=== PATIENT | male | born 1935 | race Caucasian/White ===

== ENCOUNTER 2022-04-10 09:06 | Inpatient (IN) | payer MEDICARE, BC, SELFPAY ==
[2022-04-10] VITALS (28 sets, daily range): BP systolic 128–180; BP diastolic 54–82; PULSE 81–110; RESP 19–36; TEMP 36.6–38; O2SAT 93–98; BMI 29.1; BMI 29.2
--- NOTE | ~2022-04-10 | XR_ITS ---
EXAM: XR hip BI 2V w AP pelvis DATE: 04/10/2022 19:07 HISTORY: fall . COMPARISON: None available. FINDINGS: Normal mineralization. No fracture or dislocation. No lytic or blastic lesion. Degenerativ e changes in the lumbar spine. Bilateral hip arthritis. Chondrocalcinosis. Pelvic and hip enthesopath y. No erosion or periosteal change. Vascular calcification. IMPRESSION: No acute osseous finding in the pelvis or bilateral hips. Reviewed, dictated and finalized at location K. CAL GOODS DRILLING MACHINE OPERATOR
--- NOTE | ~2022-04-10 | CT_ITS ---
EXAMINATION: CT brain wo con DATE: 04/10/2022 10:37 INDICATION: Head injury. TECHNIQUE: Computed tomography (CT) of the head was performed without intravenous contrast. The mA wa s adjusted according to patient size. Iterative reconstruction technique was employed. The dose-lengt h product was 681.00 mGy-cm. COMPARISON: None FINDINGS: There are scattered areas of low attenuation in the cerebral white matter and the bilateral basal ganglia. There is no intracranial hemorrhage, acute infarction, or abnormal intracranial mass lesion. The ventricles are normal in size. There is mucosal thickening and fluid in the paranasal sin uses. There are likely changes of ocular lens replacement surgeries. The mastoid air cells are normal . IMPRESSION: 1. Extensive nonspecific cerebral white matter disease and disease of the bilateral basal ganglia, wh ich likely represents chronic small vessel ischemic disease. Reviewed, dictated and finalized at location A. LEAD IMPRESSION: 1. Extensive nonspecific cerebral white matter disease and disease of the bilat eral basal ganglia, which likely represents chronic small vessel ischemic disea se.
--- NOTE | ~2022-04-10 | XR_ITS ---
EXAMINATION: XR chest 2V DATE: 04/13/2022 07:49 INDICATION: Cough and fever TECHNIQUE: AP and lateral views of the chest are obtained. COMPARISON: 04/10/2022 FINDINGS: Patchy opacities persist throughout all lung zones with slight improvement in the right low er lung zone. No pleural effusion or pneumothorax. The cardiomediastinal silhouette is normal. Surgic al clips project immediately over the right lung apex. IMPRESSION: 1. Diffuse lung disease with slight improvement in the right lower lung zone, consistent with pneumon ia and/or pulmonary edema. Reviewed, dictated and finalized at location A. ING MACHINE OPERATOR IMPRESSION: 1. Diffuse lung disease with slight improvement in the right lower lung zone, c onsistent with pneumonia and/or pulmonary edema.
--- NOTE | ~2022-04-10 | XR_ITS ---
EXAMINATION: XR chest 1V portable INDICATION: Cough and fever TECHNIQUE: Portable AP chest at 1005 hours COMPARISON: None available FINDINGS: There are patchy opacities throughout all lung zones. No pleural effusion or pneumothorax. The cardiomediastinal silhouette is normal. Surgical clips project medially in the right lung apex. IMPRESSION: 1. Diffuse lung disease, consistent with pneumonia and/or pulmonary edema. Reviewed, dictated and finalized at location B. CH AND PROSIZE MIXER
--- NOTE | ~2022-04-10 | US_ITS ---
EXAMINATION: US right upper quadrant DATE: 04/14/2022 09:22 INDICATION: Elevated liver function tests TECHNIQUE: Multiple grayscale and Doppler ultrasound images of the abdomen were obtained. COMPARISON: None available FINDINGS: Bowel gas obscures visualization of the pancreas. The liver is normal with normal echogenic ity and echotexture. No surface nodularity. Normal hepatopetal flow in the main portal vein. The gall bladder is normal with no abnormal wall thickening, pericholecystic fluid or stones. The normal commo n bile duct measures 3 mm. There was no sonographic Schmidt sign. IMPRESSION: 1. Normal sonographic study of the gallbladder. Reviewed, dictated and finalized at location A. Y FARM SUPERVISOR
--- NOTE | 2022-04-10 09:29 | ECG_ITS ---
Measurements Intervals [place] Rate: 91 P: 35 W[place]: 186 QRS: -44 QRSD: 126 T: 3 QT: 348 QTc: 429 Interpretive Statements SINUS RHYTHM VENTRICULAR PREMATURE COMPLEX LEFT AXIS DEVIATION VOLTAGE CRITERIA FOR LVH CANNOT RULE OUT SEPTAL INFARCT, AGE INDETERMINATE BORDERLINE T WAVE ABNORMALITY- INFERIOR LEADS BASELINE WANDER- V6 ABNORMAL ECG NO PREVIOUS ECG AVAILABLE FOR COMPARISON Electronically Signed On 04-10-2022 9:54:17 TYPE BAR AND SEGMENT ASSEMBLER by Kedar Perez D.O.
--- NOTE | 2022-04-10 09:45 | ED.WEAKNESS ---
HPI - Weakness General Chief complaint: Weakness Stated complaint: weakness/fever Source: RN notes reviewed History of Present Illness HPI Narrative: Patient presents emergency room from home for generalized weakness. Patient states he has been ill for the past 5 days states he has had a cough this been nonproductive is been associate with a fever up to 104 per his his last dose of Tylenol was at 7 AM this morning with a gram of Tylenol at that time. Patient also notes rhinorrhea and weakness. He denies any sore throat chest pain abdominal pain nausea or vomiting has been having diarrhea as well. The patient did have a fall proximally 7 days ago in which he had bruised his right lower back he denies any pain in the lower back and has been able to get up and walk he denies striking his head states he has been feeling more weak over the past several days Related Data Allergies Allergy/AdvReac Type Severity Reaction Status Date / Time No Known Allergies Allergy Verified 04/10/22 09:18 Review of Systems Review of Systems: Gen.: Denies fevers or chills Eyes: Denies eye pain or visual change ENT: Denies congestion Respiratory: Reports cough CV: Denies chest pain or palpitations GI: Denies abdominal pain nausea, emesis reports diarrhea denies burning, urgency, frequency or hematuria Musculoskeletal: Denies back pain or muscle pain Neuro: Reports weakness Skin: Denies rash Except as documented, all other systems reviewed and negative [facility] Past Medical History Medical History (Updated 04/10/22 @ 11:24 by Eric Angelo DO) Hypertension Social History Social History (Updated 04/10/22 @ 09:56 by Eric Angelo DO) Smoking status: Former smoker Exam Narrative: APPEARANCE: No acute distress, nontoxic, resting in bed EYES: EOMI HEENT: Normocephalic, atraumatic, OMM no tenderness to posterior pharynx RESPIRATORY: No respiratory distress crackles in the bilateral lung hernandez no wheezing CARDIOVASCULAR: Regular rate and rhythm without murmurs rubs or gallops. ABDOMINAL: Soft, nontender, nondistended, no rebound or guarding MUSCULOSKELETAl: Moves all extremities. No clubbing, cyanosis or edema. Back: No midline thoracic lumbar tenderness palpation mild ecchymosis over the right lateral lower back NEURO: Awake and alert x 4. Following commands, speech normal, no focal deficits SKIN:: Warm, dry. No rashes lesions or abrasions PSYCHIATRIC: Normal affect/mood, Course Course Emergency Course: Discussed Dr Collazo presentation work-up agrees with admission request patient started on vancomycin Zithromax and Rocephin as patient received dose of Tamiflu be admitted to the IMU Discussed with patient and family results of workup and diagnosis. Discussed need for admission. Patient and family understand and agree to current treatment plan Vital Signs Vital signs: Vital Signs Temperature 98.0 F 04/10/22 09:13 Pulse Rate 95 04/10/22 09:13 Respiratory Rate 27 H 04/10/22 09:13 Blood Pressure 137/60 04/10/22 09:13 Pulse Oximetry 94 04/10/22 09:13 Oxygen Delivery Room Air 04/10/22 09:13 Temperature 98.0 F 04/10/22 09:13 Pulse Rate 95 04/10/22 09:16 Respiratory Rate 27 H 04/10/22 09:16 Blood Pressure 137/60 04/10/22 09:13 Pulse Oximetry 94 04/10/22 09:16 Oxygen Delivery Room Air 04/10/22 09:13 MDM - Weakness Lab Data Result diagrams: 04/10/22 09:41 04/10/22 09:41 Labs: Lab Results 04/10/22 04/10/22 04/10/22 Range/Units 09:41 09:41 09:41 WBC 4.7 (4.5-10.0) K/mm3 RBC 4.27 L (4.6-6.20) M/mm3 Hgb 12.3 L (14.0-18.0) g/dL Hct 36.9 L (42.0-52.0) % MCV 86.4 (80-100) fl MCH 28.8 (26-34) pg MCHC 33.3 (32-36) g/dl RDW 13.4 (11.5-14.5) % Plt Count 164 (150-375) k/mm3 MPV 8.8 (7.4-10.4) fl Immature Gran % (Auto) Not Reportable Neut % (Auto) Not Reportable Lymph % (Auto) Not Reportabl
[2022-04-10 09:48] LABS: Hematocrit 36.9 % (42.0-52.0); Hemoglobin 12.3 g/dL (14.0-18.0); Mean Corpuscular HGB Conc 33.3 g/dl (32-36); Mean Corpuscular Hemoglobin 28.8 pg (26-34); Mean Corpuscular Volume 86.4 fl (80-100); Mean Platelet Volume 8.8 fl (7.4-10.4); Platelet Count Result 164 k/mm3 (150-375); Red Blood Count 4.27 M/mm3 (4.6-6.20); Red Cell Distribution Width 13.4 % (11.5-14.5); White Blood Count 4.7 K/mm3 (4.5-10.0)
[2022-04-10 10:00] LABS: Lactic Acid Reflex 1.3 mmol/L (0.7-2.0)
[2022-04-10 10:03] LABS: Alanine Aminotransferase 45 U/L (6-50); Albumin Level 3.5 g/dL (3.5-5.1); Alkaline Phosphatase 69 U/L (38-126); Anion Gap 11 mmol/L (8-16); Aspartate Amino Transferase 72 U/L (17-59); Bilirubin,Total 1.4 mg/dL (0.2-1.3); Blood Urea Nitrogen 11 mg/dL (9-20); Calcium 8.2 mg/dL (8.4-10.2); Carbon Dioxide 25 mmol/L (22-30); Chloride 87 mmol/L (98-107); Estimated CRCL calculation 75 ml/min; Estimated Glomerular Filt Rate > 60; Glucose 110 mg/dL (65-110); Magnesium 1.7 mg/dL (1.6-2.3); Potassium 4.8 mmol/L (3.4-5.0); Sodium 123 mmol/L (137-145)
[2022-04-10 10:06] LABS: INR 1.2
[2022-04-10 10:07] LABS: Partial Thromboplastin Time 33.7 SECONDS (22.3-36.8)
[2022-04-10] MEDS: SODIUM CHLORIDE 0.9% IV 1,000 ML 999 ML IV CONT (10:07)
[2022-04-10 10:08] LABS: Band Neutrophils Percent 18 % (0-6); Lymphocytes Absolute Manual 0.18 K/mm3 (1.1-4.5); Monocytes Absolute Manual 0.23 K/mm3 (0.1-0.90); Monocytes Percent Manual 5 % (3-9); Neutrophils Absolute Manual 4.27 K/mm3 (1.3-6.7); Neutrophils Percent Manual 73 % (46-73); Total Cells Counted 100
[2022-04-10 10:09] LABS: Burr Cells 1+ (NORMAL); Platelet Estimate Adequate (Adequate); Schistocytes None Seen (NORMAL)
[2022-04-10 10:38] LABS: Influenza A QL RT-PCR Positive (Negative); Influenza B QL RT-PCR Negative (Negative); RSV RNA, RT-PCR Negative (Negative); SARS-CoV-2 RNA PCR Negative
[2022-04-10 10:42] LABS: NT Pro B Type Natriuretic Pept 656 pg/mL (5-100); Troponin I < 0.012 ng/mL (0.000-0.034)
--- NOTE | 2022-04-10 12:53 | PC.NURSE ---
Patient's concerned about patient home meds that he has not taken today. Dr Angelo made aware.
[2022-04-10 13:04] LABS: Anion Gap 11 mmol/L (8-16); Blood Urea Nitrogen 9 mg/dL (9-20); Calcium 7.6 mg/dL (8.4-10.2); Carbon Dioxide 25 mmol/L (22-30); Chloride 89 mmol/L (98-107); Estimated CRCL calculation 75 ml/min; Estimated Glomerular Filt Rate > 60; Glucose 135 mg/dL (65-110); Potassium 4.4 mmol/L (3.4-5.0); Sodium 125 mmol/L (137-145)
[2022-04-10] MEDS: OLMESARTAN MEDOXOMIL 20 MG TABLET 40 MG PO (13:28)
[2022-04-10 13:36] LABS: Add Urine Microscopic? YES; Appearance Urine Clear (Clear); Bilirubin Urine Negative (Negative); Blood Urine 1+ (Negative); Color Urine Yellow (Yellow); Glucose Urine UA Negative (Negative); Ketones Urine 1+ mg/dL (Negative); Leukocyte Esterase Ur Negative LEU/UL (Negative); Nitrate Urine Negative (Negative); Protein Urine 2+ mg/dL (Negative); Urobilinogen Urine 0.2 mg/dL (<2.0); pH Urine 6.5 (5.0-9.0)
--- NOTE | 2022-04-10 14:26 | PC.NURSE ---
Patient placed on 2L of O2
--- NOTE | 2022-04-10 16:18 | PM.IMHP ---
H&P: HPI History of Present Illness Date/Time: 04/10/22 16:18 Chief Complaint: Weakness and fever Narrative: 86yo male with HTN here for weakness and fever. Patient was well up until about 6 days prior to admission when he developed weakness, fever, rhinorrhea, chest congestion, cough and chills. Other family members have been ill at home. He takes care of his grandkids who have been having similar symptoms. His also had similar symptoms. Patient was treated with Mucinex and Tylenol. Was noted to have high fevers up to 104. He was relying on the Tylenol to maintain a normal temperature. The symptoms subsided and he had improvement 3-4 days ago. He was able to walk on the treadmill for 10-15 minutes. He had decreased appetite initially but that has improved. Denies headaches, vision changes, hearing changes, odynophagia, dysphagia, nausea, vomiting, dysuria, hematuria or rash. He has had diarrhea over the past few days but no melena or hematochezia. On the day after his symptoms started, he did have a fall landing on his buttocks. There is no head injury or loss of consciousness. He has been able to ambulate without difficulty since that time. Patient's symptoms worsened again over the past few days. This morning patient slipped off the bed landing on his buttocks again. Again no loss conscious or head injury. Patient has been noted to have progressively worsening weakness over the past week. Because of this reason, EMS was contacted and patient was brought to the emergency room for evaluation. In the Emergency room, patient was tachypneic but not hypoxic. Brain CT showed extensive nonspecific cerebral white matter disease but no acute findings. Chest x-ray shows diffuse lung disease consistent with pneumonia and/or pulmonary edema. He does have a history of right upper lobe lobectomy as well as a left blebectomy. He also had left lung pleurodesis. Sodium was 123. LFTs mildly elevated with a bilirubin 1.4 an AST 72. His BNP was 656. Influenza A was positive. Influenza B, RSV and COVID were negative. White count was 4700 with left shift and 18% bands. He was started on Rocephin and azithromycin. Vancomycin was added. Tamiflu was added. Patient was admitted for further care. Review of Systems Review of Systems: All systems reviewed & are unremarkable except as noted in HPI and below PMFSH Past Medical History Medical History (Updated 04/10/22 @ 17:00 by Elias Collazo MD) Atrial fibrillation s/p ablation Cataract Glaucoma Hypercholesteremia Hypertension Surgical History Surgical History (Updated 04/10/22 @ 16:57 by Elias Collazo MD) History of lobectomy of lung Bilateral PTX with RUL resection, left lung blebectomy and left pleurodesis 1993 Hx of inguinal hernia repair Family History Family History (Updated 04/10/22 @ 16:57 by Elias Collazo MD) Mother Breast cancer Carcinoma of colon Father Lung cancer Social History Social History (Updated 04/10/22 @ 16:58 by Elias Collazo MD) Social History: Patient smoked a pack a day for 25 years and quit 1979. He drinks 2 alcoholic drinks per week. No history of heavy alcohol use. No drug use. Lives home with his . No pets. Full code. He nominates his to be the individual would make medical decisions for him if he is unable. Smoking packs per day: 1.5 Smoking cigarettes per day: 30.0 Smoking status: Former smoker Tobacco type: cigarettes Second hand tobacco smoke exposure: No Alcohol intake: current Drinks per week: 2 Substance use: never Substance use type: does not use Lack of Transportation: No Lack of Food: Never True Current Housing: I Have Housing Concerned About Future Housing: No Difficulty Paying Gas/Electric Bills: No Difficulty Paying for Meds: No Currently Unemployed: No Education: Master's Degree or Higher Difficulty w/ Childcare or Family Care: No Spiritual
[2022-04-10] MEDS: METOPROLOL SUCCINATE EXT REL 25 MG TABCR PO (16:51)
[2022-04-10] MEDS: OSELTAMIVIR PHOSPHATE 75 MG CAPSULE PO (16:51)
[2022-04-10] MEDS: SODIUM CHLORIDE 0.9% IV 1,000 ML 100 ML IV CONT (16:51)
[2022-04-10 18:38] LABS: Sodium 119 mmol/L (137-145)
[2022-04-10] MEDS: LATANOPROST 0.005% OP SOLN 2.5 ML BTL 1 DROP EACH EYE (20:10)
[2022-04-10] MEDS: ACETAMINOPHEN 325 MG TABLET 650 MG PO (20:10)
[2022-04-10 22:46] LABS: Creatinine Urine 68.1 mg/dL
[2022-04-10 23:00] LABS: Sodium Urine Random < 5 meq/L
[2022-04-11] VITALS (12 sets, daily range): BP systolic 114–147; BP diastolic 47–60; PULSE 74–87; RESP 20–24; TEMP 36.2–37.2; O2SAT 94–100
[2022-04-11 00:30] LABS: Sodium 122 mmol/L (137-145)
[2022-04-11 04:16] LABS: Hematocrit 31.9 % (42.0-52.0); Hemoglobin 10.7 g/dL (14.0-18.0); Mean Corpuscular HGB Conc 33.5 g/dl (32-36); Mean Corpuscular Hemoglobin 28.8 pg (26-34); Mean Corpuscular Volume 85.8 fl (80-100); Mean Platelet Volume 8.6 fl (7.4-10.4); Platelet Count Result 184 k/mm3 (150-375); Red Blood Count 3.72 M/mm3 (4.6-6.20); Red Cell Distribution Width 13.7 % (11.5-14.5); White Blood Count 6.5 K/mm3 (4.5-10.0)
[2022-04-11 04:31] LABS: Alanine Aminotransferase 45 U/L (6-50); Albumin Level 2.8 g/dL (3.5-5.1); Alkaline Phosphatase 61 U/L (38-126); Anion Gap 9 mmol/L (8-16); Aspartate Amino Transferase 66 U/L (17-59); Bilirubin,Total 1.3 mg/dL (0.2-1.3); Blood Urea Nitrogen 9 mg/dL (9-20); Calcium 7.4 mg/dL (8.4-10.2); Carbon Dioxide 25 mmol/L (22-30); Chloride 89 mmol/L (98-107); Creatine Kinase 146 U/L (55-170); Estimated CRCL calculation 75 ml/min; Estimated Glomerular Filt Rate > 60; Glucose 108 mg/dL (65-110); Potassium 4.5 mmol/L (3.4-5.0); Sodium 123 mmol/L (137-145)
[2022-04-11 04:53] LABS: Band Neutrophils Percent 32 % (0-6); Basophils Absolute Manual 0.06 K/mm3 (0.0-0.1); Basophils Percent Manual 1 % (0-1); Burr Cells 1+ (NORMAL); Giant Platelets Present; Lymphocytes Absolute Manual 1.23 K/mm3 (1.1-4.5); Metamyelocytes Percent 3 %; Monocytes Absolute Manual 0.26 K/mm3 (0.1-0.90); Monocytes Percent Manual 4 % (3-9); Myelocytes Percent 2 %; Neutrophils Absolute Manual 4.61 K/mm3 (1.3-6.7); Neutrophils Percent Manual 39 % (46-73); Ovalocytes 1+ (NORMAL); Platelet Estimate Adequate (Adequate); Poikilocytosis 1+ (NORMAL); Schistocytes 1+ (NORMAL); Total Cells Counted 100
[2022-04-11 04:54] LABS: Crenated RBC 1+ (NORMAL); Tear Drop Cells 1+ (NORMAL)
[2022-04-11 05:35] LABS: Folic Acid 18.2 ng/mL (2.76->20)
[2022-04-11] MEDS: ATORVASTATIN 10 MG TABLET PO (09:42)
[2022-04-11] MEDS: ENOXAPARIN 40 MG/0.4 ML SYRINGE SUB-Q (09:42)
[2022-04-11] MEDS: METOPROLOL SUCCINATE EXT REL 25 MG TABCR PO (09:43)
[2022-04-11] MEDS: OLMESARTAN MEDOXOMIL 20 MG TABLET 40 MG PO (09:43)
--- NOTE | 2022-04-11 10:27 | PM.IMPN ---
Progress Note: A&P Assessment and Plan (1) Sepsis: Code(s): A41.9 - Sepsis, unspecified organism Status: Acute Assessment and Plan: Present on admission with bandemia and tachypnea. Related to influenza a and bacterial pneumonia. Blood cultures are no growth to date. White count remains normal. Bandemia however has worsened. He also has evidence of bone marrow strain with metamyelocytes and myelocytes. Probably related to some mild bone marrow suppression and leukopenia from the influenza. MRSA nasal swab is pending. Continue IV antibiotics. (2) Community acquired pneumonia: Code(s): J18.9 - Pneumonia, unspecified organism Status: Acute Assessment and Plan: As above. Continue IV antibiotics. Continue nebulizer treatments. Wean oxygen as tolerated. (3) Influenza A: Code(s): J10.1 - Influenza due to other identified influenza virus with other respiratory manifestations Status: Acute Assessment and Plan: Tamiflu is not continued through the emergency room. Will resume it this morning. Continue supportive care. (4) Acute hyponatremia: Code(s): E87.1 - Hypo-osmolality and hyponatremia Status: Acute Assessment and Plan: Sodium was 123 on admission. It improved initially with fluids but then dropped to 119. He was fluid restricted and sodium has improved back to 123 today. His urine sodium however is less than 5 and FENa 0.04% to suggest dehydration. TSH and cortisol okay. Could be multiple etiologies. Will follow for now on the fluid restriction. Repeat Na levels and follow (5) Hypertension: Code(s): I10 - Essential (primary) hypertension Status: Acute Assessment and Plan: Patient's blood pressure was reviewed on 04/11 Blood pressure remains well controlled. Will continue current medications. (6) Atrial fibrillation: Code(s): I48.91 - Unspecified atrial fibrillation Status: Acute Assessment and Plan: no evidence of recurrence. Continue metoprolol. Subjective Date/time seen: 04/11/22 10:27 Interval history: 86yo male with hx of AFib and HTN here for shortness of breath and found to have influenza A and PNA. Patient feels better. SOB improved. Cough improved and nonproductive. No CP. No n/v. Voiding normally now. Exam Narrative: Tm 100.4 97.2 114/47 82 24 99% 2L Gen - NARD Chest - mid and lower lung field inspiratory crackles. nml RR CV - RRR S1/S2; Tele showing PVCs Abd - soft, NT/ND, +BS Ext - no pedal edema. Psych - normal mood and affect. Skin - warm and dry. bruising noted low back and sacral area Objective Data Vital Signs Vital Signs: Vital Signs - 24 hr 04/10/22 10:38 04/10/22 10:46 04/10/22 11:00 Temperature Pulse Rate 92 89 84 Respiratory Rate 25 H 21 H 22 H Blood Pressure Pulse Oximetry 95 97 96 Oxygen Delivery Oxygen Flow Rate 04/10/22 11:11 04/10/22 11:16 04/10/22 11:45 Temperature Pulse Rate 89 87 90 Respiratory Rate 23 H 27 H 29 H Blood Pressure 150/65 H 140/67 Pulse Oximetry 97 97 97 Oxygen Delivery Oxygen Flow Rate 04/10/22 11:47 04/10/22 12:16 04/10/22 13:08 Temperature Pulse Rate 92 96 101 H Respiratory Rate 19 24 H 28 H Blood Pressure 156/67 H 163/71 H Pulse Oximetry 98 98 98 Oxygen Delivery Oxygen Flow Rate 04/10/22 13:46 04/10/22 15:02 04/10/22 16:00 Temperature 99.5 F Pulse Rate 110 H 103 H 94 Respiratory Rate 36 H 34 H Blood Pressure 180/82 H 143/54 H 156/56 H Pulse Oximetry 94 97 97 Oxygen Delivery Oxygen Flow Rate 04/10/22 16:00 04/10/22 16:44 04/10/22 16:54 Temperature Pulse Rate 102 H 90 92 Respiratory Rate 22 H Blood Pressure Pulse Oximetry Oxygen Delivery Oxygen Flow Rate 04/10/22 16:51 04/10/22 16:00 04/10/22 18:00 Temperature Pulse Rate 93 89 Respiratory Rate Blood Pressure Pulse Oximetry 95
[2022-04-11 12:19] LABS: Sodium 124 mmol/L (137-145)
[2022-04-11] MEDS: OSELTAMIVIR PHOSPHATE 75 MG CAPSULE PO ×2 (12:49→20:05)
[2022-04-11] MEDS: SODIUM CHLORIDE 1 GM TABLET PO (20:05)
[2022-04-11 20:16] LABS: Sodium 122 mmol/L (137-145)
[2022-04-11] MEDS: LATANOPROST 0.005% OP SOLN 2.5 ML BTL 1 DROP EACH EYE (21:28)
--- NOTE | 2022-04-11 23:24 | PC.NURSE ---
This patient, Andrew Chauhan , was transferred to [facility] on 04/11/22 at 2300. Personal belongings sent with patient. Report given to González. Appropriate documentation sent with patient.
[2022-04-12] VITALS (8 sets, daily range): BP systolic 143–162; BP diastolic 62–68; PULSE 68–85; RESP 18–30; TEMP 36.2–38.1; O2SAT 93–98
[2022-04-12 06:34] LABS: Basophils Percent Auto 0.2 % (0.2-1.2); Eosinophils Percent Auto 0.4 % (0-4.4); Hematocrit 30.3 % (42.0-52.0); Hemoglobin 10.2 g/dL (14.0-18.0); Immature Granulocyte Absolute 0.09 K/mm3 (0.00-0.031); Immature Granulocyte Percent A 0.9 % (0-0.5); Lymphocytes Absolute Auto 1.19 K/mm3 (0.9-3.2); Lymphocytes Percent Auto 12.1 % (18.3-44.2); Mean Corpuscular HGB Conc 33.7 g/dl (32-36); Mean Corpuscular Hemoglobin 28.3 pg (26-34); Mean Corpuscular Volume 84.2 fl (80-100); Mean Platelet Volume 8.5 fl (7.4-10.4); Monocytes Absolute Auto 0.8 K/mm3 (0.1-0.6); Monocytes Percent Auto 8.1 % (2.6-8.5); Neutrophils Absolute Auto 7.7 K/mm3 (1.3-6.7); Neutrophils Percent Auto 78.3 % (45.5-73.1); Platelet Count Result 226 k/mm3 (150-375); Red Cell Distribution Width 13.8 % (11.5-14.5); White Blood Count 9.8 K/mm3 (4.5-10.0)
[2022-04-12 06:55] LABS: Alanine Aminotransferase 84 U/L (6-50); Albumin Level 2.7 g/dL (3.5-5.1); Alkaline Phosphatase 76 U/L (38-126); Anion Gap 6 mmol/L (8-16); Aspartate Amino Transferase 122 U/L (17-59); Bilirubin,Total 1.1 mg/dL (0.2-1.3); Blood Urea Nitrogen 10 mg/dL (9-20); Calcium 7.3 mg/dL (8.4-10.2); Carbon Dioxide 27 mmol/L (22-30); Chloride 90 mmol/L (98-107); Estimated CRCL calculation 86 ml/min; Estimated Glomerular Filt Rate > 60; Glucose 106 mg/dL (65-110); Potassium 4.1 mmol/L (3.4-5.0); Sodium 123 mmol/L (137-145)
[2022-04-12] MEDS: ATORVASTATIN 10 MG TABLET PO (09:15)
[2022-04-12] MEDS: ENOXAPARIN 40 MG/0.4 ML SYRINGE SUB-Q (09:15)
[2022-04-12] MEDS: METOPROLOL SUCCINATE EXT REL 25 MG TABCR PO (09:15)
[2022-04-12] MEDS: OLMESARTAN MEDOXOMIL 20 MG TABLET 40 MG PO (09:16)
[2022-04-12] MEDS: OSELTAMIVIR PHOSPHATE 75 MG CAPSULE PO ×2 (09:16→20:17)
[2022-04-12] MEDS: SODIUM CHLORIDE 1 GM TABLET PO ×2 (09:16→17:52)
--- NOTE | 2022-04-12 12:23 | PM.IMPN ---
Progress Note: A&P Assessment and Plan (1) Sepsis: Code(s): A41.9 - Sepsis, unspecified organism Status: Acute Assessment and Plan: Present on admission with bandemia and tachypnea. Related to influenza A and bacterial pneumonia. Blood cultures are no growth to date. White count remains normal. MRSA nasal swab and sputum cx pending. Continue IV antibiotics. (2) Community acquired pneumonia: Code(s): J18.9 - Pneumonia, unspecified organism Status: Acute Assessment and Plan: As above.? Continue IV antibiotics.? Continue nebulizer treatments.? Wean oxygen as tolerated. Add IS. Repeat CXR in the morning. (3) Influenza A: Code(s): J10.1 - Influenza due to other identified influenza virus with other respiratory manifestations Status: Acute Assessment and Plan: Currently on Tamiflu.? Continue supportive care. (4) Acute hyponatremia: Code(s): E87.1 - Hypo-osmolality and hyponatremia Status: Acute Assessment and Plan: Sodium was 123 on admission.? It improved initially with fluids but then dropped to 119.? He was fluid restricted and sodium has improved back to 123 but there has remained stable. NaCl tabs started. Urine sodium however is <5 and FENa 0.04% to suggest dehydration. TSH and cortisol okay. Could be multiple etiologies. Will repeat urine Na. Stop fluid restriction. Asked patient to avoid free water. Repeat Na levels and follow. His abx are in D5W which could be contributing. (5) Hypertension: Code(s): I10 - Essential (primary) hypertension Status: Acute Assessment and Plan: Patient's blood pressure was reviewed on 04/12 Blood pressure remains reasonably well controlled.? Will continue current medications.? (6) Atrial fibrillation: Code(s): I48.91 - Unspecified atrial fibrillation Status: Acute Assessment and Plan: No evidence of recurrence.? Continue metoprolol. Stop tele (7) Elevated LFTs: Code(s): R79.89 - Other specified abnormal findings of blood chemistry Status: Acute Assessment and Plan: AST/ALT higher today. Related to medications? Viral? No RUQ pain. Doubt he has acute hepatitis. Will follow for now. Hold Lipitor Subjective Date/time seen: 04/12/22 12:23 Interval history: 86yo male with hx of AFib and HTN here for shortness of breath and found to have influenza A and PNA. Still with nonproductive cough. Cough has improved overall. No nausea or vomiting. No chest pain or shortness of breath. Was up to the chair yesterday for about 45 minutes. Exam Narrative: AF 97.7 162/68 68 30 95% 2L Gen - NARD Chest - mid and lower lung field inspiratory crackles. nml RR CV - RRR S1/S2; Tele showing PVCs Abd - soft, NT/ND, +BS Ext - no pedal edema. Psych - depressed mood with poor eye contact Skin - warm and dry. mild erythema to the right face that is mildly warm to touch Objective Data Vital Signs Vital Signs: Vital Signs - 24 hr 04/11/22 16:00 04/11/22 14:00 04/11/22 16:00 Temperature 99 F Pulse Rate 87 82 87 Respiratory Rate 22 H Blood Pressure 140/60 Pulse Oximetry 95 Oxygen Delivery Oxygen Flow Rate 04/11/22 19:56 04/11/22 20:00 04/11/22 20:00 Temperature 98.6 F Pulse Rate 80 81 Respiratory Rate 20 Blood Pressure 147/60 H Pulse Oximetry 100 94 Oxygen Delivery Nasal Cannula Oxygen Flow Rate 2 04/12/22 00:00 04/12/22 00:00 04/12/22 04:00 Temperature 97.7 F Pulse Rate 85 85 79 Respiratory Rate 30 H Blood Pressure 162/68 H Pulse Oximetry 95 Oxygen Delivery Oxygen Flow Rate 04/12/22 09:15 04/12/22 10:46 04/12/22 10:30 Temperature Pulse Rate 68 Respiratory Rate Blood Pressure Pulse Oximetry Oxygen Delivery Nasal Cannula Nasal Cannula Oxygen Flow Rate 2 2 Intake/Output Intake/Output: Intake & Output 04/09/22 04/10/22 04/11/22 04/12/22 23:59 23:
[2022-04-12] MEDS: AZITHROMYCIN 250 MG TABLET PO (13:34)
[2022-04-12 14:03] LABS: Sodium 127 mmol/L (137-145)
[2022-04-12] MEDS: ACETAMINOPHEN 325 MG TABLET 650 MG PO (17:52)
[2022-04-12 17:57] LABS: Sodium Urine Random 14 meq/L
[2022-04-12 19:32] LABS: Sodium 125 mmol/L (137-145)
[2022-04-12] MEDS: LATANOPROST 0.005% OP SOLN 2.5 ML BTL 1 DROP EACH EYE (20:17)
[2022-04-13] VITALS (7 sets, daily range): BP systolic 129–149; BP diastolic 64–72; PULSE 78–94; RESP 18–28; TEMP 36.6–38.1; O2SAT 92–100
[2022-04-13] MEDS: SODIUM CHLORIDE 1 GM TABLET PO ×2 (08:27→17:20)
[2022-04-13] MEDS: OLMESARTAN MEDOXOMIL 20 MG TABLET 40 MG PO (08:27)
[2022-04-13] MEDS: OSELTAMIVIR PHOSPHATE 75 MG CAPSULE PO ×2 (08:27→20:38)
[2022-04-13] MEDS: ENOXAPARIN 40 MG/0.4 ML SYRINGE SUB-Q (08:28)
[2022-04-13] MEDS: AZITHROMYCIN 250 MG TABLET PO (08:28)
[2022-04-13] MEDS: METOPROLOL SUCCINATE EXT REL 25 MG TABCR PO (10:27)
--- NOTE | 2022-04-13 12:03 | PM.IMPN ---
Progress Note: A&P Assessment and Plan (1) Sepsis: Code(s): A41.9 - Sepsis, unspecified organism Status: Acute Assessment and Plan: Present on admission with bandemia and tachypnea. Related to influenza A and bacterial pneumonia. Blood cultures are no growth to date. Sputum NGTD. White count pending. MRSA nasal swab negative. Continue Rocephin and Azithromycin. Stop Vanco. (2) Community acquired pneumonia: Code(s): J18.9 - Pneumonia, unspecified organism Status: Acute Assessment and Plan: As above.?CXR showing some improvement. Concern for pulm edema. Will repeat BNP. Continue antibiotics.? Continue nebulizer treatments.? Wean oxygen as tolerated. Continue IS. (3) Influenza A: Code(s): J10.1 - Influenza due to other identified influenza virus with other respiratory manifestations Status: Acute Assessment and Plan: Currently on Tamiflu.? Continue supportive care. (4) Acute hyponatremia: Code(s): E87.1 - Hypo-osmolality and hyponatremia Status: Acute Assessment and Plan: Sodium was 123 on admission.? It improved initially with fluids but then dropped to 119.? He was fluid restricted and sodium has improved back to 123 but there has remained stable. NaCl tabs started. Urine sodium however is <5 and FENa 0.04% to suggest dehydration. TSH and cortisol okay. Could be multiple etiologies. Repeat urine Na still low end so we stopped fluid restriction. Repeat Na levels better. Levels pending today. (5) Hypertension: Code(s): I10 - Essential (primary) hypertension Status: Acute Assessment and Plan: Patient's blood pressure was reviewed on 04/13 Blood pressure remains reasonably well controlled.? Will continue current medications.? (6) Atrial fibrillation: Code(s): I48.91 - Unspecified atrial fibrillation Status: Acute Assessment and Plan: No evidence of recurrence.? Continue metoprolol. (7) Elevated LFTs: Code(s): R79.89 - Other specified abnormal findings of blood chemistry Status: Acute Assessment and Plan: AST/ALT higher yesterday. Related to medications? Viral? No RUQ pain. Doubt he has acute hepatitis. Lipitor on hold. Repeat values pending Subjective Date/time seen: 04/13/22 12:03 Interval history: 86yo male with hx of AFib and HTN here for shortness of breath and found to have influenza A and PNA. Feels better today. Fever yesterday evening to 100.6. Coughing only when he takes deep breaths and when he uses the IS. No n/v. No CP or SOB. Walking to the bedside commode. Exam Narrative: Tm 100.6 98.7 149/64 84 28 92% 1L Gen - NARD sitting at the side of the bed Chest - bilateral lower lung field inspiratory crackles. nml RR CV - RRR S1/S2 Abd - soft, NT/ND, +BS Ext - no pedal edema. Psych - more animated today. better spirits. Skin - warm and dry. no facial erythema Objective Data Vital Signs Vital Signs: Vital Signs - 24 hr 04/12/22 12:45 04/12/22 17:27 04/12/22 17:52 Temperature 97.2 F L 100.6 F H 100.5 F H Pulse Rate 79 Respiratory Rate 18 Blood Pressure 143/62 H Pulse Oximetry 98 Oxygen Delivery Oxygen Flow Rate 04/12/22 22:00 04/13/22 06:00 04/13/22 10:21 Temperature 98 F 98.7 F Pulse Rate 76 78 84 Respiratory Rate 20 28 H Blood Pressure 143/65 H 149/64 H Pulse Oximetry 93 93 96 Oxygen Delivery Oxygen Flow Rate 04/13/22 11:05 Temperature Pulse Rate Respiratory Rate Blood Pressure Pulse Oximetry 92 Oxygen Delivery Nasal Cannula Oxygen Flow Rate 1 Intake/Output Intake/Output: Intake & Output 04/10/22 04/11/22 04/12/22 04/13/22 23:59 23:59 23:59 23:59 Intake Total 2340 1860 1920 720 Output Total 2375 1150 1025 Balance 2340 -515 770 -305 Meds/Results Medications: Active Medications Generic Name Dose Route Start Last Admin Trade Name Freq PRN Reason Stop Dose Admin
[2022-04-13 12:13] LABS: Basophils Percent Auto 0.2 % (0.2-1.2); Eosinophils Absolute Auto 0.2 K/mm3 (0-0.3); Eosinophils Percent Auto 1.6 % (0-4.4); Hematocrit 33.7 % (42.0-52.0); Hemoglobin 11.1 g/dL (14.0-18.0); Immature Granulocyte Absolute 0.22 K/mm3 (0.00-0.031); Immature Granulocyte Percent A 2.3 % (0-0.5); Lymphocytes Absolute Auto 1.44 K/mm3 (0.9-3.2); Lymphocytes Percent Auto 14.9 % (18.3-44.2); Mean Corpuscular HGB Conc 32.9 g/dl (32-36); Mean Corpuscular Hemoglobin 28.8 pg (26-34); Mean Corpuscular Volume 87.3 fl (80-100); Mean Platelet Volume 8.6 fl (7.4-10.4); Monocytes Absolute Auto 0.9 K/mm3 (0.1-0.6); Monocytes Percent Auto 9.1 % (2.6-8.5); Neutrophils Percent Auto 71.9 % (45.5-73.1); Platelet Count Result 289 k/mm3 (150-375); Red Blood Count 3.86 M/mm3 (4.6-6.20); Red Cell Distribution Width 14.2 % (11.5-14.5); White Blood Count 9.7 K/mm3 (4.5-10.0)
[2022-04-13 12:28] LABS: Alanine Aminotransferase 140 U/L (6-50); Alkaline Phosphatase 87 U/L (38-126); Anion Gap 9 mmol/L (8-16); Aspartate Amino Transferase 168 U/L (17-59); Blood Urea Nitrogen 12 mg/dL (9-20); Calcium 7.8 mg/dL (8.4-10.2); Carbon Dioxide 29 mmol/L (22-30); Chloride 89 mmol/L (98-107); Estimated CRCL calculation 86 ml/min; Estimated Glomerular Filt Rate > 60; Glucose 101 mg/dL (65-110); Magnesium 2.1 mg/dL (1.6-2.3); Phosphorus 3.4 mg/dL (2.5-4.5); Potassium 4.5 mmol/L (3.4-5.0); Sodium 127 mmol/L (137-145)
[2022-04-13 15:15] LABS: NT Pro B Type Natriuretic Pept 678 pg/mL (5-100)
[2022-04-13] MEDS: ACETAMINOPHEN 325 MG TABLET 650 MG PO (17:30)
[2022-04-13] MEDS: LATANOPROST 0.005% OP SOLN 2.5 ML BTL 1 DROP EACH EYE (20:38)
[2022-04-14] VITALS (8 sets, daily range): BP systolic 130–142; BP diastolic 58–69; PULSE 73–88; RESP 18–20; TEMP 36.4–36.6; O2SAT 90–99
[2022-04-14 00:17] LABS: Pneumococcal Antigen Urine Not Detected (Not Detected)
[2022-04-14 07:05] LABS: Alanine Aminotransferase 165 U/L (6-50); Albumin Level 2.7 g/dL (3.5-5.1); Alkaline Phosphatase 99 U/L (38-126); Anion Gap 8 mmol/L (8-16); Aspartate Amino Transferase 163 U/L (17-59); Blood Urea Nitrogen 10 mg/dL (9-20); Calcium 7.5 mg/dL (8.4-10.2); Carbon Dioxide 28 mmol/L (22-30); Chloride 92 mmol/L (98-107); Estimated CRCL calculation 86 ml/min; Estimated Glomerular Filt Rate > 60; Glucose 96 mg/dL (65-110); Potassium 3.9 mmol/L (3.4-5.0); Sodium 128 mmol/L (137-145)
[2022-04-14] MEDS: SODIUM CHLORIDE 1 GM TABLET PO ×2 (09:39→16:07)
[2022-04-14] MEDS: FUROSEMIDE INJ 40 MG/4 ML VIAL 20 MG IV PUSH (09:39)
[2022-04-14] MEDS: OSELTAMIVIR PHOSPHATE 75 MG CAPSULE PO ×2 (09:39→20:53)
[2022-04-14] MEDS: OLMESARTAN MEDOXOMIL 20 MG TABLET 40 MG PO (09:39)
[2022-04-14] MEDS: AZITHROMYCIN 250 MG TABLET PO (09:40)
[2022-04-14] MEDS: METOPROLOL SUCCINATE EXT REL 25 MG TABCR PO (09:40)
[2022-04-14] MEDS: ENOXAPARIN 40 MG/0.4 ML SYRINGE SUB-Q (09:40)
--- NOTE | 2022-04-14 12:55 | PM.IMPN ---
Progress Note: A&P Assessment and Plan (1) Sepsis: Code(s): A41.9 - Sepsis, unspecified organism Status: Acute Assessment and Plan: Present on admission with bandemia and tachypnea. Related to influenza A and bacterial pneumonia. Blood cultures are no growth to date. Sputum NGTD. White count normal. MRSA nasal swab negative. He completed azithro. Continue Rocephin. Stop Vanco. Switch to Omnicef. To SNF once this is arranged. (2) Community acquired pneumonia: Code(s): J18.9 - Pneumonia, unspecified organism Status: Acute Assessment and Plan: As above.?CXR showing some improvement. Concern for pulm edema. BNP 650. Lasix once given this morning. Continue antibiotics.?Weaned to room air. Continue IS. (3) Influenza A: Code(s): J10.1 - Influenza due to other identified influenza virus with other respiratory manifestations Status: Acute Assessment and Plan: Currently on Tamiflu.? Continue supportive care. (4) Acute hyponatremia: Code(s): E87.1 - Hypo-osmolality and hyponatremia Status: Acute Assessment and Plan: Sodium was 123 on admission.? It improved initially with fluids but then dropped to 119.? He was fluid restricted and sodium has improved back to 123 but there has remained stable. NaCl tabs started. Urine sodium however is <5 and FENa 0.04% to suggest dehydration. TSH and cortisol okay. Could be multiple etiologies. Repeat urine Na still low end so we stopped fluid restriction. Repeat Na levels 128 today. Follow. (5) Hypertension: Code(s): I10 - Essential (primary) hypertension Status: Acute Assessment and Plan: Patient's blood pressure was reviewed on 04/14 Blood pressure remains reasonably well controlled.? Will continue current medications.? (6) Atrial fibrillation: Code(s): I48.91 - Unspecified atrial fibrillation Status: Acute Assessment and Plan: No evidence of recurrence.? Continue metoprolol. (7) Elevated LFTs: Code(s): R79.89 - Other specified abnormal findings of blood chemistry Status: Acute Assessment and Plan: AST/ALT about the same today. Related to medications? Viral? No RUQ pain. Lipitor on hold. Rt upper quadrant US pending. Subjective Date/time seen: 04/14/22 12:55 Interval history: 86yo male with hx of AFib and HTN here for shortness of breath and found to have influenza A and PNA. Feeling well. Still very weak and feels he needs rehab at discharge. Not excessive UOP with Lasix dose. Off O2 today. He feels ready for discharge. Exam Narrative: Tm 100.6 97.6 135/69 88 18 97% ra Gen - NARD sitting up in the chair Chest - improved bilateral lower lobe crackles. nml RR CV - RRR S1/S2 Abd - soft, NT/ND, +BS Ext - no pedal edema. Psych - nml mood and affect Skin - warm and dry Objective Data Vital Signs Vital Signs: Vital Signs - 24 hr 04/13/22 14:24 04/13/22 17:30 04/13/22 19:07 Temperature 97.8 F 100.6 F H 98.1 F Pulse Rate 94 90 Respiratory Rate 18 Blood Pressure 143/72 H Pulse Oximetry 100 95 Oxygen Delivery Oxygen Flow Rate 04/13/22 20:26 04/14/22 05:43 04/14/22 09:40 Temperature 98 F 97.6 F Pulse Rate 91 73 88 Respiratory Rate 20 18 Blood Pressure 129/69 135/69 Pulse Oximetry 94 91 Oxygen Delivery Oxygen Flow Rate 04/14/22 08:00 04/14/22 12:00 04/14/22 12:31 Temperature Pulse Rate Respiratory Rate Blood Pressure Pulse Oximetry 94 94 97 Oxygen Delivery Nasal Cannula Room Air Oxygen Flow Rate 1 1 Intake/Output Intake/Output: Intake & Output 04/11/22 04/12/22 04/13/22 04/14/22 23:59 23:59 23:59 23:59 Intake Total 1860 1970 1560 440 Output Total 2375 1150 1550 800 Balance -515 820 10 -360 Meds/Results Medications: Active Medications Generic Name Dose Route Start Last Admin Trade Name Freq PRN Reason Stop Dose Admin Acetaminophen 6
[2022-04-14] MEDS: LATANOPROST 0.005% OP SOLN 2.5 ML BTL 1 DROP EACH EYE (20:53)
[2022-04-15 05:41] VITALS: BP 139/62; PULSE 79; RESP 18; TEMP 36.4; O2SAT 88
[2022-04-15 06:44] LABS: Alanine Aminotransferase 170 U/L (6-50); Albumin Level 2.8 g/dL (3.5-5.1); Alkaline Phosphatase 107 U/L (38-126); Anion Gap 7 mmol/L (8-16); Aspartate Amino Transferase 141 U/L (17-59); Bilirubin,Total 1.2 mg/dL (0.2-1.3); Blood Urea Nitrogen 12 mg/dL (9-20); Calcium 7.5 mg/dL (8.4-10.2); Carbon Dioxide 28 mmol/L (22-30); Chloride 93 mmol/L (98-107); Estimated CRCL calculation 75 ml/min; Estimated Glomerular Filt Rate > 60; Glucose 101 mg/dL (65-110); Potassium 4.2 mmol/L (3.4-5.0); Sodium 128 mmol/L (137-145)
[2022-04-15 07:00] VITALS: O2SAT 93
[2022-04-15] MEDS: ENOXAPARIN 40 MG/0.4 ML SYRINGE SUB-Q (08:26)
[2022-04-15 08:27] VITALS: PULSE 76
[2022-04-15] MEDS: CEFDINIR 300 MG CAPSULE PO (08:27)
[2022-04-15] MEDS: METOPROLOL SUCCINATE EXT REL 25 MG TABCR PO (08:27)
[2022-04-15] MEDS: OSELTAMIVIR PHOSPHATE 75 MG CAPSULE PO (08:27)
[2022-04-15] MEDS: OLMESARTAN MEDOXOMIL 20 MG TABLET 40 MG PO (08:27)
[2022-04-15] MEDS: SODIUM CHLORIDE 1 GM TABLET PO (08:27)
--- NOTE | 2022-04-15 09:13 | PCOTNOTE ---
Attempted to see patient this am, however patient refused. Pt sitting up in chair upon entering replied, No, to all functional OT activities encouraged at this time including bathing, grooming, and toileting tasks.
[2022-04-15 09:38] LABS: Hepatitis B Surface Antigen Negative (Negative)
[2022-04-15 09:44] LABS: HAV RESULT Negative (Negative); Hepatitis B Core IgM Result Negative (Negative)
[2022-04-15 09:55] LABS: Hepatitis C Virus Antibody Negative (Negative)
--- NOTE | 2022-04-15 12:49 | PM.DS ---
DS: Admitting Diagnosis Discharge Date 04/15/22 Admitting Diagnosis Shortness of breath DS: Discharge Diagnosis Discharge Diagnosis (1) Sepsis: Code(s): A41.9 - Sepsis, unspecified organism Status: Acute (2) Community acquired pneumonia: Code(s): J18.9 - Pneumonia, unspecified organism Status: Acute (3) Influenza A: Code(s): J10.1 - Influenza due to other identified influenza virus with other respiratory manifestations Status: Acute (4) Acute hyponatremia: Code(s): E87.1 - Hypo-osmolality and hyponatremia Status: Acute (5) Hypertension: Code(s): I10 - Essential (primary) hypertension Status: Acute (6) Atrial fibrillation: Code(s): I48.91 - Unspecified atrial fibrillation Status: Acute (7) Elevated LFTs: Code(s): R79.89 - Other specified abnormal findings of blood chemistry Status: Acute DS: Summary Hospital Course Reason for hospitalization: 86yo male with hx of AFib and HTN here for shortness of breath and found to have influenza A and PNA. Please see H&P for details Hospital Course: Sepsis present on admission with bandemia and tachypnea.? Related to influenza A and bacterial pneumonia.? Blood cultures are no growth to date.? Sputum NGTD. White count normal.? MRSA nasal swab negative. He completed azithro. Treated with Rocephin and Vancomycin but Vanco stopped with negative MRSA nasal swab. Was also treated with Tamiflu. Sodium was 123 on admission.? It improved initially with fluids but then dropped to 119.? He was fluid restricted and sodium improved back to 123 but then remained stable. NaCl tabs started. Urine sodium however is <5 and FENa 0.04% to suggest dehydration. TSH and cortisol okay. Could be multiple etiologies. We stopped fluid restriction and allowed him to rehydrate. Repeat Na levels up to 128. His baseline sodium level is low 130 range. AST/ALT elevated and climbed to 168 and 140 respectfully. RUQ US normal. Hepatitis panel negative. [place] related to viral etiology. He was waned off O2. He was weak and therapy worked with him. He overall did well and was able to be discharged to rehab on 04/15/22. Discussed with Rehab provider who agrees to accept patietn. All questions aswered. Status at Discharge Cognitive/behavioral status at discharge: stable Time Spent with Patient Time attestation: Total time spent providing and/or coordinating discharge services: 35 minutes Time spent: Greater than 30 minutes Exam Narrative: AF 97.5 139/62 76 18 93% ra Gen - NARD sitting up in the chair Chest - bilateral lower lobe inspir crackles. nml RR CV - RRR S1/S2 Abd - soft, NT/ND, +BS Ext - no pedal edema. Psych - nml mood and affect Skin - warm and dry DS: Data Data Completed and Pending Labs on day of discharge: Labs from last 24 hours 04/15/22 04/15/22 06:09 06:08 Sodium 128 L Potassium 4.2 Chloride 93 L Carbon Dioxide 28 Anion Gap 7 L BUN 12 Creatinine 0.70 Estim Creat Clear Calc 75 Estimated GFR > 60 Glucose 101 Calcium 7.5 L Total Bilirubin 1.2 AST 141 H ALT 170 H Alkaline Phosphatase 107 Total Protein 6.0 L Albumin 2.8 L Hepatitis A IgM Ab Negative Hep Bs Antigen Negative Hep B Core IgM Ab Negative Hepatitis C Ab Screen Negative Preliminary micro results at discharge 04/10/22 09:41 Blood Culture - Preliminary Blood 04/10/22 09:41 Blood Culture - Preliminary Blood Discharge Plan Discharge Attending physician on discharge: Elias Collazo Discharging Clinician: Elias Collazo Anticipated Discharge Date/Time: 04/15/22 13:00 Patient Disposition: Acute Care Hospital Activity: as tolerated Diet: heart healthy Discharge Instructions: Please avoid large gathering, wear face coverings in public and practice social distance. Influenza precautions. Take precautions to avoid falls. Please have jhonatan
[2022-04-15 14:00] VITALS: BP 136/64; PULSE 83; RESP 18; TEMP 37.6; O2SAT 90
[2022-04-15 19:52] LABS: Legionella pneumophila Ag Ur Not Detected (Not Detected)
--- NOTE | 2022-04-18 07:41 | PC.NURSE ---
Urine Legionella and Urine Pneumococcal Ag are both negative. Dr. Zay cody.
== END 2022-04-15 15:20 | disposition short-term general hospital (02) | DRG 871 ==
LOC: ANHED 11:24 → ANHIMU 13:38 → ANH3MEDSUR 04-11 23:08
PROVIDERS: Admitting Provider Internal Medicine; Emergency Provider Emergency Medicine; Visit Provider Internal Medicine
DX: A41.9 Sepsis, unspecified organism (principal); J10.08 Influenza due to other identified influenza virus with other specified pneumonia; J15.9 Unspecified bacterial pneumonia; E87.1 Hypo-osmolality and hyponatremia; I48.20 Chronic atrial fibrillation, unspecified; I10 Essential (primary) hypertension; R79.89 Other specified abnormal findings of blood chemistry; E78.00 Pure hypercholesterolemia, unspecified; H40.9 Unspecified glaucoma; Z20.822 Contact with and (suspected) exposure to COVID-19; Z87.891 Personal history of nicotine dependence
CPT/HCPCS: 36415; 51701; 70450; 71045; 71046; 73521; 76705; 80048; 80053; 80074; 80076; 80202; 81001; 82533; 82550; 82570; 82607; 82746; 83605; 83735; 83880; 84100; 84295; 84300; 84443; 84484; 85025; 85610; 85730; 87040; 87070; 87081; 87205; 87449; 87637; 87899; 93005; 94640; 96361; 96365; 96366; 96367; 96372; 97110; 97116; 97161; 97165; 97530; 97535; 99285; A9270; G0378; J0456; J0696; J1650; J1940; J3370; J7030

== ENCOUNTER → 2023-01-03 08:34 | Outpatient (CLI) | payer MEDICARE, BC, SELFPAY ==
--- NOTE | ~2023-01-03 | XR_ITS ---
Clinical Indication: Pneumonia PA and lateral views of the chest: Comparison: 04/13/2022 Findings: There is extensive chronic interstitial disease of the lungs, with relative peripheral dist ribution. Cardiomediastinal silhouette is within normal limits. Bones and soft tissues are unremarka ble. Impression: Extensive chronic interstitial pulmonary disease. Reviewed, dictated and finalized at location . Impression: Extensive chronic interstitial pulmonary disease.
== END ==
DX: J18.9 Pneumonia, unspecified organism (principal); J84.89 Other specified interstitial pulmonary diseases
CPT/HCPCS: 71046

== ENCOUNTER 2024-05-07 09:36 | Inpatient (IN) | payer MEDICARE, BC, SELFPAY ==
[2024-05-07] VITALS (13 sets, daily range): BP systolic 110–158; BP diastolic 47–77; PULSE 60–74; RESP 16–20; TEMP 36.4–36.6; O2SAT 96–99; BMI 30.2
--- NOTE | ~2024-05-07 | CT_ITS ---
EXAMINATION: CT pelvis wo con DATE: 05/07/2024 10:31 INDICATION: Right buttock pain. Fall. TECHNIQUE: Computed tomography (CT) of the pelvis was performed without intravenous contrast. Automat ed exposure control and iterative reconstruction technique were employed. The dose-length product was 649.92 mGy-cm. COMPARISON: None FINDINGS: The prostate is moderately enlarged. The bladder is distended. Stool distends the rectum. T here is diverticulosis of the colon without evidence of diverticulitis. There is a left inguinal akash ia containing fat. There is hematoma in the right right gluteus medius and gluteus eleazar muscles. A lignment is normal. No fracture. There is severe osteoarthritis of the hips. There is severe lumbar s pondylosis. IMPRESSION: 1. Hematoma in the right gluteus medius and gluteus eleazar muscles. Reviewed, dictated and finalized at location A. RAM SERVICES PLANNER
--- NOTE | ~2024-05-07 | CT_ITS ---
EXAMINATION: CT brain wo con DATE: 05/07/2024 10:31 INDICATION: Head injury. TECHNIQUE: Computed tomography (CT) of the head was performed without intravenous contrast. The mA wa s adjusted according to patient size. Iterative reconstruction technique was employed. The dose-lengt h product was 681.00 mGy-cm. COMPARISON: Head CT 04/10/2022 FINDINGS: There are scattered areas of low attenuation in the cerebral white matter. There is no intr acranial hemorrhage, acute infarction, or abnormal intracranial mass lesion. There are prominent rossana vascular spaces in the bilateral basal ganglia. The ventricles are normal in size. There are likely c hanges of ocular lens replacement surgeries. There is mild mucosal thickening in the ethmoid sinuses. The mastoid air cells are normal. IMPRESSION: 1. Stable extensive nonspecific cerebral white matter disease, which likely represents chronic small vessel ischemic disease. Reviewed, dictated and finalized at location A. L[employer] FINANCIALS CONSULTANT IMPRESSION: 1. Stable extensive nonspecific cerebral white matter disease, which likely rep resents chronic small vessel ischemic disease.
--- NOTE | ~2024-05-07 | CT_ITS ---
EXAMINATION: CTA chest PE protocol DATE: 05/08/2024 20:34 INDICATION: Syncope. TECHNIQUE: Computed tomography angiography (CTA) of the chest was performed with 100 mL Omnipaque-350 intravenous contrast timed to evaluate the pulmonary arteries. Coronal maximum intensity projection 3D-reconstructions were created by the technologist. Automated exposure control and iterative reconst ruction technique were employed. The dose-length product was 651.47 mGy-cm. COMPARISON: None. FINDINGS: There is moderate emphysema. There is widespread peripheral septal thickening in the lungs with parenchymal calcifications and areas of honeycombing. The lung volumes are small. No pleural eff usion. There is a 7 mm nodule in left thyroid lobe, likely not clinically significant. The heart size is normal. There are coronary artery calcifications. No pericardial effusion. There is bilateral gynecology teacher ecomastia. The central pulmonary arteries are enlarged, consistent with pulmonary arterial hypertensi on. There is no pulmonary embolus. There is contrast in the gallbladder. There are old healed right r ib fractures. There are bridging endplate osteophytes at multiple levels in the spine, consistent wit h diffuse idiopathic skeletal hyperostosis (DISH). IMPRESSION: 1. No pulmonary embolus. 2. Diffuse lung disease, likely a combination of emphysema and chronic interstitial lung disease in a pattern of usual interstitial pneumonia (UIP). Reviewed, dictated and finalized at location A. E OUT WORKER IMPRESSION: 1. No pulmonary embolus. 2. Diffuse lung disease, likely a combination of emphysema and chronic intersti tial lung disease in a pattern of usual interstitial pneumonia (UIP).
--- NOTE | ~2024-05-07 | CT_ITS ---
EXAMINATION: CTA brain carotid DATE: 05/07/2024 12:47 INDICATION: Syncope. TECHNIQUE: Computed tomographic angiography (CTA) of the head was performed with 100 mL Omnipaque-350 intravenous contrast. CTA of the neck was performed with intravenous contrast. Automated exposure co ntrol and iterative reconstruction technique were employed. The dose-length product was 1080.32 mGy-c m. Maximum intensity projection and volume rendered 3D-reconstructions were created by the technologi st on a separate workstation. COMPARISON: Head CT 05/17/2024 FINDINGS: HEAD CTA: There are scattered areas of low attenuation in the cerebral white matter. There is no intr acranial hemorrhage, acute infarction, or abnormal intracranial mass lesion. The ventricles are ravinder l in size. There are prominent perivascular spaces in the bilateral basal ganglia. There are likely c hanges of ocular lens replacement surgeries. The mastoid air cells are normal. There is mild mucosal thickening in the paranasal sinuses. The vertebral arteries are codominant. There is no significant s tenosis of basilar artery or the posterior cerebral arteries. There is no significant stenosis of the intracranial internal carotid arteries or anterior or middle cerebral arteries. Anterior communicati ng artery is normal. There is no aneurysm. The posterior communicating arteries are normal. NECK CTA: The visualized portions of the lung bases apices demonstrate emphysema and staple lines. Th ere is a 7 mm nodule in left thyroid lobe, likely not clinically significant. There is no significant stenosis of the vertebral arteries. There is plaque in the proximal internal carotid arteries. There is 0% stenosis of the proximal right internal carotid artery relative to normal distal artery lumen diameter (NASCET criteria). There is 16% stenosis of the proximal left internal carotid artery relati ve to normal distal artery lumen diameter. There is severe cervical spondylosis. IMPRESSION: 1. Extensive nonspecific cerebral white matter disease, which likely represents chronic small vessel ischemic disease. 2. No aneurysm or significant intracranial arterial stenosis. 3. 0% stenosis of the proximal right internal carotid artery relative to normal distal artery lumen d iameter (NASCET criteria). 4. 16% stenosis of the proximal left internal carotid artery relative to normal distal artery lumen d iameter. Reviewed, dictated and finalized at location A. ORATE SALES TRAINER IMPRESSION: 1. Extensive nonspecific cerebral white matter disease, which likely represents chronic small vessel ischemic disease. 2. No aneurysm or significant intracranial arterial stenosis. 3. 0% stenosis of the proximal right internal carotid artery relative to normal distal artery lumen diameter (NASCET criteria). 4. 16% stenosis of the proximal left internal carotid artery relative to normal distal artery lumen diameter.
--- NOTE | ~2024-05-07 | US_ITS ---
EXAMINATION: US venous doppler [facility] DATE: 05/08/2024 18:25 INDICATION: Right lower limb swelling. TECHNIQUE: Grayscale ultrasound images without and with compression and Doppler ultrasound images of the bilateral lower extremity veins were obtained. COMPARISON: None. FINDINGS: The visualized portions of right common femoral vein, profunda (deep) femoral vein, femoral vein, pop liteal vein, peroneal veins, posterior tibial veins, and greater saphenous vein outflow are patent. The visualized portions of left common femoral vein, profunda femoral vein, femoral vein, popliteal v ein, peroneal veins, posterior tibial veins, and greater saphenous vein outflow are patent. IMPRESSION: 1. No deep venous thrombosis. Reviewed, dictated and finalized at location A. H LAMINATING SUPERVISOR
--- NOTE | ~2024-05-07 | US_ITS ---
CAROTID ULTRASOUND Ordering provider: Joseph Laureano MD History: . Syncope . Comparison: None. Technique: Grayscale and color Doppler ultrasound examination of the carotid and vertebral artery sys tems bilaterally. Maximum peak systolic velocity (PSV) / end diastolic velocity (EDV) measurements we re obtained. FINDINGS: RIGHT: --COMMON CAROTID ARTERY: PSV is 98.6 cm/s. EDV is 17.7 cm/s. --EXTERNAL CAROTID ARTERY: PSV is 54.33 cm/s. --INTERNAL CAROTID ARTERY PROXIMAL: PSV is 97.3 cm/s. EDV is 16.4 cm/s. --INTERNAL CAROTID ARTERY MID: PSV is 94.7 cm/s. EDV is 21.6 cm/s. --INTERNAL CAROTID ARTERY DISTAL: PSV is 79 cm/s. EDV is 20.3 cm/s. --VERTEBRAL ARTERY: PSV is 73.8 cm/s. Antegrade flow with normal waveform. --SYSTOLIC ICA/CCA: 1 --ATHEROMATOUS DISEASE: Mild. LEFT: --COMMON CAROTID ARTERY: PSV is 85.4 cm/s. EDV is 11.8 cm/s. --EXTERNAL CAROTID ARTERY: PSV is 95.2 cm/s. --INTERNAL CAROTID ARTERY PROXIMAL: PSV is 96.1 cm/s. EDV is 21.2 cm/s. --INTERNAL CAROTID ARTERY MID: PSV is 136.3 cm/s. EDV is 26.7 cm/s. --INTERNAL CAROTID ARTERY DISTAL: PSV is 97.9 cm/s. EDV is 24.8 cm/s. --VERTEBRAL ARTERY: PSV is 52.3 cm/s. Antegrade flow with normal waveform. --SYSTOLIC ICA/CCA: 1.6 --ATHEROMATOUS DISEASE: Mild. --OTHER: None. IMPRESSION: 1. 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 Normal right carotid artery. Antegrade flow demonstrated within both vertebral arteries. Reviewed, dictated and finalized at location A. ICAL REVIEW SPECIALIST
--- NOTE | ~2024-05-07 | CT_ITS ---
EXAMINATION: CT cervical spine wo con DATE: 05/07/2024 10:31 INDICATION: Head injury. TECHNIQUE: Computed tomography (CT) of the cervical spine was performed without intravenous contrast. Automated exposure control and iterative reconstruction technique were employed. The dose-length pro duct was 571.80 mGy-cm. COMPARISON: None FINDINGS: There is a 5 mm nodule in left thyroid lobe, likely not clinically significant. The lung ap ices demonstrate emphysema. Bone alignment is normal. Vertebral body heights are normal. There is mil dly decreased disc height at C4-C5 and severely decreased disc height at C5-C6 and C6-C7. The followi ng disc levels are specifically discussed: C2-C3: There is severe right and mild left uncovertebral joint osteoarthritis. There is severe bilate ral facet joint osteoarthritis. There is moderate right neural foraminal stenosis. There is no centra l canal stenosis. C3-C4: There is moderate right and mild left uncovertebral joint osteoarthritis. There is severe bila teral facet joint osteoarthritis. There is mild bilateral neural foraminal stenosis. There is mild ce ntral canal stenosis. C4-C5: There is moderate bilateral uncovertebral joint osteoarthritis. There is severe bilateral face t joint osteoarthritis. There is mild bilateral neural foraminal stenosis. There is mild central ming l stenosis. C5-C6: There is moderate right and severe left uncovertebral joint osteoarthritis. There is moderate right and severe left facet joint osteoarthritis. There is mild bilateral neural foraminal stenosis. There is mild central canal stenosis. C6-C7: There is severe bilateral uncovertebral joint osteoarthritis. There is severe bilateral facet joint osteoarthritis. There is mild bilateral neural foraminal stenosis. There is mild central canal stenosis. C7-T1: There is no uncovertebral joint osteoarthritis. There is severe bilateral facet joint osteoart hritis. There is mild bilateral neural foraminal stenosis. There is no central canal stenosis. IMPRESSION: 1. No fracture 2. Severe cervical spondylosis. Reviewed, dictated and finalized at location A. [facility]
--- NOTE | ~2024-05-07 | XR_ITS ---
EXAMINATION: XR chest 2V DATE: 05/07/2024 10:36 INDICATION: Cough and congestion. Fall. TECHNIQUE: Frontal and lateral views of the chest were obtained. COMPARISON: Chest 2 views 01/03/2023 FINDINGS: The lung volumes are normal. There is a widespread peripheral interstitial pattern in the l ungs. No pleural effusion or pneumothorax. The heart size is normal. Surgical clips overlie right upp er chest. IMPRESSION: 1. Stable chronic interstitial lung disease. Reviewed, dictated and finalized at location A. [facility]
--- NOTE | 2024-05-07 10:26 | ED_ITS ---
HPI - Fall General Chief Complaint: Fall <JONAH Jones Last Filed: 05/07/24 16:25> Stated Complaint: GLF, head injury <JONAH Jones Last Filed: 05/07/24 16:25> Time Seen by Provider: 05/07/24 09:36 <JONAH Jones Last Filed: 05/07/24 16:25> Source: patient <JONAH Jones Last Filed: 05/07/24 16:25> Mode of arrival: EMS <JONAH Jones Last Filed: 05/07/24 16:25> Limitations: no limitations <JONAH Jones Last Filed: 05/07/24 16:25> History of Present Illness HPI Narrative: Patient is an 88-year-old male who presents the ED via EMS from home with report of a fall. Patient reports he was walking throughout his house today when he lost his balance and fell backwards. He did not have his walker with him at that time. He did hit his head. Denied LOC. States he landed on his bottom. Complains of pain to his right buttock region. Patient was able to ambulate on the scene with the help of the paramedics. He also reports having a cough, congestion for the last 2 days. States his granddaughter's have been sick. Denies fevers, chest pain, shortness of breath, nausea, vomiting. Denies dizziness, lightheadedness, vision changes. <JONAH Jones Last Filed: 05/07/24 16:25> Related Data Home Medications: Home Medications ?Medication ?Instructions ?Recorded ?Confirmed ?Last Taken ?Type latanoprost 0.005 % eye drops 1 drp EACH EYE HS 04/10/22 05/07/24 04/09/22 History metoprolol succinate 25 mg 25 mg PO 0900 04/10/22 05/07/24 04/09/22 History tablet,extended release 24 hr olmesartan 40 mg tablet 40 mg PO DAILY 04/10/22 05/07/24 04/10/22 History Metamucil See Rx Instructions .Route .COMPLEX 04/22/22 05/07/24 Unknown History aspirin 81 mg tablet 81 mg PO DAILY 05/07/24 05/07/24 Unknown History cholecalciferol (vitamin D3) 25 25 mcg PO DAILY 05/07/24 05/07/24 Unknown History mcg (1,000 unit) chewable tablet (Vitamin D3) coenzyme [id number] 100 mg-100 1 cap PO DAILY 05/07/24 05/07/24 Unknown History unit capsule evolocumab 140 mg/mL subcutaneous 140 mg subcut [id number] 05/07/24 05/07/24 05/01/24 10:00 History pen injector (Repatha SureClick) magnesium 200 mg tablet 200 mg PO DAILY 05/07/24 05/07/24 Unknown History metoprolol succinate 25 mg 12.5 mg PO HS 05/07/24 05/07/24 Unknown History tablet,extended release 24 hr psyllium 1 packet PO DAILY 05/07/24 05/07/24 Unknown History timolol maleate (PF) 0.5 % eye 1 drp EACH EYE BID 05/07/24 05/07/24 Unknown History drops in a dropperette vitamin K2 100 mcg PO DAILY 05/07/24 05/07/24 Unknown History <Courtney Moore PA-C - Last Filed: 05/07/24 16:25> Allergies/Adverse Reactions: Allergies Allergy/AdvReac Type Severity Reaction Status Date / Time No Known Allergies Allergy Verified 04/10/22 15:45 <Courtney Moore PA-C - Last Filed: 05/07/24 16:25> Review of Systems 2 Review of Systems: All systems reviewed & are unremarkable except as noted in HPI. <Courtney Moore PA-C - Last Filed: 05/07/24 16:25> All systems reviewed & are unremarkable except as noted in HPI and below < Courtney Moore PA-C - Last Filed: 05/07/24 16:25> [facility], [facility] Past Medical History Medical History: Medical History Atrial fibrillation s/p ablation Cataract Glaucoma Hypercholesteremia Hypertension <Courtney Moore PA-C - Last Filed: 05/07/24 16:25> Surgical History Surgical History: Surgical History History of lobectomy of lung Bilateral PTX with RUL resection, left lung blebectomy and left pleurodesis 1993 Hx of inguinal hernia repair <Coutrney Moore PA-C - Last Filed: 05/07/24 16:25> Family History Family History: Family History Mother Breast cancer Carcinoma of colon Father Lung cancer <Courtney Moore PA-C - Last Filed: 05/07/24 16:25> Social History Social History: Social History Social History: Patient smoked a pack a day for 25 years and quit 1979. He drinks 2 alcoholic drinks per week. No history of heavy alcohol use. No drug use. Lives home with his . No pets. Full code. He nominates his to be the individual would make medical decisions for him if he is unable. Smoking packs per day: 1.5 Smoking cigarettes per day: 30.0 Years smoked: 20 Smoking pack-years: 30.00 Smoking status: Former smoker Second hand tobacco smoke exposure: No Alcohol intake: current Drinks per week: 2 Substance use: never Substance use type: does not use Do You Feel Safe in your Home?: Yes Lack of Transportation: No Lack of Food: Never True Current Housing: I Have Housing Concerned About Future Housing: No Difficulty Paying Gas/Electric Bills: No Difficulty Paying for Meds: No Currently Unemployed: No Education: Master's Degree or Higher Difficulty w/ Childcare or Family Care: No Spiritual care concerns: Yes (Nondenominational) <Courtney Moore PA-C - Last Filed: 05/07/24 16:25> Exam 2 Narrative: GENERAL: Elderly but well-appearing, obese with BMI of 30.2, non-toxic, in no acute distress. HEAD: Normocephalic, atraumatic. RESPIRATORY: Airway patent, respirations nonlabored. Clear to auscultation bilaterally, no rales, rhonchi, wheezing. No significant focal lung sounds. CARDIOVASCULAR: Regular rate and rhythm without murmurs, rubs, or gallops. MUSCULOSKELETAL: Moves all extremities. No gross deformities. No tenderness palpation throughout thoracic or lumbar midline spine. Mild tenderness to palpation over right buttock/SI region. SKIN: Warm, dry, normal color. NEURO: A&O X3. Speech clear. Cranial nerves II-XII grossly intact. No ataxic movements. PSYCHIATRIC: Appropriate mood and affect. Normal interaction. <Courtney Moore PA-C - Last Filed: 05/07/24 16:25> Course [employer]/PA Physician Supervision For this patient encounter, I reviewed the C[employer] or PA documentation, treatment plan, and medical decision making and/or I had [id number] time with this patient. I performed all aspects of the MDM as documented. <Rajwinder Rodriguez MD - Last Filed: 05/15/24 10:10> Vital Signs Vital signs: Vital Signs Temperature 97.9 F 05/07/24 09:46 Pulse Rate 67 05/07/24 09:46 Respiratory Rate 18 05/07/24 09:46 Blood Pressure 154/61 H 05/07/24 09:46 Pulse Oximetry 97 05/07/24 09:46 Oxygen Delivery Room Air 05/07/24 09:46 Temperature 97.2 F L 05/12/24 06:00 Pulse Rate 88 05/12/24 09:29 Respiratory Rate 20 05/12/24 06:00 Blood Pressure 136/60 05/12/24 06:00 Pulse Oximetry 98 05/12/24 06:00 Oxygen Delivery Room Air 05/11/24 20:00 <Courtney Moore PA-C - Last Filed: 05/07/24 16:25> Vital Signs Temperature 97.9 F 05/07/24 09:46 Pulse Rate 67 05/07/24 09:46 Respiratory Rate 18 05/07/24 09:46 Blood Pressure 154/61 H 05/07/24 09:46 Pulse Oximetry 97 05/07/24 09:46 Oxygen Delivery Room Air 05/07/24 09:46 Temperature 97.2 F L 05/12/24 06:00 Pulse Rate 88 05/12/24 09:29 Respiratory Rate 20 05/12/24 06:00 Blood Pressure 136/60 05/12/24 06:00 Pulse Oximetry 98 05/12/24 06:00 Oxygen Delivery Room Air 05/11/24 20:00 <Rajwinder Rodriguez MD - Last Filed: 05/15/24 10:10> MDM - Fall MDM Narrative Medical decision making narrative: Patient presented to ED from home status post ground level mechanical fall. Head injury, no LOC. Also complaining of pain to right buttock. Reports cough and congestion x2 days. Vital signs are stable upon arrival. Patient is afebrile here. In no acute distress. CT brain and cervical spine negative for traumatic findings. CT pelvis showing hematoma in right gluteal muscles, consistent with exam. Patient is on any blood thinners. Hematoma does not appear to be expanding on re-evaluation. Chest x-ray clear. Showing stable lung findings. Viral swabs are negative. Laboratory studies with mild leukocytosis of 12.2. Potentially stress related. Sodium slightly low on CMP. Given fluids in the ED. This appears consistent with previous records. Typically in the 120 range. Kidney function is stable. Electrolytes are otherwise stable. UA with trace amount of WBC. No urine bacteria seen. Sent for culture. Attempted to ambulate patient with ED nurse with walker. Patient was able to take several steps with a walker without issue. He did complain of some pain to his buttock. Upon being brought back to the room, patient stated he began feeling unwell, began feeling woozy/dizzy/lightheaded. He then had a syncopal episode in front of the ED nurse. Was assisted back into bed. States he became stiff, unresponsive, eyes rolled back. I was immediately called to the room. Upon my re-evaluation, patient was somewhat stunned appearing but was able to answer all my questions and follow commands. Only complaining of pain to his buttock. Still denied feeling dizzy or lightheaded. There was no tonic clonic seizure activity. Denies previous history of seizures. There are no focal deficits appreciated on repeat exam immediately after syncopal episode. Patient is able to move all extremities equally, good strength, normal sensation, no cranial nerve abnormalities. Speech is clear. Patient was placed on the cardiac securities underwriter and was noted to be bradycardic into the 50s-60s. HR was in the 60s upon initial arrival. He is on metoprolol. Denied any chest pain or shortness breath. EKG does not show any significant ST changes. Does have frequent PVCs. At one point, was showing trigeminy on monitor. No block noted. Baseline troponin was obtained and undetectable. Will continue to trend. Lactic acid was added on. This was normal. CTA of brain/neck, fairly unremarkable. No clinically significant stenosis. Patient intially denied feeling dizzy or lightheaded to me prior to the fall this morning. Seemed to mechanical in nature, however with syncopal episode in the ED, will admit for observation, continued telemetry monitoring as it is possible patient may have had a dysrhythmia. Discussed case with Dr. Laureano, hospitalist, accepted patient for admission. Cardiology will be consulted. <Courtney Moore PA-C - Last Filed: 05/07/24 16:25> Differential Diagnosis Differential diagnosis: Likely syncope, concussion without loss of consciousness and other < Rajwinder Rodriguez MD - Last Filed: 05/15/24 10:10> Medical Records Attestation: I reviewed the patient's medical records. <Courtney Moore PA-C - Last Filed: 05/07/24 16:25> Lab Data Attestation: I reviewed the patient's lab results. <Courtney Moore PA-C - Last Filed: 05/07/24 16:25> Result diagrams: 05/09/24 06:48 05/12/24 06:19 <Courtney Moore PA-C - Last Filed: 05/07/24 16:25> Labs: Lab Results 05/07/24 05/07/24 05/07/24 Range/Units 10:12 10:39 11:32 WBC 12.2 H (4.5-10.0) K/mm3 RBC 4.72 (4.6-6.20) M/mm3 Hgb 13.7 L (14.0-18.0) g/dL Hct 43.1 (42.0-52.0) % MCV 91.3 (80-100) fl MCH 29.0 (26-34) pg MCHC 31.8 L (32-36) g/dl RDW 13.3 (11.5-14.5) % Plt Count 187 D (150-375) k/mm3 MPV 9.5 (7.4-10.4) fl Immature Gran % (Auto) 0.4 (0-0.5) % Neut % (Auto) 77.9 H (45.5-73.1) % Lymph % (Auto) 13.9 L (18.3-44.2) % [place] % (Auto) 6.3 (2.6-8.5) % Eos % (Auto) 1.2 (0-4.4) % Baso % (Auto) 0.3 (0.2-1.2) % Lymph # (Auto) 1.69 (0.9-3.2) K/mm3 [place] # (Auto) 0.8 H (0.1-0.6) K/mm3 Eos # (Auto) 0.2 (0-0.3) K/mm3 Baso # (Auto) 0.0 (0.0-0.1) K/mm3 Abs Immat Gran (auto) 0.05 H (0.00-0.031) K/mm3 Absolute Neuts (auto) 9.5 H (1.3-6.7) K/mm3 Absolute Nucleated RBC 0.000 (0.0-0.012) K/mm3 Nucleated RBC % 0.0 (0.0-0.2) % PT (11.1-14.7) Seconds INR APTT (22.3-36.8) Seconds D-Dimer (<0.48) ug/mL Sodium 130 L (137-145) mmol/L Potassium 4.3 (3.4-5.0) mmol/L Chloride 96 L (98-107) mmol/L Carbon Dioxide 32 H (22-30) mmol/L Anion Gap 2 L (4-12) mmol/L BUN 12 D (9-20) mg/dL Creatinine 0.70 (0.7-1.3) mg/dL Estim Creat Clear Calc 79 ml/min Estimated GFR > 60 (59 - ) Glucose 111 H (65-110) mg/dL POC Capillary Glucose (65-105) mg/dl Lactic Acid (0.7-2.0) mmol/L Calcium 8.5 (8.4-10.2) mg/dL Magnesium (1.6-2.3) mg/dL Total Bilirubin 1.5 H (0.2-1.3) mg/dL AST 21 (17-59) U/L ALT 12 (6-50) U/L Alkaline Phosphatase 61 (38-126) U/L Troponin I (0.000-0.034) ng/mL Total Protein 7.0 (6.3-8.2) g/dL Albumin 4.0 (3.5-5.1) g/dL Triglycerides (<150) mg/dL Cholesterol (0-200) mg/dL LDL Cholesterol Direct mg/dL HDL Direct mg/dL Vitamin B12 (239-931) pg/mL Vitamin D 25-Hydroxy ng/mL Folate (2.76->20) ng/mL TSH (Reflex) (0.465-4.68) uIU/mL Random Cortisol ug/dL Urine Color Yellow (Yellow) Urine Appearance Clear (Clear) Urine pH 7.0 (5.0-9.0) Ur Specific [place] 1.014 (1.001-1.035) Urine Protein 1+ H (Negative) mg/dL Urine Glucose (UA) Negative (Negative) mg/dL Urine Ketones Negative (Negative) mg/dL Ur Blood (Man) 1+ H (Negative) Urine Nitrate Negative (Negative) Urine Bilirubin Negative (Negative) Urine Urobilinogen 0.2 (<2.0) mg/dL Leukocyte Esterase Rfl 1+ H (Negative) JENNIFER/UL Urine RBC 6-10 H (0-2) /hpf Urine WBC 6-10 H (0-3) /hpf Ur Squamous Epith Cells None seen (Few) /hpf Urine Bacteria None seen /hpf Urine Casts 0-2 Influenza A (RT-PCR) Negative (Negative) Influenza B (RT-PCR) Negative (Negative) RSV (RT-PCR) Negative (Negative) SARS-CoV-2 RNA (RT-PCR) Negative (Negative) 05/07/24 05/07/24 05/07/24 Range/Units 12:19 17:37 18:08 WBC (4.5-10.0) K/mm3 RBC (4.6-6.20) M/mm3 Hgb (14.0-18.0) g/dL Hct (42.0-52.0) % MCV (80-100) fl MCH (26-34) pg MCHC (32-36) g/dl RDW (11.5-14.5) % Plt Count (150-375) k/mm3 MPV (7.4-10.4) fl Immature Gran % (Auto) (0-0.5) % Neut % (Auto) (45.5-73.1) % Lymph % (Auto) (18.3-44.2) % [place] % (Auto) (2.6-8.5) % Eos % (Auto) (0-4.4) % Baso % (Auto) (0.2-1.2) % Lymph # (Auto) (0.9-3.2) K/mm3 [place] # (Auto) (0.1-0.6) K/mm3 Eos # (Auto) (0-0.3) K/mm3 Baso # (Auto) (0.0-0.1) K/mm3 Abs Immat Gran (auto) (0.00-0.031) K/mm3 Absolute Neuts (auto) (1.3-6.7) K/mm3 Absolute Nucleated RBC (0.0-0.012) K/mm3 Nucleated RBC % (0.0-0.2) % PT 14.9 H (11.1-14.7) Seconds INR 1.1 APTT 30.5 (22.3-36.8) Seconds D-Dimer 1.21 H (<0.48) ug/mL Sodium 128 L (137-145) mmol/L Potassium 5.0 (3.4-5.0) mmol/L Chloride 96 L (98-107) mmol/L Carbon Dioxide 31 H (22-30) mmol/L Anion Gap 1 L (4-12) mmol/L BUN 13 (9-20) mg/dL Creatinine 0.80 (0.7-1.3) mg/dL Estim Creat Clear Calc 70 ml/min Estimated GFR > 60 (59 - ) Glucose 143 H (65-110) mg/dL POC Capillary Glucose 126 H (65-105) mg/dl Lactic Acid 1.2 (0.7-2.0) mmol/L Calcium 8.4 (8.4-10.2) mg/dL Magnesium 2.1 (1.6-2.3) mg/dL Total Bilirubin 1.6 H (0.2-1.3) mg/dL AST 22 (17-59) U/L ALT 13 (6-50) U/L Alkaline Phosphatase 64 (38-126) U/L Troponin I < 0.012 < 0.012 (0.000-0.034) ng/mL Total Protein 7.0 (6.3-8.2) g/dL Albumin 3.8 (3.5-5.1) g/dL Triglycerides 61 (<150) mg/dL Cholesterol 104 (0-200) mg/dL LDL Cholesterol Direct 31 mg/dL HDL Direct 55 mg/dL Vitamin B12 (239-931) pg/mL Vitamin D 25-Hydroxy ng/mL Folate (2.76->20) ng/mL TSH (Reflex) (0.465-4.68) uIU/mL Random Cortisol ug/dL Urine Color (Yellow) Urine Appearance (Clear) Urine pH (5.0-9.0) Ur Specific [place] (1.001-1.035) Urine Protein (Negative) mg/dL Urine Glucose (UA) (Negative) mg/dL Urine Ketones (Negative) mg/dL Ur Blood (Man) (Negative) Urine Nitrate (Negative) Urine Bilirubin (Negative) Urine Urobilinogen (<2.0) mg/dL Leukocyte Esterase Rfl (Negative) JENNIFER/UL Urine RBC (0-2) /hpf Urine WBC (0-3) /hpf Ur Squamous Epith Cells (Few) /hpf Urine Bacteria /hpf Urine Casts Influenza A (RT-PCR) (Negative) Influenza B (RT-PCR) (Negative) RSV (RT-PCR) (Negative) SARS-CoV-2 RNA (RT-PCR) (Negative) 05/07/24 05/08/24 05/08/24 Range/Units 20:15 08:36 08:38 WBC 11.4 H (4.5-10.0) K/mm3 RBC 4.14 L (4.6-6.20) M/mm3 Hgb 12.2 L (14.0-18.0) g/dL Hct 37.3 L (42.0-52.0) % MCV 90.1 (80-100) fl MCH 29.5 (26-34) pg MCHC 32.7 (32-36) g/dl RDW 13.3 (11.5-14.5) % Plt Count 190 (150-375) k/mm3 MPV 9.5 (7.4-10.4) fl Immature Gran % (Auto) 0.3 (0-0.5) % Neut % (Auto) 79.8 H (45.5-73.1) % Lymph % (Auto) 14.2 L (18.3-44.2) % [place] % (Auto) 4.8 (2.6-8.5) % Eos % (Auto) 0.6 (0-4.4) % Baso % (Auto) 0.3 (0.2-1.2) % Lymph # (Auto) 1.62 (0.9-3.2) K/mm3 [place] # (Auto) 0.6 (0.1-0.6) K/mm3 Eos # (Auto) 0.1 (0-0.3) K/mm3 Baso # (Auto) 0.0 (0.0-0.1) K/mm3 Abs Immat Gran (auto) 0.04 H (0.00-0.031) K/mm3 Absolute Neuts (auto) 9.1 H (1.3-6.7) K/mm3 Absolute Nucleated RBC 0.000 (0.0-0.012) K/mm3 Nucleated RBC % 0.0 (0.0-0.2) % PT (11.1-14.7) Seconds INR APTT (22.3-36.8) Seconds D-Dimer (<0.48) ug/mL Sodium 125 L (137-145) mmol/L Potassium 4.1 (3.4-5.0) mmol/L Chloride 92 L (98-107) mmol/L Carbon Dioxide 30 (22-30) mmol/L Anion Gap 3 L (4-12) mmol/L BUN 13 (9-20) mg/dL Creatinine 0.70 (0.7-1.3) mg/dL Estim Creat Clear Calc 79 ml/min Estimated GFR > 60 (59 - ) Glucose 156 H (65-110) mg/dL POC Capillary Glucose (65-105) mg/dl Lactic Acid (0.7-2.0) mmol/L Calcium 8.2 L (8.4-10.2) mg/dL Magnesium (1.6-2.3) mg/dL Total Bilirubin 1.7 H (0.2-1.3) mg/dL AST 23 (17-59) U/L ALT 12 (6-50) U/L Alkaline Phosphatase 60 (38-126) U/L Troponin I < 0.012 (0.000-0.034) ng/mL Total Protein 7.0 (6.3-8.2) g/dL Albumin 3.7 (3.5-5.1) g/dL Triglycerides (<150) mg/dL Cholesterol (0-200) mg/dL LDL Cholesterol Direct mg/dL HDL Direct mg/dL Vitamin B12 572.0 (239-931) pg/mL Vitamin D 25-Hydroxy 43.3 ng/mL Folate 19.8 (2.76->20) ng/mL TSH (Reflex) 2.820 (0.465-4.68) uIU/mL Random Cortisol 21.30 ug/dL Urine Color (Yellow) Urine Appearance (Clear) Urine pH (5.0-9.0) Ur Specific [place] (1.001-1.035) Urine Protein (Negative) mg/dL Urine Glucose (UA) (Negative) mg/dL Urine Ketones (Negative) mg/dL Ur Blood (Man) (Negative) Urine Nitrate (Negative) Urine Bilirubin (Negative) Urine Urobilinogen (<2.0) mg/dL Leukocyte Esterase Rfl (Negative) JENNIFER/UL Urine RBC (0-2) /hpf Urine WBC (0-3) /hpf Ur Squamous Epith Cells (Few) /hpf Urine Bacteria /hpf Urine Casts Influenza A (RT-PCR) (Negative) Influenza B (RT-PCR) (Negative) RSV (RT-PCR) (Negative) SARS-CoV-2 RNA (RT-PCR) (Negative) <Courtney Moore PA-C - Last Filed: 05/07/24 16:25> Lab Results 05/07/24 05/07/24 05/07/24 Range/Units 10:12 10:39 11:32 WBC 12.2 H (4.5-10.0) K/mm3 RBC 4.72 (4.6-6.20) M/mm3 Hgb 13.7 L (14.0-18.0) g/dL Hct 43.1 (42.0-52.0) % MCV 91.3 (80-100) fl MCH 29.0 (26-34) pg MCHC 31.8 L (32-36) g/dl RDW 13.3 (11.5-14.5) % Plt Count 187 D (150-375) k/mm3 MPV 9.5 (7.4-10.4) fl Immature Gran % (Auto) 0.4 (0-0.5) % Neut % (Auto) 77.9 H (45.5-73.1) % Lymph % (Auto) 13.9 L (18.3-44.2) % [place] % (Auto) 6.3 (2.6-8.5) % Eos % (Auto) 1.2 (0-4.4) % Baso % (Auto) 0.3 (0.2-1.2) % Lymph # (Auto) 1.69 (0.9-3.2) K/mm3 [place] # (Auto) 0.8 H (0.1-0.6) K/mm3 Eos # (Auto) 0.2 (0-0.3) K/mm3 Baso # (Auto) 0.0 (0.0-0.1) K/mm3 Abs Immat Gran (auto) 0.05 H (0.00-0.031) K/mm3 Absolute Neuts (auto) 9.5 H (1.3-6.7) K/mm3 Absolute Nucleated RBC 0.000 (0.0-0.012) K/mm3 Nucleated RBC % 0.0 (0.0-0.2) % PT (11.1-14.7) Seconds INR APTT (22.3-36.8) Seconds D-Dimer (<0.48) ug/mL Sodium 130 L (137-145) mmol/L Potassium 4.3 (3.4-5.0) mmol/L Chloride 96 L (98-107) mmol/L Carbon Dioxide 32 H (22-30) mmol/L Anion Gap 2 L (4-12) mmol/L BUN 12 D (9-20) mg/dL Creatinine 0.70 (0.7-1.3) mg/dL Estim Creat Clear Calc 79 ml/min Estimated GFR > 60 (59 - ) Glucose 111 H (65-110) mg/dL POC Capillary Glucose (65-105) mg/dl Lactic Acid (0.7-2.0) mmol/L Calcium 8.5 (8.4-10.2) mg/dL Magnesium (1.6-2.3) mg/dL Total Bilirubin 1.5 H (0.2-1.3) mg/dL AST 21 (17-59) U/L ALT 12 (6-50) U/L Alkaline Phosphatase 61 (38-126) U/L Troponin I (0.000-0.034) ng/mL Total Protein 7.0 (6.3-8.2) g/dL Albumin 4.0 (3.5-5.1) g/dL Triglycerides (<150) mg/dL Cholesterol (0-200) mg/dL LDL Cholesterol Direct mg/dL HDL Direct mg/dL Vitamin B12 (239-931) pg/mL Vitamin D 25-Hydroxy ng/mL Folate (2.76->20) ng/mL TSH (Reflex) (0.465-4.68) uIU/mL Random Cortisol ug/dL Urine Color Yellow (Yellow) Urine Appearance Clear (Clear) Urine pH 7.0 (5.0-9.0) Ur Specific [place] 1.014 (1.001-1.035) Urine Protein 1+ H (Negative) mg/dL Urine Glucose (UA) Negative (Negative) mg/dL Urine Ketones Negative (Negative) mg/dL Ur Blood (Man) 1+ H (Negative) Urine Nitrate Negative (Negative) Urine Bilirubin Negative (Negative) Urine Urobilinogen 0.2 (<2.0) mg/dL Leukocyte Esterase Rfl 1+ H (Negative) JENNIFER/UL Urine RBC 6-10 H (0-2) /hpf Urine WBC 6-10 H (0-3) /hpf Ur Squamous Epith Cells None seen (Few) /hpf Urine Bacteria None seen /hpf Urine Casts 0-2 Influenza A (RT-PCR) Negative (Negative) Influenza B (RT-PCR) Negative (Negative) RSV (RT-PCR) Negative (Negative) SARS-CoV-2 RNA (RT-PCR) Negative (Negative) 05/07/24 05/07/24 05/07/24 Range/Units 12:19 17:37 18:08 WBC (4.5-10.0) K/mm3 RBC (4.6-6.20) M/mm3 Hgb (14.0-18.0) g/dL Hct (42.0-52.0) % MCV (80-100) fl MCH (26-34) pg MCHC (32-36) g/dl RDW (11.5-14.5) % Plt Count (150-375) k/mm3 MPV (7.4-10.4) fl Immature Gran % (Auto) (0-0.5) % Neut % (Auto) (45.5-73.1) % Lymph % (Auto) (18.3-44.2) % [place] % (Auto) (2.6-8.5) % Eos % (Auto) (0-4.4) % Baso % (Auto) (0.2-1.2) % Lymph # (Auto) (0.9-3.2) K/mm3 [place] # (Auto) (0.1-0.6) K/mm3 Eos # (Auto) (0-0.3) K/mm3 Baso # (Auto) (0.0-0.1) K/mm3 Abs Immat Gran (auto) (0.00-0.031) K/mm3 Absolute Neuts (auto) (1.3-6.7) K/mm3 Absolute Nucleated RBC (0.0-0.012) K/mm3 Nucleated RBC % (0.0-0.2) % PT 14.9 H (11.1-14.7) Seconds INR 1.1 APTT 30.5 (22.3-36.8) Seconds D-Dimer 1.21 H (<0.48) ug/mL Sodium 128 L (137-145) mmol/L Potassium 5.0 (3.4-5.0) mmol/L Chloride 96 L (98-107) mmol/L Carbon Dioxide 31 H (22-30) mmol/L Anion Gap 1 L (4-12) mmol/L BUN 13 (9-20) mg/dL Creatinine 0.80 (0.7-1.3) mg/dL Estim Creat Clear Calc 70 ml/min Estimated GFR > 60 (59 - ) Glucose 143 H (65-110) mg/dL POC Capillary Glucose 126 H (65-105) mg/dl Lactic Acid 1.2 (0.7-2.0) mmol/L Calcium 8.4 (8.4-10.2) mg/dL Magnesium 2.1 (1.6-2.3) mg/dL Total Bilirubin 1.6 H (0.2-1.3) mg/dL AST 22 (17-59) U/L ALT 13 (6-50) U/L Alkaline Phosphatase 64 (38-126) U/L Troponin I < 0.012 < 0.012 (0.000-0.034) ng/mL Total Protein 7.0 (6.3-8.2) g/dL Albumin 3.8 (3.5-5.1) g/dL Triglycerides 61 (<150) mg/dL Cholesterol 104 (0-200) mg/dL LDL Cholesterol Direct 31 mg/dL HDL Direct 55 mg/dL Vitamin B12 (239-931) pg/mL Vitamin D 25-Hydroxy ng/mL Folate (2.76->20) ng/mL TSH (Reflex) (0.465-4.68) uIU/mL Random Cortisol ug/dL Urine Color (Yellow) Urine Appearance (Clear) Urine pH (5.0-9.0) Ur Specific [place] (1.001-1.035) Urine Protein (Negative) mg/dL Urine Glucose (UA) (Negative) mg/dL Urine Ketones (Negative) mg/dL Ur Blood (Man) (Negative) Urine Nitrate (Negative) Urine Bilirubin (Negative) Urine Urobilinogen (<2.0) mg/dL Leukocyte Esterase Rfl (Negative) JENNIFER/UL Urine RBC (0-2) /hpf Urine WBC (0-3) /hpf Ur Squamous Epith Cells (Few) /hpf Urine Bacteria /hpf Urine Casts Influenza A (RT-PCR) (Negative) Influenza B (RT-PCR) (Negative) RSV (RT-PCR) (Negative) SARS-CoV-2 RNA (RT-PCR) (Negative) 05/07/24 05/08/24 05/08/24 Range/Units 20:15 08:36 08:38 WBC 11.4 H (4.5-10.0) K/mm3 RBC 4.14 L (4.6-6.20) M/mm3 Hgb 12.2 L (14.0-18.0) g/dL Hct 37.3 L (42.0-52.0) % MCV 90.1 (80-100) fl MCH 29.5 (26-34) pg MCHC 32.7 (32-36) g/dl RDW 13.3 (11.5-14.5) % Plt Count 190 (150-375) k/mm3 MPV 9.5 (7.4-10.4) fl Immature Gran % (Auto) 0.3 (0-0.5) % Neut % (Auto) 79.8 H (45.5-73.1) % Lymph % (Auto) 14.2 L (18.3-44.2) % [place] % (Auto) 4.8 (2.6-8.5) % Eos % (Auto) 0.6 (0-4.4) % Baso % (Auto) 0.3 (0.2-1.2) % Lymph # (Auto) 1.62 (0.9-3.2) K/mm3 [place] # (Auto) 0.6 (0.1-0.6) K/mm3 Eos # (Auto) 0.1 (0-0.3) K/mm3 Baso # (Auto) 0.0 (0.0-0.1) K/mm3 Abs Immat Gran (auto) 0.04 H (0.00-0.031) K/mm3 Absolute Neuts (auto) 9.1 H (1.3-6.7) K/mm3 Absolute Nucleated RBC 0.000 (0.0-0.012) K/mm3 Nucleated RBC % 0.0 (0.0-0.2) % PT (11.1-14.7) Seconds INR APTT (22.3-36.8) Seconds D-Dimer (<0.48) ug/mL Sodium 125 L (137-145) mmol/L Potassium 4.1 (3.4-5.0) mmol/L Chloride 92 L (98-107) mmol/L Carbon Dioxide 30 (22-30) mmol/L Anion Gap 3 L (4-12) mmol/L BUN 13 (9-20) mg/dL Creatinine 0.70 (0.7-1.3) mg/dL Estim Creat Clear Calc 79 ml/min Estimated GFR > 60 (59 - ) Glucose 156 H (65-110) mg/dL POC Capillary Glucose (65-105) mg/dl Lactic Acid (0.7-2.0) mmol/L Calcium 8.2 L (8.4-10.2) mg/dL Magnesium (1.6-2.3) mg/dL Total Bilirubin 1.7 H (0.2-1.3) mg/dL AST 23 (17-59) U/L ALT 12 (6-50) U/L Alkaline Phosphatase 60 (38-126) U/L Troponin I < 0.012 (0.000-0.034) ng/mL Total Protein 7.0 (6.3-8.2) g/dL Albumin 3.7 (3.5-5.1) g/dL Triglycerides (<150) mg/dL Cholesterol (0-200) mg/dL LDL Cholesterol Direct mg/dL HDL Direct mg/dL Vitamin B12 572.0 (239-931) pg/mL Vitamin D 25-Hydroxy 43.3 ng/mL Folate 19.8 (2.76->20) ng/mL TSH (Reflex) 2.820 (0.465-4.68) uIU/mL Random Cortisol 21.30 ug/dL Urine Color (Yellow) Urine Appearance (Clear) Urine pH (5.0-9.0) Ur Specific [place] (1.001-1.035) Urine Protein (Negative) mg/dL Urine Glucose (UA) (Negative) mg/dL Urine Ketones (Negative) mg/dL Ur Blood (Man) (Negative) Urine Nitrate (Negative) Urine Bilirubin (Negative) Urine Urobilinogen (<2.0) mg/dL Leukocyte Esterase Rfl (Negative) JENNIFER/UL Urine RBC (0-2) /hpf Urine WBC (0-3) /hpf Ur Squamous Epith Cells (Few) /hpf Urine Bacteria /hpf Urine Casts Influenza A (RT-PCR) (Negative) Influenza B (RT-PCR) (Negative) RSV (RT-PCR) (Negative) SARS-CoV-2 RNA (RT-PCR) (Negative) <Rajwinder Rodriguez MD - Last Filed: 05/15/24 10:10> Imaging Data Attestation: I personally reviewed and interpreted this imaging study as follows: < Courtney Moore PA-C - Last Filed: 05/07/24 16:25> Radiologist's impression: ITS Impressions Head CT 05/07/24 10:34 IMPRESSION: 1. Stable extensive nonspecific cerebral white matter disease, which likely represents chronic small vessel ischemic disease. Pelvis CT 05/07/24 10:35 IMPRESSION: 1. Hematoma in the right gluteus medius and gluteus eleazar muscles. Cervical Spine CT 05/07/24 10:41 IMPRESSION: 1. No fracture 2. Severe cervical spondylosis. Chest X-Ray 05/07/24 10:48 IMPRESSION: 1. Stable chronic interstitial lung disease. Head/Neck CTA 05/07/24 12:48 IMPRESSION: 1. Extensive nonspecific cerebral white matter disease, which likely represents chronic small vessel ischemic disease. 2. No aneurysm or significant intracranial arterial stenosis. 3. 0% stenosis of the proximal right internal carotid artery relative to normal distal artery lumen diameter (NASCET criteria). 4. 16% stenosis of the proximal left internal carotid artery relative to normal distal artery lumen diameter. <Courtney Moore PA-C - Last Filed: 05/07/24 16:25> ECG Data EKG #1: Attestation: I personally reviewed and interpreted this ECG as follows: <Courtney Moore PA-C - Last Filed: 05/07/24 16:25> ECG completion date: 05/07/24 <JONAH Jones Last Filed: 05/07/24 16:25> ECG completion time: 12:04 <Courtney Moore PA-C - Last Filed: 05/07/24 16:25> EKG Interpretation: normal rate (61), sinus rhythm, PVCs and non-specific ST changes < Courtney Moore PA-C - Last Filed: 05/07/24 16:25> Critical Care Time Critical Care Time Critical Care Time: No <Rajwinder Rodriguez MD - Last Filed: 05/15/24 10:10> Discharge Plan Discharge Clinical Impression: Fall from ground level, Hematoma of right buttock, Bradycardia Syncope Qualifiers: Syncope type: unspecified Qualified Code(s): R55 - Syncope and collapse <Courtney Moore PA-C - Last Filed: 05/07/24 16:25> Patient Disposition: Still a Patient <Courtney Moore PA-C - Last Filed: 05/07/24 16:25> Condition: Improved <Courtney Moore PA-C - Last Filed: 05/07/24 16:25>
[2024-05-07 10:47] LABS: Basophils Percent Auto 0.3 % (0.2-1.2); Eosinophils Absolute Auto 0.2 K/mm3 (0-0.3); Eosinophils Percent Auto 1.2 % (0-4.4); Hematocrit 43.1 % (42.0-52.0); Hemoglobin 13.7 g/dL (14.0-18.0); Immature Granulocyte Absolute 0.05 K/mm3 (0.00-0.031); Immature Granulocyte Percent A 0.4 % (0-0.5); Lymphocytes Absolute Auto 1.69 K/mm3 (0.9-3.2); Lymphocytes Percent Auto 13.9 % (18.3-44.2); Mean Corpuscular HGB Conc 31.8 g/dl (32-36); Mean Corpuscular Volume 91.3 fl (80-100); Mean Platelet Volume 9.5 fl (7.4-10.4); Monocytes Absolute Auto 0.8 K/mm3 (0.1-0.6); Monocytes Percent Auto 6.3 % (2.6-8.5); Neutrophils Absolute Auto 9.5 K/mm3 (1.3-6.7); Neutrophils Percent Auto 77.9 % (45.5-73.1); Platelet Count Result 187 k/mm3 (150-375); Red Blood Count 4.72 M/mm3 (4.6-6.20); Red Cell Distribution Width 13.3 % (11.5-14.5); White Blood Count 12.2 K/mm3 (4.5-10.0)
[2024-05-07 10:56] LABS: Influenza A QL RT-PCR Negative (Negative); Influenza B QL RT-PCR Negative (Negative); RSV RNA, RT-PCR Negative (Negative); SARS-CoV-2 RNA PCR Negative (Negative)
[2024-05-07 10:56] LABS: Alanine Aminotransferase 12 U/L (6-50); Alkaline Phosphatase 61 U/L (38-126); Anion Gap 2 mmol/L (4-12); Aspartate Amino Transferase 21 U/L (17-59); Bilirubin,Total 1.5 mg/dL (0.2-1.3); Blood Urea Nitrogen 12 mg/dL (9-20); Calcium 8.5 mg/dL (8.4-10.2); Carbon Dioxide 32 mmol/L (22-30); Chloride 96 mmol/L (98-107); Estimated CRCL calculation 79 ml/min; Estimated Glomerular Filt Rate > 60; Glucose 111 mg/dL (65-110); Potassium 4.3 mmol/L (3.4-5.0); Sodium 130 mmol/L (137-145)
[2024-05-07] MEDS: SODIUM CHLORIDE 0.9% IV 1,000 ML 999 ML IV CONT (11:03)
[2024-05-07] MEDS: ACETAMINOPHEN 500 MG TABLET 1000 MG PO (11:46)
[2024-05-07] MEDS: traMADol HCL (*CRX) 50 MG TABLET PO (11:46)
--- NOTE | 2024-05-07 11:53 | PC.NURSE ---
Sitting in wc at bedside for comfort. c/o right buttock pain
[2024-05-07 12:01] LABS: Add Urine Microscopic? YES; Appearance Urine Clear (Clear); Bacteria Urine None Seen /hpf; Bilirubin Urine Negative (Negative); Blood Urine 1+ (Negative); Color Urine Yellow (Yellow); Glucose Urine UA Negative (Negative); Ketones Urine Negative (Negative); Leukocyte Esterase Ur 1+ LEU/UL (Negative); Nitrate Urine Negative (Negative); Non Pathogenic Casts 0-2; Protein Urine 1+ mg/dL (Negative); Specific Grav Ur 1.014 (1.001-1.035); Squamous Epithelial Cell Urine None Seen /hpf (Few); Urobilinogen Urine 0.2 mg/dL (<2.0)
--- NOTE | 2024-05-07 12:03 | ECG_ITS ---
Test Date: 2024-05-07 12:04:53 Measurements Intervals [place] Rate: 61 P: 20 OK: 197 QRS: -41 QRSD: 117 T: -21 QT: 449 QTc: 454 Interpretive Statements SINUS RHYTHM WITH FREQUENT ECTOPIC PREMATURE COMPLEXES MARKED LEFT AXIS DEVIATION [QRS AXIS < -30] VOLTAGE CRITERIA FOR LVH [MEETS CRITERIA IN ONE OF: R(aVL), S(V1), R(V5), R(V5/V6)+S(V1)] POSSIBLE ANTERIOR MYOCARDIAL INFARCTION , OF INDETERMINATE AGE [30 ms Q WAVE IN V3/V4, OR R < 0.2 mV IN V4] No previous ECG available for comparison Electronically Signed On 05-07-2024 13:01:28 SUPERVISOR NURSE by Glenny Landin M.D.
--- NOTE | 2024-05-07 12:11 | PC.NURSE ---
pt ambulated in room with walker. Gait was shuffling with short strides. Pt then sat on bedside and said I don't feel good. Pt then fall backwards while sitting on the bed, this RN held head up so it did not hit rail. Neck upper body and arms were stiff. Pt has eyes open but did not respond to verbal commands. Pt then moved around on cot to lay on back, no radial pulse was palpated but could palpate carotid pulse. Then pt started answering questions. Pt denied any dyspnea, CP or neurological s/s. Pt continued to complain about right buttock pain. Pt reported he felt weak and lightheaded before this incident. ERP in room and reported to pt he would be admitted
[2024-05-07 12:33] LABS: Lactic Acid Reflex 1.2 mmol/L (0.7-2.0); Magnesium 2.1 mg/dL (1.6-2.3)
[2024-05-07 12:45] LABS: Troponin I < 0.012 ng/mL (0.000-0.034)
--- NOTE | 2024-05-07 14:26 | PM.IMHP ---
H&P: HPI History of Present Illness Date/Time: 05/07/24 14:26 Chief Complaint: Recent fall and dizziness Narrative: Patient is 86-year-old male with history of hypertension, history of atrial fibrillation status post ablation, came to hospital for weakness and recent fall. Patient states that he has been feeling little dizzy and any time he gets up he feels like head is spinning he recently had a fall did not hit his head according to the eye witness. Patient denied any urgency frequency of urination no cough no nausea no vomiting no history of any new infections nobody at home is sick not exposed to anybody with COVID. . Unknown rhinorrhea no abdominal pain no hematemesis hemoptysis. Patient was on anticoagulation before for atrial fibrillation currently had an ablation done so currently on aspirin and metoprolol only hearted well controlled. In the emergency room patient was noted to have a heart rate of 58. Plan is to admit the patient and get the carotid workup done also see the mask designer for possible sick sinus syndrome Review of Systems Review of Systems: No fevers chills nausea vomiting. No double vision no blurry vision. No difficulty hearing or sinus complaints. No chest pain shortness of breath fever palpitation dizziness ankle swelling. No coughing wheezing chills. No nausea constipation diarrhea abdominal pain reflux. No urgency frequency of urination. No hematuria. No skin rash eczema. No anxiety depression difficulty sleeping. No bleeding gums enlarged glands. No muscle ache back pain joint stiffness. No loss of strength numbness headache tremor or loss of memory. [facility] Past Medical History Medical History Atrial fibrillation s/p ablation Cataract Glaucoma Hypercholesteremia Hypertension Surgical History Surgical History History of lobectomy of lung Bilateral PTX with RUL resection, left lung blebectomy and left pleurodesis 1994 Hx of inguinal hernia repair Family History Family History Mother Breast cancer Carcinoma of colon Father Lung cancer Social History Social History Social History: Patient smoked a pack a day for 25 years and quit 1979. He drinks 2 alcoholic drinks per week. No history of heavy alcohol use. No drug use. Lives home with his . No pets. Full code. He nominates his to be the individual would make medical decisions for him if he is unable. Smoking packs per day: 1.5 Smoking cigarettes per day: 30.0 Years smoked: 20 Smoking pack-years: 30.00 Smoking status: Former smoker Tobacco type: cigarettes Second hand tobacco smoke exposure: No Alcohol intake: current Drinks per week: 2 Substance use: never Substance use type: does not use Lack of Transportation: No Lack of Food: Never True Current Housing: I Have Housing Concerned About Future Housing: No Difficulty Paying Gas/Electric Bills: No Difficulty Paying for Meds: No Currently Unemployed: No Education: Master's Degree or Higher Difficulty w/ Childcare or Family Care: No Spiritual care concerns: Yes (Taoist) Meds Home Medications and Allergies Home Medications Medication Instructions Recorded Confirmed Type latanoprost 0.005 % eye drops 1 drp EACH EYE HS 04/10/22 04/22/22 History metoprolol succinate 25 mg 25 mg PO DAILY 04/10/22 04/22/22 History tablet,extended release 24 hr olmesartan 40 mg tablet 40 mg PO DAILY 04/10/22 04/22/22 History Metamucil See Rx Instructions .Route .COMPLEX 04/22/22 04/22/22 History levofloxacin 750 mg tablet 750 mg PO DAILY #7 tabs 04/26/22 Rx sodium chloride 1 gram tablet 1 g PO TID #90 tabs 04/26/22 Rx tramadol 50 mg tablet 50 mg PO Q8HR PRN Pain Rated 4-6 04/26/22 Rx #20 tabs Allergies Allergy/AdvReac Type Severity Reaction Status Date / Time No Known Allergies Allergy Verified 04/10/22 15:45 Vital Signs Vital Signs - 24 hr 05/07/24 09:46 05/07/24 09:46 05/07/24 10:16 Temperature 36.6 C 36.6 C Pulse Rate 67 74 64 Respiratory Rate 18 19 20 Blood Pressure 154/61 H 125/71 142/64 H Pulse Oximetry 97 99 99 Oxygen Delivery Room Air 05/07/24 11:00 05/07/24 11:57 05/07/24 12:03 Temperature 36.6 C 36.5 C Pulse Rate 67 62 Respiratory Rate 20 18 16 Blood Pressure 126/68 128/72 110/47 L Pulse Oximetry 98 99 98 Oxygen Delivery 05/07/24 12:16 Temperature Pulse Rate 64 Respiratory Rate 16 Blood Pressure 112/59 L Pulse Oximetry 99 Oxygen Delivery Exam Narrative: GENERAL: Well appearing, no acute distress. HEAD: Normocephalic, atraumatic. NECK: Supple. No adenopathy, no masses. RESPIRATORY: respirations nonlabored. , no rales, wheezing. CARDIOVASCULAR: Regular rate and rhythm without murmurs, . Peripheral pulses 2+ and equal bilaterally. ABDOMINAL: Soft, nontender, nondistended, no hepatosplenomegaly. Normoactive BS. MUSCULOSKELETAL: no Epigastric and no hypochondrial tenderness SKIN: Warm, dry, hematoma of the right buttock NEURO: A&O X3. Moves all extremities H&P: Results Labs Labs: Short CBC 05/07/24 Range/Units 10:39 WBC 12.2 H (4.5-10.0) K/mm3 Hgb 13.7 L (14.0-18.0) g/dL Hct 43.1 (42.0-52.0) % Plt Count 187 D (150-375) k/mm3 BMP 05/07/24 10:39 Sodium 130 L Potassium 4.3 Chloride 96 L Carbon Dioxide 32 H BUN 12 D Creatinine 0.70 Glucose 111 H Calcium 8.5 Cardiac Enzymes 05/07/24 Range/Units 12:19 Troponin I < 0.012 (0.000-0.034) ng/mL Liver Function 05/07/24 Range/Units 10:39 Total Bilirubin 1.5 H (0.2-1.3) mg/dL AST 21 (17-59) U/L ALT 12 (6-50) U/L Alkaline Phosphatase 61 (38-126) U/L Albumin 4.0 (3.5-5.1) g/dL Urine 05/07/24 Range/Units 11:32 Urine Color Yellow (Yellow) Urine Appearance Clear (Clear) Urine pH 7.0 (5.0-9.0) Ur Specific [place] 1.014 (1.001-1.035) Urine Protein 1+ H (Negative) mg/dL Urine Glucose (UA) Negative (Negative) mg/dL Assessment and Plan Assessment and plan (1) Syncope: Qualifiers: Syncope type: unspecified Qualified Code(s): R55 - Syncope and collapse Code(s): R55 - Syncope and collapse Status: Acute (2) Hematoma of right buttock: Code(s): S30.0XXA - Contusion of lower back and pelvis, initial encounter Status: Acute (3) Atrial fibrillation: Code(s): I48.91 - Unspecified atrial fibrillation Status: Acute (4) Hypertension: Code(s): I10 - Essential (primary) hypertension Status: Acute (5) Fall from ground level: Code(s): W18.30XA - Fall on same level, unspecified, initial encounter Status: Acute Plan Gait Instability Service to Physical Therapy Service to Home Care (PT) Home exercise program Instruction in assistive device Will get carotid Doppler Hematoma right buttock due to fall Reduction in Polypharmacy, Minimize the use of high-risk medications, and Sedatives, Diuretics, Antidepressants, Narcotics, Anti-hypertensives, and Anti-anxiety Patient is at risk. Counseled accordingly on risk reduction.as above AFIB Well controlled status post ablation statin and antiplatelet therapy with aspirin Monitor for RVR and SOB Keeping BMI less than 25 Advised low-salt low carb diet. Cardiology consulted HTN Optimize BP meds currently on metoprolol on hold antiplatelet therapy as advised Keeping BMI less than 25 Advised low-salt Pure Hyperlipidemia Nutritional counseling was provided., The patient will be referred to the rubber stamp die inspector if patient agrees and Lipid-lowering therapy was prescribed dicussed adverse reaction. Compliance with medication discussed Monitor Lipid and CMP routinely Pt to report right away if having muscle aches or has jaundice etc DVT prophylaxis. SCDs GI prophylaxis. Protonix All records reviewed Discussed plan of care with the nursing staff and with the patient in detail. Answered all questions and concerns from the patient. All labs have been reviewed. Code status updated dictation may have been done utilizing a voice recognition system. Attempts have been made to correct errors. However, there may be uncorrected grammatical, spelling, and recognition errors present. Quality If No VTE Prophylaxis Answer both mechanical and pharmacologic: Reason no pharmacologic proph: medical contraindication (High risk of fall head injury) Hospitalist MIPS Advance Care Plan I have confirmed that the patient's Advanced Care Plan is present, code status is documented, or surrogate decision maker is listed in patient medical record.: Yes Medication Reconciliation I have utilized all available resources to obtain, update and review the patients current medications (includes all prescriptions, OTC, herbals, cannabis, and nutritional supplements).: Yes
--- NOTE | 2024-05-07 16:49 | ADMGEN ---
This patient, Andrew Chauhan Jr., was admitted to [facility] Surg Room 331-02. Patient/family oriented to hospital policies and general routines including ID bracelet, bed and alarms, visiting hours, pain management, procedures, bathroom and other care routines, personal items, smoking policy, room service/diet, and visiting hours. Information on how to activate the Rapid Response Team has been discussed. Patient/Family are encouraged to report perceived risks to care and to ask questions if they do not understand what they are told or what they should do.
--- NOTE | 2024-05-07 16:52 | PC.NURSE ---
at approx 1600, pt had witnessed syncope on bedside commode. pt stared off into space, but quickly came to when i called his name. he was able to answer to his name. pt completly a&o x3 upon waking up and was safely put back to bed using the sera-stedy. provider notified
[2024-05-07 18:03] LABS: Alanine Aminotransferase 13 U/L (6-50); Albumin Level 3.8 g/dL (3.5-5.1); Alkaline Phosphatase 64 U/L (38-126); Anion Gap 1 mmol/L (4-12); Aspartate Amino Transferase 22 U/L (17-59); Bilirubin,Total 1.6 mg/dL (0.2-1.3); Blood Urea Nitrogen 13 mg/dL (9-20); Calcium 8.4 mg/dL (8.4-10.2); Carbon Dioxide 31 mmol/L (22-30); Chloride 96 mmol/L (98-107); Cholesterol 104 mg/dL (0-200); Estimated CRCL calculation 70 ml/min; Estimated Glomerular Filt Rate > 60; Glucose 143 mg/dL (65-110); HDL Direct 55 mg/dL; Sodium 128 mmol/L (137-145); Triglycerides 61 mg/dL (<150)
[2024-05-07 18:05] LABS: INR 1.1; Prothrombin Time 14.9 Seconds (11.1-14.7)
[2024-05-07 18:06] LABS: Partial Thromboplastin Time 30.5 Seconds (22.3-36.8)
[2024-05-07 18:14] LABS: LDL Cholesterol Direct 31 mg/dL; Troponin I < 0.012 ng/mL (0.000-0.034)
[2024-05-07 18:15] LABS: D Dimer 1.21 ug/mL (<0.48)
[2024-05-07 18:20] LABS: Glucose Point of Care 126 mg/dl (65-105)
[2024-05-07 20:44] LABS: Troponin I < 0.012 ng/mL (0.000-0.034)
[2024-05-07] MEDS: LATANOPROST 0.005% OP SOLN 2.5 ML BTL 1 DROP EACH EYE (20:44)
[2024-05-07] MEDS: TIMOLOL MALEATE 0.5% OP SOLN 5 ML BOTTLE 1 DROP EACH EYE (20:44)
[2024-05-08] VITALS (12 sets, daily range): BP systolic 124–158; BP diastolic 52–82; PULSE 69–94; RESP 12–16; TEMP 36.1–37; O2SAT 96–99
[2024-05-08] MEDS: OLMESARTAN MEDOXOMIL 20 MG TABLET 40 MG PO (08:55)
[2024-05-08] MEDS: ASPIRIN 81 MG ENTERIC TABLET PO (08:57)
[2024-05-08] MEDS: TIMOLOL MALEATE 0.5% OP SOLN 5 ML BOTTLE 1 DROP EACH EYE ×2 (08:58→21:07)
[2024-05-08 09:19] LABS: Basophils Percent Auto 0.3 % (0.2-1.2); Eosinophils Absolute Auto 0.1 K/mm3 (0-0.3); Eosinophils Percent Auto 0.6 % (0-4.4); Hematocrit 37.3 % (42.0-52.0); Hemoglobin 12.2 g/dL (14.0-18.0); Immature Granulocyte Absolute 0.04 K/mm3 (0.00-0.031); Immature Granulocyte Percent A 0.3 % (0-0.5); Lymphocytes Absolute Auto 1.62 K/mm3 (0.9-3.2); Lymphocytes Percent Auto 14.2 % (18.3-44.2); Mean Corpuscular HGB Conc 32.7 g/dl (32-36); Mean Corpuscular Hemoglobin 29.5 pg (26-34); Mean Corpuscular Volume 90.1 fl (80-100); Mean Platelet Volume 9.5 fl (7.4-10.4); Monocytes Absolute Auto 0.6 K/mm3 (0.1-0.6); Monocytes Percent Auto 4.8 % (2.6-8.5); Neutrophils Absolute Auto 9.1 K/mm3 (1.3-6.7); Neutrophils Percent Auto 79.8 % (45.5-73.1); Platelet Count Result 190 k/mm3 (150-375); Red Blood Count 4.14 M/mm3 (4.6-6.20); Red Cell Distribution Width 13.3 % (11.5-14.5); White Blood Count 11.4 K/mm3 (4.5-10.0)
[2024-05-08 09:27] LABS: Alanine Aminotransferase 12 U/L (6-50); Albumin Level 3.7 g/dL (3.5-5.1); Alkaline Phosphatase 60 U/L (38-126); Anion Gap 3 mmol/L (4-12); Aspartate Amino Transferase 23 U/L (17-59); Bilirubin,Total 1.7 mg/dL (0.2-1.3); Blood Urea Nitrogen 13 mg/dL (9-20); Calcium 8.2 mg/dL (8.4-10.2); Carbon Dioxide 30 mmol/L (22-30); Chloride 92 mmol/L (98-107); Estimated CRCL calculation 79 ml/min; Estimated Glomerular Filt Rate > 60; Glucose 156 mg/dL (65-110); Potassium 4.1 mmol/L (3.4-5.0); Sodium 125 mmol/L (137-145)
[2024-05-08 10:06] LABS: Vitamin D 25 Hydroxy 43.3 ng/mL
--- NOTE | 2024-05-08 13:57 | P.CONCA_ITS ---
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 It is unlikely to be the cause however Repatha can be discontinued since the benefit of treatment of dyslipidemia is long TAVR over years. Short-term discontinuation of this medication unlikely to be causing harm. Patient event monitoring discharge Orthostatic measures for the patient Avoid tight blood pressure control History of Present Illness History of Present Illness Consult date/time: 05/08/24 13:57 Reason For Visit: GLF, R Buttock Hematoma/Syncope Narrative: 88-year-old male patient presents to the hospital status post fall. Patient member that he was standing with a walker when he suddenly felt dizzy and fell to the ground. Patient did not have sustain significant injury. Patient had recurrent episode yesterday while in the hospital trying to get out of the bed when she felt dizzy weak and lack of balance. Major history of atrial fibrillation and status post ablation. He is on aspirin metoprolol. Review of Systems Review of Systems: All systems reviewed & are unremarkable except as noted in HPI and below PMFSH Past Medical History Medical History Atrial fibrillation s/p ablation Cataract Glaucoma Hypercholesteremia Hypertension Surgical History Surgical History History of lobectomy of lung Bilateral PTX with RUL resection, left lung blebectomy and left pleurodesis 1993 Hx of inguinal hernia repair Family History Family History Mother Breast cancer Carcinoma of colon Father Lung cancer Social History Social History Social History: Patient smoked a pack a day for 25 years and quit 1979. He d rinks 2 alcoholic drinks per week. No history of heavy alcohol use. No drug use. Lives home with his . No pets. Full code. He nominates his to be the individual would make medical decisions for him if he is unable. Smoking packs per day: 1.5 Smoking cigarettes per day: 30.0 Years smoked: 20 Smoking pack-years: 30.00 Smoking status: Former smoker Second hand tobacco smoke exposure: No Alcohol intake: current Drinks per week: 2 Substance use: never Substance use type: does not use Do You Feel Safe in your Home?: Yes Lack of Transportation: No Lack of Food: Never True Current Housing: I Have Housing Concerned About Future Housing: No Difficulty Paying Gas/Electric Bills: No Difficulty Paying for Meds: No Currently Unemployed: No Education: Master's Degree or Higher Difficulty w/ Childcare or Family Care: No Spiritual care concerns: Yes (L[employer] Day) Meds Home Medications and Allergies Home Medications Medication Instructions Recorded Confirmed Type latanoprost 0.005 % eye drops 1 drp EACH EYE HS 04/10/22 05/07/24 History metoprolol succinate 25 mg 25 mg PO 0900 04/10/22 05/07/24 History tablet,extended release 24 hr olmesartan 40 mg tablet 40 mg PO DAILY 04/10/22 05/07/24 History Metamucil See Rx Instructions .Route .COMPLEX 04/22/22 05/07/24 History aspirin 81 mg tablet 81 mg PO DAILY 05/07/24 05/07/24 History cholecalciferol (vitamin D3) 25 25 mcg PO DAILY 05/07/24 05/07/24 History mcg (1,000 unit) chewable tablet (Vitamin D3) coenzyme [id number] E 100 mg-100 1 cap PO DAILY 05/07/24 05/07/24 History unit capsule evolocumab 140 mg/mL subcutaneous 140 mg subcut [id number] 05/07/24 05/07/24 History pen injector (Repatha SureClick) magnesium 200 mg tablet 200 mg PO DAILY 05/07/24 05/07/24 History metoprolol succinate 25 mg 12.5 mg PO HS 05/07/24 05/07/24 History tablet,extended release 24 hr psyllium 1 packet PO DAILY 05/07/24 05/07/24 History timolol maleate (PF) 0.5 % eye 1 drp EACH EYE BID 12/06/24 12/06/24 History drops in a dropperette vitamin K2 100 mcg PO DAILY 05/07/24 05/07/24 History Allergies Allergy/AdvReac Type Severity Reaction Status Date / Time No Known Allergies Allergy Verified 04/10/22 15:45 Vital Signs Vital Signs - 24 hr 05/07/24 14:02 05/07/24 14:17 05/07/24 18:17 Temperature 36.6 C Pulse Rate 64 64 Respiratory Rate 17 18 Blood Pressure 118/73 124/61 Pulse Oximetry 96 97 Oxygen Delivery Room Air 05/07/24 18:17 05/07/24 20:06 05/07/24 20:00 Temperature 36.4 C L Pulse Rate 60 61 Respiratory Rate 16 Blood Pressure 158/77 H Pulse Oximetry 98 Oxygen Delivery Room Air 05/07/24 20:00 05/08/24 00:00 05/08/24 04:00 Temperature Pulse Rate 73 72 69 Respiratory Rate Blood Pressure Pulse Oximetry Oxygen Delivery 05/08/24 04:59 05/08/24 08:00 05/08/24 08:15 Temperature 37.0 C Pulse Rate 73 90 Respiratory Rate 16 Blood Pressure 150/67 H Pulse Oximetry 99 Oxygen Delivery Room Air 05/08/24 12:03 05/08/24 12:45 05/08/24 12:50 Temperature Pulse Rate 92 Respiratory Rate Blood Pressure 124/52 L 128/59 L Pulse Oximetry Oxygen Delivery 05/08/24 12:55 Temperature Pulse Rate Respiratory Rate Blood Pressure 158/82 H Pulse Oximetry Oxygen Delivery Exam Const: General: comfortable and no acute distress Other: Able to lie flat HENMT: Face/Nose/Sinus: Normal nares present and no epistaxis Mouth: Yes moist mucous membranes Eyes: Sclera: sclerae normal Pupils: Equal, round and reactive pupils present Neck: Neck: supple and no JVD Carotids: no bruits Resp: Auscultation: clear to auscultation bilaterally and lung sounds not diminished Other: No chest wall tenderness Cardio: Rate: regular rate Rhythm: regular rhythm Heart sounds: no gallops, no murmurs and no rubs GI: GI Palp: Yes Soft to palpation and No Tenderness to palpation present (GI) Auscultation: normal bowel sounds Skin: General skin exam: normal color, rashes and/or lesions noted and no eryt carmen Other: Warm Neuro: Cranial nerves: Yes Equal, round and reactive pupils present Speech: normal speech Other: No obvious focal deficit or facial asymmetry Extrem: General: no edema Other: Normal capillary refills Intact distal pulses. Results Labs and Meds 05/08/24 08:38 05/08/24 08:38 Lab results: Cardiac Enzymes 05/07/24 05/07/24 05/08/24 Range/Units 17:37 20:15 08:38 AST 22 23 (17-59) U/L Troponin I < 0.012 < 0.012 (0.000-0.034) ng/mL Coagulation 05/07/24 Range/Units 17:37 PT 14.9 H (11.1-14.7) Seconds APTT 30.5 (22.3-36.8) Seconds Lipids 05/07/24 Range/Units 17:37 Triglycerides 61 (<150) mg/dL Cholesterol 104 (0-200) mg/dL CBC 05/08/24 Range/Units 08:38 WBC 11.4 H (4.5-10.0) K/mm3 RBC 4.14 L (4.6-6.20) M/mm3 Hgb 12.2 L (14.0-18.0) g/dL Hct 37.3 L (42.0-52.0) % Plt Count 190 (150-375) k/mm3 Lymph # (Auto) 1.62 (0.9-3.2) K/mm3 [place] # (Auto) 0.6 (0.1-0.6) K/mm3 Eos # (Auto) 0.1 (0-0.3) K/mm3 Baso # (Auto) 0.0 (0.0-0.1) K/mm3 Comprehensive Metabolic Panel 05/07/24 05/08/24 Range/Units 17:37 08:38 Sodium 128 L 125 L (137-145) mmol/L Potassium 5.0 4.1 (3.4-5.0) mmol/L Chloride 96 L 92 L (98-107) mmol/L Carbon Dioxide 31 H 30 (22-30) mmol/L BUN 13 13 (9-20) mg/dL Creatinine 0.80 0.70 (0.7-1.3) mg/dL Glucose 143 H 156 H (65-110) mg/dL Calcium 8.4 8.2 L (8.4-10.2) mg/dL AST 22 23 (17-59) U/L ALT 13 12 (6-50) U/L Alkaline Phosphatase 64 60 (38-126) U/L Total Protein 7.0 7.0 (6.3-8.2) g/dL Albumin 3.8 3.7 (3.5-5.1) g/dL Intake and Output 05/07/24 05/08/24 05/08/24 23:59 07:59 15:59 Intake Total 1150 476 Output Total 275 Balance 875 476 Intake: Oral 1150 476 Output: Urine 275 Other: # Unmeasured Voids 1 3
--- NOTE | 2024-05-08 17:34 | PM.IMPN ---
Progress Note: A&P Assessment and Plan (1) Syncope: Qualifiers: Syncope type: unspecified Qualified Code(s): R55 - Syncope and collapse Code(s): R55 - Syncope and collapse Status: Acute Assessment and Plan: Patient presents after a fall and feeling weak. He may have had a brief LOC with the fall but unclear. EKG showing normal sinus rhythm with PVC, LAD, LVH and possible age-indeterminate anterior MN. UA noted. UCx pending. BCx NGTD. Head CT showing stable extensive nonspecific cerebral white matter disease Cervical spine CT showing no fracture but severe cervical spondylosis. CXR showing stable chronic ILD. CT Head/Neck showing 0% stenosis right and 16% stenosis left proximal ICA Not orthostatic. WBC mildly elevated. Hyponatremia noted. VitD, TSH and cortisol WNL. Monitor on tele. Cardiology consulted and appreciate their input +DDimer at 1.2. No obvious risk factors and no tachycardia or hypoxia. Check LE venous dopplers. Check CTA chest since it has been >24hours after his last contrast exposure. PT/OT (2) Hyponatremia: Code(s): E87.1 - Hypo-osmolality and hyponatremia Status: Acute Assessment and Plan: Patient has a hx of hyponatremia. Sodium was 122-130 when he was last here 2 years ago. Sodium 129 and has dropped to 125. TSH and cortisol levels okay. Fluid restrict and check urine studies. (3) Fall from ground level: Code(s): W18.30XA - Fall on same level, unspecified, initial encounter Status: Acute Assessment and Plan: As above (4) Hematoma of right buttock: Code(s): S30.0XXA - Contusion of lower back and pelvis, initial encounter Status: Acute Assessment and Plan: Patient fell landing on his right buttock. CT pelvis showing hematoma of the right gluteus medius and eleazar muscle. No fracture noted. On ASA only at home. PT/OT (5) Atrial fibrillation: Code(s): I48.91 - Unspecified atrial fibrillation Status: Acute Assessment and Plan: Patient with AFib s/p ablation. HR stable. Metoprolol on hold. Cardiology consulted and appreciate their input (6) Hypertension: Code(s): I10 - Essential (primary) hypertension Status: Acute Assessment and Plan: Patient's blood pressure was reviewed on 05/08 Blood pressure remains well controlled. Will continue to monitor Plan Gait Instability Service to Physical Therapy Service to Home Care (PT) Home exercise program Instruction in assistive device Will get carotid Doppler Hematoma right buttock due to fall Reduction in Polypharmacy, Minimize the use of high-risk medications, and Sedatives, Diuretics, Antidepressants, Narcotics, Anti-hypertensives, and Anti-anxiety Patient is at risk. Counseled accordingly on risk reduction.as above AFIB Well controlled status post ablation statin and antiplatelet therapy with aspirin Monitor for RVR and SOB Keeping BMI less than 25 Advised low-salt low carb diet. Cardiology consulted HTN Optimize BP meds currently on metoprolol on hold antiplatelet therapy as advised Keeping BMI less than 25 Advised low-salt Pure Hyperlipidemia Nutritional counseling was provided., The patient will be referred to the bilingual nanny if patient agrees and Lipid-lowering therapy was prescribed dicussed adverse reaction. Compliance with medication discussed Monitor Lipid and CMP routinely Pt to report right away if having muscle aches or has jaundice etc DVT prophylaxis. SCDs GI prophylaxis. Protonix All records reviewed Discussed plan of care with the nursing staff and with the patient in detail. Answered all questions and concerns from the patient. All labs have been reviewed. Code status updated Subjective Date/time seen: 05/08/24 17:35 Interval history: 88yo male with AFib s/p ablation, HTn and HLD here for a fall. Patient denies any recent long car/plane rides. No prolonged immobilization. No CP or pleuritic chest pain. No calf bradley or leg edema. He denies COPD or asthma hx. Quit tobacco 40 yrs ago. Cough is nonproducitve. Complains of right buttock pain. He remembers falling and is not sure if he has LOC. Exam Narrative: AF 98.0 124/52 80 16 98% ra Gen - NARD Chest - scattered inspiratory rhonchi, nml RR CV - RRR S1/S2 Abd - Soft, NT/ND, Positive BS Ext - No pedal edema Neuro - Alert and oriented. Nonfocal exam. Psych - Nml mood and affect Skin - Warm and dry Objective Data Vital Signs Vital Signs: Vital Signs - 24 hr 05/07/24 18:17 05/07/24 18:17 05/07/24 20:06 Temperature 97.5 F L Pulse Rate 60 61 Respiratory Rate 16 Blood Pressure 158/77 H Pulse Oximetry 98 Oxygen Delivery Room Air 05/07/24 20:00 05/07/24 20:00 05/08/24 00:00 Temperature Pulse Rate 73 72 Respiratory Rate Blood Pressure Pulse Oximetry Oxygen Delivery Room Air 05/08/24 04:00 05/08/24 04:59 05/08/24 08:00 Temperature 98.6 F Pulse Rate 69 73 90 Respiratory Rate 16 Blood Pressure 150/67 H Pulse Oximetry 99 Oxygen Delivery 05/08/24 08:15 05/08/24 12:03 05/08/24 12:45 Temperature Pulse Rate 92 Respiratory Rate Blood Pressure 124/52 L Pulse Oximetry Oxygen Delivery Room Air 05/08/24 12:50 05/08/24 12:55 05/08/24 13:16 Temperature Pulse Rate Respiratory Rate Blood Pressure 128/59 L 158/82 H Pulse Oximetry Oxygen Delivery Room Air 05/08/24 14:47 05/08/24 14:00 Temperature 98.0 F Pulse Rate 80 Respiratory Rate 16 Blood Pressure 124/52 L Pulse Oximetry 98 Oxygen Delivery Room Air Intake/Output Intake/Output: Intake & Output 05/05/24 05/06/24 05/07/24 05/08/24 23:59 23:59 23:59 23:59 Intake Total 1000 1626 Output Total 275 Balance 1000 1351 Meds/Results Medications: Active Medications Generic Name Dose Route Start Last Admin Trade Name Freq PRN Reason Stop Dose Admin Acetaminophen 650 mg 05/07/24 14:03 Acetaminophen 325 Mg Tablet PO Q4H PRN Mild Pain (1-3) or Fever Hydrocodone Bitart/Acetaminophen 1 tab 05/07/24 14:03 Hydrocodone/Acetaminophen (*Crx) 5-325 Mg Tablet PO Q4H PRN Pain Rated 4-6 Aspirin 81 mg 05/08/24 09:00 05/08/24 08:57 Aspirin 81 Mg Enteric Tablet PO 81 mg QAM MAXIMO Administration Dextrose 12.5 gm 05/07/24 14:03 Dextrose 50% 25 Gm/50 Ml Syringe IV PUSH PRN PRN Hypoglycemia Protocol Glucagon 1 mg 05/07/24 14:03 Glucagon For Inj 1 Mg Vial IM PRN PRN Hypoglycemia Protocol Glucose 15 gm 05/07/24 14:03 Glucose Oral Gel 15 Gm Of Glucse In 37.5 Gm Tube PO PRN PRN Hypoglycemia Protocol Dextrose 1,000 mls @ 100 mls/hr 05/07/24 14:03 Dextrose 5% 1,000 Ml IVPB PRN PRN Hypoglycemia Protocol Latanoprost 1 drop 05/07/24 21:00 05/07/24 20:44 Latanoprost 0.005% Op Soln 2.5 Ml Btl EACH EYE 1 drop HS MAXIMO Administration Olmesartan 40 mg 05/08/24 09:00 05/08/24 08:55 Olmesartan Medoxomil 20 Mg Tablet PO 40 mg QAM MAXIMO Administration Timolol Maleate 1 drop 05/07/24 21:00 05/08/24 08:58 Timolol Maleate 0.5% Op Soln 5 Ml Bottle EACH EYE 1 drop Q12HR MAXIMO Administration Radiology Results: ITS Impressions Head CT 05/07/24 10:34 IMPRESSION: 1. Stable extensive nonspecific cerebral white matter disease, which likely represents chronic small vessel ischemic disease. Pelvis CT 05/07/24 10:35 IMPRESSION: 1. Hematoma in the right gluteus medius and gluteus eleazar muscles. Cervical Spine CT 05/07/24 10:41 IMPRESSION: 1. No fracture 2. Severe cervical spondylosis. Chest X-Ray 05/07/24 10:48 IMPRESSION: 1. Stable chronic interstitial lung disease. Head/Neck CTA 05/07/24 12:48 IMPRESSION: 1. Extensive nonspecific cerebral white matter disease, which likely represents chronic small vessel ischemic disease. 2. No aneurysm or significant intracranial arterial stenosis. 3. 0% stenosis of the proximal right internal carotid artery relative to normal distal artery lumen diameter (NASCET criteria). 4. 16% stenosis of the proximal left internal carotid artery relative to normal distal artery lumen diameter. Carotid Doppler Study 05/07/24 20:00 IMPRESSION: 1. 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 Normal right carotid artery. Antegrade flow demonstrated within both vertebral arteries. Labs Labs: Laboratory Results - last 24 hr 05/07/24 05/07/24 05/07/24 17:37 18:08 20:15 WBC RBC Hgb Hct MCV MCH MCHC RDW Plt Count MPV Immature Gran % (Auto) Neut % (Auto) Lymph % (Auto) [place] % (Auto) Eos % (Auto) Baso % (Auto) Lymph # (Auto) [place] # (Auto) Eos # (Auto) Baso # (Auto) Abs Immat Gran (auto) Absolute Neuts (auto) Absolute Nucleated RBC Nucleated RBC % PT 14.9 H INR 1.1 APTT 30.5 D-Dimer 1.21 H Sodium 128 L Potassium 5.0 Chloride 96 L Carbon Dioxide 31 H Anion Gap 1 L BUN 13 Creatinine 0.80 Estim Creat Clear Calc 70 Estimated GFR > 60 Glucose 143 H POC Capillary Glucose 126 H Calcium 8.4 Total Bilirubin 1.6 H AST 22 ALT 13 Alkaline Phosphatase 64 Troponin I < 0.012 < 0.012 Total Protein 7.0 Albumin 3.8 Triglycerides 61 Cholesterol 104 LDL Cholesterol Direct 31 HDL Direct 55 Vitamin D 25-Hydroxy TSH (Reflex) Random Cortisol 05/08/24 08:38 WBC 11.4 H RBC 4.14 L Hgb 12.2 L Hct 37.3 L MCV 90.1 MCH 29.5 MCHC 32.7 RDW 13.3 Plt Count 190 MPV 9.5 Immature Gran % (Auto) 0.3 Neut % (Auto) 79.8 H Lymph % (Auto) 14.2 L [place] % (Auto) 4.8 Eos % (Auto) 0.6 Baso % (Auto) 0.3 Lymph # (Auto) 1.62 [place] # (Auto) 0.6 Eos # (Auto) 0.1 Baso # (Auto) 0.0 Abs Immat Gran (auto) 0.04 H Absolute Neuts (auto) 9.1 H Absolute Nucleated RBC 0.000 Nucleated RBC % 0.0 PT INR APTT D-Dimer Sodium 125 L Potassium 4.1 Chloride 92 L Carbon Dioxide 30 Anion Gap 3 L BUN 13 Creatinine 0.70 Estim Creat Clear Calc 79 Estimated GFR > 60 Glucose 156 H POC Capillary Glucose Calcium 8.2 L Total Bilirubin 1.7 H AST 23 ALT 12 Alkaline Phosphatase 60 Troponin I Total Protein 7.0 Albumin 3.7 Triglycerides Cholesterol LDL Cholesterol Direct HDL Direct Vitamin D 25-Hydroxy 43.3 TSH (Reflex) 2.820 Random Cortisol 21.30
[2024-05-08 18:52] LABS: Sodium 124 mmol/L (137-145)
[2024-05-08 19:09] LABS: Folic Acid 19.8 ng/mL (2.76->20)
[2024-05-08] MEDS: LATANOPROST 0.005% OP SOLN 2.5 ML BTL 1 DROP EACH EYE (21:07)
[2024-05-09] VITALS (9 sets, daily range): BP systolic 130–131; BP diastolic 54–63; PULSE 76–101; RESP 14–24; TEMP 36.6–37.1; O2SAT 97–98
[2024-05-09 01:29] LABS: Urea Random Urine 618 MG/DL
[2024-05-09 01:41] LABS: Sodium Urine Random < 5 meq/L
[2024-05-09 07:35] LABS: Basophils Percent Auto 0.3 % (0.2-1.2); Eosinophils Absolute Auto 0.2 K/mm3 (0-0.3); Eosinophils Percent Auto 1.5 % (0-4.4); Hematocrit 33.3 % (42.0-52.0); Hemoglobin 10.8 g/dL (14.0-18.0); Immature Granulocyte Absolute 0.05 K/mm3 (0.00-0.031); Immature Granulocyte Percent A 0.5 % (0-0.5); Lymphocytes Absolute Auto 2.19 K/mm3 (0.9-3.2); Lymphocytes Percent Auto 20.4 % (18.3-44.2); Mean Corpuscular HGB Conc 32.4 g/dl (32-36); Mean Corpuscular Volume 89.5 fl (80-100); Mean Platelet Volume 9.4 fl (7.4-10.4); Monocytes Absolute Auto 0.9 K/mm3 (0.1-0.6); Monocytes Percent Auto 8.7 % (2.6-8.5); Neutrophils Absolute Auto 7.4 K/mm3 (1.3-6.7); Neutrophils Percent Auto 68.6 % (45.5-73.1); Platelet Count Result 186 k/mm3 (150-375); Red Blood Count 3.72 M/mm3 (4.6-6.20); Red Cell Distribution Width 13.3 % (11.5-14.5); White Blood Count 10.8 K/mm3 (4.5-10.0)
[2024-05-09 07:42] LABS: Albumin Level 3.2 g/dL (3.5-5.1); Anion Gap 2 mmol/L (4-12); Bilirubin Indirect 1.1 mg/dL (0-1.1); Bilirubin,Total 1.3 mg/dL (0.2-1.3); Blood Urea Nitrogen 12 mg/dL (9-20); Carbon Dioxide 32 mmol/L (22-30); Chloride 92 mmol/L (98-107); Estimated CRCL calculation 79 ml/min; Estimated Glomerular Filt Rate > 60; Glucose 103 mg/dL (65-110); Phosphorus 2.6 mg/dL (2.5-4.5); Potassium 4.5 mmol/L (3.4-5.0); Sodium 126 mmol/L (137-145)
[2024-05-09] MEDS: ASPIRIN 81 MG ENTERIC TABLET PO (08:30)
[2024-05-09] MEDS: OLMESARTAN MEDOXOMIL 20 MG TABLET 40 MG PO (08:30)
[2024-05-09] MEDS: TIMOLOL MALEATE 0.5% OP SOLN 5 ML BOTTLE 1 DROP EACH EYE ×2 (08:32→21:05)
--- NOTE | 2024-05-09 11:07 | PM.IMPN ---
Progress Note: A&P Assessment and Plan (1) Syncope: Qualifiers: Syncope type: unspecified Qualified Code(s): R55 - Syncope and collapse Code(s): R55 - Syncope and collapse Status: Acute Assessment and Plan: Patient presents after a fall and feeling weak. He may have had a brief LOC with the fall but unclear. EKG showing normal sinus rhythm with PVC, LAD, LVH and possible age-indeterminate anterior TX. UA noted. UCx pending. BCx NGTD. Head CT showing stable extensive nonspecific cerebral white matter disease Cervical spine CT showing no fracture but severe cervical spondylosis. CXR showing stable chronic ILD. CT Head/Neck showing 0% stenosis right and 16% stenosis left proximal ICA Not orthostatic. WBC mildly elevated. Hyponatremia noted. VitD, TSH and cortisol WNL. Monitor on tele. Cardiology consulted and appreciate their input +DDimer at 1.2. No obvious risk factors and no tachycardia or hypoxia. LE venous doppler negative for DVT. CTA chest negative for PE. PT/OT (2) Hyponatremia: Code(s): E87.1 - Hypo-osmolality and hyponatremia Status: Acute Assessment and Plan: Patient has a hx of hyponatremia. Sodium was 122-130 when he was last here 2 years ago. Sodium 129 and has dropped to 124 TSH and cortisol levels okay. Fluid restricted. Sodium better at 126. Follow. (3) Fall from ground level: Code(s): W18.30XA - Fall on same level, unspecified, initial encounter Status: Acute Assessment and Plan: As above (4) Hematoma of right buttock: Code(s): S30.0XXA - Contusion of lower back and pelvis, initial encounter Status: Acute Assessment and Plan: Patient fell landing on his right buttock. CT pelvis showing hematoma of the right gluteus medius and eleazar muscle. No fracture noted. On ASA only at home. PT/OT (5) Atrial fibrillation: Code(s): I48.91 - Unspecified atrial fibrillation Status: Acute Assessment and Plan: Patient with AFib s/p ablation. HR stable. Metoprolol on hold. Cardiology consulted and appreciate their input Resume low dose metoprolol. (6) Hypertension: Code(s): I10 - Essential (primary) hypertension Status: Acute Assessment and Plan: Patient's blood pressure was reviewed on 05/09 Blood pressure remains well controlled. Will continue to monitor Plan Disp - home vs SNF. DVT prophylaxis - SCDs Code status full Subjective Date/time seen: 05/09/24 11:07 Interval history: 88yo male with AFib s/p ablation, HTn and HLD here for a fall. Patient feeling well. No problems overnight. No CP. No SOB. Slept well. Eating normally. Not walking yet. Using the bedside commode. Exam Narrative: AF 98.8 131/63 88 14 97% ra Gen - NARD Chest - bibasilar inspiratory crackles. nml RR CV - RRR S1/S2. Tele showing PVCs. Abd - Soft, NT/ND, Positive BS Ext - No pedal edema Psych - Nml mood and affect Skin - Warm and dry Objective Data Vital Signs Vital Signs: Vital Signs - 24 hr 05/08/24 12:03 05/08/24 12:45 05/08/24 12:50 Temperature Pulse Rate 92 Respiratory Rate Blood Pressure 124/52 L 128/59 L Pulse Oximetry Oxygen Delivery 05/08/24 12:55 05/08/24 13:16 05/08/24 14:47 Temperature Pulse Rate Respiratory Rate Blood Pressure 158/82 H Pulse Oximetry Oxygen Delivery Room Air Room Air 05/08/24 14:00 05/08/24 16:03 05/08/24 20:00 Temperature 98.0 F Pulse Rate 80 94 Respiratory Rate 16 Blood Pressure 124/52 L Pulse Oximetry 98 Oxygen Delivery Room Air 05/08/24 21:31 05/08/24 20:00 05/09/24 00:00 Temperature 97.0 F L Pulse Rate 88 92 85 Respiratory Rate 12 Blood Pressure 141/63 H Pulse Oximetry 96 Oxygen Delivery 05/09/24 04:00 05/09/24 06:00 05/09/24 08:00 Temperature 98.8 F Pulse Rate 76 88 88 Respiratory Rate 14 Blood Pressure 131/63 Pulse Oximetry 97 Oxygen Delivery Intake/Output Intake/Output: Intake & Output 05/06/24 05/07/24 05/08/24 05/09/24 23:59 23:59 23:59 23:59 Intake Total 1000 1866 175 Output Total 275 455 Balance 1000 1591 -280 Meds/Results Medications: Active Medications Generic Name Dose Route Start Last Admin Trade Name Freq PRN Reason Stop Dose Admin Acetaminophen 650 mg 05/07/24 14:03 Acetaminophen 325 Mg Tablet PO Q4H PRN Mild Pain (1-3) or Fever Hydrocodone Bitart/Acetaminophen 1 tab 05/07/24 14:03 Hydrocodone/Acetaminophen (*Crx) 5-325 Mg Tablet PO Q4H PRN Pain Rated 4-6 Aspirin 81 mg 05/08/24 09:00 05/09/24 08:30 Aspirin 81 Mg Enteric Tablet PO 81 mg QAM MAXIMO Administration Dextrose 12.5 gm 05/07/24 14:03 Dextrose 50% 25 Gm/50 Ml Syringe IV PUSH PRN PRN Hypoglycemia Protocol Glucagon 1 mg 05/07/24 14:03 Glucagon For Inj 1 Mg Vial IM PRN PRN Hypoglycemia Protocol Glucose 15 gm 05/07/24 14:03 Glucose Oral Gel 15 Gm Of Glucse In 37.5 Gm Tube PO PRN PRN Hypoglycemia Protocol Dextrose 1,000 mls @ 100 mls/hr 05/07/24 14:03 Dextrose 5% 1,000 Ml IVPB PRN PRN Hypoglycemia Protocol Latanoprost 1 drop 05/07/24 21:00 05/08/24 21:07 Latanoprost 0.005% Op Soln 2.5 Ml Btl EACH EYE 1 drop HS MAXIMO Administration Olmesartan 40 mg 05/08/24 09:00 05/09/24 08:30 Olmesartan Medoxomil 20 Mg Tablet PO 40 mg QAM MAXIMO Administration Timolol Maleate 1 drop 05/07/24 21:00 05/09/24 08:32 Timolol Maleate 0.5% Op Soln 5 Ml Bottle EACH EYE 1 drop Q12HR MAXIMO Administration Radiology Results: ITS Impressions Head CT 05/07/24 10:34 IMPRESSION: 1. Stable extensive nonspecific cerebral white matter disease, which likely represents chronic small vessel ischemic disease. Pelvis CT 05/07/24 10:35 IMPRESSION: 1. Hematoma in the right gluteus medius and gluteus eleazar muscles. Cervical Spine CT 05/07/24 10:41 IMPRESSION: 1. No fracture 2. Severe cervical spondylosis. Chest X-Ray 05/07/24 10:48 IMPRESSION: 1. Stable chronic interstitial lung disease. Head/Neck CTA 05/07/24 12:48 IMPRESSION: 1. Extensive nonspecific cerebral white matter disease, which likely represents chronic small vessel ischemic disease. 2. No aneurysm or significant intracranial arterial stenosis. 3. 0% stenosis of the proximal right internal carotid artery relative to normal distal artery lumen diameter (NASCET criteria). 4. 16% stenosis of the proximal left internal carotid artery relative to normal distal artery lumen diameter. Carotid Doppler Study 05/07/24 20:00 IMPRESSION: 1. 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 Normal right carotid artery. Antegrade flow demonstrated within both vertebral arteries. Venous Doppler Study 05/08/24 20:43 IMPRESSION: 1. No deep venous thrombosis. Chest CTA 05/08/24 20:46 IMPRESSION: 1. No pulmonary embolus. 2. Diffuse lung disease, likely a combination of emphysema and chronic interstitial lung disease in a pattern of usual interstitial pneumonia (UIP). Labs Labs: Laboratory Results - last 24 hr 05/08/24 05/08/24 05/09/24 08:36 18:39 00:59 WBC RBC Hgb Hct MCV MCH MCHC RDW Plt Count MPV Immature Gran % (Auto) Neut % (Auto) Lymph % (Auto) [place] % (Auto) Eos % (Auto) Baso % (Auto) Lymph # (Auto) [place] # (Auto) Eos # (Auto) Baso # (Auto) Abs Immat Gran (auto) Absolute Neuts (auto) Absolute Nucleated RBC Nucleated RBC % Sodium 124 L Potassium Chloride Carbon Dioxide Anion Gap BUN Creatinine Estim Creat Clear Calc Estimated GFR Glucose Calcium Phosphorus Magnesium Total Bilirubin Indirect Bilirubin Albumin Vitamin B12 572.0 Folate 19.8 Ur Random Sodium < 5 Ur Random Urea 618 Urine Creatinine 80.0 05/09/24 06:48 WBC 10.8 H RBC 3.72 L Hgb 10.8 L Hct 33.3 L MCV 89.5 MCH 29.0 MCHC 32.4 RDW 13.3 Plt Count 186 MPV 9.4 Immature Gran % (Auto) 0.5 Neut % (Auto) 68.6 Lymph % (Auto) 20.4 [place] % (Auto) 8.7 H Eos % (Auto) 1.5 Baso % (Auto) 0.3 Lymph # (Auto) 2.19 [place] # (Auto) 0.9 H Eos # (Auto) 0.2 Baso # (Auto) 0.0 Abs Immat Gran (auto) 0.05 H Absolute Neuts (auto) 7.4 H Absolute Nucleated RBC 0.000 Nucleated RBC % 0.0 Sodium 126 L Potassium 4.5 Chloride 92 L Carbon Dioxide 32 H Anion Gap 2 L BUN 12 Creatinine 0.70 Estim Creat Clear Calc 79 Estimated GFR > 60 Glucose 103 Calcium 8.0 L Phosphorus 2.6 Magnesium 2.0 Total Bilirubin 1.3 Indirect Bilirubin 1.1 Albumin 3.2 L Vitamin B12 Folate Ur Random Sodium Ur Random Urea Urine Creatinine
--- NOTE | 2024-05-09 14:11 | PM.PNCARD ---
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 It is unlikely to be the cause however Repatha can be discontinued since the benefit of treatment of dyslipidemia is long TAVR over years. Short-term discontinuation of this medication unlikely to be causing harm. Event monitoring discharge Orthostatic measures for the patient Avoid tight blood pressure control Given recurrent fall patient will not be a good candidate for oral anticoagulation Subjective Date/time seen: 05/09/24 14:11 Interval history: No acute events Today moved to the chair without evidence of dizziness Telemetry sinus rhythm Review of Systems Review of Systems: All systems reviewed & are unremarkable except as noted in HPI and below Exam Const: General: comfortable and no acute distress Other: Able to lie flat HENMT: Face/Nose/Sinus: Normal nares present and no epistaxis Mouth: Yes moist mucous membranes Eyes: Sclera: sclerae normal Pupils: Equal, round and reactive pupils present Neck: Neck: supple and no JVD Carotids: no bruits Resp: Auscultation: clear to auscultation bilaterally and lung sounds not diminished Other: No chest wall tenderness Cardio: Rate: regular rate Rhythm: regular rhythm Heart sounds: no gallops, no murmurs and no rubs GI: GI Palp: Yes Soft to palpation and No Tenderness to palpation present (GI) Auscultation: normal bowel sounds Skin: General skin exam: normal color, rashes and/or lesions noted and no erythema Other: Warm Neuro: Cranial nerves: Yes Equal, round and reactive pupils present Speech: normal speech Other: No obvious focal deficit or facial asymmetry Extrem: General: no edema Other: Normal capillary refills Intact distal pulses. Objective Data Vital Signs Vital Signs: Vital Signs - 24 hr 05/08/24 14:47 05/08/24 16:03 05/08/24 20:00 Temperature Pulse Rate 94 Respiratory Rate Blood Pressure Pulse Oximetry Oxygen Delivery Room Air Room Air 05/08/24 21:31 05/08/24 20:00 05/09/24 00:00 Temperature 36.1 C L Pulse Rate 88 92 85 Respiratory Rate 12 Blood Pressure 141/63 H Pulse Oximetry 96 Oxygen Delivery 05/09/24 04:00 05/09/24 06:00 05/09/24 08:00 Temperature 37.1 C Pulse Rate 76 88 88 Respiratory Rate 14 Blood Pressure 131/63 Pulse Oximetry 97 Oxygen Delivery 05/09/24 12:00 05/09/24 08:00 Temperature Pulse Rate 101 H Respiratory Rate Blood Pressure Pulse Oximetry Oxygen Delivery Room Air Intake/Output Intake/Output: Intake & Output 05/06/24 05/07/24 05/08/24 05/09/24 23:59 23:59 23:59 23:59 Intake Total 1000 1866 1225 Output Total 275 455 Balance 1000 1591 770 Meds/Results Medications: Active Medications Generic Name Dose Route Start Last Admin Trade Name Freq PRN Reason Stop Dose Admin Acetaminophen 650 mg 05/07/24 14:03 Acetaminophen 325 Mg Tablet PO Q4H PRN Mild Pain (1-3) or Fever Hydrocodone Bitart/Acetaminophen 1 tab 05/07/24 14:03 Hydrocodone/Acetaminophen (*Crx) 5-325 Mg Tablet PO Q4H PRN Pain Rated 4-6 Aspirin 81 mg 05/08/24 09:00 05/09/24 08:30 Aspirin 81 Mg Enteric Tablet PO 81 mg QAM MAXIMO Administration Dextrose 12.5 gm 05/07/24 14:03 Dextrose 50% 25 Gm/50 Ml Syringe IV PUSH PRN PRN Hypoglycemia Protocol Glucagon 1 mg 05/07/24 14:03 Glucagon For Inj 1 Mg Vial IM PRN PRN Hypoglycemia Protocol Glucose 15 gm 05/07/24 14:03 Glucose Oral Gel 15 Gm Of Glucse In 37.5 Gm Tube PO PRN PRN Hypoglycemia Protocol Dextrose 1,000 mls @ 100 mls/hr 05/07/24 14:03 Dextrose 5% 1,000 Ml IVPB PRN PRN Hypoglycemia Protocol Latanoprost 1 drop 05/07/24 21:00 05/08/24 21:07 Latanoprost 0.005% Op Soln 2.5 Ml Btl EACH EYE 1 drop HS MAXIMO Administration Olmesartan 40 mg 05/08/24 09:00 05/09/24 08:30 Olmesartan Medoxomil 20 Mg Tablet PO 40 mg QAM MAXIMO Administration Timolol Maleate 1 drop 05/07/24 21:00 05/09/24 08:32 Timolol Maleate 0.5% Op Soln 5 Ml Bottle EACH EYE 1 drop Q12HR MAXIMO Administration Radiology Results: ITS Impressions Head CT 05/07/24 10:34 IMPRESSION: 1. Stable extensive nonspecific cerebral white matter disease, which likely represents chronic small vessel ischemic disease. Pelvis CT 05/07/24 10:35 IMPRESSION: 1. Hematoma in the right gluteus medius and gluteus eleazar muscles. Cervical Spine CT 05/07/24 10:41 IMPRESSION: 1. No fracture 2. Severe cervical spondylosis. Chest X-Ray 05/07/24 10:48 IMPRESSION: 1. Stable chronic interstitial lung disease. Head/Neck CTA 05/07/24 12:48 IMPRESSION: 1. Extensive nonspecific cerebral white matter disease, which likely represents chronic small vessel ischemic disease. 2. No aneurysm or significant intracranial arterial stenosis. 3. 0% stenosis of the proximal right internal carotid artery relative to normal distal artery lumen diameter (NASCET criteria). 4. 16% stenosis of the proximal left internal carotid artery relative to normal distal artery lumen diameter. Carotid Doppler Study 05/07/24 20:00 IMPRESSION: 1. 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 Normal right carotid artery. Antegrade flow demonstrated within both vertebral arteries. Venous Doppler Study 05/08/24 20:43 IMPRESSION: 1. No deep venous thrombosis. Chest CTA 05/08/24 20:46 IMPRESSION: 1. No pulmonary embolus. 2. Diffuse lung disease, likely a combination of emphysema and chronic interstitial lung disease in a pattern of usual interstitial pneumonia (UIP). Labs Labs: Laboratory Results - last 24 hr 05/08/24 05/08/24 05/09/24 08:36 18:39 00:59 WBC RBC Hgb Hct MCV MCH MCHC RDW Plt Count MPV Immature Gran % (Auto) Neut % (Auto) Lymph % (Auto) [place] % (Auto) Eos % (Auto) Baso % (Auto) Lymph # (Auto) [place] # (Auto) Eos # (Auto) Baso # (Auto) Abs Immat Gran (auto) Absolute Neuts (auto) Absolute Nucleated RBC Nucleated RBC % Sodium 124 L Potassium Chloride Carbon Dioxide Anion Gap BUN Creatinine Estim Creat Clear Calc Estimated GFR Glucose Calcium Phosphorus Magnesium Total Bilirubin Indirect Bilirubin Albumin Vitamin B12 572.0 Folate 19.8 Ur Random Sodium < 5 Ur Random Urea 618 Urine Creatinine 80.0 05/09/24 06:48 WBC 10.8 H RBC 3.72 L Hgb 10.8 L Hct 33.3 L MCV 89.5 MCH 29.0 MCHC 32.4 RDW 13.3 Plt Count 186 MPV 9.4 Immature Gran % (Auto) 0.5 Neut % (Auto) 68.6 Lymph % (Auto) 20.4 [place] % (Auto) 8.7 H Eos % (Auto) 1.5 Baso % (Auto) 0.3 Lymph # (Auto) 2.19 [place] # (Auto) 0.9 H Eos # (Auto) 0.2 Baso # (Auto) 0.0 Abs Immat Gran (auto) 0.05 H Absolute Neuts (auto) 7.4 H Absolute Nucleated RBC 0.000 Nucleated RBC % 0.0 Sodium 126 L Potassium 4.5 Chloride 92 L Carbon Dioxide 32 H Anion Gap 2 L BUN 12 Creatinine 0.70 Estim Creat Clear Calc 79 Estimated GFR > 60 Glucose 103 Calcium 8.0 L Phosphorus 2.6 Magnesium 2.0 Total Bilirubin 1.3 Indirect Bilirubin 1.1 Albumin 3.2 L Vitamin B12 Folate Ur Random Sodium Ur Random Urea Urine Creatinine
[2024-05-09] MEDS: LATANOPROST 0.005% OP SOLN 2.5 ML BTL 1 DROP EACH EYE (21:05)
[2024-05-09] MEDS: METOPROLOL TARTRATE 12.5 MG TABLET PO (21:05)
[2024-05-10] VITALS: PULSE 74
[2024-05-10 04:00] VITALS: PULSE 74
[2024-05-10 06:00] VITALS: BP 150/62; PULSE 81; RESP 18; TEMP 36.8; O2SAT 96
[2024-05-10 07:21] LABS: Albumin Level 3.2 g/dL (3.5-5.1); Anion Gap 2 mmol/L (4-12); Blood Urea Nitrogen 11 mg/dL (9-20); Carbon Dioxide 31 mmol/L (22-30); Chloride 92 mmol/L (98-107); Estimated CRCL calculation 79 ml/min; Estimated Glomerular Filt Rate > 60; Glucose 104 mg/dL (65-110); Phosphorus 3.2 mg/dL (2.5-4.5); Potassium 4.3 mmol/L (3.4-5.0); Sodium 125 mmol/L (137-145)
[2024-05-10] MEDS: METOPROLOL TARTRATE 12.5 MG TABLET PO ×2 (09:47→21:08)
[2024-05-10] MEDS: SODIUM CHLORIDE 1 GM TABLET PO ×2 (09:47→16:53)
[2024-05-10] MEDS: ASPIRIN 81 MG ENTERIC TABLET PO (09:47)
[2024-05-10] MEDS: OLMESARTAN MEDOXOMIL 20 MG TABLET 40 MG PO (09:47)
[2024-05-10] MEDS: TIMOLOL MALEATE 0.5% OP SOLN 5 ML BOTTLE 1 DROP EACH EYE ×2 (09:48→21:09)
--- NOTE | 2024-05-10 10:37 | PCOTNOTE ---
Patient unavailable for OT services at this time. Patient is with PT currently. Will try back .
[2024-05-10] MEDS: HYDROcodone/acetaminophen (*CRX) 5-325 MG TABLET 1 TAB PO ×2 (11:48→18:37)
[2024-05-10 12:36] LABS: Sodium 126 mmol/L (137-145)
--- NOTE | 2024-05-10 13:48 | P.PNIM_ITS ---
Progress Note: A&P Assessment and Plan (1) Syncope: Qualifiers: Syncope type: unspecified Qualified Code(s): R55 - Syncope and collapse Code(s): R55 - Syncope and collapse Status: Acute Assessment and Plan: Patient presents after a fall and feeling weak. He may have had a brief LOC with the fall but unclear. EKG showing normal sinus rhythm with PVC, LAD, LVH and possible age- indeterminate anterior HI. UA noted. UCx pending. BCx NGTD. Head CT showing stable extensive nonspecific cerebral white matter disease Cervical spine CT showing no fracture but severe cervical spondylosis. CXR showing stable chronic ILD. +DDimer at 1.2. No tachycardia or hypoxia. LE venous doppler negative for DVT. CTA chest negative for PE. CT Head/Neck showing 0% stenosis right and 16% stenosis left proximal ICA Not orthostatic. WBC mildly elevated. Hyponatremia noted. VitD, TSH and cortisol WNL. Monitor on tele. Cardiology consulted and appreciate their input Continue PT/OT (2) Hyponatremia: Code(s): E87.1 - Hypo-osmolality and hyponatremia Status: Acute Assessment and Plan: Patient has a hx of hyponatremia. Sodium was 122-130 when he was last here 2 years ago. Sodium 129 and has dropped to 124 TSH and cortisol levels okay. Fluid restriction ordered. Sodium better at 126. Add NaCl tabs. Follow. (3) Fall from ground level: Code(s): W18.30XA - Fall on same level, unspecified, initial encounter Status: Acute Assessment and Plan: As above (4) Hematoma of right buttock: Code(s): S30.0XXA - Contusion of lower back and pelvis, initial encounter Status: Acute Assessment and Plan: Patient fell landing on his right buttock. CT pelvis showing hematoma of the right gluteus medius and eleazar muscle. No fracture noted. On ASA only at home. Continue PT/OT (5) Atrial fibrillation: Code(s): I48.91 - Unspecified atrial fibrillation Status: Acute Assessment and Plan: Patient with AFib s/p ablation. HR stable. Metoprolol on hold. Cardiology consulted and appreciate their input Resumed low dose metoprolol and tolerating. (6) Hypertension: Code(s): I10 - Essential (primary) hypertension Status: Acute Assessment and Plan: Patient's blood pressure was reviewed on 05/10 Blood pressure remains well controlled. Will continue to monitor Plan Disp - SNF. DVT prophylaxis - SCDs Code status full Subjective Date/time seen: 05/10/24 13:48 Interval history: 88yo male with AFib s/p ablation, HTn and HLD here for a fall. Eating 100% of meals. Walking with walker in room but feels unsteady. No n/v. No CP or SOB. Exam Narrative: AF 98.2 150/62 81 18 96% ra Gen - NARD Chest - bibasilar inspiratory crackles. nml RR CV - RRR S1/S2 Abd - Soft, NT/ND, Positive BS Ext - No pedal edema Psych - Nml mood and affect Skin - Warm and dry Objective Data Vital Signs Vital Signs: Vital Signs - 24 hr 05/09/24 14:00 05/09/24 16:00 05/09/24 22:00 Temperature 98.3 F 97.8 F Pulse Rate 93 96 94 Respiratory Rate 24 H 18 Blood Pressure 130/54 L 131/63 Pulse Oximetry 98 97 Oxygen Delivery 05/09/24 20:00 05/09/24 20:00 05/10/24 00:00 Temperature Pulse Rate 98 74 Respiratory Rate Blood Pressure Pulse Oximetry 97 Oxygen Delivery Room Air 05/10/24 04:00 05/10/24 06:00 05/10/24 08:00 Temperature 98.2 F Pulse Rate 74 81 Respiratory Rate 18 Blood Pressure 150/62 H Pulse Oximetry 96 Oxygen Delivery Room Air Intake/Output Intake/Output: Intake & Output 05/07/24 05/08/24 05/09/24 05/10/24 23:59 23:59 23:59 23:59 Intake Total 1000 1866 1465 0 Output Total 352 031 5493 Balance 1000 1591 1010 -1150 Meds/Results Medications: Active Medications Generic Name Dose Route Start Last Admin Trade Name Freq PRN Reason Stop Dose Admin Acetaminophen 650 mg 05/07/24 14:03 Acetaminophen 325 Mg Tablet PO Q4H PRN Mild Pain (1-3) or Fever Hydrocodone Bitart/Acetaminophen 1 tab 05/07/24 14:03 05/10/24 11:48 Hydrocodone/Acetaminophen (*Crx) 5-325 Mg Tablet PO 1 tab Q4H PRN Administration Pain Rated 4-6 Aspirin 81 mg 05/08/24 09:00 12/09/24 09:47 Aspirin 81 Mg Enteric Tablet PO 81 mg QAM MAXIMO Administration Dextrose 12.5 gm 05/07/24 14:03 Dextrose 50% 25 Gm/50 Ml Syringe IV PUSH PRN PRN Hypoglycemia Protocol Glucagon 1 mg 05/07/24 14:03 Glucagon For Inj 1 Mg Vial IM PRN PRN Hypoglycemia Protocol Glucose 15 gm 05/07/24 14:03 Glucose Oral Gel 15 Gm Of Glucse In 37.5 Gm Tube PO PRN PRN Hypoglycemia Protocol Dextrose 1,000 mls @ 100 mls/hr 05/07/24 14:03 Dextrose 5% 1,000 Ml IVPB PRN PRN Hypoglycemia Protocol Latanoprost 1 drop 05/07/24 21:00 05/09/24 21:05 Latanoprost 0.005% Op Soln 2.5 Ml Btl EACH EYE 1 drop HS MAXIMO Administration Metoprolol Tartrate 12.5 mg 05/09/24 21:00 05/10/24 09:47 Metoprolol Tartrate 12.5 Mg Tablet PO 12.5 mg Q12HR MAXIMO Administration Olmesartan 40 mg 05/08/24 09:00 05/10/24 09:47 Olmesartan Medoxomil 20 Mg Tablet PO 40 mg QAM MAXIMO Administration Sodium Chloride 1 gm 05/10/24 09:00 05/10/24 09:47 Sodium Chloride 1 Gm Tablet PO 1 gm BID MAXIMO Administration Timolol Maleate 1 drop 05/07/24 21:00 05/10/24 09:48 Timolol Maleate 0.5% Op Soln 5 Ml Bottle EACH EYE 1 drop Q12HR MAXIMO Administration Radiology Results: ITS Impressions Head CT 05/07/24 10:34 IMPRESSION: 1. Stable extensive nonspecific cerebral white matter disease, which likely represents chronic small vessel ischemic disease. Pelvis CT 05/07/24 10:35 IMPRESSION: 1. Hematoma in the right gluteus medius and gluteus eleazar muscles. Cervical Spine CT 05/07/24 10:41 IMPRESSION: 1. No fracture 2. Severe cervical spondylosis. Chest X-Ray 05/07/24 10:48 IMPRESSION: 1. Stable chronic interstitial lung disease. Head/Neck CTA 05/07/24 12:48 IMPRESSION: 1. Extensive nonspecific cerebral white matter disease, which likely represents chronic small vessel ischemic disease. 2. No aneurysm or significant intracranial arterial stenosis. 3. 0% stenosis of the proximal right internal carotid artery relative to normal distal artery lumen diameter (NASCET criteria). 4. 16% stenosis of the proximal left internal carotid artery relative to normal distal artery lumen diameter. Carotid Doppler Study 05/07/24 20:00 IMPRESSION: 1. 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 Normal right carotid artery. Antegrade flow demonstrated within both vertebral arteries. Venous Doppler Study 05/08/24 20:43 IMPRESSION: 1. No deep venous thrombosis. Chest CTA 05/08/24 20:46 IMPRESSION: 1. No pulmonary embolus. 2. Diffuse lung disease, likely a combination of emphysema and chronic interstitial lung disease in a pattern of usual interstitial pneumonia (UIP). Labs Labs: Laboratory Results - last 24 hr 05/10/24 05/10/24 06:24 12:08 Sodium 125 L 126 L Potassium 4.3 Chloride 92 L Carbon Dioxide 31 H Anion Gap 2 L BUN 11 Creatinine 0.70 Estim Creat Clear Calc 79 Estimated GFR > 60 Glucose 104 Calcium 8.0 L Phosphorus 3.2 Albumin 3.2 L
[2024-05-10 14:00] VITALS: BP 104/78; PULSE 73; RESP 18; TEMP 35.7; O2SAT 98
--- NOTE | 2024-05-10 14:14 | PCOTNOTE ---
Attempted to see Patient for OT treatment session this afternoon. Patient states he is leaving for rehab and declined services at this time. Therapist discussed that he may not be leaving today, they are looking into rehab authorization. Patient declined.
[2024-05-10] MEDS: ACETAMINOPHEN 325 MG TABLET 650 MG PO (21:08)
[2024-05-10] MEDS: LATANOPROST 0.005% OP SOLN 2.5 ML BTL 1 DROP EACH EYE (21:09)
[2024-05-10 21:10] LABS: Sodium 124 mmol/L (137-145)
[2024-05-10 21:35] VITALS: BP 140/56; PULSE 77; RESP 14; TEMP 38.2; O2SAT 96
[2024-05-10 22:08] VITALS: TEMP 37.4
[2024-05-11 06:00] VITALS: BP 136/46; PULSE 84; RESP 18; TEMP 36.9; O2SAT 93
[2024-05-11 07:47] LABS: Anion Gap -1 mmol/L (4-12); Blood Urea Nitrogen 13 mg/dL (9-20); Carbon Dioxide 32 mmol/L (22-30); Chloride 95 mmol/L (98-107); Estimated CRCL calculation 70 ml/min; Estimated Glomerular Filt Rate > 60; Glucose 101 mg/dL (65-110); Sodium 126 mmol/L (137-145)
[2024-05-11 09:01] VITALS: PULSE 96
[2024-05-11] MEDS: METOPROLOL TARTRATE 12.5 MG TABLET PO ×2 (09:01→21:06)
[2024-05-11] MEDS: SODIUM CHLORIDE 1 GM TABLET PO ×2 (09:01→16:14)
[2024-05-11] MEDS: ASPIRIN 81 MG ENTERIC TABLET PO (09:01)
[2024-05-11] MEDS: OLMESARTAN MEDOXOMIL 20 MG TABLET 40 MG PO (09:01)
[2024-05-11] MEDS: TIMOLOL MALEATE 0.5% OP SOLN 5 ML BOTTLE 1 DROP EACH EYE ×2 (09:02→21:05)
[2024-05-11] MEDS: ACETAMINOPHEN 325 MG TABLET 650 MG PO ×2 (09:07→16:14)
[2024-05-11 14:00] VITALS: BP 147/55; PULSE 75; RESP 20; TEMP 36; O2SAT 99
--- NOTE | 2024-05-11 18:08 | P.PNIM_ITS ---
Progress Note: A&P Assessment and Plan (1) Syncope: Qualifiers: Syncope type: unspecified Qualified Code(s): R55 - Syncope and collapse Code(s): R55 - Syncope and collapse Status: Acute Assessment and Plan: Patient presents after a fall and feeling weak. He may have had a brief LOC with the fall but unclear. EKG showing normal sinus rhythm with PVC, LAD, LVH and possible age- indeterminate anterior NE. UA noted. UCx pending. BCx NGTD. Head CT showing stable extensive nonspecific cerebral white matter disease Cervical spine CT showing no fracture but severe cervical spondylosis. CXR showing stable chronic ILD. +DDimer at 1.2. No tachycardia or hypoxia. LE venous doppler negative for DVT. CTA chest negative for PE. CT Head/Neck showing 0% stenosis right and 16% stenosis left proximal ICA Not orthostatic. WBC mildly elevated but trending down. Hyponatremia noted. VitD, TSH and cortisol WNL. Cardiology consulted and appreciate their input Had low grade fever last night. Could be atelectasis or environment. Workup not showing any concerns for infectious etiology. Continue PT/OT (2) Hyponatremia: Code(s): E87.1 - Hypo-osmolality and hyponatremia Status: Acute Assessment and Plan: Patient has a hx of hyponatremia. Sodium was 122-130 when he was last here 2 years ago. Sodium 129 and has dropped to 124 TSH and cortisol levels okay. Fluid restriction ordered. Sodium stable at 126. Continue NaCl tabs. Follow. (3) Fall from ground level: Code(s): W18.30XA - Fall on same level, unspecified, initial encounter Status: Acute Assessment and Plan: As above (4) Hematoma of right buttock: Code(s): S30.0XXA - Contusion of lower back and pelvis, initial encounter Status: Acute Assessment and Plan: Patient fell landing on his right buttock. CT pelvis showing hematoma of the right gluteus medius and eleazar muscle. No fracture noted. On ASA only at home. Continue PT/OT (5) Atrial fibrillation: Code(s): I48.91 - Unspecified atrial fibrillation Status: Acute Assessment and Plan: Patient with AFib s/p ablation. HR stable. Metoprolol on hold. Cardiology consulted and appreciate their input Resumed low dose metoprolol and he is tolerating this well. (6) Hypertension: Code(s): I10 - Essential (primary) hypertension Status: Acute Assessment and Plan: Patient's blood pressure was reviewed on 05/11 Blood pressure remains well controlled. Will continue to monitor Plan Disp - SNF. DVT prophylaxis - SCDs Code status full Subjective Date/time seen: 05/11/24 18:08 Interval history: 88yo male with AFib s/p ablation, HTn and HLD here for a fall. No problems overnight. No n/v. No diarrhea. no CP or SOb. Feels weak in the right leg when walking but denies it id associated with pain from buttock. Discussed with PT - no weakness noted in right leg with walking but did complain of buttuck pain which prevented him from walking further distances. Exam Narrative: Tm 100.8 96.8 147/55 75 20 99% ra Gen - NARD Chest -CTA bilaterally. nml RR CV - RRR S1/S2 Abd - Soft, NT/ND, Positive BS Ext - No pedal edema. right buttock ecchymosis partially visualized that is tracking distally Psych - Nml mood but odd affect Skin - Warm and dry Objective Data Vital Signs Vital Signs: Vital Signs - 24 hr 05/10/24 20:00 05/10/24 21:35 05/10/24 22:08 Temperature 100.8 F H 99.3 F Pulse Rate 77 Respiratory Rate 14 Blood Pressure 140/56 L Pulse Oximetry 96 Oxygen Delivery Room Air 05/11/24 06:00 05/11/24 08:00 05/11/24 09:01 Temperature 98.4 F Pulse Rate 84 96 Respiratory Rate 18 Blood Pressure 136/46 L Pulse Oximetry 93 Oxygen Delivery Room Air 05/11/24 14:00 Temperature 96.8 F L Pulse Rate 75 Respiratory Rate 20 Blood Pressure 147/55 H Pulse Oximetry 99 Oxygen Delivery Intake/Output Intake/Output: Intake & Output 05/08/24 05/09/24 05/10/24 05/11/24 23:59 23:59 23:59 23:59 Intake Total 1866 1465 480 560 Output Total 462 145 5917 1100 Balance 1591 1010 -770 -540 Meds/Results Medications: Active Medications Generic Name Dose Route Start Last Admin Trade Name Freq PRN Reason Stop Dose Admin Acetaminophen 650 mg 05/07/24 14:03 05/11/24 16:14 Acetaminophen 325 Mg Tablet PO 650 mg Q4H PRN Administration Mild Pain (1-3) or Fever Hydrocodone Bitart/Acetaminophen 1 tab 05/07/24 14:03 05/10/24 18:37 Hydrocodone/Acetaminophen (*Crx) 5-325 Mg Tablet PO 1 tab Q4H PRN Administration Pain Rated 4-6 Aspirin 81 mg 05/08/24 09:00 05/11/24 09:01 Aspirin 81 Mg Enteric Tablet PO 81 mg QAM MAXIMO Administration Dextrose 12.5 gm 05/07/24 14:03 Dextrose 50% 25 Gm/50 Ml Syringe IV PUSH PRN PRN Hypoglycemia Protocol Glucagon 1 mg 05/07/24 14:03 Glucagon For Inj 1 Mg Vial IM PRN PRN Hypoglycemia Protocol Glucose 15 gm 05/07/24 14:03 Glucose Oral Gel 15 Gm Of Glucse In 37.5 Gm Tube PO PRN PRN Hypoglycemia Protocol Dextrose 1,000 mls @ 100 mls/hr 05/07/24 14:03 Dextrose 5% 1,000 Ml IVPB PRN PRN Hypoglycemia Protocol Latanoprost 1 drop 05/07/24 21:00 05/10/24 21:09 Latanoprost 0.005% Op Soln 2.5 Ml Btl EACH EYE 1 drop HS MAXIMO Administration Metoprolol Tartrate 12.5 mg 05/09/24 21:00 05/11/24 09:01 Metoprolol Tartrate 12.5 Mg Tablet PO 12.5 mg Q12HR MAXIMO Administration Olmesartan 40 mg 05/08/24 09:00 05/11/24 09:01 Olmesartan Medoxomil 20 Mg Tablet PO 40 mg QAM MAXIMO Administration Sodium Chloride 1 gm 05/10/24 09:00 05/11/24 16:14 Sodium Chloride 1 Gm Tablet PO 1 gm BID MAXIMO Administration Timolol Maleate 1 drop 05/07/24 21:00 05/11/24 09:02 Timolol Maleate 0.5% Op Soln 5 Ml Bottle EACH EYE 1 drop Q12HR MAXIMO Administration Radiology Results: ITS Impressions Head CT 05/07/24 10:34 IMPRESSION: 1. Stable extensive nonspecific cerebral white matter disease, which likely represents chronic small vessel ischemic disease. Pelvis CT 05/07/24 10:35 IMPRESSION: 1. Hematoma in the right gluteus medius and gluteus eleazar muscles. Cervical Spine CT 05/07/24 10:41 IMPRESSION: 1. No fracture 2. Severe cervical spondylosis. Chest X-Ray 05/07/24 10:48 IMPRESSION: 1. Stable chronic interstitial lung disease. Head/Neck CTA 05/07/24 12:48 IMPRESSION: 1. Extensive nonspecific cerebral white matter disease, which likely represents chronic small vessel ischemic disease. 2. No aneurysm or significant intracranial arterial stenosis. 3. 0% stenosis of the proximal right internal carotid artery relative to normal distal artery lumen diameter (NASCET criteria). 4. 16% stenosis of the proximal left internal carotid artery relative to normal distal artery lumen diameter. Carotid Doppler Study 05/07/24 20:00 IMPRESSION: 1. 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 Normal right carotid artery. Antegrade flow demonstrated within both vertebral arteries. Venous Doppler Study 05/08/24 20:43 IMPRESSION: 1. No deep venous thrombosis. Chest CTA 05/08/24 20:46 IMPRESSION: 1. No pulmonary embolus. 2. Diffuse lung disease, likely a combination of emphysema and chronic interstitial lung disease in a pattern of usual interstitial pneumonia (UIP). Labs Labs: Laboratory Results - last 24 hr 05/10/24 05/11/24 20:35 06:35 Sodium 124 L 126 L Potassium 4.0 Chloride 95 L Carbon Dioxide 32 H Anion Gap -1 L BUN 13 Creatinine 0.80 Estim Creat Clear Calc 70 Estimated GFR > 60 Glucose 101 Calcium 8.0 L
[2024-05-11] MEDS: LATANOPROST 0.005% OP SOLN 2.5 ML BTL 1 DROP EACH EYE (21:05)
[2024-05-11 21:34] VITALS: BP 119/50; PULSE 79; RESP 16; TEMP 36.6; O2SAT 96
[2024-05-12 06:00] VITALS: BP 136/60; PULSE 86; RESP 20; TEMP 36.2; O2SAT 98
[2024-05-12 07:19] LABS: Anion Gap 1 mmol/L (4-12); Blood Urea Nitrogen 13 mg/dL (9-20); Calcium 8.1 mg/dL (8.4-10.2); Carbon Dioxide 32 mmol/L (22-30); Chloride 96 mmol/L (98-107); Estimated CRCL calculation 79 ml/min; Estimated Glomerular Filt Rate > 60; Glucose 99 mg/dL (65-110); Potassium 4.8 mmol/L (3.4-5.0); Sodium 129 mmol/L (137-145)
[2024-05-12] MEDS: ACETAMINOPHEN 325 MG TABLET 650 MG PO (09:27)
[2024-05-12] MEDS: SODIUM CHLORIDE 1 GM TABLET PO (09:28)
[2024-05-12] MEDS: OLMESARTAN MEDOXOMIL 20 MG TABLET 40 MG PO (09:28)
[2024-05-12 09:29] VITALS: PULSE 88
[2024-05-12] MEDS: METOPROLOL TARTRATE 12.5 MG TABLET PO (09:29)
[2024-05-12] MEDS: ASPIRIN 81 MG ENTERIC TABLET PO (09:29)
[2024-05-12] MEDS: TIMOLOL MALEATE 0.5% OP SOLN 5 ML BOTTLE 1 DROP EACH EYE (09:39)
--- NOTE | 2024-05-12 12:51 | P.DS_ITS ---
DS: Admitting Diagnosis Discharge Date 05/12/24 Admitting Diagnosis Syncope Hematoma of right buttock Atrial fibrillation Hypertension Fall from ground level DS: Summary Hospital Course Reason for hospitalization: Syncope Hematoma of right buttock Atrial fibrillation Hypertension Fall from ground level Hospital Course: This is an 86-year-old male who presented to the hospital on 05/07/2024 after a ground level fall. Workup in the hospital included a head CT which showed stable extensive nonspecific cerebral white matter disease representing chronic small-vessel ischemic disease. Pelvic CT showed hematoma in the right gluteus medius and gluteus eleazar muscles. Cervical spine CT was negative for fracture, showed severe cervical spondylosis. Chest x-ray showed stable chronic interstitial lung disease. Head/neck CTA was negative for any stenosis, aneurysm, or any significant change. Carotid Doppler study showing stenosis of the left carotid of less than 50% to 69 on the left side, right carotid artery was patent. Venous Doppler was negative. Chest CTA was negative for PE, showed diffuse lung disease, likely a combination of emphysema and chronic interstitial lung disease. Blood cultures were obtained and were negative. urine culture was negative. EKG showed sinus rhythm with left axis deviation with a rate of 61, QTC 454. He was noted to have low sodium level of 130 and improved with fluid restriction and sodium tablets. Orthostatic blood pressures were obtained and were normal. He did have a positive D-dimer however was negative for DVT or PE. He was seen by PT and OT who recommended SNF placement. [facility]. He is stable for discharge at this time. He will need to follow up with his primary care physician in 2 weeks. Final diagnosis: Syncope, hyponatremia, hematoma of right buttock Status at Discharge Cognitive/behavioral status at discharge: Alert oriented x3 Functional status at discharge: uses cane/walker Overall status at discharge: patient is progressing back to baseline Time Spent with Patient Time attestation: Total time spent providing and/or coordinating discharge services: Time spent: Greater than 30 minutes Exam Narrative: General: In no acute distress, well nourished Head: atraumatic, no encephalopathy Eyes: PERRLA, sclera clear ENT: moist mucous membranes, nasal passages clear Neck: supple, no JVD, no adenopathy, trachea midline Cardiac: Normal S1 and S2. RRR, No murmur, gallops or friction rubs, peripheral pulses intact. Respiratory: Lungs clear to auscultation, no adventitious lung sounds, currently on room air Gastrointestinal: soft, non-distended, non-tender, normoactive bowel sounds. Bowel movement today : voiding without difficulty clear yellow urine Extremities: moves all extremities well, no edema, good ROM, strength 5/5 Skin: hematoma to buttock Neuro: Alert and oriented x3, cranial nerves intact, no neuro deficits. Psych: normal mood, normal affect, interactive DS: Data Data Completed and Pending Completed studies during hospitalization: Head CT Pelvis CT Cervical spine CT Chest x-ray Head/neck CTA Carotid Doppler study Venous Doppler study Chest CTA Pending studies at discharge: Blood cultures Labs on day of discharge: Labs from last 24 hours 05/12/24 06:19 Sodium 129 L Potassium 4.8 Chloride 96 L Carbon Dioxide 32 H Anion Gap 1 L BUN 13 Creatinine 0.70 Estim Creat Clear Calc 79 Estimated GFR > 60 Glucose 99 Calcium 8.1 L Preliminary micro results at discharge 05/07/24 17:37 Blood Culture - Preliminary Blood 05/07/24 17:45 Blood Culture - Preliminary Blood Procedures/Treatments: None Discharge Plan Discharge Attending physician on discharge: Mike Dempsey Consulting providers: Sajan Aj; Glenny Landin; Elias Collazo; Kd Luque V.; Naresh Handy Discharging Clinician: Gina Montalvo Anticipated Discharge Date/Time: 05/12/24 11:53 Patient Disposition: SNF Activity: as tolerated Diet: as tolerated Discharge Instructions: * Continue sodium tablets for low sodium level * Continue over the counter medication for pain control Patient Language: Montserratian Stand Alone Forms: General Discharge Information Follow-up/Referrals: Clay Quezada [Other] - 2 Weeks Julissa Motley APN-C [Advanced Practice Nurse] - 4 Weeks Discharge Medications: New sodium chloride 1,000 mg Tablet,Soluble 1,000 mg PO BID Qty: 60 0RF Continued latanoprost 0.005 % drops 1 drp EACH EYE HS metoprolol succinate 25 mg tablet extended release 24 hr 25 mg PO 0900 Rx Instructions: 1 tablet in AM, 1/2 tablet at dinner olmesartan 40 mg tablet 40 mg PO DAILY psyllium Packet 1 packet PO DAILY Rx Instructions: mix into at least 8 oz of water or juice before administering aspirin 81 mg Tablet 81 mg PO DAILY magnesium 200 mg Tablet 200 mg PO DAILY timolol maleate (PF) 0.5 % Dropperette 1 drp EACH EYE BID Rx Instructions: morning and hs cholecalciferol (vitamin D3) [Vitamin D3] 25 mcg (1,000 unit) Tablet,Chewable 25 mcg PO DAILY coenzyme [id number] E 100-100 mg-unit Capsule 1 cap PO DAILY Rx Instructions: at lunch Repatha SureClick 140 mg/mL pen injector 140 mg SUBCUT [id number] vitamin K2 100 mcg PO DAILY metoprolol succinate 25 mg tablet extended release 24 hr 12.5 mg PO HS Metamucil See Rx Instructions .ROUTE .COMPLEX Rx Instructions: Take daily as directed Other Ambulatory Orders: CA cardiac event monitor (Routine) Timeframe: 1 Month Location: [facility] – [place] Cardiology Ordered By: Julissa Motley Date of admission: 05/08/24 17:55 Primary Care Provider: Clay Quezada Admitting Provider: Joseph Laureano Attending physician on admission: Gina Montalvo Condition: Improved
--- NOTE | 2024-05-12 16:02 | PC.NURSE ---
Pt discharging to [facility] via son picking pt up. Report called to Zeinab. Prior to discharge, pt needs to get holter monitor from [facility] cardiology. Pt dressed, IV removed, and taken down to [facility] cardiology office at 1520. Staff remained with pt. Son arrived and taken to pt who assumed responsibility for pt at 1548.
== END 2024-05-12 15:48 | DRG 641 ==
LOC: ANHED 09:42 → ANH3MEDSUR 14:50
PROVIDERS: Internal Medicine; Admitting Provider Internal Medicine; Emergency Provider Physician Assistant; Visit Provider Nurse Practitioner Acute Care
DX: E87.1 Hypo-osmolality and hyponatremia (principal); I67.82 Cerebral ischemia; J84.9 Interstitial pulmonary disease, unspecified; R55 Syncope and collapse; S30.0XXA Contusion of lower back and pelvis, initial encounter; W18.30XA Fall on same level, unspecified, initial encounter; E78.2 Mixed hyperlipidemia; I48.91 Unspecified atrial fibrillation; I10 Essential (primary) hypertension; M47.812 Spondylosis without myelopathy or radiculopathy, cervical region; Z90.2 Acquired absence of lung [part of]; Z87.891 Personal history of nicotine dependence; Z79.01 Long term (current) use of anticoagulants; Z79.82 Long term (current) use of aspirin; Z20.822 Contact with and (suspected) exposure to COVID-19
CPT/HCPCS: 36415; 70450; 70496; 70498; 71046; 71275; 72125; 72192; 80048; 80053; 80061; 80069; 81001; 82247; 82306; 82533; 82570; 82607; 82746; 82948; 83605; 83735; 84295; 84300; 84443; 84484; 84540; 85025; 85380; 85610; 85730; 87040; 87086; 87637; 93005; 93880; 93970; 96360; 97110; 97116; 97161; 97165; 97530; 97535; 99285; A9270; G0378; J7030; Q9967

== ENCOUNTER 2025-01-17 10:51 | Inpatient (IN) | payer MEDICARE, BC, SELFPAY ==
[2025-01-17] VITALS (14 sets, daily range): BP systolic 128–185; BP diastolic 61–89; PULSE 89–103; RESP 16–18; TEMP 37.3–38.1; O2SAT 92–98; BMI 29.6
--- NOTE | ~2025-01-17 | CT_ITS ---
EXAM: CT brain wo con, CT cervical spine wo con - 01/17/2025 14:00 CDT HISTORY: 89 years old Male with weakness/fall COMPARISON: None available. PROCEDURE: CT of the head and cervical spine without contrast. Axial, sagittal and coronal reformat lb planes were evaluated. Automatic exposure control was used for this study. FINDINGS: CT HEAD: BRAIN PARENCHYMA: No acute hemorrhage. No mass effect or herniation. Phelps-white matter differentiatio n is maintained. Mild chronic volume loss. Scattered hypodensities in subcortical and periventricular white matter, likely representing chronic microvascular ischemic changes in this age group. Atherosc lerotic calcification of the intracranial vessels is noted. VENTRICLES/ EXTRA-AXIAL SPACES: No hydrocephalus or extra-axial fluid collection. EXTRACRANIAL STRUCTURES: No calvarial fracture. CT CERVICAL SPINE: No acute fracture or subluxation. Normal cervical lordosis is maintained. Multilevel degenerative ivan nges of the cervical spine include varying degrees of disk space narrowing, endplate osteophytosis as well as facet and uncal arthropathy. Prevertebral soft tissues are within normal limits. Biapical pleuroparenchymal scarring. IMPRESSION: 1. No evidence for acute intracranial hemorrhage or calvarial fracture. 2. No evidence for cervical spine fracture or traumatic subluxation. 3. Multilevel degenerative changes of the cervical spine. Reviewed, dictated and finalized at location A. IMPRESSION: 1. No evidence for acute intracranial hemorrhage or calvarial fracture. 2. No evidence for cervical spine fracture or traumatic subluxation. 3. Multilevel degenerative changes of the cervical spine.
--- NOTE | ~2025-01-17 | XR_ITS ---
EXAMINATION: XR chest 1V DATE: 01/17/2025 14:37 INDICATION: Cough, congestion and weakness TECHNIQUE: AP view of the chest was obtained COMPARISON: Chest radiograph dated 05/07/[address] dated 05/08/2024 FINDINGS: Lung volumes remain small. 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 No pleural effusio n or pneumothorax. Heart size is normal. A few surgical clips at the medial right apex. IMPRESSION: 1. 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 Reviewed, dictated and finalized at location A. IMPRESSION: 1. Stable appearance of small lung volumes with peripheral and lower lung predo minant coarse reticular opacities consistent with chronic interstitial lung dis ease with UIP pattern on prior CT.
--- NOTE | ~2025-01-17 | XR_ITS ---
EXAM/ PROCEDURE: XR shoulder RT min 2V - 01/17/2025 14:25 CDT HISTORY: 89 years old Male with fall, r shoulder pain COMPARISON: None available TECHNIQUE: Three view(s) FINDINGS/ IMPRESSION: There are no fractures or dislocations.Joint space narrowing, subchondral sclerosis, subchondral cyst formation and osteophyte formation, compatible with mild osteoarthritis. Chronic interstitial findings in the partially visualized right lung. Right lung base consolidation. Reviewed, dictated and finalized at location A.
--- NOTE | ~2025-01-17 | XR_ITS ---
EXAM/ PROCEDURE: XR hip LT 2V w AP pelvis - 01/17/2025 14:25 CDT HISTORY: 89 years old Male with fall, left hip pain COMPARISON: None available TECHNIQUE: Three view(s) FINDINGS/ IMPRESSION: There are no fractures or dislocations.Joint space narrowing, subchondral sclerosis, subchondral cyst formation and osteophyte formation, compatible with moderate osteoarthritis. Reviewed, dictated and finalized at location A.
--- NOTE | ~2025-01-17 | CT_ITS ---
CLINICAL INDICATION: Weakness with a ground-level fall. Low were no COMPARISON: None. Reference is made to a CT examination of the chest dated 05/08/2024. TECHNIQUE: Multiple contiguous axial images of the abdomen and pelvis were performed following the ad ministration of with 100 mL Omnipaque-350 intravenous contrast The dose-length product (DLP) was 1375.47 mGy-cm. Automated exposure control and iterative reconstruction technique were employed. 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 The heart is enlarged, without pericardial effusion. Small hiatal hernia is present. Liver: The liver demonstrates homogeneous enhancement and is not enlarged. Gallbladder and biliary system: The gallbladder is distended, and otherwise unremarkable. Pancreas: The pancreas enhances homogeneously without ductal dilatation. Spleen: The spleen enhances homogeneously and is not enlarged. Kidneys: Rounded focus of fluid attenuation within the lower pole of the right kidney measuring 24 mm , too small to characterize, but likely a cyst. The remainder of the bilateral kidneys are atrophic, but otherwise enhance symmetrically without sign ificant hydronephrosis or renal calculi. Adrenal glands: Unremarkable. Gastrointestinal tract: Colonic diverticulosis without significant surrounding inflammatory change. Fecal stasis distends the rectum which demonstrates thickened glez and infiltration of the presacral space, findings suggesting fecal impaction. Appendix: The air-filled appendix is of normal caliber (axial series, images 114 through 131) Vasculature: Densely calcified atherosclerotic disease within the abdominal aorta and mesenteric branches, without aneurysmal dilatation. Lymph nodes: No pathologically enlarged or morphologically suspicious lymph nodes within the retroperitoneum or at the root of the mesentery. Pelvic structures: The bladder is minimally distended, with thickened glez and surrounding inflammatory change suggesti ng cystitis, for which clinical correlation is needed. The prostate gland is enlarged demonstrating mass effect on the base of the bladder. Body wall and musculoskeletal: Small fat-containing left inguinal hernia. Significant degenerative disease within the lower thoracic and lumbosacral spines, most prominent at the level of L2/L3 with osteophyte formation, disc space narrowing, endplate changes and vacuum pheno de la o. Facet arthropathy is also present. Mottled appearance to the vertebral bodies of L2 and L3 is noted. IMPRESSION: Findings suggesting fecal impaction. Colonic diverticulosis without surrounding inflammatory change. Findings within the bladder suggesting cystitis for which clinical correlation is needed. Gallbladder distention without surrounding inflammatory change. Reviewed, dictated and finalized at location A.
--- OUTSIDE RECORDS SUMMARY | 2025-01-17 11:46 | XMS_ITS | Patient Health Record ---
Author Organization [facility] Address [address] [place] [address] Care Team Providers Care Icu Rn Name Role Phone Justin Quezada Primary Care Provider Unavailab renetta Camarena MD, [facility] [phone] REASON FOR REFERRAL No Information MEDICATIONS Medication SIG (Take, Route, Fr equency, Duration) Notes Start Date End Date Status Benicar Unknown Metoprolol Succinate Unknown IMMUNIZATIONS Vaccine Route Administration Date Status Comme nts Influenza Unknown 09/01/2018 Refused pneumoccocal Unknown 09/01/2018 Refused SOCIAL HISTORY Tobacco Use: Social History Observation Description Date Details (start date - stop date) Never Smoker NA - NA Sex Assigned At : Social History Observation Description Sex Assigned At Unknown Tobacco Use: Question Answer Notes Patient is a: nonsmoker Alcohol screening: Question Answer Notes Did you have a drink contain ing alcohol in the past year? Yes How often did you have a dri nk containing alcohol in the past year? Two to three times per week (3 points) Points 3 Interpretation Negative PROBLEMS Problem Type ICD Code Onset Dates Problem Status W/U Status Risk SNOMED Code Notes Problem Trigger finger, right middle finger (M65.331) Active confirmed 210047985 Problem Trigger finger, right index finger (M65.321) Active confirmed 433635413 Problem Trigger finger, left middle finger (M65.332) Active confirmed 111453867 Problem Trigger finger, left ring finger (M65.342) Active confirmed 031977049 Problem Ganglion, right hand (M67.441) Active confirmed 340484857 Problem Encounter for other specified surgical aftercare (Z48.89) Active confirmed 038406018 Problem Carpal tunnel syndrome, bilateral (G56.03) Active confirmed [id number] PLAN OF TREATMENT No Information Insurance Providers Payer Name Payer Address Payer Phone Subscriber Number Group Number Insured Name Patient Relationship to Insured Coverage Start Date Coverage End Date Medicare [address] [place] [phone] [id number] Andrew Chauhan Self - patient is the insured [facility] [address] [place] [address] [id number] [address] [place], [place] Spouse - patient is the spouse of the insured MEDICAL (GENERAL) HISTORY Medical History History ICD Code hypertension lung disease Surgical History Surgery Date(Month/Year) hernia repair cyst removal Right lung collapse Left lung collapse bilateral carpal tunnel releases 9 (TGL)
--- OUTSIDE RECORDS SUMMARY | 2025-01-17 11:46 | XMS_ITS | Clinical Summary ---
Author Organization [facility] [employer] Address [address] [place] [address] Care Team Providers Care Muck Operator Name Role Phone Clay Quezada MD Primary Care Provider [phone] [facility],non-owned Affiliates and Associated Physician Practices is amultiple site organization consisting of ambulatory clinics and hospital sitesin [place], [place], [place] and [place]. This disclosure is being madepursuant to the Care Everywhere program and may not contain all information available regarding this patient. Last updated 18.[facility] Allergies No known active allergies Medications * Be aware that medications may not be up to date on this document. Alwaysverify current medications with the patient. Blood Pressure Monitoring (5 SERIES BP MONITOR) PARI 8 Active latanoprost (XALATAN) 0.005 % ophthalmic solution Instill 1 (one) drop into both eyes Every Evening 8 Active Psyllium (METAMUCIL FIBER) 51.7 % PACK Take by mouth. 8 Active aspirin (ASPIRIN) 81 MG chew tablet Take 1 (one) tablet by mouth once daily 100 tablet 4 2 Active olmesartan (Benicar) 40 MG tabletIndication s:Primary hypertension Take 1 (one) tablet by mouth once daily 90 tablet 3 4 Active amLODIPine (Norvasc) 2.5 MG tablet Take 1 (one) tablet by mouth once daily 5 08/21/19 26 Active Coenzyme Q10 (CoQ10) 100 MG 4 Active timolol maleate PF (Timoptic) 0.5 % ophthalmic solution Active Metoprolol Succinate 25 MG CS24 Take 25 mg by mouth 2 times daily 5 Active sodium chloride 1 GM tablet Take 1 (one) tablet by mouth 3 times daily with meals 5 Active Magnesium Oxide -Mg Supplement 200 MG Take 1 (one) tablet by mouth daily with breakfast 5 Active vitamin D3 (Cholecalciferol ) 25 MCG (1000 UNITS) tablet Take 1 (one) tablet by mouth once daily Active Menaquinone-7 100 MCG Take 100 mcg by mouth daily with breakfast Active Multiple Vitamin (Multi-Vitamin Daily) TABS Take 1 (one) tablet by mouth once daily 5 Active magnesium 250 MG tablet Take by mouth. 8 12/29/19 25 Discontin ued(List Clean-Up) metoprolol tartrate IR (Lopressor) 25 MG tablet Take 1 (one) tablet by mouth 2 times daily 5 12/29/19 25 Discontin ued(List Clean-Up) Cholecalciferol 50 MCG (2000 UT) Take by mouth once daily 12/29/19 25 Discontin ued(List Clean-Up) Active Problems Problem Noted Date Diagnosed Date Ganglion of hand 12/02/2019 Paroxysmal atrial fibrillation 08/06/2017 Assessment & Plan (04/09/2023 4:08 PM VICE PRESIDENT EDUCATION): Stable. Continue regular monitoring with Kardia device at home. Continue follow- up with cardiology. Assessment & Plan (12/02/2019 3:00 PM CDT): Cont monitoring on Kartia. No need for AC unless he has afib. Pt knows when he has palpitations and checks frequently. He will let us know if he is in afib and we will call in a NOAC for him at that time. Assessment & Plan (08/02/2017 12:05 PM VICE PRESIDENT EDUCATION): New onset atrial fibrillation with RVR. Patient had echo at [facility] on 07/17 that showed EF 50% with frequent PVCs, recent Holter monitor study showed PVC burden 23% with sinus rhythm. [id number] score 3, moderate-high risk. -Cardiology consulted, appreciate recs -Will discontinue diltiazem drip -Increase home metoprolol 25mg, will monitor heart rate -Will start Xarelto 20mg Primary hypertension 07/17/2017 Assessment & Plan (04/09/2023 4:05 PM VICE PRESIDENT EDUCATION): The current medical regimen is effective; continue present plan and medications. Assessment & Plan (08/08/2021 7:16 PM VICE PRESIDENT EDUCATION): Continue home monitoring. Assessment & Plan (06/23/2020 2:20 PM VICE PRESIDENT EDUCATION): Excellent control on current medications. Congratulated on lifestyle modifications. Continue positive lifestyle modifications and medications and follow-up in one year. Sleep apnea 07/17/2017 Overview (08/08/2021): Manages with a sleep apnea t-shirt which has tennis balls sewn into the back to keep him from sleeping on his back. Glaucoma 07/17/2017 Other specified postprocedural states 07/17/2017 Personal history of other diseases of the digest chris system 07/17/2017 H/O umbilical hernia repair 07/17/2017 PVC's (premature ventricular contractions) 07/17 Resolved Problems Problem Noted Date Diagnosed Date Resolved Date Acquired trigger finger 12/02/20190 12/2022 Bilateral carpal tunnel syndrome 08/14/2018 04/09/2023 Assessment & Plan (08/14/2018 3:55 PM CDT): Significant symptoms not responding to conservative measures. I encouraged him to continue with bracing as often as possible. Referring to occupational therapy and hand surgery. Atrial flutter 09/03/2017 04/09/2023 Assessment & Plan (08/08/2021 7:16 PM VICE PRESIDENT EDUCATION): Stable s/p ablation per cardiology. Monitors with home device and doing well. Continue follow-up with cardiology. Assessment & Plan (12/02/2019 12:04 AM CDT): Status post previous ablation. Pt monitors heart rhythm at home with monitor. Hyperlipidemia 08/01/2017 04/09/2023 Assessment & Plan (08/02/2017 12:04 PM VICE PRESIDENT EDUCATION): On lipitor 10mg at home. Recent lipid panel 06/20/17 LDL 62, HDL 71. -Continue statin COPD (chronic obstructive pulmonary disease) 8 06/23/2020 Pneumothorax 07/17/2017 06/23/2020 Ventricular premature depolarization 07/17/2017 04/09/2023 Assessment & Plan (12/02/2019 12:05 AM CDT): Asymptomatic previously. He is on metoprolol 25mg PO XL once daily. Encounters Date Type Department Care Team Description 12/28/2024 9:30 AM CDT Office Visit [facility] - Nephrology [address] [place] [address] Rivka Meng MD Hyponatremia (Primary Dx) 12/28/2024 9:22 AM CDT - 12/28/2024 11:59 PM CDT Hospital Encounter [facility] OP DRAW STATION [address] [place] [address] Rivka Meng MD Discharge Disposition: Home or Self Care 12/28/2024 Travel from Last 3 Months Immunizations Immunization Administration Dates Next Due Comirnaty Covd-19 Mrna Vacci ne (Nucleoside Modified) 03/14/2023 Covid Pfizer primary monoval ent 12+ yr 0.3mL Purple cap 07/20/2020,06/28/2020 INFLUENZA VACCINE 02/15/2023, 2,02/02/2021,2018,02/06/2018 INFLUENZA VACCINE, HIGH-DOSE , QUADR. (FLUZONE HIGH-DOSE QUADRIVALENT; 65Y+), 0.7 ML (HD-IIV4) 01/23/2020 PNEUMOCOCCAL PCV20 CONJ VAC IM 05/17/2024 RSV AREXVY 60YR+ 0.5ML 02/21/2023 TDAP (7yrs+) 08/18/2017 Zoster Hzv Vacc Recombinant Inj Im 01/01/2018, Family History Medical History Relation Name Comments Cancer - Lung Father Status: Deceas ed Hypertension Father Cancer - Breast Mother Status: Dece ased Seizures Son Relation Name Status Comments Father Mother Son Social History Tobacco Use Types Packs/Day Years Used Date Smoking Tobacco: Former Cigarettes Q uit: 06/02/1979 Smokeless Tobacco: Never Tobacco Cessation:Counseling Given: Not Answered Alcohol Use Standard Drinks/Week Comments Yes 21 (1 standard drink = 0.6 oz pu re alcohol) 3 glasses wine at night AUDIT-C Answer Date Recorded Q1: How often do you have a drink containing alc ohol? 2-4 times a month 04/09/2023 Q2: How many drinks containi ng alcohol do you have on a typical day when you are drinking? 1 or 2 04/09/2023 Q3: How often do you have si x or more drinks on one occasion? Never 04/09/2023 PHQ-2 Answer Date Recorded Patient Health Questionnaire-2 Score 0 10/03/2024 Sex and Gender Information Value Date Recorded Sex Assigned at Male 06/22/2020 2:30 PM VICE PRESIDENT EDUCATION Legal Sex Male 5:36 PM VICE PRESIDENT EDUCATION Gender Identity Male 06/22/2020 2:30 PM VICE PRESIDENT EDUCATION Sexual Orientation Straight 06/22/2020 2: 30 PM VICE PRESIDENT EDUCATION Last Filed Vital Signs Vital Sign Reading Time Taken Comments Blood Pressure 142/54 12/28/2024 10:19 AM CDT Pulse 64 12/28/2024 10:04 AM CDT Temperature 36.5 C (97.7 F) 12/28/2024 10:04 AM CDT Respiratory Rate 14 05/28/2019 11:1 9 AM VICE PRESIDENT EDUCATION Oxygen Saturation 99% 12/28/2024 10: 04 AM CDT Inhaled Oxygen Concentration - - Weight 109.1 kg (240 lb 9.6 oz) 025 10:04 AM CDT Height 185.4 cm (6' 1) 12/28/2024 10:0 4 AM CDT Body Mass Index 31.74 12/28/2024 10:04 AM CDT Plan of Treatment Upcoming Encounters Date Type Department Care Team (Late st Contact Info) Description 04/12/2025 8:30 AM VICE PRESIDENT EDUCATION Office Visit [facility] - Nephrology [address] [place] [address] Rivka Meng MD [address] [place] [address] Health Maintenance Due Date Last Done Comments COVID-19 VACCINE ( season) 2024 03/14/2023, 07/20/2020, 06/28/2020 MEDICARE AWV 12 MONTHS 04/09/2024 04/09/2023, 08/08/2021 INFLUENZA VACCINE (#1) 2025 , 02/19/2022, 02/02/2021, Additional history exists DTAP/TDAP/TD VACCINES (2 - Td or Tdap) 08/19/2027 08/18/2017 ZOSTER VACCINE Completed 01/01/2018, 07/22/2017 Respiratory Syncytial Virus (RSV) Vaccine Pt: or over 60 yrs Completed 02/21/2023 PNEUMOCOCCAL VACCINE 50+ Completed 05/17/2024 DEPRESSION SCREENING Completed 10/04/2024, 04/09/2023, 04/09/2023, Additional history exists HEPATITIS B VACCINE Aged Out No longe r eligible based on patient's age to complete this topic HIB VACCINE Aged Out No longer eligi ble based on patient's age to complete this topic HPV VACCINE Aged Out No longer eligi ble based on patient's age to complete this topic MENINGOCOCCAL (Group B) VACCINE SHARED DECISION-MAKING Aged Out No longer eligible based on patient's age to complete this topic MENINGOCOCCAL GROUPS A/C/Y/W VACCINE Aged Out No longer eligible based on patient's age to complete this topic Goals Goal Patient Goal Type Associated Problems Recent Progress Patient-Stated? Author Safety General On track( 025 10:23 AM CDT) Vianey Balbuena, RN Note: Expected end date: ongoing Interventions: Your nurse will assess your risk for falls/injury each visit Use appropriate and safe transfer methods Make sure appropriate safety devices are available and within reach Review the fall prevention instruction sheet given to you during your visit Be aware of medications that could predispose you to falling Wear non-skid/rubber sole footwear Wear glasses/hearing aid Keep personal items within easy reach Use some light at night in your room Keep walking paths clutter free and clear Maintain an unobstructed path to the bathroom Medication Management General On track( 025 10:23 AM CDT) Vianey Balbuena, RN Note: Expected end date: ongoing Interventions: Take all medications as prescribed Let your doctor know right away about any changes in your medications Make sure to request a refill of your medication at least one week prior to your last dose Procedures Procedure Name Priority Date/Time Associated Diagnosis Comments ACTH Routine 12/28/2024 11:34 AM CDT Hyponatremia CORTISOL BLOOD Routine 12/28/2024 11:34 AM CDT Hyponatremia T4 FREE Routine 12/28/2024 11:34 AM CDT Hyponatremia TSH Routine 12/28/2024 11:34 AM CDT Hyponatremia OSMOLALITY URINE Routine 12/28/2024 10:5 5 AM CDT Hyponatremia Primary hypertension SODIUM URINE RANDOM Routine 12/28/2024 1 0:55 AM CDT Hyponatremia Primary hypertension RENAL FUNCTION PANEL Routine 12/28/2024 9:47 AM CDT Hyponatremia EYE EXAM 12/16/2024 from Last 3 Months Results * ACTH (12/28/2024 11:34 AM CDT) [facility] ACTH 22.4 7.2 - 63.3 pg/mL 12/29/2024 7:36 PM CDT [facility] ([facility]) Comment: INTERPRETIVE INFORMATION: Adrenocorticotropic Hormone Reference interval based on samples collected between 7 a.m. and 10 a.m. No reference intervals established for p.m. collections. Pediatric reference values are the same as adults (Acta Paediatr Scand 1981;70:341-345). This assay measures intact ACTH 1-39; some types of synthetic ACTH and ACTH fragments are not detected by this assay. Performed By: [facility] [address] [place] [address] Song Plugger: Kd Nuñez MD, PhD CLIA Number: [id number] Blood BLOOD SPECIMEN / Unknown Lab Venipuncture / Unknown 12/28/2024 11:34 AM CDT 12/28/2024 12:07 PM CDT Rivka Meng MD LAB - CHEMISTRY ORDERABLES Fi nal Result Performing Organization Address City/[facility]/ZIP Co de Phone Number [facility] ([facility]) [address] [place] [address] * TSH (12/28/2024 11:34 AM CDT) TSH 2.282 0.350 - 4.940 uIU/mL 12/28/2024 1:03 PM CDT [facility] Blood BLOOD SPECIMEN / Unknown Lab Venipuncture / Unknown 12/28/2024 11:34 AM CDT 12/28/2024 12:15 PM CDT Rivka Meng MD LAB - CHEMISTRY ORDERABLES Fi nal Result [address] [address], [facility] [phone] * T4 FREE (12/28/2024 11:34 AM CDT) T4 Free 1.1 0.7 - 1.5 ng/dL 12/28/2024 1:03 PM CDT [facility] Blood BLOOD SPECIMEN / Unknown Lab Venipuncture / Unknown 12/28/2024 11:34 AM CDT 12/28/2024 12:15 PM CDT Rivka Meng MD LAB - CHEMISTRY ORDERABLES Fi nal Result [address] [address], [facility] [phone] * CORTISOL BLOOD (12/28/2024 11:34 AM CDT) [facility] Cortisol Total 10.7 Ranges not established for random specimens ug/dL 12/28/2024 3:54 PM CDT [facility] Blood BLOOD SPECIMEN / Unknown Lab Venipuncture / Unknown 12/28/2024 11:34 AM CDT 12/28/2024 12:15 PM CDT Narrative [facility] - 12/28/2024 3:54 PM CDT Normal cortisol levels are generally highest in the morning hours and lowest from late evening through the airport electrician hours (8 PM to 4 AM). The PM measurements of cortisol run approximately one-half to one-third of the AM values. Rivka Meng MD LAB - CHEMISTRY ORDERABLES Fi nal Result Performing Organization Address [facility]/ZIP Co de Phone Number [address] [address], [facility] [phone] * SODIUM URINE RANDOM (12/28/2024 10:55 AM CDT) [facility] Sodium Urine 47 Not Established mmol/L 12/28/2024 11:54 AM CDT [facility] Urine URINE SPECIMEN OBTAINED BY CLEAN CATCH PROCEDURE / Unknown Collection / Unknown 12/28/2024 10:55 AM CDT 12/28/2024 11:33 AM CDT Rivka Meng MD LAB - URINE CHEMISTRY ORDERAB LES Final Result Performing Organization Address City/[facility]/ZIP Co de Phone Number [address] [address], [place] [phone] * OSMOLALITY URINE (12/28/2024 10:55 AM CDT) [facility] Osmolality Urine 477 50 - 1,200 mOsm/kg 12/28/2024 1:[address] [facility] Urine URINE SPECIMEN OBTAINED BY CLEAN CATCH PROCEDURE / Unknown Collection / Unknown 12/28/2024 10:55 AM CDT 12/28/2024 11:33 AM CDT us Rivka Meng MD LAB - URINE CHEMISTRY ORDERAB LES Final Result [facility] [address] [place] [address], [facility] [phone] * (ABNORMAL) RENAL FUNCTION PANEL (12/28/2024 9:47 AM CDT) BUN 16 7 - 26 mg/dL 12/28/2024 11:[address] [facility] Creatinine 0.81 0.71 - 1.16 mg/dL 12/28/2024 11:[address] [facility] Sodium 134(L) 136 - 145 mmol/L 12/28/2024 11:[address] [facility] Potassium 4.4 3.5 - 4.5 mmol/L 12/28/2024 11:[address] [facility] Chloride 98 98 - 107 mmol/L 12/28/2024 11:[address] [facility] CO2 26 22 - 29 mmol/L 12/28/2024 11:[address] [facility] Glucose 99 70 - 99 mg/dL 12/28/2024 11:[address] [facility] Albumin 3.6 3.4 - 5.0 g/dL 12/28/2024 11:[address] [facility] Calcium 8.8 8.4 - 10.2 mg/dL 12/28/2024 11:[address] [facility] Phosphorus 3.4 2.8 - 5.1 mg/dL 12/28/2024 11:[address] [facility] Anion Gap 10 6 - 16 12/28/2024 11:[address] [facility] BUN/Creatinine Ratio 20 7 - 23 12/28/2024 11:[address] [facility] Osmolality Calculated 279 275 - 295 mOsm/kg 12/28/2024 11:10 AM T [facility] eGFR by CKD-EPI 85(L) >=90 mL/min/1.7 3 m2 12/28/2024 11:10 AM T [facility] Comment:Estimated Glomerular Filtration Rate (eGFR) calculated using the CKD-EPI Creatinine Equation (2020), per the National Kidney Foundation and [place] [employer] Neph[employer] recommendations. Blood BLOOD SPECIMEN / Unknown Lab Venipuncture / Unknown 12/28/2024 9:47 AM CDT 12/28/2024 10:25 AM CDT Rivka Meng MD LAB - CHEMISTRY ORDERABLES Fi nal Result [facility] [address] [place] [address], [facility] [phone] * EYE EXAM (12/16/2024) Anatomical Region Laterality Modality Other Narrative 12/16/2024 Ordered by an unspecified provider. us Scanned Document SCANNING ONLY Final Result from Last 3 Months Insurance MEDICARE [facility] MEDICARE ANTHEM Advance Directives Documents on File Type Date Recorded Patient Labeling Associate Expl anation Adv Directive/Living Will/POA 07/03/2023 11:30 AM POA OF HLTHCARE * Full Code (Latest Code Status on File) Date Activated Date Inactivated Comments 08/01/2017 9:34 PM 08/02/2017 4:29 PM * Full Code Date Activated Date Inactivated Comments 08/01/2017 9:33 PM 08/01/2017 9:34 PM Care Teams Muck Operator Relationship Specialty Start Date End Date Clay Quezada MD [address] [facility] [address] [place] [address] PCP - General Family Medicine 08/01/17
--- OUTSIDE RECORDS SUMMARY | 2025-01-17 11:49 | XMS_ITS ---
Author Name Auto Generated, Auto Generated Organization [facility] Address [address] [place] [address] Phone [phone] Care Team Providers Care Imitation Marble Mechanic Name Role Phone Erwin Newell Unavailable [phone] Vianey Baker Unavailable [phone] Cheryl Galicia Unavailable [phone] Functional Status No Results Mental Status No Results Allergies and Intolerances Name Onset Date Reaction Severity No Known Allergies (Allergy) FriMay 12 16:27:00 EST 2023 Encounters Program Name Primary Diagnosis Admission Date/Time Dis charge Date/Time [facility] FriMay 12 11:15:00 EST 2023Jun 09 08:30:00 EST 2024 Immunizations Name Dates Status TST-PPD intradermal Renae May 13 01:00:00 EST 2023 Completed TST-PPD intradermal Sat May 15 01:00:00 EST 2023 Completed TST-PPD intradermal Renae May 20 01:00:00 EST 2023 Completed TST-PPD intradermal Sat May 22 01:00:00 EST 2023 Completed Pneumococcal conjugate PCV20 , polysaccharide [id number] conjugate, adjuvant, PF FriMay 17 01:00:00 EST 2023 Completed Medications Medication Directions Start Date End Date metoprolol tartrate 25 mg tablet 1 tablet TABLET Oral 2 Times Daily Indication: A-fib FriMay 27 17:00:00 EST 2023Jun 09 01:00:00 EST 2024 lidocaine 4 % topical patch 1 patch ADHESIVE PATCH, MEDICATED Topical PRN 2 Times Daily Indication: Apply patch to area of pain in AM, remove HS FriMay 21 11:00:00 EST 2023Jun 09 01:00:00 EST 2024 metoprolol succinate ER 25 mg tablet,extended release 24 hr 1 tablet TABLET, EXTENDED RELEASE 24 HR Oral 1 Time Daily Indication: a-fib FriMay 19 18:15:00 EST 2023May 27 14:19:00 EST 2023 TylenoL 325 mg tablet 2 tabs TABLET Oral PRN Every 6 Hours Indication: Pain FriMay 18 09:23:00 2023Jun 09 01:00:00 EST 2024 Prevnar 20 (PF) 0.5 mL intramuscular syringe 0.5mL SYRINGE (ML) Intramuscular 1 Time Daily for 1 Day Indication: Pneumonia Vaccine FriMay 18 09:25:00 2023May 18 18:57:00 EST 2023 Prevnar 20 (PF) 0.5 mL intramuscular syringe 0.5mL SYRINGE (ML) Intramuscular 1 Time Daily for 1 Day Indication: Pneumonia Vaccine FriMay 19 07:00:00 2023May 18 21:57:00 2023 Prevnar 20 (PF) 0.5 mL intramuscular syringe 0.5mL SYRINGE (ML) Intramuscular 1 Time Daily for 1 Day Indication: Pneumonia Vaccine FriMay 18 07:00:00 2023May 18 09:26:00 EST 2023 TubersoL 5 tub. unit/0.1 mL intradermal injection solution Read Results VIAL (ML) Other 1 Time Weekly for 2 Weeks Indication: TB screening Read results between 48-72 hours after 1st and 2nd (1 week apart). If positive do chest x-ray. FriMay 15 01:00:00 EST 2023May 29 00:59:00 2023 Prevnar 20 (PF) 0.5 mL intramuscular syringe 0.5mL SYRINGE (ML) Intramuscular 1 Time Daily for 1 Day Indication: Pneumonia Vaccine FriMay 17 07:00:00 2023May 17 15:19:00 EST 2023 lidocaine 4 % topical patch 1 patch ADHESIVE PATCH, MEDICATED Topical 2 Times Daily Indication: Apply patch to area of pain in AM, remove HS FriMay 13 17:00:00 EST 2023May 21 10:49:00 EST 2023 sodium chloride 1,000 mg soluble tablet 1 tab TABLET, SOLUBLE Oral 2 Times Daily Indication: hyponatremia FriMay 12 16:26:00 EST 2023Jun 09 01:00:00 EST 2024 latanoprost 0.005 % eye drops 1 drop DROPS Both Eyes 1 Time Daily Indication: Macular degeneration FriMay 12 16:37:00 EST 2023Jun 09 01:00:00 EST 2024 metoprolol succinate ER 25 mg tablet,extended release 24 hr 1 tab TABLET, EXTENDED RELEASE 24 HR Oral 1 Time Daily Indication: a-fib FriMay 12 16:29:00 EST 2023May 12 16:32:00 EST 2023 metoprolol tartrate 25 mg tablet 1/2 tab TABLET Oral 1 Time Daily Indication: a-friMay 12 16:31:00 EST 2023May 12 16:33:00 EST 2023 metoprolol succinate ER 25 mg tablet,extended release 24 hr 1 tab TABLET, EXTENDED RELEASE 24 HR Oral 1 Time Daily Indication: a-friMay 12 16:31:00 EST 2023May 27 14:21:00 EST 2023 TubersoL 5 tub. unit/0.1 mL intradermal injection solution 0.1 ml VIAL (ML) Intradermal 1 Time Weekly for 2 Weeks Indication: TB screening 1st injection on admission, then one week after. Read between 48 and 72 hours FriMay 13 01:00:00 EST 2023May 27 00:59:00 EST 2023 metoprolol succinate ER 25 mg tablet,extended release 24 hr 1/2 tab TABLET, EXTENDED RELEASE 24 HR Oral 1 Time Daily Indication: a-friMay 12 16:33:00 EST 2023May 12 17:19:00 EST 2023 olmesartan 40 mg tablet 1 tab TABLET Ora l 1 Time Daily Indication: HTN FriMay 12 16:34:00 EST 2023Jun 09 01:00:00 EST 2024 MetamuciL 3.4 gram/5.4 gram oral powder 3.4 gram POWDER (GRAM) Oral 1 Time Daily Indication: Fiber FriMay 12 16:36:00 EST 2023Jun 09 01:00:00 EST 2024 Repatha SureClick 140 mg/mL subcutaneous pen injector 140 mg/ml PEN INJECTOR (ML) Subcutaneous Every 2 Weeks Indication: cholesterol control FriMay 15 07:00:00 EST 2023May 12 18:17:00 EST 2023 vitamin K2 100 mcg capsule 1 cap CAPSULE Oral 1 Time Daily Indication: Supplement FriMay 12 16:42:00 EST 2023May 17 12:14:00 EST 2023 aspirin 81 mg tablet,delayed release 1 tab TABLET, DELAYED RELEASE (ENTERIC COATED) Oral 1 Time Daily Indication: heart health FriMay 12 16:43:00 EST 2023Jun 09 01:00:00 EST 2024 Vitamin D3 25 mcg (1,000 unit) chewable tablet 1 tab TABLET,CHEWABLE Oral 1 Time Daily Indication: Supplement FriMay 12 16:45:00 EST 2023Jun 09 01:00:00 EST 2024 magnesium 200 mg tablet 1 tab TABLET Ora l 1 Time Daily Indication: supplement FriMay 12 16:48:00 EST 2023Jun 09 01:00:00 EST 2024 timoloL maleate 0.5 % eye drops 1 drop DROPS Both Eyes 2 Times Daily Indication: glaucoma FriMay 12 16:45:00 EST 2023Jun 09 01:00:00 EST 2024 metoprolol succinate ER 25 mg tablet,extended release 24 hr 1/2 tab TABLET, EXTENDED RELEASE 24 HR Oral 1 Time Daily Indication: a-fib FriMay 12 17:18:00 EST 2023May 12 18:17:00 EST 2023 coenzyme Q10 100 mg capsule 1 cap CAPSULE Oral 1 Time Daily Indication: Heart Health FriMay 12 17:41:00 EST 2023May 17 12:14:00 EST 2023 metoprolol succinate ER 25 mg tablet,extended release 24 hr 1/2 tab TABLET, EXTENDED RELEASE 24 HR Oral 1 Time Daily Indication: a-fib FriMay 12 18:17:00 EST 2023May 12 18:39:00 EST 2023 metoprolol succinate ER 25 mg tablet,extended release 24 hr 1/2 tab TABLET, EXTENDED RELEASE 24 HR Oral 1 Time Daily Indication: a-fib FriMay 12 17:00:00 EST 2023May 19 18:17:00 EST 2023 Problems Active Concerns * Unspecified atrial fibrillation* Code: * Start Date: FriMay 12 00:00:00 EST 2023 * End Date: * Text: * Pure hypercholesterolemia, unspecified* Code: * Start Date: FriMay 12 00:00:00 EST 2023 * End Date: * Text: * Essential (primary) hypertension* Code: * Start Date: FriMay 12 00:00:00 EST 2023 * End Date: * Text: * Acquired absence of lung [part of]* Code: * Start Date: FriMay 12 00:00:00 EST 2023 * End Date: * Text: * Personal history of nicotine dependence* Code: * Start Date: FriMay 12 00:00:00 EST 2023 * End Date: * Text: * Unspecified glaucoma* Code: * Start Date: FriMay 12 00:00:00 2023 * End Date: * Text: * Syncope and collapse* Code: * Start Date: FriMay 12 00:00:00 2023 * End Date: * Text: * Fall on same level, unspecified, subsequent encounter* Code: * Start Date: FriMay 12 00:00:00 2023 * End Date: * Text: * Emphysema, unspecified* Code: * Start Date: FriMay 12 00:00:00 2023 * End Date: * Text: * White matter disease, unspecified* Code: * Start Date: FriMay 12 00:00:00 2023 * End Date: * Text: * Contusion of right hip, subsequent encounter* Code: * Start Date: FriMay 12 00:00:00 2023 * End Date: * Text: * Occlusion and stenosis of left carotid artery* Code: * Start Date: FriMay 12 00:00:00 2023 * End Date: * Text: * Interstitial pulmonary disease, unspecified* Code: * Start Date: FriMay 12 00:00:00 2023 * End Date: * Text: * Bradycardia, unspecified* Code: * Start Date: FriMay 12 00:00:00 2023 * End Date: * Text: * Unilateral primary osteoarthritis, right hip* Code: * Start Date: FriMay 12 00:00:00 2023 * End Date: * Text: * intermediate manager (current) use of aspirin* Code: * Start Date: FriMay 12 00:00:00 2023 * End Date: * Text: * Personal history of other diseases of the respiratory system* Code: * Start Date: FriMay 12 00:00:00 2023 * End Date: * Text: * Repeated falls* Code: * Start Date: FriMay 12 00:00:00 2023 * End Date: * Text: * Hypo-osmolality and hyponatremia* Code: * Start Date: FriMay 12 00:00:00 2023 * End Date: * Text: * Unspecified macular degeneration* Code: * Start Date: FriMay 12 00:00:00 2023 * End Date: * Text: * Constipation, unspecified* Code: * Start Date: FriMay 12 00:00:2023 * End Date: * Text: * Vitamin deficiency, unspecified* Code: * Start Date: FriMay 12 00:00:00 2023 * End Date: * Text: * Contusion of other urinary and pelvic organ, subsequent encounter* Code: * Start Date: FriMay 12 00::2023 * End Date: * Text: * Hypomagnesemia* Code: * Start Date: FriMay 12 00::2023 * End Date: * Text: * Vitamin D deficiency, unspecified* Code: * Start Date: FriMay 12 00::2023 * End Date: * Text: * Dorinda Morales's wishes will be followed (Advanced Directive/Code Status).* Code: * Start Date: FriMay 20::2023 * End Date: * Text: Dorinda Morales's wishes will be followed (Advanced Directive/Code Status). * Dorinda Morales will be involved in goal development to the best of his or her ability.* Code: * Start Date: FriMay 20::2023 * End Date: * Text: Dorinda Morales will be involved in goal development to the best of his or her ability. * Dorinda Morales has family/friends who are supportive.* Code: * Start Date: FriMay 20 00::2023 * End Date: * Text: Dorinda Morales has family/friends who are supportive. * Dorinda Morales's mobility level is different than prior level due to current medical condition.* Code: * Start Date: FriMay 20::2023 * End Date: * Text: Dorinda Morales's mobility level is different than prior level due to current medical condition. * Dorinda Morales will be involved in discharge planning.* Code: * Start Date: FriMay 20::2023 * End Date: * Text: Dorinda Morales will be involved in discharge planning. * Yoni Morales is at risk for falls/injury as evidenced by: history of falls, cognitive status/behavior, vision status, continence, mobility, balance.* Code: * Start Date: FriMay 24 00:00:00 EST 2023 * End Date: * Text: PORSCHEFalls Callie Morales is at risk for falls/injury as evidenced by: history of falls, cognitive status/behavior, vision status, continence, mobility, balance. * PORSCHEPain Callie Morales is experiencing pain or is at high risk for pain.* Code: * Start Date: FriMay 24 00:00:00 EST 2023 * End Date: * Text: PORSCHEPain Callie Morales is experiencing pain or is at high risk for pain. * SALOMÓN_Skin Integrity - (Potential Alteration of)- Andrew is at risk for developing impaired skin integrity.* Code: * Start Date: FriMay 24 00:00:00 EST 2023 * End Date: * Text: PORSCHESkin Integrity - (Potential Alteration of)Callie Morales is at risk for developing impaired skin integrity. * PORSCHEADLs Callie Morales has ADL selfcare deficit related to decreased mobility and muscle weakness* Code: * Start Date: FriMay 24 00:00:00 EST 2023 * End Date: * Text: PORSCHEADLkeri Morales has ADL selfcare deficit related to decreased mobility and muscle weakness Vital Signs Vital Sign Measurement Date Systolic Blood Pressure 147.00 mm[Hg] FriJun 09 10:53:39 EST 2024 Diastolic Blood Pressure 82.00 mm[Hg] FriJun 09 10:53:39 EST 2024 Systolic Blood Pressure 147.00 mm[Hg] FriJun 09 10:53:39 2024 Diastolic Blood Pressure 82.00 mm[Hg] FriJun 09 10:53:39 2024 Systolic Blood Pressure 147.00 mm[Hg] FriJun 09 10:53:39 EST 2024 Diastolic Blood Pressure 82.00 mm[Hg] FriJun 09 10:53:39 EST 2024 Heart Rate 75.00 /min FriJun 09 10:53 :39 2024 Heart Rate 75.00 /min FriJun 09 10:53 :39 EST 2024 Body temperature 97.80 [degF] FriJun 09 10:5 3:39 EST 2024 Respiratory rate 18.00 /min FriJun 09 10:5 3:39 2024 Systolic Blood Pressure 149.00 mm[Hg] FriJun 09 01:25:27 2024 Diastolic Blood Pressure 80.00 mm[Hg] FriJun 09 01:25:27 EST 2024 Heart Rate 99.00 /min FriJun 09 01:25 :27 EST 2024 Body temperature 98.30 [degF] FriJun 09 01:2 5:27 EST 2024 Respiratory rate 16.00 /min FriJun 09 01:2 5:27 EST 5 Systolic Blood Pressure 162.00 mm[Hg] FriJun 08 18:04:07 EST 2024 Diastolic Blood Pressure 78.00 mm[Hg] FriJun 08 18:04:07 EST 2024 Heart Rate 72.00 /min FriJun 08 18:04 :07 EST 2024 Body weight 223.60 [lb_av] FriJun 08 13:06 :42 EST 2024 Systolic Blood Pressure 161.00 mm[Hg] FriJun 08 10:13:25 EST 2024 Diastolic Blood Pressure 81.00 mm[Hg] FriJun 08 10:13:25 EST 2024 Heart Rate 75.00 /min FriJun 08 10:13 :25 EST 2024 Body temperature 97.00 [degF] FriJun 08 10:1 3:25 EST 2024 Respiratory rate 18.00 /min FriJun 08 10:1 3:25 EST 2024 Systolic Blood Pressure 161.00 mm[Hg] FriJun 08 09:32:30 EST 2024 Diastolic Blood Pressure 81.00 mm[Hg] FriJun 08 09:32:30 EST 2024 Systolic Blood Pressure 161.00 mm[Hg] FriJun 08 09:32:30 EST 2024 Diastolic Blood Pressure 81.00 mm[Hg] FriJun 08 09:32:30 EST 2024 Heart Rate 75.00 /min FriJun 08 09:32 :30 EST 2024 Systolic Blood Pressure 149.00 mm[Hg] FriJun 07 22:39:56 EST 2024 Diastolic Blood Pressure 80.00 mm[Hg] FriJun 07 22:39:56 EST 2024 Heart Rate 79.00 /min FriJun 07 22:39 :56 EST 2024 Body temperature 98.30 [degF] FriJun 07 22:3 9:56 EST 2024 Respiratory rate 16.00 /min FriJun 07 22:3 9:56 EST 2024 Systolic Blood Pressure 149.00 mm[Hg] FriJun 07 18:19:28 EST 2024 Diastolic Blood Pressure 80.00 mm[Hg] FriJun 07 18:19:28 EST 2024 Heart Rate 79.00 /min FriJun 07 18:19 :28 EST 2024 Body weight 225.20 [lb_av] FriJun 07 14:17 :16 EST 2024 Systolic Blood Pressure 160.00 mm[Hg] FriJun 07 09:23:57 EST 2024 Diastolic Blood Pressure 78.00 mm[Hg] FriJun 07 09:23:57 EST 2024 Systolic Blood Pressure 160.00 mm[Hg] FriJun 07 09:23:57 EST 2024 Diastolic Blood Pressure 78.00 mm[Hg] FriJun 07 09:23:57 EST 2024 Systolic Blood Pressure 160.00 mm[Hg] FriJun 07 09:23:57 EST 2024 Diastolic Blood Pressure 78.00 mm[Hg] FriJun 07 09:23:57 EST 2024 Heart Rate 68.00 /min FriJun 07 09:23 :57 EST 2024 Heart Rate 68.00 /min FriJun 07 09:23 :57 EST 2024 Body temperature 98.50 [degF] FriJun 07 09:2 3:57 EST 2024 Respiratory rate 16.00 /min FriJun 07 09:2 3:57 EST 2024 Systolic Blood Pressure 140.00 mm[Hg] [facility] Jun 06 23:50:37 EST 2024 Diastolic Blood Pressure 52.00 mm[Hg] [facility] Jun 06 23:50:37 EST 2024 Heart Rate 71.00 /min FriJun 06 23:50 :37 2024 Body temperature 97.60 [degF] [facility] Jun 06 23:5 0:37 2024 Respiratory rate 18.00 /min FriJun 06 23:5 0:37 EST 2024 Systolic Blood Pressure 149.00 mm[Hg] FriJun 06 18:37:55 EST 2024 Diastolic Blood Pressure 68.00 mm[Hg] FriJun 06 18:37:55 EST 2024 Heart Rate 72.00 /min FriJun 06 18:37 :55 EST 2024 Body weight 225.20 [lb_av] [facility] Jun 06 17:16 :59 EST 2024 Systolic Blood Pressure 151.00 mm[Hg] FriJun 06 11:34:33 EST 2024 Diastolic Blood Pressure 75.00 mm[Hg] FriJun 06 11:34:33 EST 2024 Heart Rate 68.00 /min FriJun 06 11:34 :33 EST 2024 Body temperature 98.50 [degF] Sun Jun 06 11:3 4:33 EST 2024 Respiratory rate 16.00 /min Sun Jun 06 11:3 4:33 EST 2024 Systolic Blood Pressure 151.00 mm[Hg] Sun Jun 06 09:56:03 EST 2024 Diastolic Blood Pressure 76.00 mm[Hg] Sun Jun 06 09:56:03 EST 2024 Systolic Blood Pressure 151.00 mm[Hg] Sun Jun 06 09:56:03 EST 2024 Diastolic Blood Pressure 76.00 mm[Hg] Sun Jun 06 09:56:03 EST 2024 Heart Rate 68.00 /min Sun Jun 06 09:56 :03 EST 2024 Systolic Blood Pressure 158.00 mm[Hg] Sat Jun 05 22:44:24 EST 2024 Diastolic Blood Pressure 77.00 mm[Hg] Sat Jun 05 22:44:24 EST 2024 Heart Rate 74.00 /min Sat Jun 05 22:44 :24 EST 2024 Body temperature 97.50 [degF] Sat Jun 05 22:4 4:24 EST 2024 Respiratory rate 16.00 /min Sat Jun 05 22:4 4:24 EST 2024 Systolic Blood Pressure 158.00 mm[Hg] Sat Jun 05 17:50:27 EST 2024 Diastolic Blood Pressure 77.00 mm[Hg] Sat Jun 05 17:50:27 EST 2024 Heart Rate 74.00 /min Sat Jun 05 17:50 :27 EST 2024 Body weight 226.20 [lb_av] Sat Jun 05 12:29 :14 EST 2024 Systolic Blood Pressure 148.00 mm[Hg] Sat Jun 05 09:06:48 EST 2024 Diastolic Blood Pressure 76.00 mm[Hg] Sat Jun 05 09:06:48 EST 2024 Systolic Blood Pressure 148.00 mm[Hg] Sat Jun 05 09:06:48 EST 2024 Diastolic Blood Pressure 76.00 mm[Hg] Sat Jun 05 09:06:48 EST 2024 Systolic Blood Pressure 148.00 mm[Hg] Sat Jun 05 09:06:48 EST 2024 Diastolic Blood Pressure 76.00 mm[Hg] Sat Jun 05 09:06:48 EST 2024 Heart Rate 69.00 /min Sat Jun 05 09:06 :48 EST 2024 Heart Rate 69.00 /min Sat Jun 05 09:06 :48 EST 2024 Body temperature 98.20 [degF] Sat Jun 05 09:0 6:48 EST 2024 Respiratory rate 18.00 /min Sat Jun 05 09:0 6:48 EST 2024 Systolic Blood Pressure 150.00 mm[Hg] FriJun 05 00:15:39 EST 2024 Diastolic Blood Pressure 67.00 mm[Hg] FriJun 05 00:15:39 EST 2024 Heart Rate 68.00 /min FriJun 05 00:15 :39 EST 2024 Body temperature 97.70 [degF] FriJun 05 00:1 5:39 EST 2024 Respiratory rate 20.00 /min FriJun 05 00:1 5:39 EST 2024 Systolic Blood Pressure 163.00 mm[Hg] FriJun 04 17:42:04 EST 2024 Diastolic Blood Pressure 82.00 mm[Hg] FriJun 04 17:42:04 EST 2024 Heart Rate 79.00 /min FriJun 04 17:42 :04 EST 2024 Systolic Blood Pressure 160.00 mm[Hg] FriJun 04 11:14:21 EST 2024 Diastolic Blood Pressure 72.00 mm[Hg] FriJun 04 11:14:21 EST 2024 Body weight 224.40 [lb_av] FriJun 04 11:14 :21 EST 2024 Heart Rate 64.00 /min FriJun 04 11:14 :21 EST 2024 Body temperature 97.20 [degF] FriJun 04 11:1 4:21 EST 2024 Respiratory rate 18.00 /min FriJun 04 11:1 4:21 EST 2024 Systolic Blood Pressure 160.00 mm[Hg] FriJun 04 10:16:43 EST 2024 Diastolic Blood Pressure 72.00 mm[Hg] FriJun 04 10:16:43 EST 2024 Systolic Blood Pressure 160.00 mm[Hg] FriJun 04 10:16:43 EST 2024 Diastolic Blood Pressure 72.00 mm[Hg] FriJun 04 10:16:43 EST 2024 Heart Rate 64.00 /min FriJun 04 10:16 :43 EST 2024 Systolic Blood Pressure 137.00 mm[Hg] FriJun 04 00:27:22 EST 2024 Diastolic Blood Pressure 64.00 mm[Hg] FriJun 04 00:27:22 EST 2024 Heart Rate 70.00 /min FriJun 04 00:27 :22 EST 2024 Body temperature 98.20 [degF] FriJun 04 00:2 7:22 EST 2024 Respiratory rate 18.00 /min FriJun 04 00:2 7:22 EST 2024 Systolic Blood Pressure 134.00 mm[Hg] FriJun 03 17:33:57 EST 2024 Diastolic Blood Pressure 69.00 mm[Hg] FriJun 03 17:33:57 EST 2024 Heart Rate 77.00 /min FriJun 03 17:33 :57 EST 2024 Body weight 225.70 [lb_av] FriJun 03 14:53 :01 EST 2024 Systolic Blood Pressure 144.00 mm[Hg] FriJun 03 09:42:45 EST 2024 Diastolic Blood Pressure 79.00 mm[Hg] FriJun 03 09:42:45 EST 2024 Systolic Blood Pressure 144.00 mm[Hg] FriJun 03 09:42:45 EST 2024 Diastolic Blood Pressure 79.00 mm[Hg] [facility] Jun 03 09:42:45 EST 2024 Systolic Blood Pressure 144.00 mm[Hg] FriJun 03 09:42:45 EST 2024 Diastolic Blood Pressure 79.00 mm[Hg] [facility] Jun 03 09:42:45 EST 2024 Heart Rate 69.00 /min FriJun 03 09:42 :45 EST 2024 Heart Rate 69.00 /min [facility] Jun 03 09:42 :45 EST 2024 Body temperature 98.10 [degF] FriJun 03 09:4 2:45 EST 2024 Respiratory rate 18.00 /min FriJun 03 09:4 2:45 EST 2024 Systolic Blood Pressure 146.00 mm[Hg] FriJun 02 23:21:14 EST 2024 Diastolic Blood Pressure 68.00 mm[Hg] FriJun 02 23:21:14 EST 2024 Heart Rate 72.00 /min FriJun 02 23:21 :14 EST 2024 Body temperature 98.20 [degF] FriJun 02 23:2 1:14 EST 2024 Respiratory rate 20.00 /min FriJun 02 23:2 1:14 EST 2024 Systolic Blood Pressure 168.00 mm[Hg] FriJun 02 17:57:53 EST 2024 Diastolic Blood Pressure 88.00 mm[Hg] FriJun 02 17:57:53 EST 2024 Heart Rate 75.00 /min FriJun 02 17:57 :53 EST 2024 Body weight 227.20 [lb_av] FriJun 02 14:43 :59 EST 2024 Systolic Blood Pressure 168.00 mm[Hg] FriJun 02 09:05:53 EST 2024 Diastolic Blood Pressure 88.00 mm[Hg] FriJun 02 09:05:53 EST 2024 Systolic Blood Pressure 168.00 mm[Hg] FriJun 02 09:05:53 EST 2024 Diastolic Blood Pressure 88.00 mm[Hg] FriJun 02 09:05:53 EST 2024 Systolic Blood Pressure 168.00 mm[Hg] FriJun 02 09:05:53 EST 2024 Diastolic Blood Pressure 88.00 mm[Hg] FriJun 02 09:05:53 EST 2024 Heart Rate 75.00 /min FriJun 02 09:05 :53 EST 2024 Heart Rate 75.00 /min FriJun 02 09:05 :53 EST 2024 Body temperature 98.10 [degF] FriJun 02 09:0 5:53 EST 2024 Respiratory rate 18.00 /min FriJun 02 09:0 5:53 EST 2024 Systolic Blood Pressure 160.00 mm[Hg] FriJun 02 01:19:01 EST 2024 Diastolic Blood Pressure 84.00 mm[Hg] FriJun 02 01:19:01 EST 2024 Heart Rate 76.00 /min FriJun 02 01:19 :01 EST 2024 Body temperature 98.20 [degF] FriJun 02 01:1 9:01 EST 2024 Respiratory rate 20.00 /min FriJun 02 01:1 9:01 EST 2024 Systolic Blood Pressure 160.00 mm[Hg] FriJun 01 18:20:21 EST 2023 Diastolic Blood Pressure 84.00 mm[Hg] FriJun 01 18:20:21 EST 2023 Heart Rate 74.00 /min FriJun 01 18:20 :21 EST 2023 Body weight 226.20 [lb_av] FriJun 01 17:19 :31 EST 2023 Systolic Blood Pressure 164.00 mm[Hg] FriJun 01 11:01:58 EST 2023 Diastolic Blood Pressure 82.00 mm[Hg] FriJun 01 11:01:58 EST 2023 Heart Rate 74.00 /min FriJun 01 11:01 :58 EST 2023 Body temperature 98.30 [degF] FriJun 01 11:0 1:58 EST 2023 Respiratory rate 18.00 /min FriJun 01 11:0 1:58 EST 2023 Systolic Blood Pressure 164.00 mm[Hg] FriJun 01 08:36:59 EST 2023 Diastolic Blood Pressure 82.00 mm[Hg] FriJun 01 08:36:59 EST 2024 Systolic Blood Pressure 164.00 mm[Hg] FriJun 01 08:36:59 EST 2023 Diastolic Blood Pressure 82.00 mm[Hg] FriJun 01 08:36:59 EST 2023 Heart Rate 74.00 /min FriJun 01 08:36 :59 EST 4 Systolic Blood Pressure 129.00 mm[Hg] FriJun 01 01:33:21 EST 2023 Diastolic Blood Pressure 63.00 mm[Hg] FriJun 01 01:33:21 EST 2023 Heart Rate 74.00 /min FriJun 01 01:33 :21 EST 4 Body temperature 98.30 [degF] FriJun 01 01:3 3:21 EST 2023 Respiratory rate 16.00 /min FriJun 01 01:3 3:21 EST 2023 Body weight 231.00 [lb_av] FriMay 31 19:36 :07 EST 2023 Systolic Blood Pressure 129.00 mm[Hg] FriMay 31 18:51:50 EST 2023 Diastolic Blood Pressure 63.00 mm[Hg] FriMay 31 18:51:50 EST 2023 Heart Rate 74.00 /min FriMay 31 18:51 :50 EST 2023 Systolic Blood Pressure 162.00 mm[Hg] FriMay 31 09:50:31 EST 2023 Diastolic Blood Pressure 79.00 mm[Hg] FriMay 31 09:50:31 EST 2023 Systolic Blood Pressure 162.00 mm[Hg] FriMay 31 09:50:31 EST 4 Diastolic Blood Pressure 79.00 mm[Hg] FriMay 31 09:50:31 EST 2023 Systolic Blood Pressure 162.00 mm[Hg] FriMay 31 09:50:31 EST 2023 Diastolic Blood Pressure 79.00 mm[Hg] FriMay 31 09:50:31 EST 4 Heart Rate 72.00 /min FriMay 31 09:50 :31 EST 2023 Heart Rate 72.00 /min FriMay 31 09:50 :31 EST 2023 Body temperature 98.50 [degF] FriMay 31 09:5 0:31 EST 2023 Respiratory rate 94.00 /min FriMay 31 09:5 0:31 EST 4 Systolic Blood Pressure 140.00 mm[Hg] FriMay 31 00:42:59 EST 2023 Diastolic Blood Pressure 76.00 mm[Hg] FriMay 31 00:42:59 EST 2023 Heart Rate 77.00 /min FriMay 31 00:42 :59 EST 2023 Body temperature 98.00 [degF] FriMay 31 00:4 2:59 EST 2023 Respiratory rate 20.00 /min FriMay 31 00:4 2:59 EST 2023 Systolic Blood Pressure 146.00 mm[Hg] FriMay 30 17:37:47 EST 2023 Diastolic Blood Pressure 79.00 mm[Hg] FriMay 30 17:37:47 EST 2023 Heart Rate 74.00 /min FriMay 30 17:37 :47 EST 2023 Body weight 227.00 [lb_av] FriMay 30 14:18 :10 EST 2023 Systolic Blood Pressure 159.00 mm[Hg] FriMay 30 10:11:35 EST 2023 Diastolic Blood Pressure 74.00 mm[Hg] FriMay 30 10:11:35 EST 2023 Systolic Blood Pressure 159.00 mm[Hg] FriMay 30 10:11:35 EST 2023 Diastolic Blood Pressure 74.00 mm[Hg] FriMay 30 10:11:35 EST 2023 Systolic Blood Pressure 159.00 mm[Hg] FriMay 30 10:11:35 EST 2023 Diastolic Blood Pressure 74.00 mm[Hg] FriMay 30 10:11:35 EST 2023 Heart Rate 80.00 /min FriMay 30 10:11 :35 EST 2023 Heart Rate 80.00 /min FriMay 30 10:11 :35 EST 2023 Body temperature 98.00 [degF] FriMay 30 10:1 1:35 2023 Respiratory rate 20.00 /min FriMay 30 10:1 1:35 EST 2023 Systolic Blood Pressure 128.00 mm[Hg] FriMay 30 01:24:52 EST 2023 Diastolic Blood Pressure 65.00 mm[Hg] FriMay 30 01:24:52 EST 2023 Heart Rate 70.00 /min FriMay 30 01:24 :52 EST 2023 Body temperature 98.20 [degF] FriMay 30 01:2 4:52 EST 2023 Respiratory rate 20.00 /min FriMay 30 01:2 4:52 EST 2023 Systolic Blood Pressure 152.00 mm[Hg] FriMay 29 17:30:21 EST 2023 Diastolic Blood Pressure 66.00 mm[Hg] FriMay 29 17:30:21 EST 2023 Heart Rate 79.00 /min FriMay 29 17:30 :21 EST 2023 Body weight 223.40 [lb_av] FriMay 29 13:09 :11 EST 2023 Systolic Blood Pressure 156.00 mm[Hg] FriMay 29 10:15:43 EST 2023 Diastolic Blood Pressure 71.00 mm[Hg] FriMay 29 10:15:43 EST 2023 Systolic Blood Pressure 156.00 mm[Hg] FriMay 29 10:15:43 EST 2023 Diastolic Blood Pressure 71.00 mm[Hg] FriMay 29 10:15:43 EST 2023 Heart Rate 68.00 /min FriMay 29 10:15 :43 EST 2023 Systolic Blood Pressure 156.00 mm[Hg] FriMay 29 09:28:38 EST 2023 Diastolic Blood Pressure 71.00 mm[Hg] FriMay 29 09:28:38 EST 2023 Body temperature 98.30 [degF] FriMay 29 09:2 8:38 EST 2023 Respiratory rate 20.00 /min FriMay 29 09:2 8:38 EST 2023 Heart Rate 68.00 /min FriMay 29 09:28 :38 EST 2023 Systolic Blood Pressure 150.00 mm[Hg] FriMay 28 20:24:35 EST 2023 Diastolic Blood Pressure 68.00 mm[Hg] FriMay 28 20:24:35 EST 2023 Heart Rate 72.00 /min FriMay 28 20:24 :35 2023 Body temperature 97.40 [degF] FriMay 28 20:2 4:35 EST 2023 Respiratory rate 20.00 /min FriMay 28 20:2 4:35 EST 2023 Systolic Blood Pressure 150.00 mm[Hg] FriMay 28 17:48:37 EST 2023 Diastolic Blood Pressure 68.00 mm[Hg] FriMay 28 17:48:37 EST 2023 Heart Rate 72.00 /min FriMay 28 17:48 :37 EST 2023 Body weight 224.40 [lb_av] FriMay 28 11:52 :55 EST 2023 Systolic Blood Pressure 149.00 mm[Hg] FriMay 28 10:47:18 EST 2023 Diastolic Blood Pressure 76.00 mm[Hg] FriMay 28 10:47:18 EST 2023 Heart Rate 72.00 /min FriMay 28 10:47 :18 EST 2023 Body temperature 98.20 [degF] FriMay 28 10:4 7:18 EST 2023 Respiratory rate 18.00 /min FriMay 28 10:4 7:18 EST 2023 Systolic Blood Pressure 149.00 mm[Hg] FriMay 28 09:14:01 EST 2023 Diastolic Blood Pressure 76.00 mm[Hg] FriMay 28 09:14:01 EST 2023 Systolic Blood Pressure 149.00 mm[Hg] FriMay 28 09:14:01 EST 2023 Diastolic Blood Pressure 76.00 mm[Hg] FriMay 28 09:14:01 EST 2023 Heart Rate 72.00 /min FriMay 28 09:14 :01 EST 2023 Systolic Blood Pressure 161.00 mm[Hg] FriMay 27 22:18:06 EST 2023 Diastolic Blood Pressure 75.00 mm[Hg] FriMay 27 22:18:06 EST 2023 Heart Rate 83.00 /min FriMay 27 22:18 :06 EST 2023 Body temperature 98.50 [degF] FriMay 27 22:1 8:06 EST 2023 Respiratory rate 18.00 /min FriMay 27 22:1 8:06 EST 2023 Systolic Blood Pressure 161.00 mm[Hg] FriMay 27 17:54:56 EST 2023 Diastolic Blood Pressure 75.00 mm[Hg] FriMay 27 17:54:56 EST 2023 Heart Rate 83.00 /min FriMay 27 17:54 :56 EST 2023 Body weight 223.60 [lb_av] FriMay 27 11:16 :29 EST 2023 Systolic Blood Pressure 165.00 mm[Hg] FriMay 27 10:55:45 EST 2023 Diastolic Blood Pressure 71.00 mm[Hg] FriMay 27 10:55:45 EST 2023 Heart Rate 70.00 /min FriMay 27 10:55 :45 EST 2023 Body temperature 98.60 [degF] FriMay 27 10:5 5:45 EST 2023 Respiratory rate 18.00 /min FriMay 27 10:5 5:45 EST 2023 Systolic Blood Pressure 165.00 mm[Hg] FriMay 27 09:21:07 EST 2023 Diastolic Blood Pressure 71.00 mm[Hg] FriMay 27 09:21:07 EST 2023 Systolic Blood Pressure 165.00 mm[Hg] FriMay 27 09:21:07 EST 2023 Diastolic Blood Pressure 71.00 mm[Hg] FriMay 27 09:21:07 EST 2023 Heart Rate 70.00 /min FriMay 27 09:21 :07 EST 4 Systolic Blood Pressure 136.00 mm[Hg] FriMay 26 23:44:52 EST 2023 Diastolic Blood Pressure 67.00 mm[Hg] FriMay 26 23:44:52 EST 2023 Heart Rate 73.00 /min FriMay 26 23:44 :52 EST 2023 Body temperature 98.30 [degF] FriMay 26 23:4 4:52 EST 2023 Respiratory rate 18.00 /min FriMay 26 23:4 4:52 EST 2023 Systolic Blood Pressure 137.00 mm[Hg] FriMay 26 17:32:19 EST 2023 Diastolic Blood Pressure 69.00 mm[Hg] FriMay 26 17:32:19 EST 2023 Heart Rate 77.00 /min FriMay 26 17:32 :19 EST 2023 Body weight 225.80 [lb_av] FriMay 26 13:11 :48 EST 2023 Systolic Blood Pressure 150.00 mm[Hg] FriMay 26 09:06:00 EST 2023 Diastolic Blood Pressure 82.00 mm[Hg] FriMay 26 09:06:00 EST 2023 Systolic Blood Pressure 150.00 mm[Hg] FriMay 26 09:06:00 EST 2023 Diastolic Blood Pressure 82.00 mm[Hg] FriMay 26 09:06:00 EST 2023 Heart Rate 71.00 /min FriMay 26 09:06 :00 EST 2023 Systolic Blood Pressure 150.00 mm[Hg] FriMay 26 08:36:23 EST 2023 Diastolic Blood Pressure 82.00 mm[Hg] FriMay 26 08:36:23 EST 2023 Heart Rate 71.00 /min FriMay 26 08:36 :23 EST 2023 Body temperature 98.00 [degF] FriMay 26 08:3 6:23 EST 2023 Respiratory rate 16.00 /min FriMay 26 08:3 6:23 EST 2023 Systolic Blood Pressure 131.00 mm[Hg] FriMay 25 22:20:28 EST 2023 Diastolic Blood Pressure 63.00 mm[Hg] FriMay 25 22:20:28 EST 2023 Heart Rate 70.00 /min FriMay 25 22:20 :28 EST 2023 Body temperature 98.00 [degF] FriMay 25 22:2 0:28 EST 2023 Respiratory rate 16.00 /min FriMay 25 22:2 0:28 EST 2023 Systolic Blood Pressure 142.00 mm[Hg] FriMay 25 17:39:01 EST 2023 Diastolic Blood Pressure 68.00 mm[Hg] FriMay 25 17:39:01 EST 2023 Heart Rate 73.00 /min FriMay 25 17:39 :01 EST 2023 Body weight 224.40 [lb_av] FriMay 25 13:31 :11 EST 2023 Systolic Blood Pressure 152.00 mm[Hg] FriMay 25 09:38:33 EST 2023 Diastolic Blood Pressure 69.00 mm[Hg] FriMay 25 09:38:33 EST 2023 Systolic Blood Pressure 152.00 mm[Hg] FriMay 25 09:38:33 EST 2023 Diastolic Blood Pressure 69.00 mm[Hg] FriMay 25 09:38:33 EST 2023 Systolic Blood Pressure 152.00 mm[Hg] FriMay 25 09:38:33 EST 2023 Diastolic Blood Pressure 69.00 mm[Hg] FriMay 25 09:38:33 EST 2023 Heart Rate 81.00 /min FriMay 25 09:38 :33 EST 2023 Heart Rate 81.00 /min FriMay 25 09:38 :33 EST 2023 Body temperature 98.50 [degF] FriMay 25 09:3 8:33 EST 2023 Respiratory rate 19.00 /min FriMay 25 09:3 8:33 EST 2023 Systolic Blood Pressure 141.00 mm[Hg] FriMay 24 22:16:50 EST 2023 Diastolic Blood Pressure 69.00 mm[Hg] FriMay 24 22:16:50 EST 2023 Heart Rate 74.00 /min FriMay 24 22:16 :50 EST 2023 Body temperature 98.20 [degF] FriMay 24 22:1 6:50 EST 2023 Respiratory rate 20.00 /min FriMay 24 22:1 6:50 EST 2023 Systolic Blood Pressure 141.00 mm[Hg] FriMay 24 18:01:15 EST 2023 Diastolic Blood Pressure 69.00 mm[Hg] FriMay 24 18:01:15 EST 2023 Heart Rate 74.00 /min FriMay 24 18:01 :15 EST 2023 Body weight 224.00 [lb_av] FriMay 24 13:41 :27 EST 2023 Systolic Blood Pressure 162.00 mm[Hg] FriMay 24 09:03:15 EST 2023 Diastolic Blood Pressure 84.00 mm[Hg] FriMay 24 09:03:15 EST 2023 Heart Rate 86.00 /min FriMay 24 09:03 :15 EST 2023 Body temperature 98.20 [degF] FriMay 24 09:0 3:15 EST 2023 Respiratory rate 18.00 /min FriMay 24 09:0 3:15 EST 2023 Systolic Blood Pressure 162.00 mm[Hg] FriMay 24 09:02:40 EST 2023 Diastolic Blood Pressure 84.00 mm[Hg] FriMay 24 09:02:40 EST 2023 Systolic Blood Pressure 162.00 mm[Hg] FriMay 24 09:02:40 EST 2023 Diastolic Blood Pressure 84.00 mm[Hg] FriMay 24 09:02:40 EST 2023 Heart Rate 86.00 /min FriMay 24 09:02 :40 EST 2023 Systolic Blood Pressure 152.00 mm[Hg] FriMay 23 21:36:25 EST 2023 Diastolic Blood Pressure 76.00 mm[Hg] FriMay 23 21:36:25 EST 2023 Heart Rate 92.00 /min FriMay 23 21:36 :25 EST 2023 Body temperature 98.20 [degF] FriMay 23 21:3 6:25 EST 2023 Respiratory rate 18.00 /min FriMay 23 21:3 6:25 EST 2023 Systolic Blood Pressure 152.00 mm[Hg] FriMay 23 18:08:22 EST 2023 Diastolic Blood Pressure 76.00 mm[Hg] FriMay 23 18:08:22 EST 2023 Heart Rate 92.00 /min FriMay 23 18:08 :22 EST 2023 Body weight 225.00 [lb_av] FriMay 23 17:57 :43 EST 2023 Systolic Blood Pressure 152.00 mm[Hg] FriMay 23 09:34:28 EST 2023 Diastolic Blood Pressure 70.00 mm[Hg] FriMay 23 09:34:28 EST 2023 Systolic Blood Pressure 152.00 mm[Hg] FriMay 23:34:28 EST 2023 Diastolic Blood Pressure 70.00 mm[Hg] FriMay 23 09:34:28 EST 2023 Systolic Blood Pressure 152.00 mm[Hg] FriMay 23 09:34:28 EST 2023 Diastolic Blood Pressure 70.00 mm[Hg] FriMay 23:34:28 EST 2023 Heart Rate 64.00 /min FriMay 23:34 :28 EST 2023 Heart Rate 64.00 /min FriMay 23 09:34 :28 EST 2023 Body temperature 98.20 [degF] FriMay 23 09:3 4:28 EST 2023 Respiratory rate 18.00 /min FriMay 23 09:3 4:28 EST 2023 Systolic Blood Pressure 157.00 mm[Hg] FriMay 23 00:47:09 EST 2023 Diastolic Blood Pressure 75.00 mm[Hg] FriMay 23 00:47:09 EST 2023 Heart Rate 77.00 /min FriMay 23 00:47 :09 EST 2023 Body temperature 98.30 [degF] FriMay 23 00:4 7:09 EST 2023 Respiratory rate 18.00 /min FriMay 23 00:4 7:09 EST 2023 Systolic Blood Pressure 157.00 mm[Hg] FriMay 22 17:56:34 EST 2023 Diastolic Blood Pressure 75.00 mm[Hg] FriMay 22 17:56:34 EST 2023 Heart Rate 83.00 /min FriMay 22 17:56 :34 EST 2023 Body weight 223.40 [lb_av] FriMay 22 14:23 :14 EST 2023 Systolic Blood Pressure 145.00 mm[Hg] FriMay 22 09:44:22 EST 2023 Diastolic Blood Pressure 74.00 mm[Hg] FriMay 22 09:44:22 EST 2023 Systolic Blood Pressure 145.00 mm[Hg] FriMay 22 09:44:22 EST 2023 Diastolic Blood Pressure 74.00 mm[Hg] FriMay 22 09:44:22 EST 2023 Heart Rate 72.00 /min FriMay 22 09:44 :22 EST 2023 Systolic Blood Pressure 145.00 mm[Hg] FriMay 22 09:17:40 EST 2023 Diastolic Blood Pressure 74.00 mm[Hg] FriMay 22 09:17:40 EST 2023 Heart Rate 72.00 /min FriMay 22 09:17 :40 EST 2023 Body temperature 98.00 [degF] FriMay 22 09:1 7:40 EST 2023 Respiratory rate 18.00 /min FriMay 22 09:1 7:40 EST 2023 Systolic Blood Pressure 162.00 mm[Hg] FriMay 21 23:25:47 EST 2023 Diastolic Blood Pressure 78.00 mm[Hg] FriMay 21 23:25:47 EST 2023 Heart Rate 79.00 /min FriMay 21 23:25 :47 EST 2023 Body temperature 98.30 [degF] FriMay 21 23:2 5:47 EST 2023 Respiratory rate 20.00 /min FriMay 21 23:2 5:47 EST 2023 Systolic Blood Pressure 162.00 mm[Hg] FriMay 21 18:32:46 EST 2023 Diastolic Blood Pressure 78.00 mm[Hg] FriMay 21 18:32:46 EST 2023 Heart Rate 79.00 /min FriMay 21 18:32 :46 EST 2023 Body weight 223.00 [lb_av] FriMay 21 12:25 :18 EST 2023 Systolic Blood Pressure 150.00 mm[Hg] FriMay 21 09:02:03 EST 2023 Diastolic Blood Pressure 75.00 mm[Hg] FriMay 21 09:02:03 EST 2023 Systolic Blood Pressure 150.00 mm[Hg] FriMay 21 09:02:03 EST 2023 Diastolic Blood Pressure 75.00 mm[Hg] FriMay 21 09:02:03 EST 2023 Systolic Blood Pressure 150.00 mm[Hg] FriMay 21 09:02:03 EST 2023 Diastolic Blood Pressure 75.00 mm[Hg] FriMay 21 09:02:03 EST 2023 Heart Rate 84.00 /min FriMay 21 09:02 :03 EST 2023 Heart Rate 84.00 /min FriMay 21 09:02 :03 EST 2023 Body temperature 98.20 [degF] FriMay 21 09:0 2:03 EST 2023 Respiratory rate 18.00 /min FriMay 21 09:0 2:03 EST 2023 Systolic Blood Pressure 140.00 mm[Hg] FriMay 21 00:36:16 EST 2023 Diastolic Blood Pressure 78.00 mm[Hg] FriMay 21 00:36:16 EST 2023 Heart Rate 79.00 /min FriMay 21 00:36 :16 EST 2023 Body temperature 98.30 [degF] FriMay 21 00:3 6:16 EST 2023 Respiratory rate 18.00 /min FriMay 21 00:3 6:16 EST 2023 Body weight 228.70 [lb_av] FriMay 20 19:31 :02 EST 2023 Systolic Blood Pressure 161.00 mm[Hg] FriMay 20 17:47:56 EST 2023 Diastolic Blood Pressure 83.00 mm[Hg] FriMay 20 17:47:56 EST 2023 Heart Rate 70.00 /min FriMay 20 17:47 :56 EST 2023 Systolic Blood Pressure 143.00 mm[Hg] Renae May 20 09:26:43 EST 2023 Diastolic Blood Pressure 67.00 mm[Hg] Renae May 20 09:26:43 EST 2023 Heart Rate 95.00 /min Renae May 20 09:26 :43 EST 2023 Body temperature 98.00 [degF] Renae May 20 09:2 6:43 EST 2023 Respiratory rate 72.00 /min Renae May 20 09:2 6:43 EST 2023 Systolic Blood Pressure 143.00 mm[Hg] Renae May 20 09:03:26 EST 2023 Diastolic Blood Pressure 67.00 mm[Hg] Renae May 20 09:03:26 EST 2023 Systolic Blood Pressure 143.00 mm[Hg] Renae May 20 09:03:26 EST 2023 Diastolic Blood Pressure 67.00 mm[Hg] Renae May 20 09:03:26 EST 2023 Heart Rate 72.00 /min Renae May 20 09:03 :26 EST 2023 Systolic Blood Pressure 174.00 mm[Hg] FriMay 20 00:46:20 EST 2023 Diastolic Blood Pressure 81.00 mm[Hg] Renae May 20 00:46:20 EST 2023 Heart Rate 74.00 /min Renae May 20 00:46 :20 EST 2023 Body temperature 98.00 [degF] FriMay 20 00:4 6:20 EST 2023 Respiratory rate 18.00 /min Renae May 20 00:4 6:20 EST 2023 Systolic Blood Pressure 171.00 mm[Hg] FriMay 19 17:57:20 EST 2023 Diastolic Blood Pressure 83.00 mm[Hg] FriMay 19 17:57:20 EST 2023 Heart Rate 74.00 /min FriMay 19 17:57 :20 EST 2023 Body weight 227.20 [lb_av] FriMay 19 12:25 :33 EST 2023 Systolic Blood Pressure 151.00 mm[Hg] FriMay 19 08:52:08 EST 2023 Diastolic Blood Pressure 77.00 mm[Hg] FriMay 19 08:52:08 EST 4 Systolic Blood Pressure 151.00 mm[Hg] FriMay 19 08:52:08 EST 4 Diastolic Blood Pressure 77.00 mm[Hg] FriMay 19 08:52:08 EST 4 Systolic Blood Pressure 151.00 mm[Hg] FriMay 19 08:52:08 EST 2023 Diastolic Blood Pressure 77.00 mm[Hg] FriMay 19 08:52:08 EST 2023 Heart Rate 70.00 /min FriMay 19 08:52 :08 EST 2023 Heart Rate 70.00 /min FriMay 19 08:52 :08 EST 4 Body temperature 98.30 [degF] FriMay 19 08:5 2:08 EST 2023 Respiratory rate 18.00 /min FriMay 19 08:5 2:08 EST 4 Systolic Blood Pressure 154.00 mm[Hg] FriMay 18 23:05:46 EST 2023 Diastolic Blood Pressure 71.00 mm[Hg] FriMay 18 23:05:46 EST 2023 Heart Rate 82.00 /min FriMay 18 23:05 :46 EST 2023 Body temperature 98.30 [degF] FriMay 18 23:0 5:46 EST 2023 Respiratory rate 18.00 /min FriMay 18 23:0 5:46 EST 2023 Systolic Blood Pressure 154.00 mm[Hg] FriMay 18 17:43:02 EST 2023 Diastolic Blood Pressure 73.00 mm[Hg] FriMay 18 17:43:02 EST 2023 Heart Rate 82.00 /min FriMay 18 17:43 :02 EST 2023 Body weight 222.60 [lb_av] FriMay 18 12:53 :48 EST 2023 Systolic Blood Pressure 162.00 mm[Hg] FriMay 18 09:23:09 EST 2023 Diastolic Blood Pressure 79.00 mm[Hg] FriMay 18 09:23:09 EST 2023 Systolic Blood Pressure 162.00 mm[Hg] FriMay 18 09:23:09 EST 2023 Diastolic Blood Pressure 79.00 mm[Hg] FriMay 18 09:23:09 EST 2023 Heart Rate 76.00 /min FriMay 18 09:23 :09 EST 2023 Systolic Blood Pressure 162.00 mm[Hg] FriMay 18 08:49:53 EST 2023 Diastolic Blood Pressure 79.00 mm[Hg] FriMay 18 08:49:53 EST 2023 Heart Rate 76.00 /min FriMay 18 08:49 :53 EST 2023 Body temperature 98.30 [degF] FriMay 18 08:4 9:53 EST 4 Respiratory rate 18.00 /min FriMay 18 08:4 9:53 EST 4 Systolic Blood Pressure 183.00 mm[Hg] FriMay 17 20:40:55 EST 4 Diastolic Blood Pressure 65.00 mm[Hg] FriMay 17 20:40:55 EST 2023 Heart Rate 92.00 /min FriMay 17 20:40 :55 EST 2023 Body temperature 98.00 [degF] FriMay 17 20:4 0:55 EST 2023 Respiratory rate 18.00 /min FriMay 17 20:4 0:55 EST 4 Systolic Blood Pressure 133.00 mm[Hg] FriMay 17 18:14:40 EST 2023 Diastolic Blood Pressure 65.00 mm[Hg] FriMay 17 18:14:40 EST 2023 Heart Rate 92.00 /min FriMay 17 18:14 :40 EST 2023 Systolic Blood Pressure 158.00 mm[Hg] FriMay 17 09:41:42 EST 2023 Diastolic Blood Pressure 85.00 mm[Hg] FriMay 17 09:41:42 EST 2023 Systolic Blood Pressure 158.00 mm[Hg] FriMay 17 09:41:42 EST 2023 Diastolic Blood Pressure 85.00 mm[Hg] FriMay 17 09:41:42 EST 2023 Systolic Blood Pressure 158.00 mm[Hg] FriMay 17 09:41:42 EST 2023 Diastolic Blood Pressure 85.00 mm[Hg] FriMay 17 09:41:42 EST 2023 Heart Rate 86.00 /min FriMay 17 09:41 :42 EST 2023 Heart Rate 86.00 /min FriMay 17 09:41 :42 EST 2023 Body temperature 98.30 [degF] FriMay 17 09:4 1:42 EST 2023 Respiratory rate 18.00 /min FriMay 17 09:4 1:42 EST 2023 Systolic Blood Pressure 151.00 mm[Hg] FriMay 16 20:03:49 EST 2023 Diastolic Blood Pressure 76.00 mm[Hg] FriMay 16 20:03:49 EST 2023 Heart Rate 75.00 /min FriMay 16 20:03 :49 EST 2023 Body temperature 98.20 [degF] FriMay 16 20:0 3:49 EST 2023 Respiratory rate 20.00 /min FriMay 16 20:0 3:49 EST 2023 Systolic Blood Pressure 151.00 mm[Hg] FriMay 16 17:58:19 EST 2023 Diastolic Blood Pressure 76.00 mm[Hg] FriMay 16 17:58:19 EST 2023 Heart Rate 75.00 /min FriMay 16 17:58 :19 EST 2023 Body weight 220.70 [lb_av] FriMay 16 17:55 :06 EST 2023 Systolic Blood Pressure 146.00 mm[Hg] FriMay 16 09:55:38 EST 2023 Diastolic Blood Pressure 69.00 mm[Hg] FriMay 16 09:55:38 EST 2023 Systolic Blood Pressure 146.00 mm[Hg] FriMay 16 09:49:08 EST 2023 Diastolic Blood Pressure 69.00 mm[Hg] FriMay 16 09:49:08 EST 2023 Systolic Blood Pressure 146.00 mm[Hg] FriMay 16 09:49:08 EST 2023 Diastolic Blood Pressure 69.00 mm[Hg] FriMay 16 09:49:08 EST 2023 Heart Rate 83.00 /min FriMay 16 09:49 :08 EST 2023 Heart Rate 95.00 /min FriMay 16 09:49 :08 EST 2023 Body temperature 98.10 [degF] FriMay 16 09:4 9:08 EST 2023 Respiratory rate 20.00 /min FriMay 16 09:4 9:08 EST 2023 Systolic Blood Pressure 148.00 mm[Hg] FriMay 15 23:29:56 EST 2023 Diastolic Blood Pressure 78.00 mm[Hg] FriMay 15 23:29:56 EST 2023 Heart Rate 87.00 /min FriMay 15 23:29 :56 EST 2023 Body temperature 98.00 [degF] FriMay 15 23:2 9:56 EST 2023 Respiratory rate 20.00 /min FriMay 15 23:2 9:56 EST 2023 Systolic Blood Pressure 148.00 mm[Hg] FriMay 15 17:57:02 EST 2023 Diastolic Blood Pressure 78.00 mm[Hg] FriMay 15 17:57:02 EST 2023 Heart Rate 87.00 /min FriMay 15 17:57 :02 EST 2023 Body weight 221.80 [lb_av] FriMay 15 17:15 :54 EST 2023 Systolic Blood Pressure 149.00 mm[Hg] FriMay 15 09:40:34 EST 2023 Diastolic Blood Pressure 75.00 mm[Hg] FriMay 15 09:40:34 EST 2023 Systolic Blood Pressure 149.00 mm[Hg] FriMay 15 09:40:34 EST 2024 Diastolic Blood Pressure 75.00 mm[Hg] Fri 14 09:40:34 EST 4 Systolic Blood Pressure 149.00 mm[Hg] Fri 14 09:40:34 EST 2023 Diastolic Blood Pressure 75.00 mm[Hg] FriMay 15 09:40:34 EST 4 Heart Rate 85.00 /min FriMay 15 09:40 :34 EST 2023 Heart Rate 97.00 /min FriMay 15 09:40 :34 EST 2023 Body temperature 98.50 [degF] FriMay 15 09:4 0:34 EST 2023 Respiratory rate 85.00 /min FriMay 15 09:4 0:34 EST 4 Systolic Blood Pressure 153.00 mm[Hg] FriMay 15 02:18:19 EST 2023 Diastolic Blood Pressure 92.00 mm[Hg] FriMay 15 02:18:19 EST 4 Heart Rate 71.00 /min FriMay 15 02:18 :19 EST 2023 Body temperature 98.30 [degF] FriMay 15 02:1 8:19 EST 2023 Respiratory rate 20.00 /min FriMay 15 02:1 8:19 EST 4 Systolic Blood Pressure 153.00 mm[Hg] FriMay 14 18:23:14 EST 2023 Diastolic Blood Pressure 92.00 mm[Hg] FriMay 14 18:23:14 EST 2023 Heart Rate 71.00 /min FriMay 14 18:23 :14 EST 2023 Body weight 221.30 [lb_av] FriMay 14 13:08 :27 EST 2023 Systolic Blood Pressure 189.00 mm[Hg] FriMay 14 09:26:43 EST 2023 Diastolic Blood Pressure 100.00 mm[Hg] FriMay 14 09:26:43 EST 2023 Heart Rate 108.00 /min FriMay 14 09:26 :43 EST 2023 Body temperature 98.70 [degF] FriMay 14 09:2 6:43 EST 2023 Respiratory rate 18.00 /min FriMay 14 09:2 6:43 EST 2023 Systolic Blood Pressure 189.00 mm[Hg] FriMay 14 09:25:59 EST 2023 Diastolic Blood Pressure 100.00 mm[Hg] FriMay 14 09:25:59 EST 2023 Systolic Blood Pressure 189.00 mm[Hg] FriMay 14 09:25:59 EST 2023 Diastolic Blood Pressure 100.00 mm[Hg] FriMay 14 09:25:59 EST 2024 Heart Rate 108.00 /min FriMay 14 09:25 :59 EST 2023 Systolic Blood Pressure 156.00 mm[Hg] FriMay 13 22:42:54 EST 2023 Diastolic Blood Pressure 77.00 mm[Hg] FriMay 13 22:42:54 EST 2023 Heart Rate 90.00 /min FriMay 13 22:42 :54 EST 2023 Body temperature 98.00 [degF] FriMay 13 22:4 2:54 EST 2023 Respiratory rate 18.00 /min FriMay 13 22:4 2:54 EST 2023 Systolic Blood Pressure 166.00 mm[Hg] FriMay 13 17:58:24 EST 2023 Diastolic Blood Pressure 78.00 mm[Hg] FriMay 13 17:58:24 EST 2023 Heart Rate 66.00 /min FriMay 13 17:58 :24 EST 2023 Body weight 222.00 [lb_av] FriMay 13 15:25 :22 EST 2023 Systolic Blood Pressure 151.00 mm[Hg] FriMay 13 10:44:35 EST 2023 Diastolic Blood Pressure 86.00 mm[Hg] FriMay 13 10:44:35 EST 2023 Heart Rate 78.00 /min FriMay 13 10:44 :35 EST 2023 Body temperature 98.60 [degF] FriMay 13 10:4 4:35 EST 2023 Respiratory rate 18.00 /min FriMay 13 10:4 4:35 EST 2023 Systolic Blood Pressure 151.00 mm[Hg] FriMay 13 09:31:02 EST 2023 Diastolic Blood Pressure 86.00 mm[Hg] FriMay 13 09:31:02 EST 2023 Systolic Blood Pressure 151.00 mm[Hg] FriMay 13 09:31:02 EST 2023 Diastolic Blood Pressure 86.00 mm[Hg] FriMay 13 09:31:02 EST 2023 Heart Rate 78.00 /min FriMay 13 09:31 :02 EST 2023 Systolic Blood Pressure 162.00 mm[Hg] FriMay 12 23:44:27 EST 2023 Diastolic Blood Pressure 79.00 mm[Hg] FriMay 12 23:44:27 EST 2023 Heart Rate 84.00 /min FriMay 12 23:44 :27 EST 2023 Body temperature 98.30 [degF] FriMay 12 23:4 4:27 EST 2023 Respiratory rate 18.00 /min FriMay 12 23:4 4:27 EST 2023 Systolic Blood Pressure 162.00 mm[Hg] FriMay 12 18:39:16 EST 2023 Diastolic Blood Pressure 79.00 mm[Hg] FriMay 12 18:39:16 EST 2023 Heart Rate 92.00 /min FriMay 12 18:39 :16 EST 2023 Systolic Blood Pressure 162.00 mm[Hg] FriMay 12 17:48:00 EST 2023 Diastolic Blood Pressure 79.00 mm[Hg] FriMay 12 17:48:00 EST 2023 Pulse Oximetry 96.00 % FriMay 12 17:48 :00 EST 2023 Heart Rate 92.00 /min FriMay 12 17:48 :00 EST 2023 Body Height 73.00 [in_i] FriMay 12 17:48 :00 EST 2023 Body temperature 98.00 [degF] FriMay 12 17:4 8:00 EST 2023 Respiratory rate 18.00 /min FriMay 12 17:4 8:00 EST 2023 Reason for Referral
--- OUTSIDE RECORDS SUMMARY | 2025-01-17 11:49 | XMS_ITS | Clinical Summary ---
Author Organization [facility] Address [address] [place] [id number] Care Team Providers Care Intelligence Research Specialist Name Role Phone Clay Quezada MD Primary Care Provider Allergies No known active allergies Medications multivit-min/renee ave fumarate (MULTI VITAMIN ORAL) Active aspirin (Adult Low Dose Aspirin) 81 mg enteric coated tablet Take 1 tablet (81 mg total) by mouth daily 3 Active VITAMIN K2 ORAL Take 100 mcg by mouth Active ubidecarenone (coenzyme Q10) 100 mg tablet Take by mouth Ac tive MAGNESIUM OXIDE ORAL Take 200 mg by mouth daily Active diclofenac sodium (Voltaren) 1 % gel APPLY 2 GRAMS TO THE AFFECTED AREA(S) BY TOPICAL ROUTE 4 TIMES PER DAY Active cholecalciferol (Vitamin D3) 2000 unit tablet Take by mouth daily Active latanoprost (XALATAN) 0.005 % ophthalmic solution INSTILL ONE DROP INTO BOTH EYES AT BEDTIME Active psyllium seed, with sugar, (METAMUCIL, SUGAR, ORAL) Active timolol (TIMOPTIC OCUDOSE) 0.5 % dropperette Active amLODIPine (NORVASC) 2.5 mg tablet Take 1 tablet (2.5 mg total) by mouth daily 30 tablet 11 5 08/21/19 26 Active sodium chloride 1 gram tablet Take 1 tablet (1 g total) by mouth 2 (two) times a day Active metoprolol XL (TOPROL-XL) 25 mg extended release tablet Take 1 tablet (25 mg total) by mouth 2 (two) times a day 180 tablet 3 Active olmesartan (Benicar) 40 mg tablet Take 1 tablet (40 mg total) by mouth daily 90 tablet 2 5 Active Active Problems Problem Noted Date Diagnosed Date Coronary artery disease invo lving [place] coronary artery of [place] heart without angina pectoris 07/25/2023 Mixed hyperlipidemia 07/25/2023 Abnormal echocardiogram 06/04/2023 NSVT (nonsustained ventricular tachycardia) 08/2023 S/P ablation of atrial flutter 03/12/2023 Syncope and collapse 03/12/2023 PVC's (premature ventricular contractions) 03/12 Primary hypertension 03/12/2023 History of tobacco abuse 03/12/2023 Resolved Problems Problem Noted Date Diagnosed Date Resolved Date Paroxysmal atrial fibrillation 03/12/2023 07/25/2023 Surgical History Surgery Date Site/Laterality Comments ABLATION HERNIA REPAIR CATARACT EXTRACTION 12/2018 VASECTOMY 1983 Medical History Medical History Date Comments Atrial fibrillation (HCC) Hypertension Cataract 01/13/2019 Glaucoma More than 10 years ago Heart disease Afib with follow-up Ablation 201 8 Neuromuscular disorder Carpel Tunnel Surgery 201 9 Sleep apnea Treated & resolved 1999 Family History Medical History Relation Name Comments Cancer Father Andrew Chauhan Cancer Mother Rosa Molina Hypertension Mother Rosa Molina Cancer Sister Quiana Rader Heart disease Sister Quiana Rader Hypertension Sister Quiana Rader Relation Name Status Comments Father Andrew Chauhan Mother Rosa Molina Sister Quiana Rader Social History Tobacco Use Types Packs/Day Years Used Date Smoking Tobacco: Former Cigarettes 1 23 0 06/02/1956 - 04/27/1980 Smokeless Tobacco: Never Tobacco Cessation:Counseling Given: Not Answered Personal Safety Answer Date Recorded Have you ever been in or are you currently in a harmful physical or emotional relationship or is someone making you feel afraid or unsafe? Denies 07/11/2023 Sex and Gender Information Value Date Recorded Sex Assigned at Not on file Legal Sex Male 7:51 PM [employer] Gender Identity Male 03/08/2023 4:46 PM CDT Sexual Orientation Straight 03/08/2023 4: 46 PM CDT Obstetrics History Last Filed Vital Signs Vital Sign Reading Time Taken Comments Blood Pressure 128/70 09/10/2024 9:37 AM CDT Pulse 69 09/10/2024 9:37 AM CDT Temperature - - Respiratory Rate 16 01/23/2024 9:08 AM CDT Oxygen Saturation 99% 09/10/2024 9:37 AM CDT Inhaled Oxygen Concentration - - Weight 96.2 kg (212 lb) 09/10/2024 9:37 AM CDT Height 185.4 cm (6' 1) 09/10/2024 9:37 AM CDT Body Mass Index 27.97 09/10/2024 9:37 AM CDT Plan of Treatment Health Maintenance Due Date Last Done Comments Depression Screening 1936 Hepatitis B Screening 1954 Well Visit 65+ 2001 Pneumococcal vaccine 65+ (2 of 2 - PCV20 or PCV21) 07/08/2015 07/08/2014 Covid-19 Vaccine (2023-2 5 season) 2024 03/14/2023, 05/27/2022, 11/25/2021, Additional history exists Fall Risk Assessment 07/11/2024 07/11/2023 Influenza Vaccine (#1) 2025 , 02/19/2022, 02/01/2022, Additional history exists DTaP/Tdap/Td Vaccine (4 - Td or Tdap) 08/19/2027 08/18/2017, 08/15/2017, 02/06/2013 Zoster Vaccine Completed 01/01/2018, 07/22/2017 Insurance MEDICARE [facility] FEDERAL MEDICARE [facility] Address: [address] [place] [phone] [facility] Care Teams Intelligence Research Specialist Relationship Specialty Start Date End Date Clay Quezada MD [address] [facility] [address] [place] [id number] PCP - General Patternmaker All Around 12/13/22
--- NOTE | 2025-01-17 12:44 | ECG_ITS ---
Test Date: 2025-01-17 13:10:53 Measurements Intervals [place] Rate: 90 P: 31 MT: 226 QRS: 100 QRSD: 122 T: 28 QT: 363 QTc: 444 Interpretive Statements SINUS RHYTHM WITH FIRST DEGREE AV BLOCK WITH OCCASIONAL VENTRICULAR PREMATURE COMPLEXES RIGHT AXIS DEVIATION INTRAVENTRICULAR CONDUCTION DELAY CONSIDER ANTERIOR INFARCT, AGE INDETERMINATE ABNORMAL ECG Compared to ECG 05/07/2024 12:04:53 NO SIGNIFICANT CHANGE Electronically Signed On 01-17-2025 13:34:43 CDT by Kedar Perez D.O.
--- NOTE | 2025-01-17 12:46 | ED.WEAKNESS ---
HPI - Weakness General Chief complaint: Fall Stated complaint: GLF Time Seen by Provider: 01/17/25 12:05 History of Present Illness HPI Narrative: This is an 81-year-old male with history of AFib status post ablation, hypertension, hyperlipidemia, glaucoma who presents to the ED for weakness. provides majority of the history. states that patient this morning and was acting rather weak. He was needing more assistance than usual getting up to go to the bathroom. When he went to the bathroom, he had a couple episodes of emesis that was nonbloody nonbilious. When he was trying to transfer from wheelchair to bed, he lost his balance and fell into a rolling table and onto the floor. Denies hitting his head, loss of consciousness. Patient has had some chest congestion but denies cough. Denies fevers, chills. Related Data Home Medications ?Medication ?Instructions ?Recorded ?Confirmed ?Last Taken ?Type latanoprost 0.005 % eye drops 1 drp EACH EYE HS 04/10/22 01/17/25 01/16/25 History metoprolol succinate 25 mg 25 mg PO 0900 04/10/22 01/17/25 01/17/25 History tablet,extended release 24 hr olmesartan 40 mg tablet 40 mg PO DAILY 04/10/22 01/17/25 01/17/25 History Metamucil See Rx Instructions .Route .COMPLEX 04/22/22 01/17/25 01/16/25 History aspirin 81 mg tablet 81 mg PO DAILY 05/07/24 01/17/25 01/17/25 History cholecalciferol (vitamin D3) 25 25 mcg PO DAILY 05/07/24 01/17/25 01/16/25 History mcg (1,000 unit) chewable tablet (Vitamin D3) coenzyme [id number] 100 mg-100 1 cap PO DAILY 05/07/24 01/17/25 01/16/25 History unit capsule magnesium 200 mg tablet 200 mg PO DAILY 05/07/24 01/17/25 01/16/25 History metoprolol succinate 25 mg 25 mg PO DAILY@1700 05/07/24 01/17/25 01/16/25 History tablet,extended release 24 hr psyllium 1 packet PO DAILY 05/07/24 01/17/25 01/17/25 History timolol maleate (PF) 0.5 % eye 1 drp EACH EYE BID 05/07/24 01/17/25 01/17/25 History drops in a dropperette vitamin K2 100 mcg PO DAILY 05/07/24 01/17/25 01/17/25 History amlodipine 2.5 mg tablet 2.5 mg PO HS 01/17/25 01/17/25 01/16/25 History Allergies Allergy/AdvReac Type Severity Reaction Status Date / Time No Known Allergies Allergy Verified 01/17/25 12:02 Review of Systems Review of Systems: Gen.: Denies fevers or chills Eyes: Denies eye pain or visual change ENT: Congestion Respiratory: Denies shortness of breath or cough CV: Denies chest pain or palpitations GI: Emesis. Denies any nausea at this time Denies abdominal pain or diarrhea denies burning, urgency, frequency or hematuria Musculoskeletal: Denies back pain or muscle pain Neuro: Generalized weakness. Denies numbness, tingling, focal weakness Skin: Denies rash Except as documented, all other systems reviewed and negative [facility] Past Medical History Medical History Atrial fibrillation s/p ablation Cataract Glaucoma Hypercholesteremia Hypertension Surgical History Surgical History History of lobectomy of lung Bilateral PTX with RUL resection, left lung blebectomy and left pleurodesis 1993 Hx of inguinal hernia repair Family History Family History Mother Breast cancer Carcinoma of colon Father Lung cancer Social History Social History Social History: Patient smoked a pack a day for 25 years and quit 1979. He drinks 2 alcoholic drinks per week. No history of heavy alcohol use. No drug use. Lives home with his . No pets. Full code. He nominates his to be the individual would make medical decisions for him if he is unable. Smoking packs per day: 1.5 Smoking cigarettes per day: 30.0 Years smoked: 20 Smoking pack-years: 30.00 Smoking status: Former smoker Second hand tobacco smoke exposure: No Alcohol intake: never Drinks per week: 2 Substance use: never Substance use type: does not use Do You Feel Safe in your Home?: Yes Lack of Transportation: No Lack of Food: Never True Current Housing: I Have Housing Concerned About Future Housing: No Difficulty Paying Gas/Electric Bills: No Difficulty Paying for Meds: No Currently Unemployed: No Education: Master's Degree or Higher Difficulty w/ Childcare or Family Care: No Spiritual care concerns: No Exam Narrative: APPEARANCE: No acute distress, nontoxic, resting in bed EYES: EOMI HEENT: Normocephalic, atraumatic, OMM RESPIRATORY: No respiratory distress Clear to auscultation bilaterally with no rhonchi wheezing or rales. CARDIOVASCULAR: Regular rate and rhythm without murmurs rubs or gallops. ABDOMINAL: Soft, nontender, nondistended, no rebound or guarding MUSCULOSKELETAL: Moves all extremities. No clubbing, cyanosis or edema. 4/5 strength to the left lower extremity due to hip pain. 5/5 strength to remaining extremeties. NEURO: Awake and alert. Following commands, speech normal, no focal deficits. NIHSS 0. SKIN:: Warm, dry. No rashes lesions or abrasions PSYCHIATRIC: Normal affect/mood, Course Vital Signs Vital signs: Vital Signs Temperature 100.5 F H 01/17/25 11:12 Pulse Rate 103 H 01/17/25 11:12 Respiratory Rate 17 01/17/25 11:12 Blood Pressure 155/80 H 01/17/25 11:12 Pulse Oximetry 94 01/17/25 11:12 Oxygen Delivery Room Air 01/17/25 11:12 Temperature 99.2 F 01/17/25 12:00 Pulse Rate 93 01/17/25 20:33 Respiratory Rate 16 01/17/25 20:33 Blood Pressure 155/76 H 01/17/25 20:33 Pulse Oximetry 97 01/17/25 20:33 Oxygen Delivery Room Air 01/17/25 12:04 MDM - Weakness MDM Narrative Medical decision making narrative: 81-year-old male who presents to the ED for weakness. Was initially febrile in triage with a temp of 100.5? in tachycardic to 103. Remaining vital signs stable. Heart and lungs were clear. NIHSS is 0. His small abrasion over her right shoulder but no bony tenderness. CT head showed no acute process. Chest x-ray showed no acute process. UA showed questionable UTI. Mild leukocytosis. Remaining labs including troponins negative. Patient was given Rocephin to cover for UTI. One further discussion with the the patient, he does not feel strong enough to be able to stand and does not feel that she can take care of him if he is unable to walk on his own. Because of this, patient will be admitted for further treatment of his UTI. Subsequent COVID test was positive as well. Of note, CT abdomen/pelvis did fecal impaction. I did attempt to disimpact the patient, however, the stool was too deep to be able to reach. Differential Diagnosis Differential diagnosis: Likely other (ACS, Sepsis, CAP, arrhythmia, electrolyte abnormality, fracture, contusion, CVA) Lab Data Attestation: I reviewed the patient's lab results. 01/17/25 13:08 01/17/25 13:08 Labs: Lab Results 01/17/25 01/17/25 01/17/25 Range/Units 13:08 13:08 13:08 WBC 13.7 H (4.5-10.0) K/mm3 RBC 5.35 (4.6-6.20) M/mm3 Hgb 15.3 D (14.0-18.0) g/dL Hct 47.1 (42.0-52.0) % MCV 88.0 (80-100) fl MCH 28.6 (26-34) pg MCHC 32.5 (32-36) g/dl RDW 13.2 (11.5-14.5) % Plt Count 200 (150-375) k/mm3 MPV 8.8 (7.4-10.4) fl Immature Gran % (Auto) 0.7 H (0-0.5) % Neut % (Auto) 88.7 H (45.5-73.1) % Lymph % (Auto) 6.2 L (18.3-44.2) % [place] % (Auto) 4.2 (2.6-8.5) % Eos % (Auto) 0.1 (0-4.4) % Baso % (Auto) 0.1 L (0.2-1.2) % Lymph # (Auto) 0.85 L (0.9-3.2) K/mm3 [place] # (Auto) 0.6 (0.1-0.6) K/mm3 Eos # (Auto) 0.0 (0-0.3) K/mm3 Baso # (Auto) 0.0 (0.0-0.1) K/mm3 Abs Immat Gran (auto) 0.10 H (0.00-0.031) K/mm3 Absolute Neuts (auto) 12.2 H (1.3-6.7) K/mm3 Absolute Nucleated RBC 0.000 (0.0-0.012) K/mm3 Nucleated RBC % 0.0 (0.0-0.2) % PT 13.9 (11.1-14.7) Seconds INR 1.1 APTT 31.2 (22.3-36.8) Seconds Sodium Cancelled 128 L Potassium Cancelled 4.3 Chloride Cancelled Carbon Dioxide Anion Gap BUN Creatinine Estim Creat Clear Calc Estimated GFR Glucose Lactic Acid (0.7-2.0) mmol/L Calcium Magnesium Total Bilirubin AST ALT Alkaline Phosphatase Troponin I (0.000-0.034) ng/mL C-Reactive Protein Total Protein Albumin Urine Color (Yellow) Urine Appearance (Clear) Urine pH (5.0-9.0) Ur Specific [place] (1.001-1.035) Urine Protein (Negative) mg/dL Urine Glucose (UA) (Negative) mg/dL Urine Ketones (Negative) mg/dL Ur Blood (Man) (Negative) Urine Nitrate (Negative) Urine Bilirubin (Negative) Urine Urobilinogen (<2.0) mg/dL Add Ur Microanalysis Leukocyte Esterase Rfl (Negative) JENNIFER/UL Urine RBC (0-2) /hpf Urine WBC (0-3) /hpf Ur Squamous Epith Cells (Few) /hpf Urine Bacteria /hpf Urine Casts Influenza A (RT-PCR) (Negative) Influenza B (RT-PCR) (Negative) RSV (RT-PCR) (Negative) SARS-CoV-2 RNA (RT-PCR) (Negative) 01/17/25 01/17/25 01/17/25 Range/Units 13:08 13:08 13:08 WBC (4.5-10.0) K/mm3 RBC (4.6-6.20) M/mm3 Hgb (14.0-18.0) g/dL Hct (42.0-52.0) % MCV (80-100) fl MCH (26-34) pg MCHC (32-36) g/dl RDW (11.5-14.5) % Plt Count (150-375) k/mm3 MPV (7.4-10.4) fl Immature Gran % (Auto) (0-0.5) % Neut % (Auto) (45.5-73.1) % Lymph % (Auto) (18.3-44.2) % [place] % (Auto) (2.6-8.5) % Eos % (Auto) (0-4.4) % Baso % (Auto) (0.2-1.2) % Lymph # (Auto) (0.9-3.2) K/mm3 [place] # (Auto) (0.1-0.6) K/mm3 Eos # (Auto) (0-0.3) K/mm3 Baso # (Auto) (0.0-0.1) K/mm3 Abs Immat Gran (auto) (0.00-0.031) K/mm3 Absolute Neuts (auto) (1.3-6.7) K/mm3 Absolute Nucleated RBC (0.0-0.012) K/mm3 Nucleated RBC % (0.0-0.2) % PT (11.1-14.7) Seconds INR APTT (22.3-36.8) Seconds Sodium Potassium Chloride 92 L Carbon Dioxide Cancelled 26 Anion Gap Cancelled 10 BUN Cancelled Creatinine Estim Creat Clear Calc Estimated GFR Glucose Lactic Acid (0.7-2.0) mmol/L Calcium Magnesium Total Bilirubin AST ALT Alkaline Phosphatase Troponin I (0.000-0.034) ng/mL C-Reactive Protein Total Protein Albumin Urine Color (Yellow) Urine Appearance (Clear) Urine pH (5.0-9.0) Ur Specific [place] (1.001-1.035) Urine Protein (Negative) mg/dL Urine Glucose (UA) (Negative) mg/dL Urine Ketones (Negative) mg/dL Ur Blood (Man) (Negative) Urine Nitrate (Negative) Urine Bilirubin (Negative) Urine Urobilinogen (<2.0) mg/dL Add Ur Microanalysis Leukocyte Esterase Rfl (Negative) JENNIFER/UL Urine RBC (0-2) /hpf Urine WBC (0-3) /hpf Ur Squamous Epith Cells (Few) /hpf Urine Bacteria /hpf Urine Casts Influenza A (RT-PCR) (Negative) Influenza B (RT-PCR) (Negative) RSV (RT-PCR) (Negative) SARS-CoV-2 RNA (RT-PCR) (Negative) 01/17/25 01/17/25 01/17/25 Range/Units 13:08 13:08 13:08 WBC (4.5-10.0) K/mm3 RBC (4.6-6.20) M/mm3 Hgb (14.0-18.0) g/dL Hct (42.0-52.0) % MCV (80-100) fl MCH (26-34) pg MCHC (32-36) g/dl RDW (11.5-14.5) % Plt Count (150-375) k/mm3 MPV (7.4-10.4) fl Immature Gran % (Auto) (0-0.5) % Neut % (Auto) (45.5-73.1) % Lymph % (Auto) (18.3-44.2) % [place] % (Auto) (2.6-8.5) % Eos % (Auto) (0-4.4) % Baso % (Auto) (0.2-1.2) % Lymph # (Auto) (0.9-3.2) K/mm3 [place] # (Auto) (0.1-0.6) K/mm3 Eos # (Auto) (0-0.3) K/mm3 Baso # (Auto) (0.0-0.1) K/mm3 Abs Immat Gran (auto) (0.00-0.031) K/mm3 Absolute Neuts (auto) (1.3-6.7) K/mm3 Absolute Nucleated RBC (0.0-0.012) K/mm3 Nucleated RBC % (0.0-0.2) % PT (11.1-14.7) Seconds INR APTT (22.3-36.8) Seconds Sodium Potassium Chloride Carbon Dioxide Anion Gap BUN 14 Creatinine Cancelled 0.82 Estim Creat Clear Calc Cancelled 60 Estimated GFR Cancelled Glucose Lactic Acid (0.7-2.0) mmol/L Calcium Magnesium Total Bilirubin AST ALT Alkaline Phosphatase Troponin I (0.000-0.034) ng/mL C-Reactive Protein Total Protein Albumin Urine Color (Yellow) Urine Appearance (Clear) Urine pH (5.0-9.0) Ur Specific [place] (1.001-1.035) Urine Protein (Negative) mg/dL Urine Glucose (UA) (Negative) mg/dL Urine Ketones (Negative) mg/dL Ur Blood (Man) (Negative) Urine Nitrate (Negative) Urine Bilirubin (Negative) Urine Urobilinogen (<2.0) mg/dL Add Ur Microanalysis Leukocyte Esterase Rfl (Negative) JENNIFER/UL Urine RBC (0-2) /hpf Urine WBC (0-3) /hpf Ur Squamous Epith Cells (Few) /hpf Urine Bacteria /hpf Urine Casts Influenza A (RT-PCR) (Negative) Influenza B (RT-PCR) (Negative) RSV (RT-PCR) (Negative) SARS-CoV-2 RNA (RT-PCR) (Negative) 01/17/25 01/17/25 01/17/25 Range/Units 13:08 13:08 13:08 WBC (4.5-10.0) K/mm3 RBC (4.6-6.20) M/mm3 Hgb (14.0-18.0) g/dL Hct (42.0-52.0) % MCV (80-100) fl MCH (26-34) pg MCHC (32-36) g/dl RDW (11.5-14.5) % Plt Count (150-375) k/mm3 MPV (7.4-10.4) fl Immature Gran % (Auto) (0-0.5) % Neut % (Auto) (45.5-73.1) % Lymph % (Auto) (18.3-44.2) % [place] % (Auto) (2.6-8.5) % Eos % (Auto) (0-4.4) % Baso % (Auto) (0.2-1.2) % Lymph # (Auto) (0.9-3.2) K/mm3 [place] # (Auto) (0.1-0.6) K/mm3 Eos # (Auto) (0-0.3) K/mm3 Baso # (Auto) (0.0-0.1) K/mm3 Abs Immat Gran (auto) (0.00-0.031) K/mm3 Absolute Neuts (auto) (1.3-6.7) K/mm3 Absolute Nucleated RBC (0.0-0.012) K/mm3 Nucleated RBC % (0.0-0.2) % PT (11.1-14.7) Seconds INR APTT (22.3-36.8) Seconds Sodium Potassium Chloride Carbon Dioxide Anion Gap BUN Creatinine Estim Creat Clear Calc Estimated GFR > 60 Glucose Cancelled 140 H Lactic Acid 1.3 (0.7-2.0) mmol/L Calcium Cancelled 9.4 Magnesium Cancelled Total Bilirubin AST ALT Alkaline Phosphatase Troponin I (0.000-0.034) ng/mL C-Reactive Protein Total Protein Albumin Urine Color (Yellow) Urine Appearance (Clear) Urine pH (5.0-9.0) Ur Specific [place] (1.001-1.035) Urine Protein (Negative) mg/dL Urine Glucose (UA) (Negative) mg/dL Urine Ketones (Negative) mg/dL Ur Blood (Man) (Negative) Urine Nitrate (Negative) Urine Bilirubin (Negative) Urine Urobilinogen (<2.0) mg/dL Add Ur Microanalysis Leukocyte Esterase Rfl (Negative) JENNIFER/UL Urine RBC (0-2) /hpf Urine WBC (0-3) /hpf Ur Squamous Epith Cells (Few) /hpf Urine Bacteria /hpf Urine Casts Influenza A (RT-PCR) (Negative) Influenza B (RT-PCR) (Negative) RSV (RT-PCR) (Negative) SARS-CoV-2 RNA (RT-PCR) (Negative) 01/17/25 01/17/25 01/17/25 Range/Units 13:08 13:08 13:08 WBC (4.5-10.0) K/mm3 RBC (4.6-6.20) M/mm3 Hgb (14.0-18.0) g/dL Hct (42.0-52.0) % MCV (80-100) fl MCH (26-34) pg MCHC (32-36) g/dl RDW (11.5-14.5) % Plt Count (150-375) k/mm3 MPV (7.4-10.4) fl Immature Gran % (Auto) (0-0.5) % Neut % (Auto) (45.5-73.1) % Lymph % (Auto) (18.3-44.2) % [place] % (Auto) (2.6-8.5) % Eos % (Auto) (0-4.4) % Baso % (Auto) (0.2-1.2) % Lymph # (Auto) (0.9-3.2) K/mm3 [place] # (Auto) (0.1-0.6) K/mm3 Eos # (Auto) (0-0.3) K/mm3 Baso # (Auto) (0.0-0.1) K/mm3 Abs Immat Gran (auto) (0.00-0.031) K/mm3 Absolute Neuts (auto) (1.3-6.7) K/mm3 Absolute Nucleated RBC (0.0-0.012) K/mm3 Nucleated RBC % (0.0-0.2) % PT (11.1-14.7) Seconds INR APTT (22.3-36.8) Seconds Sodium Potassium Chloride Carbon Dioxide Anion Gap BUN Creatinine Estim Creat Clear Calc Estimated GFR Glucose Lactic Acid (0.7-2.0) mmol/L Calcium Magnesium 1.9 Total Bilirubin Cancelled 1.4 H AST Cancelled 34 ALT Cancelled Alkaline Phosphatase Troponin I (0.000-0.034) ng/mL C-Reactive Protein Total Protein Albumin Urine Color (Yellow) Urine Appearance (Clear) Urine pH (5.0-9.0) Ur Specific [place] (1.001-1.035) Urine Protein (Negative) mg/dL Urine Glucose (UA) (Negative) mg/dL Urine Ketones (Negative) mg/dL Ur Blood (Man) (Negative) Urine Nitrate (Negative) Urine Bilirubin (Negative) Urine Urobilinogen (<2.0) mg/dL Add Ur Microanalysis Leukocyte Esterase Rfl (Negative) JENNIFER/UL Urine RBC (0-2) /hpf Urine WBC (0-3) /hpf Ur Squamous Epith Cells (Few) /hpf Urine Bacteria /hpf Urine Casts Influenza A (RT-PCR) (Negative) Influenza B (RT-PCR) (Negative) RSV (RT-PCR) (Negative) SARS-CoV-2 RNA (RT-PCR) (Negative) 01/17/25 01/17/25 01/17/25 Range/Units 13:08 13:08 13:08 WBC (4.5-10.0) K/mm3 RBC (4.6-6.20) M/mm3 Hgb (14.0-18.0) g/dL Hct (42.0-52.0) % MCV (80-100) fl MCH (26-34) pg MCHC (32-36) g/dl RDW (11.5-14.5) % Plt Count (150-375) k/mm3 MPV (7.4-10.4) fl Immature Gran % (Auto) (0-0.5) % Neut % (Auto) (45.5-73.1) % Lymph % (Auto) (18.3-44.2) % [place] % (Auto) (2.6-8.5) % Eos % (Auto) (0-4.4) % Baso % (Auto) (0.2-1.2) % Lymph # (Auto) (0.9-3.2) K/mm3 [place] # (Auto) (0.1-0.6) K/mm3 Eos # (Auto) (0-0.3) K/mm3 Baso # (Auto) (0.0-0.1) K/mm3 Abs Immat Gran (auto) (0.00-0.031) K/mm3 Absolute Neuts (auto) (1.3-6.7) K/mm3 Absolute Nucleated RBC (0.0-0.012) K/mm3 Nucleated RBC % (0.0-0.2) % PT (11.1-14.7) Seconds INR APTT (22.3-36.8) Seconds Sodium Potassium Chloride Carbon Dioxide Anion Gap BUN Creatinine Estim Creat Clear Calc Estimated GFR Glucose Lactic Acid (0.7-2.0) mmol/L Calcium Magnesium Total Bilirubin AST ALT 17 Alkaline Phosphatase Cancelled 84 Troponin I < 0.012 (0.000-0.034) ng/mL C-Reactive Protein Cancelled 4.2 H Total Protein Cancelled Albumin Urine Color (Yellow) Urine Appearance (Clear) Urine pH (5.0-9.0) Ur Specific [place] (1.001-1.035) Urine Protein (Negative) mg/dL Urine Glucose (UA) (Negative) mg/dL Urine Ketones (Negative) mg/dL Ur Blood (Man) (Negative) Urine Nitrate (Negative) Urine Bilirubin (Negative) Urine Urobilinogen (<2.0) mg/dL Add Ur Microanalysis Leukocyte Esterase Rfl (Negative) JENNIFER/UL Urine RBC (0-2) /hpf Urine WBC (0-3) /hpf Ur Squamous Epith Cells (Few) /hpf Urine Bacteria /hpf Urine Casts Influenza A (RT-PCR) (Negative) Influenza B (RT-PCR) (Negative) RSV (RT-PCR) (Negative) SARS-CoV-2 RNA (RT-PCR) (Negative) 01/17/25 01/17/25 01/17/25 Range/Units 13:08 13:08 14:01 WBC (4.5-10.0) K/mm3 RBC (4.6-6.20) M/mm3 Hgb (14.0-18.0) g/dL Hct (42.0-52.0) % MCV (80-100) fl MCH (26-34) pg MCHC (32-36) g/dl RDW (11.5-14.5) % Plt Count (150-375) k/mm3 MPV (7.4-10.4) fl Immature Gran % (Auto) (0-0.5) % Neut % (Auto) (45.5-73.1) % Lymph % (Auto) (18.3-44.2) % [place] % (Auto) (2.6-8.5) % Eos % (Auto) (0-4.4) % Baso % (Auto) (0.2-1.2) % Lymph # (Auto) (0.9-3.2) K/mm3 [place] # (Auto) (0.1-0.6) K/mm3 Eos # (Auto) (0-0.3) K/mm3 Baso # (Auto) (0.0-0.1) K/mm3 Abs Immat Gran (auto) (0.00-0.031) K/mm3 Absolute Neuts (auto) (1.3-6.7) K/mm3 Absolute Nucleated RBC (0.0-0.012) K/mm3 Nucleated RBC % (0.0-0.2) % PT (11.1-14.7) Seconds INR APTT (22.3-36.8) Seconds Sodium Potassium Chloride Carbon Dioxide Anion Gap BUN Creatinine Estim Creat Clear Calc Estimated GFR Glucose Lactic Acid (0.7-2.0) mmol/L Calcium Magnesium Total Bilirubin AST ALT Alkaline Phosphatase Troponin I (0.000-0.034) ng/mL C-Reactive Protein Total Protein 7.9 Albumin Cancelled 4.3 Urine Color Yellow (Yellow) Urine Appearance Clear (Clear) Urine pH 7.5 (5.0-9.0) Ur Specific [place] 1.018 (1.001-1.035) Urine Protein 2+ H (Negative) mg/dL Urine Glucose (UA) Negative (Negative) mg/dL Urine Ketones Trace H (Negative) mg/dL Ur Blood (Man) 2+ H (Negative) Urine Nitrate Positive H (Negative) Urine Bilirubin Negative (Negative) Urine Urobilinogen 0.2 (<2.0) mg/dL Add Ur Microanalysis Reviewed Leukocyte Esterase Rfl Trace H (Negative) JENNIFER/UL Urine RBC 21-50 H (0-2) /hpf Urine WBC 11-20 H (0-3) /hpf Ur Squamous Epith Cells None seen (Few) /hpf Urine Bacteria None seen /hpf Urine Casts 0-2 Influenza A (RT-PCR) (Negative) Influenza B (RT-PCR) (Negative) RSV (RT-PCR) (Negative) SARS-CoV-2 RNA (RT-PCR) (Negative) 01/17/25 01/17/25 Range/Units 16:08 16:14 WBC (4.5-10.0) K/mm3 RBC (4.6-6.20) M/mm3 Hgb (14.0-18.0) g/dL Hct (42.0-52.0) % MCV (80-100) fl MCH (26-34) pg MCHC (32-36) g/dl RDW (11.5-14.5) % Plt Count (150-375) k/mm3 MPV (7.4-10.4) fl Immature Gran % (Auto) (0-0.5) % Neut % (Auto) (45.5-73.1) % Lymph % (Auto) (18.3-44.2) % [place] % (Auto) (2.6-8.5) % Eos % (Auto) (0-4.4) % Baso % (Auto) (0.2-1.2) % Lymph # (Auto) (0.9-3.2) K/mm3 [place] # (Auto) (0.1-0.6) K/mm3 Eos # (Auto) (0-0.3) K/mm3 Baso # (Auto) (0.0-0.1) K/mm3 Abs Immat Gran (auto) (0.00-0.031) K/mm3 Absolute Neuts (auto) (1.3-6.7) K/mm3 Absolute Nucleated RBC (0.0-0.012) K/mm3 Nucleated RBC % (0.0-0.2) % PT (11.1-14.7) Seconds INR APTT (22.3-36.8) Seconds Sodium Potassium Chloride Carbon Dioxide Anion Gap BUN Creatinine Estim Creat Clear Calc Estimated GFR Glucose Lactic Acid (0.7-2.0) mmol/L Calcium Magnesium Total Bilirubin AST ALT Alkaline Phosphatase Troponin I < 0.012 (0.000-0.034) ng/mL C-Reactive Protein Total Protein Albumin Urine Color (Yellow) Urine Appearance (Clear) Urine pH (5.0-9.0) Ur Specific [place] (1.001-1.035) Urine Protein (Negative) mg/dL Urine Glucose (UA) (Negative) mg/dL Urine Ketones (Negative) mg/dL Ur Blood (Man) (Negative) Urine Nitrate (Negative) Urine Bilirubin (Negative) Urine Urobilinogen (<2.0) mg/dL Add Ur Microanalysis Leukocyte Esterase Rfl (Negative) JENNIFER/UL Urine RBC (0-2) /hpf Urine WBC (0-3) /hpf Ur Squamous Epith Cells (Few) /hpf Urine Bacteria /hpf Urine Casts Influenza A (RT-PCR) Negative (Negative) Influenza B (RT-PCR) Negative (Negative) RSV (RT-PCR) Negative (Negative) SARS-CoV-2 RNA (RT-PCR) Positive A (Negative) ECG Data EKG #1: ECG completion date: 01/17/25 ECG completion time: 13:10 Interpretation: Sinus rhythm with first-degree AV block, right axis deviation, intraventricular conduction delay, no acute ST or T-wave changes Discharge Plan Discharge Clinical Impression: Acute UTI, Chronic hyponatremia, COVID-19 Contusion of right shoulder Qualifiers: Encounter type: initial encounter Qualified Code(s): S40.011A - Contusion of right shoulder, initial encounter Patient Disposition: Still a Patient Condition: Stable
--- OUTSIDE RECORDS SUMMARY | 2025-01-17 13:04 | XMS_ITS ---
Author Name Auto Generated, Auto Generated Organization [facility] Address [address] [place] [address] Phone [phone] Care Team Providers Care Well Head Pumper Name Role Phone Erwin Newell Unavailable [phone] Vianey Baker Unavailable Cheryl Galicia Unavailable [phone] Functional Status No Results Mental Status No Results Allergies and Intolerances Name Onset Date Reaction Severity No Known Allergies (Allergy) FriMay 12 16:27:00 EST 2023 Encounters Program Name Primary Diagnosis Admission Date/Time Dis charge Date/Time Bottle Packing Machine [facility]er Care Facility [facility] FriMay 12 11:15:00 EST 2023Jun 09 08:30:00 EST 2024 Immunizations Name Dates Status TST-PPD intradermal Renae May 13 01:00:00 EST 2023 Completed TST-PPD intradermal Sat May 15 01:00:00 EST 2023 Completed TST-PPD intradermal Renae May 20 01:00:00 EST 2023 Completed TST-PPD intradermal Sat May 22 01:00:00 EST 2023 Completed Pneumococcal conjugate PCV20 , polysaccharide [id number] conjugate, adjuvant, PF FriMay 17 01:00:00 EST [...] 2023 * End Date: * Text: * ferry terminal supervisor (current) use of aspirin* Code: * Start [...] be involved in discharge planning. * Yoni Mroales is at risk for falls/injury as evidenced [...] EST 2024 Systolic Blood Pressure 140.00 mm[Hg] [place] Jun 06 23:50:37 EST 2024 Diastolic Blood Pressure 52.00 mm[Hg] [place] Jun 06 23:50:37 EST 2024 Heart Rate 71.00 /min FriJun 06 23:50 :37 2024 Body temperature 97.60 [degF] [place] Jun 06 23:5 0:37 2024 Respiratory rate 18.00 /min FriJun 06 23:5 0:37 EST 2024 Systolic Blood Pressure 149.00 mm[Hg] FriJun 06 18:37:55 EST 2024 Diastolic Blood Pressure 68.00 mm[Hg] FriJun 06 18:37:55 EST 2024 Heart Rate 72.00 /min FriJun 06 18:37 :55 EST 2024 Body weight 225.20 [lb_av] [place] Jun 06 17:16 :59 EST 2024 Systolic [...] 71.00 mm[Hg] FriMay 29 09:28:38 EST 2023 Heart Rate 68.00 /min FriMay 29 09:28 :38 EST 2023 Body temperature 98.30 [degF] FriMay 29 09:2 8:38 EST 2023 Respiratory rate 20.00 /min FriMay 29 09:2 8:38 EST 2023 Systolic Blood Pressure 150.00 mm[Hg] FriMay 28 20:24:35 EST 2023 Diastolic Blood Pressure 68.00 mm[Hg] FriMay 28 20:24:35 EST 2023 Heart Rate 72.00 /min FriMay 28 20:24 :35 EST 2023 Body temperature 97.40 [degF] FriMay 28 [...] /min FriMay 12 17:4 8:00 EST 2023 Body Height 73.00 [in_i] FriMay 12 17:48 :00 EST 2023 Reason for Referral
--- OUTSIDE RECORDS SUMMARY | 2025-01-17 13:04 | XMS_ITS | Continuity of Care Document ---
Author Organization [facility] Address [address] [place] [address] [address] [place] [address] Phone Care Team Providers Care Sports Media Name Role Phone Whitney OD, Marcin Unavailable Unavailable Procedures Procedure Date Office/outpatient Visit, Est Advance Directives Directive Yes / No Effective Date File Name No Information Encounters Encounter Description Practice Location Reason(s) For Visit Diagnoses Date Provider Providers Copied on Encounter Office/outpat ient Visit, Est [facility], [address] [place] [address] [address], [place], [place], [id number], [place] tel:[phone] [facility] [place] No Information 1-200 7 Whitney OD Marcin. [address] , [address], [place], [address], [place]. tel:[phone] Family History Family Member Type Diagnosis Age At Onset No Information Payers Payer name Insurance type Covered libertarian ID Authoriza tion(s) BC[place] [id number] Medicare [facility] [id number] Social History Type Description Quantity Date Captured Comments Sex Male Smoking Status No Information Chief Complaint And Reason For Visit No Information Reason For Referral Reason For Referral No Information History Of Present Illness Encounter Date Complaint History Of Prese nt Illness No Information Functional Status Date Functional Assessmen t No Information Instructions Date Instruction Additional Infor mation No Information Assessments Type Assessment Date No Information Patient Care Teams Name Effective Dates (start - stop) Status Members No Information
--- OUTSIDE RECORDS SUMMARY | 2025-01-17 13:04 | XMS_ITS | Clinical Summary ---
Author Organization [facility] Address [address] [place] [address] Care Team Providers Care Horseradish Grinder Name Role Phone Clay Quezada MD Primary Care Provider [phone] [facility],non-owned Affiliates and Associated Physician Practices is amultiple site organization consisting of ambulatory clinics and hospital sitesin [place], [place], [place] and [place]. This disclosure is being madepursuant to the Care Everywhere program and may not contain all information available regarding this patient. Last updated 18.[facility] Allergies No known active allergies Medications * [...] 08/06/2017 Assessment & Plan (04/09/2023 4:08 PM LEGAL INVESTIGATOR): Stable. Continue regular monitoring with Kardia device [...] time. Assessment & Plan (08/02/2017 12:05 PM LEGAL INVESTIGATOR): New onset atrial fibrillation with RVR. Patient had echo at [facility] on 07/17 that showed EF 50% with frequent PVCs, recent Holter monitor study showed PVC burden 23% with sinus rhythm. [id number] score 3, moderate-high risk. -Cardiology consulted, appreciate recs -Will discontinue diltiazem drip -Increase home metoprolol 25mg, will monitor heart rate -Will start Xarelto 20mg Primary hypertension 07/17/2017 Assessment & Plan (04/09/2023 4:05 PM LEGAL INVESTIGATOR): The current medical regimen is effective; continue present plan and medications. Assessment & Plan (08/08/2021 7:16 PM LEGAL INVESTIGATOR): Continue home monitoring. Assessment & Plan (06/23/2020 2:20 PM LEGAL INVESTIGATOR): Excellent control on current medications. Congratulated on [...] 04/09/2023 Assessment & Plan (08/08/2021 7:16 PM LEGAL INVESTIGATOR): Stable s/p ablation per cardiology. Monitors with home device and doing well. Continue follow-up with cardiology. Assessment & Plan (12/02/2019 12:04 AM CDT): Status post previous ablation. Pt monitors heart rhythm at home with monitor. Hyperlipidemia 08/01/2017 04/09/2023 Assessment & Plan (08/02/2017 12:04 PM LEGAL INVESTIGATOR): On lipitor 10mg at home. Recent lipid panel 06/20/17 LDL 62, HDL 71. -Continue statin COPD (chronic obstructive pulmonary disease) 8 06/23/2020 Pneumothorax 07/17/2017 06/23/2020 Ventricular premature depolarization 07/17/2017 04/09/2023 Assessment & Plan (12/02/2019 12:05 AM CDT): Asymptomatic previously. He is on metoprolol 25mg PO XL once daily. Encounters Date Type Department Care Team Description 12/28/2024 9:30 AM CDT Office Visit [facility] - Nephrology [address] [place] [address] Rivka Meng MD Hyponatremia (Primary Dx) 12/28/2024 9:22 AM CDT - 12/28/2024 11:59 PM CDT Hospital Encounter [facility] [address] [place] [address] Rivka Meng MD Discharge Disposition: Home or [...] Sex Assigned at Male 06/22/2020 2:30 PM LEGAL INVESTIGATOR Legal Sex Male 5:36 PM LEGAL INVESTIGATOR Gender Identity Male 06/22/2020 2:30 PM LEGAL INVESTIGATOR Sexual Orientation Straight 06/22/2020 2: 30 PM LEGAL INVESTIGATOR Last Filed Vital Signs Vital Sign Reading Time Taken Comments Blood Pressure 142/54 12/28/2024 10:19 AM CDT Pulse 64 12/28/2024 10:04 AM CDT Temperature 36.5 C (97.7 F) 12/28/2024 10:04 AM CDT Respiratory Rate 14 05/28/2019 11:1 9 AM LEGAL INVESTIGATOR Oxygen Saturation 99% 12/28/2024 10: 04 AM CDT Inhaled Oxygen Concentration - - Weight 109.1 kg (240 lb 9.6 oz) 025 10:04 AM CDT Height 185.4 cm (6' 1) 12/28/2024 10:0 4 AM CDT Body Mass Index 31.74 12/28/2024 10:04 AM CDT Plan of Treatment Upcoming Encounters Date Type Department Care Team (Late st Contact Info) Description 04/12/2025 8:30 AM LEGAL INVESTIGATOR Office Visit [facility] - Nephrology [address] [facility] [place] [address] Rivka Meng MD [address] [place] [address] Health Maintenance Due Date Last Done Comments [...] Results * ACTH (12/28/2024 11:34 AM CDT) [facility] ACTH 22.4 7.2 - 63.3 pg/mL 12/29/2024 7:36 PM CDT [facility] Comment: INTERPRETIVE INFORMATION: Adrenocorticotropic Hormone Reference interval based on samples collected between 7 a.m. and 10 a.m. No reference intervals established for p.m. collections. Pediatric reference values are the same as adults (Acta Paediatr Scand 1981;70:341-345). This assay measures intact ACTH 1-39; some types of synthetic ACTH and ACTH fragments are not detected by this assay. Performed By: [facility] [address] [place] [address] Blaster Helper: Kd Nuñez MD, PhD CLIA Number: [id number] Blood BLOOD SPECIMEN / Unknown Lab Venipuncture / Unknown 12/28/2024 11:34 AM CDT 12/28/2024 12:07 PM CDT Rivka Meng MD LAB - CHEMISTRY ORDERABLES Fi nal Result Performing Organization Address City/[facility]/ZIP Co de Phone Number [facility] ([facility] [address] [place] [address] * TSH (12/28/2024 11:34 AM CDT) TSH 2.282 0.350 - 4.940 uIU/mL 12/28/2024 1:03 PM CDT [facility] Blood BLOOD SPECIMEN / Unknown Lab Venipuncture / Unknown 12/28/2024 11:34 AM CDT 12/28/2024 12:15 PM CDT Rivka Meng MD LAB - CHEMISTRY ORDERABLES Fi nal Result [address] [address], [facility] [phone] * T4 FREE (12/28/2024 11:34 AM CDT) T4 Free 1.1 0.7 - 1.5 ng/dL 12/28/2024 1:03 PM CDT [facility] Blood BLOOD SPECIMEN / Unknown Lab Venipuncture / Unknown 12/28/2024 11:34 AM CDT 12/28/2024 12:15 PM CDT Rivka Meng MD LAB - CHEMISTRY ORDERABLES Fi nal Result [address] [address], [facility] [phone] * CORTISOL BLOOD (12/28/2024 11:34 AM CDT) [facility] Cortisol Total 10.7 Ranges not established for random specimens ug/dL 12/28/2024 3:54 PM CDT [facility] Blood BLOOD SPECIMEN / Unknown Lab Venipuncture / Unknown 12/28/2024 11:34 AM CDT 12/28/2024 12:15 PM CDT Narrative [facility] - 12/28/2024 3:54 PM CDT Normal cortisol levels are generally highest in the morning hours and lowest from late evening through the outplacement consultant hours (8 PM to 4 AM). The PM measurements of cortisol run approximately one-half to one-third of the AM values. Rivka Meng MD LAB - CHEMISTRY ORDERABLES Fi nal Result Performing Organization Address [facility]/ZIP Co de Phone Number [address] [address], [facility] [phone] * SODIUM URINE RANDOM (12/28/2024 10:55 AM CDT) [facility] Sodium Urine 47 Not Established mmol/L 12/28/2024 11:54 AM CDT [facility] Urine URINE SPECIMEN OBTAINED BY CLEAN CATCH PROCEDURE / Unknown Collection / Unknown 12/28/2024 10:55 AM CDT 12/28/2024 11:33 AM CDT Rivka Meng MD LAB - URINE CHEMISTRY ORDERAB LES Final Result Performing Organization Address City/[facility]/ZIP Co de Phone Number [address] [address], [place] [phone] * OSMOLALITY URINE (12/28/2024 10:55 AM CDT) [facility] Osmolality Urine 477 50 - 1,200 mOsm/kg 12/28/2024 1:12 PM [facility] Urine URINE SPECIMEN OBTAINED BY CLEAN CATCH PROCEDURE / Unknown Collection / Unknown 12/28/2024 10:55 AM CDT 12/28/2024 11:33 AM CDT us Rivka Meng MD LAB - URINE CHEMISTRY ORDERAB LES Final Result [facility] [address] [place] [address], [facility] [phone] * (ABNORMAL) RENAL FUNCTION PANEL (12/28/2024 9:47 AM CDT) BUN 16 7 - 26 mg/dL 12/28/2024 11:10 AM [facility] Creatinine 0.81 0.71 - 1.16 mg/dL 12/28/2024 11:10 AM [facility] Sodium 134(L) 136 - 145 mmol/L 12/28/2024 11:10 AM [facility] Potassium 4.4 3.5 - 4.5 mmol/L 12/28/2024 11:10 AM [facility] Chloride 98 98 - 107 mmol/L 12/28/2024 11:10 AM [facility] CO2 26 22 - 29 mmol/L 12/28/2024 11:10 AM [facility] Glucose 99 70 - 99 mg/dL 12/28/2024 11:10 AM [facility] Albumin 3.6 3.4 - 5.0 g/dL 12/28/2024 11:10 AM [facility] Calcium 8.8 8.4 - 10.2 mg/dL 12/28/2024 11:10 AM [facility] Phosphorus 3.4 2.8 - 5.1 mg/dL 12/28/2024 11:10 AM [facility] Anion Gap 10 6 - 16 12/28/2024 11:10 AM [facility] BUN/Creatinine Ratio 20 7 - 23 12/28/2024 11:10 AM [facility] Osmolality Calculated 279 275 - 295 mOsm/kg 12/28/2024 11:10 AM T [facility] eGFR by CKD-EPI 85(L) >=90 mL/min/1.7 3 m2 12/28/2024 11:10 AM T [facility] Comment:Estimated Glomerular Filtration Rate (eGFR) calculated using the CKD-EPI Creatinine Equation (2020), per the National Kidney Foundation and [place] Society of Nephrology recommendations. Blood BLOOD SPECIMEN / Unknown Lab Venipuncture / Unknown 12/28/2024 9:47 AM CDT 12/28/2024 10:25 AM CDT Rivka Meng MD LAB - CHEMISTRY ORDERABLES Fi nal Result [facility] [address] [place] [address], [facility] [phone] * EYE EXAM (12/16/2024) Anatomical Region Laterality Modality Other Narrative 12/16/2024 Ordered by an unspecified provider. us Scanned Document SCANNING ONLY Final Result from Last 3 Months Insurance MEDICARE [facility] MEDICARE ANTHEM Advance Directives Documents on File Type Date Recorded Patient Facilities Maintenance Manager Expl anation Adv Directive/Living Will/POA 07/03/2023 11:30 AM POA OF HLTHCARE * Full Code (Latest Code Status on File) Date Activated Date Inactivated Comments 08/01/2017 9:34 PM 08/02/2017 4:29 PM * Full Code Date Activated Date Inactivated Comments 08/01/2017 9:33 PM 08/01/2017 9:34 PM Care Teams Horseradish Grinder Relationship Specialty Start Date End Date Clay Quezada MD [address] [facility] [address] [place] [address] PCP - General Family Medicine 08/01/17
--- OUTSIDE RECORDS SUMMARY | 2025-01-17 13:04 | XMS_ITS ---
Author Name Auto Generated, Auto Generated Organization [facility] Address [address] [place] [address] Phone [phone] Care Team Providers Care Forest Fire Control Officer Name Role Phone Erwin Newell Unavailable [phone] Vianey Baker Unavailable Cheryl Galicia Unavailable [phone] Functional Status No Results Mental Status No Results Allergies and Intolerances Name Onset Date Reaction Severity No Known Allergies (Allergy) FriMay 12 16:27:00 EST 2023 Encounters Program Name Primary Diagnosis Admission Date/Time Dis charge Date/Time Clipper Operator Care Facility Residential-Short Term Rehabilitation Unit FriMay 12 11:15:00 EST 2023Jun 09 08:30:00 EST 2024 Immunizations Name Dates Status TST-PPD intradermal Renae May 13 01:00:00 EST 2023 Completed TST-PPD intradermal Sat May 15 01:00:00 EST 2023 Completed TST-PPD intradermal Renae May 20 01:00:00 EST 2023 Completed TST-PPD intradermal Sat May 22 01:00:00 EST 2023 Completed Pneumococcal conjugate PCV20 , polysaccharide [id number] conjugate, adjuvant, PF FriMay 17 01:00:00 EST [...] 2023 * End Date: * Text: * educational resource coordinator (current) use of aspirin* Code: * Start [...] EST 2024 Systolic Blood Pressure 140.00 mm[Hg] [place] Jun 06 23:50:37 EST 2024 Diastolic Blood Pressure 52.00 mm[Hg] [place] Jun 06 23:50:37 EST 2024 Heart Rate 71.00 /min FriJun 06 23:50 :37 2024 Body temperature 97.60 [degF] [place] Jun 06 23:5 0:37 2024 Respiratory rate 18.00 /min FriJun 06 23:5 0:37 EST 2024 Systolic Blood Pressure 149.00 mm[Hg] FriJun 06 18:37:55 EST 2024 Diastolic Blood Pressure 68.00 mm[Hg] FriJun 06 18:37:55 EST 2024 Heart Rate 72.00 /min FriJun 06 18:37 :55 EST 2024 Body weight 225.20 [lb_av] [place] Jun 06 17:16 :59 EST 2024 Systolic [...]
--- OUTSIDE RECORDS SUMMARY | 2025-01-17 13:04 | XMS_ITS | Clinical Summary ---
Author Organization 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
[2025-01-17] MEDS: SODIUM CHLORIDE 0.9% IV 1,000 ML 999 ML IV CONT ×3 (13:12→15:21)
[2025-01-17 13:22] LABS: Hematocrit 47.1 % (42.0-52.0); Hemoglobin 15.3 g/dL (14.0-18.0); Immature Granulocyte Percent A 0.7 % (0-0.5); Lymphocytes Absolute Auto 0.85 K/mm3 (0.9-3.2); Mean Corpuscular HGB Conc 32.5 g/dl (32-36); Mean Corpuscular Hemoglobin 28.6 pg (26-34); Mean Corpuscular Volume 88.0 fl (80-100); Nucleated Red Blood Cells Absolute Auto 0.000 K/mm3 (0.0-0.012); Nucleated Red Blood Cells Perc 0.0 % (0.0-0.2); Platelet Count Result 200 k/mm3 (150-375); Red Blood Count 5.35 M/mm3 (4.6-6.20); White Blood Count 13.7 K/mm3 (4.5-10.0)
[2025-01-17 13:37] LABS: INR 1.1; Prothrombin Time 13.9 Seconds (11.1-14.7)
[2025-01-17 13:38] LABS: Partial Thromboplastin Time 31.2 Seconds (22.3-36.8)
[2025-01-17 13:47] LABS: Troponin I < 0.012 ng/mL (0.000-0.034)
[2025-01-17 13:59] LABS: Alanine Aminotransferase 17 U/L (6-50); Blood Urea Nitrogen 14 mg/dL (9-20); Chloride 92 mmol/L (98-107); Estimated CRCL calculation 60 ml/min; Estimated Glomerular Filt Rate > 60; Potassium 4.3 mmol/L (3.4-5.0); Sodium 128 mmol/L (137-145); Total Protein 7.9 g/dL (6.3-8.2)
--- NOTE | 2025-01-17 14:49 | PC.NURSE ---
Pt instructed to keep arm straight so IV fluids will infuse
[2025-01-17 15:13] LABS: Add Urine Microscopic? YES; Appearance Urine Clear (Clear); Glucose Urine UA Negative (Negative); Leukocyte Esterase Ur Trace LEU/UL (Negative); Need Manual Microscopic Reviewed; Nitrate Urine Positive (Negative); Non Pathogenic Casts 0-2; Specific Grav Ur 1.018 (1.001-1.035)
--- NOTE | 2025-01-17 16:11 | ECG_ITS ---
Test Date: 2025-01-17 16:16:50 Measurements Intervals [place] Rate: 96 P: 7 MO: 196 QRS: -39 QRSD: 134 T: 27 QT: 372 QTc: 472 Interpretive Statements SINUS RHYTHM WITH FREQUENT VENTRICULAR PREMATURE COMPLEXES LEFT AXIS DEVIATION INTRAVENTRICULAR CONDUCTION DELAY LEFT VENTRICULAR HYPERTROPHY AND ST-T CHANGE CONSIDER ANTERIOR INFARCT, AGE INDETERMINATE BASELINE ARTIFACT- I, II, III, AVR, AVL, AVF, V1 ABNORMAL ECG Compared to ECG 01/17/2025 13:10:53 NO SIGNIFICANT CHANGE Electronically Signed On 01-17-2025 16:31:49 CDT by Kedar Perez D.O.
[2025-01-17] MEDS: ONDANSETRON INJ 4 MG/2 ML VIAL IV PUSH (16:22)
[2025-01-17] MEDS: cefTRIAXone 2 GM in SODIUM CHLORIDE 0.9% IV 100 ML 200 ML IVPB (16:24)
[2025-01-17 16:54] LABS: Influenza A QL RT-PCR Negative (Negative); Influenza B QL RT-PCR Negative (Negative); RSV RNA, RT-PCR Negative (Negative); SARS-CoV-2 RNA PCR Positive (Negative)
[2025-01-17 16:57] LABS: Troponin I < 0.012 ng/mL (0.000-0.034)
[2025-01-17 17:07] LABS: Albumin Level 4.3 g/dL (3.5-5.1); Alkaline Phosphatase 84 U/L (38-126); Anion Gap 10 mmol/L (4-12); Aspartate Amino Transferase 34 U/L (17-59); Bilirubin,Total 1.4 mg/dL (0.2-1.3); CRP 4.2 mg/dL (<1.0); Calcium 9.4 mg/dL (8.4-10.2); Carbon Dioxide 26 mmol/L (22-30); Glucose 140 mg/dL (65-110); Magnesium 1.9 mg/dL (1.6-2.3)
--- NOTE | 2025-01-17 18:18 | PC.NURSE ---
Pt approached nurses station requesting to be contacted when her gets a room upstairs, phone number
[2025-01-17] MEDS: BISACODYL 10 MG SUPPOSITORY RECTAL (19:02)
[2025-01-17] MEDS: SODIUM CHLORIDE 0.9% IV 1,000 ML 100 ML IV CONT (21:05)
[2025-01-18] VITALS (8 sets, daily range): BP systolic 142–150; BP diastolic 52–70; PULSE 66–95; RESP 16–20; TEMP 36.4–38.3; O2SAT 93–99
[2025-01-18] MEDS: REMDESIVIR 200 MG/NS 250 ML 200 MG/250 ML BAG 250 MG IVPB (00:17)
[2025-01-18] MEDS: ACETAMINOPHEN 325 MG TABLET 650 MG PO (00:17)
--- NOTE | 2025-01-18 00:45 | PM.IMHP ---
H&P: HPI History of Present Illness Date/Time: 01/18/25 00:45 Chief Complaint: Ground level fall Narrative: 89-year-old male with a past medical history of essential hypertension, chronic hypo natremia, glaucoma, right upper lobe pneumectomy 1994, obstructive sleep apnea who presented to the ER from home via EMS due to ground level fall. The patient reports that he has been more weak than usual for the last couple of days. He has been having a cough, chills and decreased appetite. He reports that when he got up to go to the bathroom prior to coming in he started having some vomiting. He became so weak from the vomiting that he could not get up and slid to the floor when he tried to transfer from his wheelchair to the bed. Did not his head or lose consciousness. He denies any nausea or vomiting. His last bowel movement was several days ago and was hard. On arrival to the ER he was noted to be febrile with a temperature of 100.5?. He was mildly tachycardic. He had some mild leukocytosis and some relative hemoconcentration with a hemoglobin of left elevated above baseline. His sodium was mildly low but stable compared to prior. Chest x-ray demonstrated no acute process but chronic changes consistent with patient's history of interstitial lung disease. COVID PCR was positive. The patient's urine was noted be quite dark but he denies any change in urinary frequency urgency or developing dysuria. He has not noticed any hematuria. He denies history of prior urinary tract infections but urinalysis was suggestive of UTI and CT of the abdomen and pelvis demonstrated evidence of possible cystitis and findings suggestive of fecal impaction. Gallbladder was also distended but did not have any surrounding erythema or inflammation dishes suggest cholecystitis. Patient denied any abdominal pain on abdominal exam. Review of Systems Review of Systems: 12 systems were reviewed with pertinent positives and negatives per HPI. Except as documented in the HPI, all other systems were reviewed and are negative. [facility] Past Medical History Medical History (Updated 01/19/25 @ 01:42 by Kaci Marcelo DO) Emphysema lung Atrial fibrillation s/p ablation Essential hypertension Chronic hyponatremia On sodium tablets Hypercholesteremia Glaucoma Hypertension Surgical History Surgical History (Updated 01/18/25 @ 01:00 by Kaci Marcelo DO) History of cardiac ablation for atrial fibrillation (~2018) History of vasectomy Status post cataract extraction of both eyes with insertion of intraocular lens Hx of inguinal hernia repair History of lobectomy of lung Bilateral PTX with RUL resection, left lung blebectomy and left pleurodesis 1993 Family History Family History Mother Breast cancer Carcinoma of colon Father Lung cancer Social History Social History (Updated 01/19/25 @ 01:37 by Kaci Marcelo DO) Social History: Patient lives at home with his Purnima they have been since 1979. He had 1 child with his 1st but that son at age 50 of heart disease. He had 2 children with his current . 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 Patient smoked a pack a day for 25 years and quit 1979. He drinks 2 alcoholic drinks per week. No drug use. They do not have any pets. Code status: Full code Surrogate decision maker: Purnima () Smoking packs per day: 1.5 Smoking cigarettes per day: 30.0 Years smoked: 20 Smoking pack-years: 30.00 Smoking status: Former smoker Second hand tobacco smoke exposure: No Alcohol intake: never Drinks per week: 2 Substance use: never Substance use type: does not use Do You Feel Safe in your Home?: Yes Lack of Transportation: No Lack of Food: Never True Current Housing: I Have Housing Concerned About Future Housing: No Difficulty Paying Gas/Electric Bills: No Difficulty Paying for Meds: No Currently Unemployed: No Education: Master's Degree or Higher Difficulty w/ Childcare or Family Care: No Spiritual care concerns: No Meds Home Medications and Allergies Home Medications ?Medication ?Instructions ?Recorded ?Confirmed ?Type latanoprost 0.005 % eye drops 1 drp EACH EYE HS 04/10/22 01/17/25 History metoprolol succinate 25 mg 25 mg PO 0900 04/10/22 01/17/25 History tablet,extended release 24 hr olmesartan 40 mg tablet 40 mg PO DAILY 04/10/22 01/17/25 History Metamucil See Rx Instructions .Route .COMPLEX 04/22/22 01/17/25 History aspirin 81 mg tablet 81 mg PO DAILY 05/07/24 01/17/25 History cholecalciferol (vitamin D3) 25 25 mcg PO DAILY 05/07/24 01/17/25 History mcg (1,000 unit) chewable tablet (Vitamin D3) coenzyme [id number] 100 mg-100 1 cap PO DAILY 05/07/24 01/17/25 History unit capsule magnesium 200 mg tablet 200 mg PO DAILY 05/07/24 01/17/25 History metoprolol succinate 25 mg 25 mg PO DAILY@1700 05/07/24 01/17/25 History tablet,extended release 24 hr timolol maleate (PF) 0.5 % eye 1 drp EACH EYE BID 05/07/24 01/17/25 History drops in a dropperette vitamin K2 100 mcg PO DAILY 05/07/24 01/17/25 History sodium chloride 1,000 mg soluble 1,000 mg PO BID #60 tabs 05/12/24 01/17/25 Rx tablet amlodipine 2.5 mg tablet 2.5 mg PO HS 01/17/25 01/17/25 History Allergies Allergy/AdvReac Type Severity Reaction Status Date / Time No Known Allergies Allergy Verified 01/17/25 12:02 Vital Signs Vital Signs - 24 hr 01/17/25 11:12 01/17/25 11:57 01/17/25 12:00 Temperature 100.5 F H 99.2 F 99.2 F Pulse Rate 103 H 99 96 Respiratory Rate 17 18 18 Blood Pressure 155/80 H 185/89 H 128/89 Pulse Oximetry 94 92 97 Oxygen Delivery Room Air Room Air 01/17/25 12:04 01/17/25 13:14 01/17/25 14:46 Temperature Pulse Rate 94 89 Respiratory Rate 16 16 Blood Pressure 137/84 143/79 H Pulse Oximetry 96 95 94 Oxygen Delivery Room Air 01/17/25 15:21 01/17/25 16:24 01/17/25 16:53 Temperature Pulse Rate 92 97 102 H Respiratory Rate 16 17 16 Blood Pressure 160/61 H 155/78 H 150/80 H Pulse Oximetry 95 96 96 Oxygen Delivery 01/17/25 18:05 01/17/25 18:45 01/17/25 20:08 Temperature Pulse Rate 89 94 93 Respiratory Rate 16 17 16 Blood Pressure 152/66 H 140/77 155/76 H Pulse Oximetry 95 96 97 Oxygen Delivery 01/17/25 20:33 01/17/25 22:25 01/18/25 00:17 Temperature 100.2 F H 101 F H Pulse Rate 93 99 Respiratory Rate 16 18 Blood Pressure 155/76 H 152/69 H Pulse Oximetry 97 98 Oxygen Delivery Exam Narrative: Weight 99 kg BMI 29.6 Const: Other: Acutely ill-appearing, appears stated age, well-developed well-nourished HENMT: Other: Mucous membranes are dry, no oral pharyngeal erythema, head is normocephalic atraumatic Eyes: Other: Pupils are equal and reactive, no scleral icterus, bilateral lens implants noted Neck: Other: No JVD, no thyromegaly Resp: Other: End-expiratory wheezing bilateral lung hernandez, mild conversational tachypnea Cardio: Other: Regular rate, regular rhythm, 2+ bilateral upper and lower extremities GI: Other: Soft, nontender, nondistended, normoactive bowel sounds : Other: Pure wick catheter in place with about 250 mL of clear dark yellow urine Skin: Other: Generalized pallor, non jaundice, hot to touch Neuro: Other: Alert oriented, speech is clear, no facial asymmetry, no localizing neurologic deficits noted during the course of conversation Extrem: Other: No cyanosis, no edema Psych: Other: Appropriate mood and affect, pleasant and cooperative H&P: Results Labs Labs: Laboratory Tests 01/17/25 13:08 01/17/25 13:08 01/17/25 01/17/25 01/17/25 13:08 13:08 13:08 WBC 13.7 H RBC 5.35 Hgb 15.3 D Hct 47.1 MCV 88.0 MCH 28.6 MCHC 32.5 RDW 13.2 Plt Count 200 MPV 8.8 Immature Gran % (Auto) 0.7 H Neut % (Auto) 88.7 H Lymph % (Auto) 6.2 L [place] % (Auto) 4.2 Eos % (Auto) 0.1 Baso % (Auto) 0.1 L Lymph # (Auto) 0.85 L [place] # (Auto) 0.6 Eos # (Auto) 0.0 Baso # (Auto) 0.0 Abs Immat Gran (auto) 0.10 H Absolute Neuts (auto) 12.2 H Absolute Nucleated RBC 0.000 Nucleated RBC % 0.0 PT 13.9 INR 1.1 APTT 31.2 Sodium Cancelled 128 L Potassium Cancelled 4.3 Chloride Cancelled Carbon Dioxide Anion Gap BUN Creatinine Estim Creat Clear Calc Estimated GFR Glucose Lactic Acid Calcium Magnesium Total Bilirubin AST ALT Alkaline Phosphatase Troponin I C-Reactive Protein Total Protein Albumin Urine Color Urine Appearance Urine pH Ur Specific [place] Urine Protein Urine Glucose (UA) Urine Ketones Ur Blood (Man) Urine Nitrate Urine Bilirubin Urine Urobilinogen Add Ur Microanalysis Leukocyte Esterase Rfl Urine RBC Urine WBC Ur Squamous Epith Cells Urine Bacteria Urine Casts Influenza A (RT-PCR) Influenza B (RT-PCR) RSV (RT-PCR) SARS-CoV-2 RNA (RT-PCR) 01/17/25 01/17/25 01/17/25 13:08 13:08 13:08 WBC RBC Hgb Hct MCV MCH MCHC RDW Plt Count MPV Immature Gran % (Auto) Neut % (Auto) Lymph % (Auto) [place] % (Auto) Eos % (Auto) Baso % (Auto) Lymph # (Auto) [place] # (Auto) Eos # (Auto) Baso # (Auto) Abs Immat Gran (auto) Absolute Neuts (auto) Absolute Nucleated RBC Nucleated RBC % PT INR APTT Sodium Potassium Chloride 92 L Carbon Dioxide Cancelled 26 Anion Gap Cancelled 10 BUN Cancelled Creatinine Estim Creat Clear Calc Estimated GFR Glucose Lactic Acid Calcium Magnesium Total Bilirubin AST ALT Alkaline Phosphatase Troponin I C-Reactive Protein Total Protein Albumin Urine Color Urine Appearance Urine pH Ur Specific [place] Urine Protein Urine Glucose (UA) Urine Ketones Ur Blood (Man) Urine Nitrate Urine Bilirubin Urine Urobilinogen Add Ur Microanalysis Leukocyte Esterase Rfl Urine RBC Urine WBC Ur Squamous Epith Cells Urine Bacteria Urine Casts Influenza A (RT-PCR) Influenza B (RT-PCR) RSV (RT-PCR) SARS-CoV-2 RNA (RT-PCR) 01/17/25 01/17/25 01/17/25 13:08 13:08 13:08 WBC RBC Hgb Hct MCV MCH MCHC RDW Plt Count MPV Immature Gran % (Auto) Neut % (Auto) Lymph % (Auto) [place] % (Auto) Eos % (Auto) Baso % (Auto) Lymph # (Auto) [place] # (Auto) Eos # (Auto) Baso # (Auto) Abs Immat Gran (auto) Absolute Neuts (auto) Absolute Nucleated RBC Nucleated RBC % PT INR APTT Sodium Potassium Chloride Carbon Dioxide Anion Gap BUN 14 Creatinine Cancelled 0.82 Estim Creat Clear Calc Cancelled 60 Estimated GFR Cancelled Glucose Lactic Acid Calcium Magnesium Total Bilirubin AST ALT Alkaline Phosphatase Troponin I C-Reactive Protein Total Protein Albumin Urine Color Urine Appearance Urine pH Ur Specific [place] Urine Protein Urine Glucose (UA) Urine Ketones Ur Blood (Man) Urine Nitrate Urine Bilirubin Urine Urobilinogen Add Ur Microanalysis Leukocyte Esterase Rfl Urine RBC Urine WBC Ur Squamous Epith Cells Urine Bacteria Urine Casts Influenza A (RT-PCR) Influenza B (RT-PCR) RSV (RT-PCR) SARS-CoV-2 RNA (RT-PCR) 01/17/25 01/17/25 01/17/25 13:08 13:08 13:08 WBC RBC Hgb Hct MCV MCH MCHC RDW Plt Count MPV Immature Gran % (Auto) Neut % (Auto) Lymph % (Auto) [place] % (Auto) Eos % (Auto) Baso % (Auto) Lymph # (Auto) [place] # (Auto) Eos # (Auto) Baso # (Auto) Abs Immat Gran (auto) Absolute Neuts (auto) Absolute Nucleated RBC Nucleated RBC % PT INR APTT Sodium Potassium Chloride Carbon Dioxide Anion Gap BUN Creatinine Estim Creat Clear Calc Estimated GFR > 60 Glucose Cancelled 140 H Lactic Acid 1.3 Calcium Cancelled 9.4 Magnesium Cancelled Total Bilirubin AST ALT Alkaline Phosphatase Troponin I C-Reactive Protein Total Protein Albumin Urine Color Urine Appearance Urine pH Ur Specific [place] Urine Protein Urine Glucose (UA) Urine Ketones Ur Blood (Man) Urine Nitrate Urine Bilirubin Urine Urobilinogen Add Ur Microanalysis Leukocyte Esterase Rfl Urine RBC Urine WBC Ur Squamous Epith Cells Urine Bacteria Urine Casts Influenza A (RT-PCR) Influenza B (RT-PCR) RSV (RT-PCR) SARS-CoV-2 RNA (RT-PCR) 01/17/25 01/17/25 01/17/25 13:08 13:08 13:08 WBC RBC Hgb Hct MCV MCH MCHC RDW Plt Count MPV Immature Gran % (Auto) Neut % (Auto) Lymph % (Auto) [place] % (Auto) Eos % (Auto) Baso % (Auto) Lymph # (Auto) [place] # (Auto) Eos # (Auto) Baso # (Auto) Abs Immat Gran (auto) Absolute Neuts (auto) Absolute Nucleated RBC Nucleated RBC % PT INR APTT Sodium Potassium Chloride Carbon Dioxide Anion Gap BUN Creatinine Estim Creat Clear Calc Estimated GFR Glucose Lactic Acid Calcium Magnesium 1.9 Total Bilirubin Cancelled 1.4 H AST Cancelled 34 ALT Cancelled Alkaline Phosphatase Troponin I C-Reactive Protein Total Protein Albumin Urine Color Urine Appearance Urine pH Ur Specific [place] Urine Protein Urine Glucose (UA) Urine Ketones Ur Blood (Man) Urine Nitrate Urine Bilirubin Urine Urobilinogen Add Ur Microanalysis Leukocyte Esterase Rfl Urine RBC Urine WBC Ur Squamous Epith Cells Urine Bacteria Urine Casts Influenza A (RT-PCR) Influenza B (RT-PCR) RSV (RT-PCR) SARS-CoV-2 RNA (RT-PCR) 01/17/25 01/17/25 01/17/25 13:08 13:08 13:08 WBC RBC Hgb Hct MCV MCH MCHC RDW Plt Count MPV Immature Gran % (Auto) Neut % (Auto) Lymph % (Auto) [place] % (Auto) Eos % (Auto) Baso % (Auto) Lymph # (Auto) [place] # (Auto) Eos # (Auto) Baso # (Auto) Abs Immat Gran (auto) Absolute Neuts (auto) Absolute Nucleated RBC Nucleated RBC % PT INR APTT Sodium Potassium Chloride Carbon Dioxide Anion Gap BUN Creatinine Estim Creat Clear Calc Estimated GFR Glucose Lactic Acid Calcium Magnesium Total Bilirubin AST ALT 17 Alkaline Phosphatase Cancelled 84 Troponin I < 0.012 C-Reactive Protein Cancelled 4.2 H Total Protein Cancelled Albumin Urine Color Urine Appearance Urine pH Ur Specific [place] Urine Protein Urine Glucose (UA) Urine Ketones Ur Blood (Man) Urine Nitrate Urine Bilirubin Urine Urobilinogen Add Ur Microanalysis Leukocyte Esterase Rfl Urine RBC Urine WBC Ur Squamous Epith Cells Urine Bacteria Urine Casts Influenza A (RT-PCR) Influenza B (RT-PCR) RSV (RT-PCR) SARS-CoV-2 RNA (RT-PCR) 01/17/25 01/17/25 01/17/25 13:08 13:08 14:01 WBC RBC Hgb Hct MCV MCH MCHC RDW Plt Count MPV Immature Gran % (Auto) Neut % (Auto) Lymph % (Auto) [place] % (Auto) Eos % (Auto) Baso % (Auto) Lymph # (Auto) [place] # (Auto) Eos # (Auto) Baso # (Auto) Abs Immat Gran (auto) Absolute Neuts (auto) Absolute Nucleated RBC Nucleated RBC % PT INR APTT Sodium Potassium Chloride Carbon Dioxide Anion Gap BUN Creatinine Estim Creat Clear Calc Estimated GFR Glucose Lactic Acid Calcium Magnesium Total Bilirubin AST ALT Alkaline Phosphatase Troponin I C-Reactive Protein Total Protein 7.9 Albumin Cancelled 4.3 Urine Color Yellow Urine Appearance Clear Urine pH 7.5 Ur Specific [place] 1.018 Urine Protein 2+ H Urine Glucose (UA) Negative Urine Ketones Trace H Ur Blood (Man) 2+ H Urine Nitrate Positive H Urine Bilirubin Negative Urine Urobilinogen 0.2 Add Ur Microanalysis Reviewed Leukocyte Esterase Rfl Trace H Urine RBC 21-50 H Urine WBC 11-20 H Ur Squamous Epith Cells None seen Urine Bacteria None seen Urine Casts 0-2 Influenza A (RT-PCR) Influenza B (RT-PCR) RSV (RT-PCR) SARS-CoV-2 RNA (RT-PCR) 01/17/25 01/17/25 16:08 16:14 WBC RBC Hgb Hct MCV MCH MCHC RDW Plt Count MPV Immature Gran % (Auto) Neut % (Auto) Lymph % (Auto) [place] % (Auto) Eos % (Auto) Baso % (Auto) Lymph # (Auto) [place] # (Auto) Eos # (Auto) Baso # (Auto) Abs Immat Gran (auto) Absolute Neuts (auto) Absolute Nucleated RBC Nucleated RBC % PT INR APTT Sodium Potassium Chloride Carbon Dioxide Anion Gap BUN Creatinine Estim Creat Clear Calc Estimated GFR Glucose Lactic Acid Calcium Magnesium Total Bilirubin AST ALT Alkaline Phosphatase Troponin I < 0.012 C-Reactive Protein Total Protein Albumin Urine Color Urine Appearance Urine pH Ur Specific [place] Urine Protein Urine Glucose (UA) Urine Ketones Ur Blood (Man) Urine Nitrate Urine Bilirubin Urine Urobilinogen Add Ur Microanalysis Leukocyte Esterase Rfl Urine RBC Urine WBC Ur Squamous Epith Cells Urine Bacteria Urine Casts Influenza A (RT-PCR) Negative Influenza B (RT-PCR) Negative RSV (RT-PCR) Negative SARS-CoV-2 RNA (RT-PCR) Positive A Impressions Cervical Spine CT 01/17/25 14:28 IMPRESSION: 1. No evidence for acute intracranial hemorrhage or calvarial fracture. 2. No evidence for cervical spine fracture or traumatic subluxation. 3. Multilevel degenerative changes of the cervical spine. Head CT 01/17/25 14:28 IMPRESSION: 1. No evidence for acute intracranial hemorrhage or calvarial fracture. 2. No evidence for cervical spine fracture or traumatic subluxation. 3. Multilevel degenerative changes of the cervical spine. Abdomen/Pelvis CT 01/17/25 14:47 IMPRESSION: Findings suggesting fecal impaction. Colonic diverticulosis without surrounding inflammatory change. Findings within the bladder suggesting cystitis for which clinical correlation is needed. Gallbladder distention without surrounding inflammatory change. Chest X-Ray 01/17/25 15:02 IMPRESSION: 1. 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 EKG: Test Date: 2025-01-17 16:16:50 Measurements Intervals Mobile Rate: 96 P: 7 WV: 196 QRS: -39 QRSD: 134 T: 27 QT: 372 QTc: 472 Interpretive Statements SINUS RHYTHM WITH FREQUENT VENTRICULAR PREMATURE COMPLEXES LEFT AXIS DEVIATION INTRAVENTRICULAR CONDUCTION DELAY LEFT VENTRICULAR HYPERTROPHY AND ST-T CHANGE CONSIDER ANTERIOR INFARCT, AGE INDETERMINATE BASELINE ARTIFACT- I, II, III, AVR, AVL, AVF, V1 ABNORMAL ECG Compared to ECG 01/17/2025 13:10:53 NO SIGNIFICANT CHANGE All imaging and EKGs personally reviewed and interpreted. And unless stated otherwise agree with radiologic and cardiology interpretation. Assessment and Plan Assessment and plan (1) Sepsis: Qualifiers: Sepsis acute organ dysfunction status: without acute organ dysfunction Sepsis type: sepsis due to unspecified organism Qualified Code(s): A41.9 - Sepsis, unspecified organism Code(s): A41.9 - Sepsis, unspecified organism Status: Acute (2) Acute UTI: Code(s): N39.0 - Urinary tract infection, site not specified Status: Acute (3) COVID-19: Code(s): U07.1 - COVID-19 Status: Acute (4) Chronic hyponatremia: Code(s): E87.1 - Hypo-osmolality and hyponatremia Status: Acute (5) Contusion of right shoulder: Qualifiers: Encounter type: initial encounter Qualified Code(s): S40.011A - Contusion of right shoulder, initial encounter Code(s): S40.011A - Contusion of right shoulder, initial encounter Status: Acute (6) Ground-level fall: Code(s): W18.30XA - Fall on same level, unspecified, initial encounter Status: Acute (7) Generalized weakness: Code(s): R53.1 - Weakness Status: Acute (8) Chronic interstitial lung disease: Code(s): J84.9 - Interstitial pulmonary disease, unspecified Status: Acute Plan Patient presents with ground level fall from increased weakness. Weakness is due to sepsis and dehydration. Source of sepsis is likely the due to a combination of UTI and COVID. The patient had CT scan which demonstrated cystitis and UA is suspicious for UTI. Patient been started on empiric antibiotic therapy with Rocephin which will be continued until blood cultures and urine cultures return for further specificity. The patient's blood pressures remain stable will resume patient's home antihypertensives. The patient's UA also demonstrate some mild ketones. Patient did receive 30 mL/kilos fluid bolus in the ER. Will given additional 1 L of fluid at 100 mL an hour and then re-evaluate fluid status in a.m.. Patient does have chronic hyponatremia but sodium level appears stable compared to baseline will resume home sodium chloride tablets. The patient did test positive for COVID and is at high risk for complications of COVID due to history of prior lobectomy. Will place patient on Remdesivir. Patient is not requiring oxygen so will hold off on initiation of prednisone therapy. Patient will be placed on fall precautions and and will place consult for PT and OT evaluation and treatment given patient's increased weakness. Will repeat CBC and electrolyte panel in a.m.. Will continue Tylenol as needed for discomfort and fever. Patient been placed on fall precautions. Will add albuterol inhaler as needed for wheezing and shortness of breath MEDICAL DECISION MAKING NARRATIVE -Spoke with the ED provider in detail regarding patient's evaluation, workup and management -Patient seen and examined at bedside -Collaborated with patient's nurse at the bedside in detail and addressed all concerns -Labs, electrolytes, radiology, investigations and test results reviewed -ED/Consult/Nursing/Ancilliary notes on the chart reviewed and appreciated -Spoke with patient and patient is in agreement with plan. Quality VTE Prophylaxis VTE prophylaxis: mechanical ordered (SCDs) Hospitalist [facility] Advance Care Plan I have confirmed that the patient's Advanced Care Plan is present, code status is documented, or surrogate decision maker is listed in patient medical record.: Yes Medication Reconciliation I have utilized all available resources to obtain, update and review the patients current medications (includes all prescriptions, OTC, herbals, cannabis, and nutritional supplements).: Yes
[2025-01-18] MEDS: METOPROLOL SUCCINATE EXT REL 25 MG TABCR PO ×3 (01:22→16:08)
[2025-01-18] MEDS: SODIUM CHLORIDE 1 GM TABLET PO ×3 (01:22→16:06)
[2025-01-18] MEDS: TIMOLOL MALEATE 0.5% OP SOLN 5 ML BOTTLE 1 DROP EACH EYE ×3 (01:23→16:08)
[2025-01-18 05:46] LABS: Hematocrit 37.5 % (42.0-52.0); Hemoglobin 12.0 g/dL (14.0-18.0); Mean Corpuscular HGB Conc 32.0 g/dl (32-36); Mean Corpuscular Hemoglobin 28.4 pg (26-34); Mean Corpuscular Volume 88.7 fl (80-100); Platelet Count Result 158 k/mm3 (150-375); Red Blood Count 4.23 M/mm3 (4.6-6.20); White Blood Count 6.8 K/mm3 (4.5-10.0)
[2025-01-18 06:21] LABS: Anion Gap 6 mmol/L (4-12); Blood Urea Nitrogen 12 mg/dL (9-20); Calcium 7.9 mg/dL (8.4-10.2); Carbon Dioxide 24 mmol/L (22-30); Chloride 99 mmol/L (98-107); Estimated CRCL calculation 62 ml/min; Estimated Glomerular Filt Rate > 60; Glucose 101 mg/dL (65-110); Potassium 3.8 mmol/L (3.4-5.0); Sodium 129 mmol/L (137-145)
--- NOTE | 2025-01-18 07:41 | P.PNIM_ITS ---
Progress Note: A&P Assessment and Plan (1) Sepsis: Qualifiers: Sepsis acute organ dysfunction status: without acute organ dysfunction Sepsis type: sepsis due to unspecified organism Qualified Code(s): A41.9 - S epsis, unspecified organism Code(s): A41.9 - Sepsis, unspecified organism Status: Acute Assessment and Plan: * Meets SIRS criteria: Leukocytosis, tachycardia, fever * lactic acid: 1.3 * 30 mL/kg, 1 L at 100 mL/hour * suspected source: UTI, COVID * blood cultures drawn on 01/17 * UA: 11-20 WBC, 21-50 RBC, trace leukocyte esterase, positive nitrates * Urine culture pending * CXR: Stable appearance of small lung volumes with peripheral and lower lung predominant coarse reticular opacities consistent with chronic interstitial lung disease * Continue IV antibiotics, monitor blood/urine cultures. * 01/18: WBC down from 13.7-6.8 (2) Acute UTI: Code(s): N39.0 - Urinary tract infection, site not specified Status: Acute Assessment and Plan: * UA:11-20 WBC, 21-50 RBC, trace leukocyte esterase, positive nitrates * UC obtained on 01/17 * started on Rocephin (3) COVID-19: Code(s): U07.1 - COVID-19 Status: Acute Assessment and Plan: * Place in COVID19 isolation precautions, cardiac monitoring, and continuous pulse ox * Monitor serum electrolytes, CRP, Lactic acid, troponin, CBC, WBC, temperature curve and follow cultures * Chest x-ray: Stable appearance of small lung volumes with peripheral and lower lung predominant coarse reticular opacities 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 * Viral panel: Positive for COVID * Started on remdesivir 100 mg Q 24 hours - continue treatment according to suggested guidelines. Remdesivir 200 mg IV x1, then 100 mg IV x4 days (4) Chronic hyponatremia: Code(s): E87.1 - Hypo-osmolality and hyponatremia Status: Acute Assessment and Plan: * History of chronic hyponatremia, sodium appears stable compared to his baseline * 01/18: Na 129 * Will resume home sodium chloride tablets (5) Generalized weakness: Code(s): R53.1 - Weakness Status: Acute Assessment and Plan: * Likely secondary to problems listed above, underlying UTI and COVID infection * PT/OT to eval * Head CT negative for acute findings * Glucose WNL * Chronic hyponatremia, but no other major electrolyte abnormalities * Troponin negative * EKG: Sinus rhythm with first-degree AV block, right axis deviation, intraventricular conduction delay, no acute ST or T-wave changes (6) Ground-level fall: Code(s): W18.30XA - Fall on same level, unspecified, initial encounter Status: Acute Assessment and Plan: * See above * Transferring from wheelchair to bed, lost his balance and fell onto a table and subsequently on to the floor * Denies hitting his head or LOC * Hip XR: There are no fractures or dislocations.Joint space narrowing, subchondral sclerosis, subchondral cyst formation and osteophyte formation, compatible with moderate osteoarthritis. * Abdomen/pelvis CT: Findings suggesting fecal impaction. Colonic diverticulosis without surrounding inflammatory change. Findings within the bladder suggesting cystitis for which clinical correlation is needed. Gallbladder distention without surrounding inflammatory change. * Head CT: No evidence for acute intracranial hemorrhage or calvarial fracture. No evidence for cervical spine fracture or traumatic subluxation. Multilevel degenerative changes of the cervical spine. * Cervical spine CT: No evidence for cervical spine fracture or traumatic subluxation. Multilevel degenerative changes of the cervical spine. * Fall precautions * PT/OT evals (7) Contusion of right shoulder: Qualifiers: Encounter type: initial encounter Qualified Code(s): S40.011A - Contusion of right shoulder, initial encounter Code(s): S40.011A - Contusion of right shoulder, initial encounter Status: Acute Assessment and Plan: * See above * Shoulder x-ray: There are no fractures or dislocations.Joint space narrowing, subchondral sclerosis, subchondral cyst formation and osteophyte formation, compatible with mild osteoarthritis. Chronic interstitial findings in the partially visualized right lung. Right lung base consolidation. Subjective Date/time seen: 01/18/25 07:41 Interval history: 81-year-old male with history of AFib status post ablation, hypertension, hyperlipidemia, glaucoma who presents to the ED for weakness. provides majority of the history. states that patient this morning and was acting rather weak. 01/18/2025 Patient sitting comfortably in bed at time examination. Denies any chest pain, shortness of breath, nausea/vomiting, abdominal pain at this time. Admitted for UTI/COVID, will continue remdesivir and IV antibiotic therapy for UTI while cultures are pending. Blood cultures pending. PT/OT evaluations are pending. Patient remains afebrile, leukocytosis has resolved. No major electrolyte abnormalities besides chronic hyponatremia. Patient otherwise has no complaints or concerns. Review of Systems Review of Systems: All systems reviewed & are unremarkable except as noted in HPI and below Exam Narrative: Weight 99 kg BMI 29.6 Objective Data Vital Signs Vital Signs: Vital Signs - 24 hr 01/17/25 11:12 01/17/25 11:57 01/17/25 12:00 Temperature 100.5 F H 99.2 F 99.2 F Pulse Rate 103 H 99 96 Respiratory Rate 17 18 18 Blood Pressure 155/80 H 185/89 H 128/89 Pulse Oximetry 94 92 97 Oxygen Delivery Room Air Room Air 01/17/25 12:04 01/17/25 13:14 01/17/25 14:46 Temperature Pulse Rate 94 89 Respiratory Rate 16 16 Blood Pressure 137/84 143/79 H Pulse Oximetry 96 95 94 Oxygen Delivery Room Air 01/17/25 15:21 01/17/25 16:24 01/17/25 16:53 Temperature Pulse Rate 92 97 102 H Respiratory Rate 16 17 16 Blood Pressure 160/61 H 155/78 H 150/80 H Pulse Oximetry 95 96 96 Oxygen Delivery 01/17/25 18:05 01/17/25 18:45 01/17/25 20:08 Temperature Pulse Rate 89 94 93 Respiratory Rate 16 17 16 Blood Pressure 152/66 H 140/77 155/76 H Pulse Oximetry 95 96 97 Oxygen Delivery 01/17/25 20:33 01/17/25 22:25 01/18/25 00:17 Temperature 100.2 F H 101 F H Pulse Rate 93 99 Respiratory Rate 16 18 Blood Pressure 155/76 H 152/69 H Pulse Oximetry 97 98 Oxygen Delivery 01/18/25 01:23 Temperature 99 F Pulse Rate Respiratory Rate Blood Pressure Pulse Oximetry Oxygen Delivery Intake/Output Intake/Output: Intake & Output 01/15/25 01/16/25 01/17/25 01/18/25 23:59 23:59 23:59 23:59 Intake Total 3100 Output Total 200 Balance 2900 Meds/Results Medications: Active Medications Generic Name Dose Route Start Last Admin Trade Name Freq PRN Reason Stop Dose Admin Acetaminophen 650 mg 01/17/25 23:11 01/18/25 00:17 Acetaminophen 325 Mg Tablet PO 650 mg Q4H PRN Administration Mild Pain (1-3) or Fever Al Hydrox/Mg Hydrox/Simethicone 30 ml 01/18/25 00:42 Mag Hydrox/Al Hydrox/Simeth 30 Ml Udc PO Q6H PRN Indigestion Amlodipine Besylate 2.5 mg 01/18/25 21:00 Amlodipine Besylate 2.5 Mg Tablet PO HS [facility] Aspirin 81 mg 01/18/25 09:00 Aspirin 81 Mg Enteric Tablet PO QAM [facility] Calcium Polycarbophil 1,250 mg 01/18/25 09:00 Calcium Polycarbophil 625 Mg Tablet PO BID [facility] Ceftriaxone Sodium 1 gm/ 50 mls @ 100 mls/hr 01/18/25 16:00 Sodium Chloride IVPB Q24H [facility] Remdesivir 100 mg in 250 mls @ 250 mls/hr 01/18/25 22:00 IVPB 01/21/25 22:59 Q24H [facility] Latanoprost 1 drop 01/18/25 21:00 Latanoprost 0.005% Op Soln 2.5 Ml Btl EACH EYE HS [facility] Magnesium Oxide 200 mg 01/18/25 09:00 Magnesium Oxide 200 Mg Tablet PO DAILY [facility] Metoprolol Succinate 25 mg 01/18/25 00:45 01/18/25 01:22 Metoprolol Succinate Ext Rel 25 Mg Tabcr PO 25 mg BID [facility] Administration Vitamin K2 100 Mcg 1 each 01/18/25 09:00 XX 01/19/25 08:59 DAILY [facility] Olmesartan 40 mg 01/18/25 09:00 Olmesartan Medoxomil 20 Mg Tablet PO QAM [facility] Ondansetron HCl 4 mg 01/18/25 00:42 Ondansetron Inj 4 Mg/2 Ml Vial IV PUSH Q6H PRN Nausea And Vomiting Polyethylene Glycol 17 gm 01/18/25 09:00 Polyethylene Glycol 3350 17 Gm Powd.Pack PO BID [facility] Sodium Chloride 1 gm 01/18/25 00:45 01/18/25 01:22 Sodium Chloride 1 Gm Tablet PO 1 gm BID [facility] Administration Timolol Maleate 1 drop 01/18/25 00:50 01/18/25 01:23 Timolol Maleate 0.5% Op Soln 5 Ml Bottle EACH EYE 1 drop BID [facility] Administration Vitamin D 25 mcg 01/18/25 09:00 Cholecalciferol (Vitamin D3) 25 Mcg (1,000 Units) Tablet PO DAILY [facility] Radiology Results: ITS Impressions Cervical Spine CT 01/17/25 14:28 IMPRESSION: 1. No evidence for acute intracranial hemorrhage or calvarial fracture. 2. No evidence for cervical spine fracture or traumatic subluxation. 3. Multilevel degenerative changes of the cervical spine. Head CT 01/17/25 14:28 IMPRESSION: 1. No evidence for acute intracranial hemorrhage or calvarial fracture. 2. No evidence for cervical spine fracture or traumatic subluxation. 3. Multilevel degenerative changes of the cervical spine. Abdomen/Pelvis CT 01/17/25 14:47 IMPRESSION: Findings suggesting fecal impaction. Colonic diverticulosis without surrounding inflammatory change. Findings within the bladder suggesting cystitis for which clinical correlation is needed. Gallbladder distention without surrounding inflammatory change. Chest X-Ray 01/17/25 15:02 IMPRESSION: 1. 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 Labs Labs: Laboratory Results - last 24 hr 01/17/25 01/17/25 01/17/25 13:08 13:08 13:08 WBC 13.7 H RBC 5.35 Hgb 15.3 D Hct 47.1 MCV 88.0 MCH 28.6 MCHC 32.5 RDW 13.2 Plt Count 200 MPV 8.8 Immature Gran % (Auto) 0.7 H Neut % (Auto) 88.7 H Lymph % (Auto) 6.2 L [place] % (Auto) 4.2 Eos % (Auto) 0.1 Baso % (Auto) 0.1 L Lymph # (Auto) 0.85 L [place] # (Auto) 0.6 Eos # (Auto) 0.0 Baso # (Auto) 0.0 Abs Immat Gran (auto) 0.10 H Absolute Neuts (auto) 12.2 H Absolute Nucleated RBC 0.000 Nucleated RBC % 0.0 PT 13.9 INR 1.1 APTT 31.2 Sodium Cancelled 128 L Potassium Cancelled 4.3 Chloride Cancelled Carbon Dioxide Anion Gap BUN Creatinine Estim Creat Clear Calc Estimated GFR Glucose Lactic Acid Calcium Magnesium Total Bilirubin AST ALT Alkaline Phosphatase Troponin I C-Reactive Protein Total Protein Albumin Urine Color Urine Appearance Urine pH Ur Specific [place] Urine Protein Urine Glucose (UA) Urine Ketones Ur Blood (Man) Urine Nitrate Urine Bilirubin Urine Urobilinogen Add Ur Microanalysis Leukocyte Esterase Rfl Urine RBC Urine WBC Ur Squamous Epith Cells Urine Bacteria Urine Casts Influenza A (RT-PCR) Influenza B (RT-PCR) RSV (RT-PCR) SARS-CoV-2 RNA (RT-PCR) 01/17/25 01/17/25 01/17/25 13:08 13:08 13:08 WBC RBC Hgb Hct MCV MCH MCHC RDW Plt Count MPV Immature Gran % (Auto) Neut % (Auto) Lymph % (Auto) [place] % (Auto) Eos % (Auto) Baso % (Auto) Lymph # (Auto) [place] # (Auto) Eos # (Auto) Baso # (Auto) Abs Immat Gran (auto) Absolute Neuts (auto) Absolute Nucleated RBC Nucleated RBC % PT INR APTT Sodium Potassium Chloride 92 L Carbon Dioxide Cancelled 26 Anion Gap Cancelled 10 BUN Cancelled Creatinine Estim Creat Clear Calc Estimated GFR Glucose Lactic Acid Calcium Magnesium Total Bilirubin AST ALT Alkaline Phosphatase Troponin I C-Reactive Protein Total Protein Albumin Urine Color Urine Appearance Urine pH Ur Specific [place] Urine Protein Urine Glucose (UA) Urine Ketones Ur Blood (Man) Urine Nitrate Urine Bilirubin Urine Urobilinogen Add Ur Microanalysis Leukocyte Esterase Rfl Urine RBC Urine WBC Ur Squamous Epith Cells Urine Bacteria Urine Casts Influenza A (RT-PCR) Influenza B (RT-PCR) RSV (RT-PCR) SARS-CoV-2 RNA (RT-PCR) 01/17/25 01/17/25 01/17/25 13:08 13:08 13:08 WBC RBC Hgb Hct MCV MCH MCHC RDW Plt Count MPV Immature Gran % (Auto) Neut % (Auto) Lymph % (Auto) [place] % (Auto) Eos % (Auto) Baso % (Auto) Lymph # (Auto) [place] # (Auto) Eos # (Auto) Baso # (Auto) Abs Immat Gran (auto) Absolute Neuts (auto) Absolute Nucleated RBC Nucleated RBC % PT INR APTT Sodium Potassium Chloride Carbon Dioxide Anion Gap BUN 14 Creatinine Cancelled 0.82 Estim Creat Clear Calc Cancelled 60 Estimated GFR Cancelled Glucose Lactic Acid Calcium Magnesium Total Bilirubin AST ALT Alkaline Phosphatase Troponin I C-Reactive Protein Total Protein Albumin Urine Color Urine Appearance Urine pH Ur Specific [place] Urine Protein Urine Glucose (UA) Urine Ketones Ur Blood (Man) Urine Nitrate Urine Bilirubin Urine Urobilinogen Add Ur Microanalysis Leukocyte Esterase Rfl Urine RBC Urine WBC Ur Squamous Epith Cells Urine Bacteria Urine Casts Influenza A (RT-PCR) Influenza B (RT-PCR) RSV (RT-PCR) SARS-CoV-2 RNA (RT-PCR) 01/17/25 01/17/25 01/17/25 13:08 13:08 13:08 WBC RBC Hgb Hct MCV MCH MCHC RDW Plt Count MPV Immature Gran % (Auto) Neut % (Auto) Lymph % (Auto) [place] % (Auto) Eos % (Auto) Baso % (Auto) Lymph # (Auto) [place] # (Auto) Eos # (Auto) Baso # (Auto) Abs Immat Gran (auto) Absolute Neuts (auto) Absolute Nucleated RBC Nucleated RBC % PT INR APTT Sodium Potassium Chloride Carbon Dioxide Anion Gap BUN Creatinine Estim Creat Clear Calc Estimated GFR > 60 Glucose Cancelled 140 H Lactic Acid 1.3 Calcium Cancelled 9.4 Magnesium Cancelled Total Bilirubin AST ALT Alkaline Phosphatase Troponin I C-Reactive Protein Total Protein Albumin Urine Color Urine Appearance Urine pH Ur Specific [place] Urine Protein Urine Glucose (UA) Urine Ketones Ur Blood (Man) Urine Nitrate Urine Bilirubin Urine Urobilinogen Add Ur Microanalysis Leukocyte Esterase Rfl Urine RBC Urine WBC Ur Squamous Epith Cells Urine Bacteria Urine Casts Influenza A (RT-PCR) Influenza B (RT-PCR) RSV (RT-PCR) SARS-CoV-2 RNA (RT-PCR) 01/17/25 01/17/25 01/17/25 13:08 13:08 13:08 WBC RBC Hgb Hct MCV MCH MCHC RDW Plt Count MPV Immature Gran % (Auto) Neut % (Auto) Lymph % (Auto) [place] % (Auto) Eos % (Auto) Baso % (Auto) Lymph # (Auto) [place] # (Auto) Eos # (Auto) Baso # (Auto) Abs Immat Gran (auto) Absolute Neuts (auto) Absolute Nucleated RBC Nucleated RBC % PT INR APTT Sodium Potassium Chloride Carbon Dioxide Anion Gap BUN Creatinine Estim Creat Clear Calc Estimated GFR Glucose Lactic Acid Calcium Magnesium 1.9 Total Bilirubin Cancelled 1.4 H AST Cancelled 34 ALT Cancelled Alkaline Phosphatase Troponin I C-Reactive Protein Total Protein Albumin Urine Color Urine Appearance Urine pH Ur Specific [place] Urine Protein Urine Glucose (UA) Urine Ketones Ur Blood (Man) Urine Nitrate Urine Bilirubin Urine Urobilinogen Add Ur Microanalysis Leukocyte Esterase Rfl Urine RBC Urine WBC Ur Squamous Epith Cells Urine Bacteria Urine Casts Influenza A (RT-PCR) Influenza B (RT-PCR) RSV (RT-PCR) SARS-CoV-2 RNA (RT-PCR) 01/17/25 01/17/25 01/17/25 13:08 13:08 13:08 WBC RBC Hgb Hct MCV MCH MCHC RDW Plt Count MPV Immature Gran % (Auto) Neut % (Auto) Lymph % (Auto) [place] % (Auto) Eos % (Auto) Baso % (Auto) Lymph # (Auto) [place] # (Auto) Eos # (Auto) Baso # (Auto) Abs Immat Gran (auto) Absolute Neuts (auto) Absolute Nucleated RBC Nucleated RBC % PT INR APTT Sodium Potassium Chloride Carbon Dioxide Anion Gap BUN Creatinine Estim Creat Clear Calc Estimated GFR Glucose Lactic Acid Calcium Magnesium Total Bilirubin AST ALT 17 Alkaline Phosphatase Cancelled 84 Troponin I < 0.012 C-Reactive Protein Cancelled 4.2 H Total Protein Cancelled Albumin Urine Color Urine Appearance Urine pH Ur Specific [place] Urine Protein Urine Glucose (UA) Urine Ketones Ur Blood (Man) Urine Nitrate Urine Bilirubin Urine Urobilinogen Add Ur Microanalysis Leukocyte Esterase Rfl Urine RBC Urine WBC Ur Squamous Epith Cells Urine Bacteria Urine Casts Influenza A (RT-PCR) Influenza B (RT-PCR) RSV (RT-PCR) SARS-CoV-2 RNA (RT-PCR) 01/17/25 01/17/25 01/17/25 13:08 13:08 14:01 WBC RBC Hgb Hct MCV MCH MCHC RDW Plt Count MPV Immature Gran % (Auto) Neut % (Auto) Lymph % (Auto) [place] % (Auto) Eos % (Auto) Baso % (Auto) Lymph # (Auto) [place] # (Auto) Eos # (Auto) Baso # (Auto) Abs Immat Gran (auto) Absolute Neuts (auto) Absolute Nucleated RBC Nucleated RBC % PT INR APTT Sodium Potassium Chloride Carbon Dioxide Anion Gap BUN Creatinine Estim Creat Clear Calc Estimated GFR Glucose Lactic Acid Calcium Magnesium Total Bilirubin AST ALT Alkaline Phosphatase Troponin I C-Reactive Protein Total Protein 7.9 Albumin Cancelled 4.3 Urine Color Yellow Urine Appearance Clear Urine pH 7.5 Ur Specific [place] 1.018 Urine Protein 2+ H Urine Glucose (UA) Negative Urine Ketones Trace H Ur Blood (Man) 2+ H Urine Nitrate Positive H Urine Bilirubin Negative Urine Urobilinogen 0.2 Add Ur Microanalysis Reviewed Leukocyte Esterase Rfl Trace H Urine RBC 21-50 H Urine WBC 11-20 H Ur Squamous Epith Cells None seen Urine Bacteria None seen Urine Casts 0-2 Influenza A (RT-PCR) Influenza B (RT-PCR) RSV (RT-PCR) SARS-CoV-2 RNA (RT-PCR) 01/17/25 01/17/25 01/18/25 16:08 16:14 05:23 WBC 6.8 RBC 4.23 L Hgb 12.0 L D Hct 37.5 L MCV 88.7 MCH 28.4 MCHC 32.0 RDW 13.4 Plt Count 158 MPV 8.8 Immature Gran % (Auto) Neut % (Auto) Lymph % (Auto) [place] % (Auto) Eos % (Auto) Baso % (Auto) Lymph # (Auto) [place] # (Auto) Eos # (Auto) Baso # (Auto) Abs Immat Gran (auto) Absolute Neuts (auto) Absolute Nucleated RBC Nucleated RBC % PT INR APTT Sodium 129 L Potassium 3.8 Chloride 99 Carbon Dioxide 24 Anion Gap 6 BUN 12 Creatinine 0.78 Estim Creat Clear Calc 62 Estimated GFR > 60 Glucose 101 Lactic Acid Calcium 7.9 L Magnesium Total Bilirubin AST ALT Alkaline Phosphatase Troponin I < 0.012 C-Reactive Protein Total Protein Albumin Urine Color Urine Appearance Urine pH Ur Specific [place] Urine Protein Urine Glucose (UA) Urine Ketones Ur Blood (Man) Urine Nitrate Urine Bilirubin Urine Urobilinogen Add Ur Microanalysis Leukocyte Esterase Rfl Urine RBC Urine WBC Ur Squamous Epith Cells Urine Bacteria Urine Casts Influenza A (RT-PCR) Negative Influenza B (RT-PCR) Negative RSV (RT-PCR) Negative SARS-CoV-2 RNA (RT-PCR) Positive A
[2025-01-18] MEDS: MAGNESIUM OXIDE 200 MG TABLET PO (09:22)
[2025-01-18] MEDS: OLMESARTAN MEDOXOMIL 20 MG TABLET 40 MG PO (09:22)
[2025-01-18] MEDS: ASPIRIN 81 MG ENTERIC TABLET PO (09:22)
[2025-01-18] MEDS: CHOLECALCIFEROL (VITAMIN D3) 25 MCG (1,000 UNITS) TABLET PO (09:22)
[2025-01-18] MEDS: cefTRIAXone 1 GM in SODIUM CHLORIDE 0.9% IV 50 ML 100 ML IVPB (16:04)
[2025-01-18] MEDS: REMDESIVIR 100 MG/NS 250 ML 100 MG/250 ML BAG 250 MG IVPB (21:50)
[2025-01-18] MEDS: LATANOPROST 0.005% OP SOLN 2.5 ML BTL 1 DROP EACH EYE (21:51)
[2025-01-19 05:21] LABS: Alanine Aminotransferase 13 U/L (6-50); Albumin Level 2.9 g/dL (3.5-5.1); Alkaline Phosphatase 49 U/L (38-126); Aspartate Amino Transferase 31 U/L (17-59); Bilirubin,Total 0.4 mg/dL (0.2-1.3); Total Protein 5.6 g/dL (6.3-8.2)
[2025-01-19 05:37] LABS: INR 1.2; Prothrombin Time 15.4 Seconds (11.1-14.7)
[2025-01-19 06:00] VITALS: BP 127/52; PULSE 67; RESP 16; TEMP 36.7; O2SAT 93
--- NOTE | 2025-01-19 08:22 | P.PNIM_ITS ---
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 -Viral panel: Positive for COVID -Started on remdesivir 100 mg Q 24 hours - continue treatment according to suggested guidelines. Remdesivir 200 mg IV x1, then 100 mg IV x4 days (2) Sepsis: Qualifiers: Sepsis acute organ dysfunction status: without acute organ dysfunction Sepsis type: sepsis due to unspecified organism Qualified Code(s): A41.9 - Sepsis, unspecified organism Code(s): A41.9 - Sepsis, unspecified organism Status: Acute Assessment and Plan: -Met SIRS criteria: leukocytosis, tachycardia, fever -lactic acid: 1.3 - s/p 30 mL/kg, 1 L at 100 mL/hour -suspected source: UTI, COVID -blood cultures drawn on 01/17 -UA: 11-20 WBC, 21-50 RBC, trace leukocyte esterase, positive nitrates. Urine culture negative. -CXR: Stable appearance of small lung volumes with peripheral and lower lung predominant coarse reticular opacities consistent with chronic interstitial lung disease -suspect secondary to COVID. Stop antibiotics. -01/18: WBC down from 13.7-6.8 (3) Chronic hyponatremia: Code(s): E87.1 - Hypo-osmolality and hyponatremia Status: Acute Assessment and Plan: -History of chronic hyponatremia, sodium appears stable compared to his baseline -01/18: Na 129 -Will resume home sodium chloride tablets - repeat BMP pending (4) Contusion of right shoulder: Qualifiers: Encounter type: initial encounter Qualified Code(s): S40.011A - Contusion of right shoulder, initial encounter Code(s): S40.011A - Contusion of right shoulder, initial encounter Status: Acute Assessment and Plan: -See above -Shoulder x-ray: There are no fractures or dislocations.Joint space narrowing, subchondral sclerosis, subchondral cyst formation and osteophyte formation, compatible with mild osteoarthritis. Chronic interstitial findings in the partially visualized right lung. Right lung base consolidation. (5) Ground-level fall: Code(s): W18.30XA - Fall on same level, unspecified, initial encounter Status: Acute Assessment and Plan: -Transferring from wheelchair to bed, lost his balance and fell onto a table and subsequently on to the floor -Denies hitting his head or LOC -Hip XR: There are no fractures or dislocations.Joint space narrowing, subchondral sclerosis, subchondral cyst formation and osteophyte formation, compatible with moderate osteoarthritis. -Abdomen/pelvis CT: Findings suggesting fecal impaction. Colonic diverticulosis without surrounding inflammatory change. Findings within the bladder suggesting cystitis for which clinical correlation is needed. Gallbladder distention without surrounding inflammatory change. -Head CT: No evidence for acute intracranial hemorrhage or calvarial fracture. No evidence for cervical spine fracture or traumatic subluxation. Multilevel degenerative changes of the cervical spine. -Cervical spine CT: No evidence for cervical spine fracture or traumatic subluxation. Multilevel degenerative changes of the cervical spine. -Fall precautions -PT/OT evals (6) Generalized weakness: Code(s): R53.1 - Weakness Status: Acute Assessment and Plan: -Likely secondary to problems listed above, underlying COVID infection -PT/OT to eval -Head CT negative for acute findings -Glucose WNL -Chronic hyponatremia, but no other major electrolyte abnormalities -Troponin negative -EKG: Sinus rhythm with first-degree AV block, right axis deviation, intraventricular conduction delay, no acute ST or T-wave changes (7) Chronic interstitial lung disease: Code(s): J84.9 - Interstitial pulmonary disease, unspecified Status: Acute Assessment and Plan: - on RA Subjective Date/time seen: 01/19/25 08:22 Interval history: 89-year-old male with a past medical history of essential hypertension, chronic hypo natremia, glaucoma, right upper lobe pneumectomy 1994, obstructive sleep apnea who presented to the ER from home via EMS due to ground level fall. Patient seen and examined at bedside. Feeling better today. Denies SOB. Has mild cough. Review of Systems Review of Systems: All systems reviewed & are unremarkable except as noted in HPI and below Objective Data Vital Signs Vital Signs: Vital Signs - 24 hr 01/18/25 09:23 01/18/25 14:21 01/18/25 16:08 Temperature 98.6 F Pulse Rate 76 74 74 Respiratory Rate 18 Blood Pressure 142/70 H Pulse Oximetry 97 Oxygen Delivery Fraction of Inspired Oxygen 01/18/25 21:08 01/18/25 22:14 01/19/25 06:00 Temperature 97.9 F 98.1 F Pulse Rate 66 69 67 Respiratory Rate 20 16 16 Blood Pressure 150/52 H 127/52 L Pulse Oximetry 94 93 93 Oxygen Delivery Room Air Fraction of Inspired Oxygen 21 Intake/Output Intake/Output: Intake & Output 01/16/25 01/17/25 01/18/25 01/19/25 23:59 23:59 23:59 23:59 Intake Total 3100 1380 500 Output Total 200 1550 2000 Balance 2900 -170 -1500 Meds/Results Medications: Active Medications Generic Name Dose Route Start Last Admin Trade Name Freq PRN Reason Stop Dose Admin Acetaminophen 650 mg 01/17/25 23:11 01/18/25 00:17 Acetaminophen 325 Mg Tablet PO 650 mg Q4H PRN Administration Mild Pain (1-3) or Fever Al Hydrox/Mg Hydrox/Simethicone 30 ml 01/18/25 00:42 Mag Hydrox/Al Hydrox/Simeth 30 Ml Udc PO Q6H PRN Indigestion Albuterol 2 puff 01/19/25 01:38 Albuterol Sulfate (*Sp) Aerosol 1 Puff INHALATION Q6HRT PRN Shortness Of Breath Amlodipine Besylate 2.5 mg 01/18/25 21:00 01/18/25 21:50 Amlodipine Besylate 2.5 Mg Tablet PO 2.5 mg HS MAXIMO Administration Aspirin 81 mg 01/18/25 09:00 01/18/25 09:22 Aspirin 81 Mg Enteric Tablet PO 81 mg QAM MAXIMO Administration Calcium Polycarbophil 1,250 mg 01/18/25 09:00 01/18/25 16:05 Calcium Polycarbophil 625 Mg Tablet PO 1,250 mg BID MAXIMO Administration Ceftriaxone Sodium 1 gm/ 50 mls @ 100 mls/hr 01/18/25 16:00 01/18/25 16:04 Sodium Chloride IVPB 100 mls/hr Q24H MAXIMO Administration Remdesivir 100 mg in 250 mls @ 250 mls/hr 01/18/25 22:00 01/18/25 21:50 IVPB 01/21/25 22:59 250 mls/hr Q24H MAXIMO Administration Latanoprost 1 drop 01/18/25 21:00 01/18/25 21:51 Latanoprost 0.005% Op Soln 2.5 Ml Btl EACH EYE 1 drop HS MAXIMO Administration Magnesium Oxide 200 mg 01/18/25 09:00 01/18/25 09:22 Magnesium Oxide 200 Mg Tablet PO 200 mg DAILY MAXIMO Administration Metoprolol Succinate 25 mg 01/18/25 00:45 01/18/25 16:08 Metoprolol Succinate Ext Rel 25 Mg Tabcr PO 25 mg BID MAXIMO Administration Vitamin K2 100 Mcg 1 each 01/18/25 09:00 01/18/25 09:20 XX 01/19/25 08:59 Not Given DAILY MAXIMO Olmesartan 40 mg 01/18/25 09:00 01/18/25 09:22 Olmesartan Medoxomil 20 Mg Tablet PO 40 mg QAM MAXIMO Administration Ondansetron HCl 4 mg 01/18/25 00:42 Ondansetron Inj 4 Mg/2 Ml Vial IV PUSH Q6H PRN Nausea And Vomiting Polyethylene Glycol 17 gm 01/18/25 09:00 01/18/25 16:06 Polyethylene Glycol 3350 17 Gm Powd.Pack PO 17 gm BID MAXIMO Administration Sodium Chloride 1 gm 01/18/25 00:45 01/18/25 16:06 Sodium Chloride 1 Gm Tablet PO 1 gm BID MAXIMO Administration Timolol Maleate 1 drop 01/18/25 00:50 01/18/25 16:08 Timolol Maleate 0.5% Op Soln 5 Ml Bottle EACH EYE 1 drop BID MAXIMO Administration Vitamin D 25 mcg 01/18/25 09:00 01/18/25 09:22 Cholecalciferol (Vitamin D3) 25 Mcg (1,000 Units) Tablet PO 25 mcg DAILY MAXIMO Administration Radiology Results: ITS Impressions Cervical Spine CT 01/17/25 14:28 IMPRESSION: 1. No evidence for acute intracranial hemorrhage or calvarial fracture. 2. No evidence for cervical spine fracture or traumatic subluxation. 3. Multilevel degenerative changes of the cervical spine. Head CT 01/17/25 14:28 IMPRESSION: 1. No evidence for acute intracranial hemorrhage or calvarial fracture. 2. No evidence for cervical spine fracture or traumatic subluxation. 3. Multilevel degenerative changes of the cervical spine. Abdomen/Pelvis CT 01/17/25 14:47 IMPRESSION: Findings suggesting fecal impaction. Colonic diverticulosis without surrounding inflammatory change. Findings within the bladder suggesting cystitis for which clinical correlation is needed. Gallbladder distention without surrounding inflammatory change. Chest X-Ray 01/17/25 15:02 IMPRESSION: 1. 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 Labs Labs: Laboratory Results - last 24 hr 01/19/25 05:02 PT 15.4 H INR 1.2 Total Bilirubin 0.4 Direct Bilirubin 0.0 AST 31 ALT 13 Alkaline Phosphatase 49 Total Protein 5.6 L Albumin 2.9 L
[2025-01-19] MEDS: CHOLECALCIFEROL (VITAMIN D3) 25 MCG (1,000 UNITS) TABLET PO (09:24)
[2025-01-19] MEDS: OLMESARTAN MEDOXOMIL 20 MG TABLET 40 MG PO (09:24)
[2025-01-19] MEDS: SODIUM CHLORIDE 1 GM TABLET PO ×2 (09:24→16:50)
[2025-01-19 09:25] VITALS: PULSE 69
[2025-01-19] MEDS: METOPROLOL SUCCINATE EXT REL 25 MG TABCR PO ×2 (09:25→16:48)
[2025-01-19] MEDS: ASPIRIN 81 MG ENTERIC TABLET PO (09:26)
[2025-01-19] MEDS: TIMOLOL MALEATE 0.5% OP SOLN 5 ML BOTTLE 1 DROP EACH EYE ×2 (09:26→16:50)
[2025-01-19] MEDS: MAGNESIUM OXIDE 200 MG TABLET PO (09:26)
--- NOTE | 2025-01-19 09:28 | PCPTNOTE ---
Attempted evaluation 09, patient on bedpan and requests therapist come back later.
[2025-01-19 13:34] LABS: Hematocrit 37.5 % (42.0-52.0); Hemoglobin 11.7 g/dL (14.0-18.0); Immature Granulocyte Percent A 0.2 % (0-0.5); Lymphocytes Absolute Auto 2.07 K/mm3 (0.9-3.2); Mean Corpuscular HGB Conc 31.2 g/dl (32-36); Mean Corpuscular Hemoglobin 28.2 pg (26-34); Mean Corpuscular Volume 90.4 fl (80-100); Nucleated Red Blood Cells Absolute Auto 0.000 K/mm3 (0.0-0.012); Nucleated Red Blood Cells Perc 0.0 % (0.0-0.2); Platelet Count Result 162 k/mm3 (150-375); Red Blood Count 4.15 M/mm3 (4.6-6.20); White Blood Count 6.7 K/mm3 (4.5-10.0)
[2025-01-19 13:37] LABS: Anion Gap 4 mmol/L (4-12); Blood Urea Nitrogen 14 mg/dL (9-20); Calcium 8.0 mg/dL (8.4-10.2); Carbon Dioxide 25 mmol/L (22-30); Chloride 99 mmol/L (98-107); Estimated CRCL calculation 76 ml/min; Estimated Glomerular Filt Rate > 60; Glucose 94 mg/dL (65-110); Potassium 3.8 mmol/L (3.4-5.0); Sodium 128 mmol/L (137-145)
[2025-01-19 14:11] VITALS: BP 143/61; PULSE 61; RESP 16; TEMP 36.4; O2SAT 94
[2025-01-19 16:48] VITALS: PULSE 68
[2025-01-19 19:50] VITALS: PULSE 68; O2SAT 94
[2025-01-19] MEDS: LATANOPROST 0.005% OP SOLN 2.5 ML BTL 1 DROP EACH EYE (21:25)
[2025-01-19] MEDS: REMDESIVIR 100 MG/NS 250 ML 100 MG/250 ML BAG 250 MG IVPB (21:34)
[2025-01-19 22:00] VITALS: BP 179/77; PULSE 67; RESP 18; O2SAT 97
[2025-01-20 06:00] VITALS: BP 152/88; PULSE 62; RESP 16; TEMP 36.9; O2SAT 94
[2025-01-20 07:21] LABS: Anion Gap 4 mmol/L (4-12); Blood Urea Nitrogen 12 mg/dL (9-20); Calcium 8.1 mg/dL (8.4-10.2); Carbon Dioxide 29 mmol/L (22-30); Chloride 96 mmol/L (98-107); Estimated CRCL calculation 74 ml/min; Estimated Glomerular Filt Rate > 60; Glucose 97 mg/dL (65-110); Potassium 3.9 mmol/L (3.4-5.0); Sodium 129 mmol/L (137-145)
[2025-01-20] MEDS: OLMESARTAN MEDOXOMIL 20 MG TABLET 40 MG PO (08:42)
[2025-01-20] MEDS: CHOLECALCIFEROL (VITAMIN D3) 25 MCG (1,000 UNITS) TABLET PO (08:43)
[2025-01-20] MEDS: ASPIRIN 81 MG ENTERIC TABLET PO (08:43)
[2025-01-20] MEDS: MAGNESIUM OXIDE 200 MG TABLET PO (08:43)
[2025-01-20] MEDS: SODIUM CHLORIDE 1 GM TABLET PO (08:43)
[2025-01-20 08:44] VITALS: PULSE 66
[2025-01-20] MEDS: METOPROLOL SUCCINATE EXT REL 25 MG TABCR PO (08:44)
[2025-01-20] MEDS: TIMOLOL MALEATE 0.5% OP SOLN 5 ML BOTTLE 1 DROP EACH EYE (08:44)
--- NOTE | 2025-01-20 13:48 | P.DS_ITS ---
DS: Admitting Diagnosis Discharge Date 01/20/25 Admitting Diagnosis - COVID- 19 - Sepsis - Abnormal UA - Chronic hyponatremia - contusion of shoulder - Ground-level fall -generalized weakness - chronic intersitial lung disease DS: Discharge Diagnosis Discharge Diagnosis (1) COVID-19: Code(s): U07.1 - COVID-19 Status: Acute (2) Sepsis: Qualifiers: Sepsis type: sepsis due to unspecified organism Sepsis acute organ dysfunction status: without acute organ dysfunction Qualified Code(s): A41.9 - Sepsis, unspecified organism Code(s): A41.9 - Sepsis, unspecified organism Status: Acute (3) Chronic hyponatremia: Code(s): E87.1 - Hypo-osmolality and hyponatremia Status: Acute (4) Contusion of right shoulder: Qualifiers: Encounter type: initial encounter Qualified Code(s): S40.011A - Contusion of right shoulder, initial encounter Code(s): S40.011A - Contusion of right shoulder, initial encounter Status: Acute (5) Ground-level fall: Code(s): W18.30XA - Fall on same level, unspecified, initial encounter Status: Acute (6) Generalized weakness: Code(s): R53.1 - Weakness Status: Acute (7) Chronic interstitial lung disease: Code(s): J84.9 - Interstitial pulmonary disease, unspecified Status: Acute DS: Summary Hospital Course Reason for hospitalization: - COVID- 19 - Sepsis - Abnormal UA - Chronic hyponatremia - contusion of shoulder - Ground-level fall -generalized weakness - chronic intersitial lung disease Hospital Course: 89-year-old male with a past medical history of essential hypertension, chronic hyponatremia, glaucoma, right upper lobe pneumectomy 1994, obstructive sleep apnea who presented to the ER from home via EMS due to ground level fall. In the ED, urinalysis was suggestive of infection and CT of the abdomen and pelvis demonstrated evidence of possible cystitis and findings suggestive of fecal impaction. Gallbladder was also distended but did not have any surrounding erythema or inflammation to suggest cholecystitis. XR Shoulder, XR pelvis, CT head and CT C-spine with no acute injury. Patient denied any abdominal exam. Patient was found to be meeting sepsis criteria with leukocytosis, tachycardia fever. Received 30 cc/kg bolus and was started on IV Rocephin for suspected UTI. Sodium 128. Patient tested positive for COVID-19. He was admitted for further management. While admitted, patient received IV fluids and was started on IV remdesivir. He remained on room air. Patient remained afebrile and leukocytosis resolved. Urine culture resulted with no growth so IV Rocephin was stopped. Blood cultures remained negative. Feel that patient's presenting weakness and fevers likely secondary to COVID-19 infection. Sodium was 129 on discharge which is patient's baseline. He will continue salt tabs as prescribed and follows with nephrology as outpatient. Patient overall symptomatically improved, but remained generally weak. Patient was evaluated by PT/OT and mcc was recommended. Patient was discharged to [facility] in stable condition. Status at Discharge Functional status at discharge: uses cane/walker Overall status at discharge: patient is progressing back to baseline Time Spent with Patient Time attestation: Total time spent providing and/or coordinating discharge services: Time spent: Greater than 30 minutes Exam Narrative: General: NAD. Appears deconditioned. Eyes: EOMI ENT: neck supple Cardiovascular: Regular rate and rhythm Respiratory: Clear to auscultation, respirations even and unlabored on RA Gastrointestinal: Soft, non tender Genitourinary: no suprapubic tenderness Musculoskeletal: No edema Skin: warm, dry Neuro: Alert. Psych: Mood appropriate DS: Data Data Completed and Pending Completed studies during hospitalization: - CT C-spine - CT head - Hip/Pelvis X-ray - Shoulder X-ray - chest x-ray Labs on day of discharge: Labs from last 24 hours 01/20/25 06:31 Sodium 129 L Potassium 3.9 Chloride 96 L Carbon Dioxide 29 Anion Gap 4 BUN 12 Creatinine 0.74 Estim Creat Clear Calc 74 Estimated GFR > 60 Glucose 97 Calcium 8.1 L Preliminary micro results at discharge 01/17/25 13:08 Blood Culture - Preliminary Blood 01/17/25 13:05 Blood Culture - Preliminary Blood Discharge Plan Discharge Attending physician on discharge: Rey Cruz Consulting providers: Bismark Pena; Estefani Gardiner Discharging Clinician: Estefani Gardiner Anticipated Discharge Date/Time: 01/20/25 13:45 Patient Disposition: [facility] Activity: as tolerated Diet: as tolerated Discharge Instructions: Take all medications as prescribed. Follow-up with your primary care provider in one week. Return to the emergency department if you develop chest pain, shortness of breath, persistent fever >100.4, confusion, loss of consciousness. Patient Instructions: COVID-19 (Coronavirus Disease 2019) (DC) Patient Language: Maltese Follow-up/Referrals: Pilar,Clay [Other] - Call for Appointment Referral Note: 1 week from discharge Discharge Medications: Continued latanoprost 0.005 % drops 1 drp EACH EYE HS metoprolol succinate 25 mg tablet extended release 24 hr 25 mg PO 0900 Rx Instructions: 1 tablet in AM olmesartan 40 mg tablet 40 mg PO DAILY aspirin 81 mg Tablet 81 mg PO DAILY magnesium 200 mg Tablet 200 mg PO DAILY timolol maleate (PF) 0.5 % Dropperette 1 drp EACH EYE BID Rx Instructions: morning and hs cholecalciferol (vitamin D3) [Vitamin D3] 25 mcg (1,000 unit) Tablet,Chewable 25 mcg PO DAILY coenzyme [id number] E 100-100 mg-unit Capsule 1 cap PO DAILY Rx Instructions: at lunch vitamin K2 100 mcg PO DAILY metoprolol succinate 25 mg tablet extended release 24 hr 25 mg PO DAILY@1700 sodium chloride 1,000 mg Tablet,Soluble 1,000 mg PO BID Qty: 60 0RF amlodipine 2.5 mg tablet 2.5 mg PO HS Metamucil See Rx Instructions .ROUTE .COMPLEX Rx Instructions: Take daily as directed Date of admission: 01/17/25 16:32 Primary Care Provider: Pilar,Clay Admitting Provider: Leonides Dhillon Attending physician on admission: Leonides Dhillon Condition: Stable
[2025-01-20 14:00] VITALS: BP 142/78; PULSE 68; RESP 16; TEMP 36.7; O2SAT 96
== END 2025-01-20 15:55 | DRG 871 ==
LOC: ANHED 12:12 → ANH3MED 19:39
PROVIDERS: Internal Medicine; Admitting Provider General Practice; Emergency Provider Student in an Organized Health Care Education/Training Program; Visit Provider Physician Assistant
DX: A41.89 Other specified sepsis (principal); U07.1 COVID-19; E87.1 Hypo-osmolality and hyponatremia; N39.0 Urinary tract infection, site not specified; J84.9 Interstitial pulmonary disease, unspecified; S40.011A Contusion of right shoulder, initial encounter; W08.XXXA Fall from other furniture, initial encounter; I10 Essential (primary) hypertension; G47.33 Obstructive sleep apnea (adult) (pediatric); H40.9 Unspecified glaucoma; R00.0 Tachycardia, unspecified; D72.829 Elevated white blood cell count, unspecified; E78.00 Pure hypercholesterolemia, unspecified; I48.91 Unspecified atrial fibrillation; F10.90 Alcohol use, unspecified, uncomplicated; Z87.891 Personal history of nicotine dependence; Z79.82 Long term (current) use of aspirin
CPT/HCPCS: 36415; 70450; 71045; 72125; 73030; 73502; 74177; 80048; 80053; 80076; 81001; 83605; 83735; 84484; 85025; 85027; 85610; 85730; 86140; 87040; 87086; 87637; 93005; 96361; 96365; 96375; 97110; 97161; 97165; 97530; 99285; A9270; J0248; J0696; J2405; J7030; Q9967